=== PATIENT | female | born 1940 | race Caucasian/White ===

== ENCOUNTER 2023-06-10 14:18 | Inpatient (IN) | payer MEDICARE, OTHER, SELFPAY ==
[2023-06-10] VITALS (9 sets, daily range): BP systolic 95–135; BP diastolic 54–102; BMI 37.5; BMI 36.2
--- NOTE | 2023-06-10 11:38 | ED.GENMED ---
History of Present Illness
General
Chief Complaint: Swelling
Time Seen by Provider: 06/10/23 11:08
Travel History
Have you had any contact with someone who has COVID-19?: No
Do you have any symptoms of coronavirus? Fever > 100 degrees, chills, cough, shortness of breath, sore throat, loss of taste or smell, muscle aches, or headache?: No
History of Present Illness
History of Present Illness:
83-year-old female with history of A-fib, CHF, coronary artery disease, hypertension, hyperlipidemia, GERD, aortic stenosis status post TAVR presents to the emergency department for evaluation of fluid retention. Had her Lasix increased to 80 mg
twice daily approximately 1 week ago however continues with lower extremity fluid retention. Saw her sales and training specialist this morning and was referred to the emergency department for admission and IV diuresis. She does report dyspnea on exertion but
denies dyspnea at rest or chest pain. No fevers or chills.
Last echo 10/31 showed EF of 50-55%
Past History
Past History
ED Past Medical History: Arrthythmia, CHF, COPD, GERD, Hypercholesterolemia, Valvular disease and Hypothyroidism
ED Past Surgical History: Cardiac and Orthopedic (Bunionectomy, bilateral knee replacement, right rotator cuff, back surgeries 2012, 2013)
Social History
Tobacco: Former smoker
Alcohol: None
Drug: None
Personal:
Living: alone
Employment: Employed
Family History
Family History: Other (Noncontributory)
Review of Systems
Review of Systems
Allergies reviewed?: Yes
All Other Systems: ROS reviewed and negative except as documented in HPI and ROS
Phy Exam
Physical Exam
Physical Exam:
GEN: Well appearing, NAD, WDWN
Eyes: PERRLA, EOMs intact, no scleral icterus
HENT: NCAT, oral mucosa moist
Lungs: CTAB, no wheezes, rales, rhonchi, normal chest wall excursion
Cardiac: RRR, S3 gallop heard, no obvious murmur radial pulses 2+ bilat
Neuro: AO x 3, no focal deficits to BUE/BLE, normal sensation throughout
MSK: No gross deformity or ecchymosis. 3+ pitting edema bilateral lower extremities noted above the knees
Skin: No rashes, petechiae. Normal color, no pallor or jaundice.
Psych: Calm, cooperative, proper hygiene
Scores
Heart Failure Risk
Heart Failure Risk Score: Not Applicable
Course
Orders/Labs/Results
Orders:
Orders
06/10/23 09:55
Electrocardiogram (*1) Urgent
Reason for Study: Other
Other Reason for Exam: Respiratory Distress
EKG- Treatment ONCE
06/10/23 Lunch
Cholesterol Lowering
06/10/23 11:34
Complete Blood Count/With Diff Urgent
Comprehensive Metabolic Panel Urgent
NT-proBNP Urgent
TSH Reflex To Free T4 Urgent
Comment: ADD
Troponin I Urgent
06/10/23 12:45
Furosemide [Lasix] 100 mg IV NOW STA
Potassium Chloride [KCl] 20 meq PO NOW STA
06/10/23 14:00
Admit/Transfer Patient As Directed
Co-Sign Provider:
Level of Care: Inpatient admission
Assign to:: Telemetry
Physician / Group: FARRAH/HOSPITALIST
Diagnosis: AECHF
Reason for Telemetry: Acute Heart Failure
Date to Stop Telemetry: 06/13/23
Time to Stop Telemetry: 11:00
Reason for Hospitalization: Acute Heart Failure
Expected length of stay greater than two midnights?: Yes
ELOS- Estimated Length of Stay in days: 4
I certify the patient meets the requirements for IP care: Yes
06/10/23 14:01
Code Status As Directed
Resuscitation Status: Full Code
06/10/23 14:05
Echo 2D MMode Color/Doppler Routine
Reason for Study: aechf
Cardiology Consult: Mirna Galindo
06/10/23 16:53
Budesonide [Pulmicort] 0.5 mg INH R BIDPRN PRN
Furosemide [Lasix] 80 mg IV BID AT 0800,1600
Ipratropium/Albuterol Sulfate [Duoneb] 3 ml INH R Q4HPRN PRN
06/10/23 16:53
CARDIOLOGY CONSULT Routine
Consulting Provider: Mirna Galindo
Was physician already notified: Yes
HF DIETARY CONSULT Routine
HF EDUCATOR CONSULT Routine
Comment:
Activity As Directed
Activity Level: Out of Bed-Early Mobility
Intake/ Output As Directed
Frequency: Per unit guidelines
Patient Education As Directed
Type: CHF folder
Comment: give on admission. Document in Interdisciplinary Education record
Sleep Apnea Assessment by RN As Directed
Comment:
Physician Instructions:
Vital Signs As Directed
Frequency: Other
Additional Instructions:: Q12 or per unit guidelines if more frequent.
Weight As Directed
Frequency: Daily
Type of Scale: Standing Scale
Comment: Daily morning weight. If unable to stand, use balanced bed scale.
Weight As Directed
Frequency: Once
Type of Scale: Standing Scale
Comment: Upon Admission. If unable to stand, use balanced bed scale.
Pulse Ox/cont/shift [RESP] Routine
Quantity: 1
Special Instructions: Daily pulse oximetry at rest. If greater than 92% at rest also obtain pulse oximetry
while ambulating as tolerated.
DX Deep Vein Thrombosis Video Routine
06/10/23 18:00
Enoxaparin Sodium [Lovenox] 40 mg SC QPM
06/10/23 20:00
Carbidopa/Levodopa Cr [Sinemet Cr 50/200 (Extended Release)] 1 tablet PO BID
06/10/23 22:00
Atorvastatin [Lipitor] 10 mg PO HS
Montelukast Sodium [Singulair] 10 mg PO HS
06/11/23 06:00
Basic Metabolic Panel IN AM
Magnesium IN AM
06/11/23 07:00
Levothyroxine [Synthroid] 50 mcg PO DAILY@0700
06/11/23 08:00
Aspirin Low Dose EC [Aspir Low (Enteric Coated)] 81 mg PO DAILY
Atenolol [Tenormin] 25 mg PO DAILY
Citalopram [Celexa] 20 mg PO DAILY
Famotidine [Pepcid] 40 mg PO DAILY
Pantoprazole [Protonix] 40 mg PO DAILY
tadalafil 2.5 mg PO DAILY
06/12/23 06:00
Basic Metabolic Panel IN AM
06/13/23 06:00
Basic Metabolic Panel IN AM
06/13/23 11:00
DC Protocol for Telemetry ONCE
Abnormal Lab Results
06/10/23
11:34
RBC 3.85 L 10^6/uL
(4.20-5.40)
Hgb 11.5 L g/dL
(12.0-16.0)
Hct 35.4 L %
(37.0-47.0)
MCHC 32.5 L g/dL
(33.0-37.0)
RDW 14.6 H %
(11.5-14.5)
MPV 10.6 H fL
(7.4-10.4)
Carbon Dioxide 34 H mmol/L
(22-30)
BUN 32 H mg/dl
(7-17)
06/10/23 11:34
06/10/23 11:34
Vital Signs
Initial and Last Documented VS:
Initial Vital Signs
Temp Pulse Resp BP Pulse Ox
97.7 F 70 16 135/67 95
06/10/23 09:51 06/10/23 09:51 06/10/23 09:51 06/10/23 09:51 06/10/23 09:51
Last Documented Vital Signs
Temp Pulse Resp BP Pulse Ox
97.7 F 69 13 95/60 98
06/10/23 09:51 06/10/23 15:30 06/10/23 15:30 06/10/23 15:00 06/10/23 15:30
MDM/Problems Addressed
MDM/Problems Addressed:
Patient is severely volume overloaded and failing high-dose outpatient diuresis. Per cardiology recommendations will admit for IV diuresis. She has no increased respiratory effort and chest x-ray is nonconcerning for acute CHF by my interpretation
Comment
Comment:
EKG independently interpreted by me shows normal sinus rhythm at a rate of 70, first-degree AV block and left bundle branch block noted, significant difficulty with interpretation due to patient motion artifact
*Critical Care Note
Total Time (30-74mins, 75-104mins- exclusive of procedures): Not Applicable
ED Attending Note
-
Portions of this chart may have been created with voice recognition software.� Occasional wrong word or��sound alike� substitutions may have occurred due to the inherent limitations of voice recognition software.
Discharge Plan
Departure
Patient Disposition: Admit
Date of Disposition: 06/10/23
Time of Disposition: 12:46
Presentation/result/management discussed w/ accepting MD/DO: Hospitalist
Discharge Problem:
Fluid retention, Failure of outpatient treatment
Interventions
Interventions:
*Risk Screen - Suicide Last Done: 06/10/23 09:51
*General Assessment Last Done: 06/10/23 09:51
*Neglect/Abuse Screening Last Done: 06/10/23 09:51
*ED COVID-19 Vaccine History Last Done: 06/10/23 11:08
*Nursing Disposition Last Done: 06/10/23 16:43
ED- Cardiac Assessment Last Done: 06/10/23 11:26
ED- Pulmonary Assessment Last Done: 06/10/23 11:26
ED-Skin Assessment Last Done: 06/10/23 11:26
Discharge Date and Time
Discharge Date/Time: 06/10/23 16:43
[2023-06-10 11:53] LABS: % Basophils 0.7 % (0-2); % Eosinophils 3.7 % (0-6); % Immature Granulocytes 0.2 % (0-0.5); % Lymphocytes 22.3 % (20.5-51.1); % Monocytes 8.5 % (1.7-9.3); % Neutrophils 64.6 % (42.2-75.2); Absolute Eosinophils 0.2 10^3/uL (0-0.7); Absolute Lymphocytes 1.3 10^3/uL (1.2-3.4); Absolute Monocytes 0.5 10^3/uL (0.1-0.6); Absolute Neutrophils 3.7 10^3/uL (1.4-6.5); Hematocrit 35.4 % (37.0-47.0); Hemoglobin 11.5 g/dL (12.0-16.0); Mean Corp Hgb Conc. 32.5 g/dL (33.0-37.0); Mean Corpuscular Hgb 29.9 pg (27.0-31.0); Mean Corpuscular Volume 91.9 fL (81.0-99.0); Mean Platelet Volume 10.6 fL (7.4-10.4); Nucleated Red Blood Cells % 0 %; Platelet Count 177 10^3/uL (130-400); Red Blood Cell Count 3.85 10^6/uL (4.20-5.40); Red Cell Dist. Width 14.6 % (11.5-14.5); White Blood Cell Count 5.8 10^3/uL (4.8-10.8)
[2023-06-10 12:04] LABS: ALT (SGPT) < 10 U/L (0-35); AST (SGOT) 35 U/L (14-36); Albumin 3.8 g/dl (3.5-5.0); Alkaline Phosphatase 108 U/L (38-126); Blood Urea Nitrogen 32 mg/dl (7-17); Carbon Dioxide 34 mmol/L (22-30); Chloride 101 mmol/L (98-107); Estimated Creatinine Clearance 52 ml/min; Glucose 85 mg/dl (70-99); Potassium 3.6 mmol/L (3.5-5.1); Sodium 138 mmol/L (135-145); Total Protein 6.7 g/dl (6.3-8.2); eGFR > 60.00
[2023-06-10 12:18] LABS: NT-proBNP 274 pg/ml; Troponin I < 0.012 ng/ml
--- NOTE | 2023-06-10 13:29 | W.PN.CARDCBS ---
Today's Communication / Plan
-
IV diuresis and assess response
Replete K+
Check Echo
Impression / Plan
-
Please refer to office visit from 06/10/2023 for full H & P/consultation
PCP: Chetna [place]
Professor Of Forestry: Dr. Dawn
Impression:
Presents 06/10/2023 with shortness of breath with minimal exertion
Weight gain
Concern for acute on chronic heart failure
Aortic stenosis s/p TAVR 26 mm Bocanegra Ricki 3 ultra valve 04/24/20
LBBB post TAVR
COPD w/ recent admission 04/2023 for exacerbation
HTN
Parkinson's disease
chronic heart failure with preserved EF
H/o Pneumonia 05/2021
Spinal stenosis w/ radiculopathy
Hypothyroidism
Paroxysmal atrial fibrillation
GERD /w hx of erosive Esophagitis
Raynaud's
Pancreatic cyst
ALung nodules
Laminectomy/fusion x2, 1st surgery: L4-5, 2nd surgery: L1-2-3
Spinal Cord stimulator, implanted 2015, & removed 2017�����
R Rotator Cuff repair�����
bilateral Knee Replacements�����
Abdominoplasty & Thigh plasty (1996)
right total shoulder replacement 01/12/22
Echo 06/10/2023: pending
Echocardiogram October 2022: EF 55%, mild to moderate mitral stenosis with mean gradient of 7, mild MR, status post TAVR with mean gradient 9, no AI, pulmonary pressure 53
Cardiac cath 02/2020: LM:OK, LAD:40% mid. LCX: LI> RCA:prox 40%
Plan:
Patient is an 83-year old female with past medical history significant for aortic stenosis status post TAVR, left bundle branch block, COPD, hypertension, chronic heart failure with preserved ejection fraction, Parkinson's disease who presents to
emergency department 06/10/2023 after being seen in the cardiology office with complaints of weight gain, lower extremity edema and shortness of breath. Patient was recently in hospital in April 2023 for COPD exacerbation. She had mild heart
failure and was diuresed with discharge weight of 185 pounds. She was sent to rehab. She was seen in outpatient cardiology office 06/02/2023 with evidence of volume overload with proBNP at that time was 698 and her Lasix was uptitrated. She was
seen again for evaluation today and weight remained elevated above baseline with ongoing symptoms. She was referred to the emergency department for evaluation. proBNP 274. EKG demonstrated sinus rhythm with left bundle branch. Troponin negative.
CXR pending. She was provided 100 mg IV Lasix in ED
-Presents 06/10/2023 with shortness of breath with minimal exertion, bilateral LE edema, weight gain.
Acute on chronic heart failure with preserved ejection fraction
-Patient appears acutely volume overloaded, despite proBNP of 274 (may be low due to obesity) and weight is up 20 lbs higher than d/c weight of 185 lbs 04/26/2023
-Given IV Lasix 100 mg in ED. Monitor and assess; likely will need Lasix IV 80 mg BID
-Monitor renal function and electrolytes, replete K+ 3.6
-HF education
-Check echocardiogram
History of Atrial fibrillation
-remains in sinus rhythm
-Not on OAC due to history of falls and Parkinson disease
-Continue ASA
Hypertension
-Continue Atenolol. T/c switching Norvasc to ARB as CCB may be contributing to edema
Parkinson - continue carbidopa-levodopa
Progress Note - Professor Of Forestry
Subjective
Date of Service: June 10, 2023
Patient seen and examined. Sitting up in bed. Notes BACA and LE edema.
Objective
Labs:
06/10/23 11:34
06/10/23 11:34
Labs
Hgb 11.5 g/dL (12.0-16.0) L 06/10/23 11:34
Hct 35.4 % (37.0-47.0) L 06/10/23 11:34
Plt Count 177 10^3/uL (130-400) 06/10/23 11:34
Sodium 138 mmol/L (135-145) 06/10/23 11:34
Potassium 3.6 mmol/L (3.5-5.1) 06/10/23 11:34
BUN 32 mg/dl (7-17) H 06/10/23 11:34
Creatinine 0.9 mg/dL (0.6-1.0) 06/10/23 11:34
Glucose 85 mg/dl (70-99) 06/10/23 11:34
Troponins
06/10/23
11:34
Troponin I < 0.012
Vital Signs and I&O:
Vital Signs
Temp Pulse Resp BP Pulse Ox
97.7 F 70 16 135/67 95
06/10/23 09:51 06/10/23 09:51 06/10/23 09:51 06/10/23 09:51 06/10/23 09:51
Vital Signs
Temp Pulse Resp BP Pulse Ox
97.7 F 70 16 135/67 95
06/10/23 09:51 06/10/23 09:51 06/10/23 09:51 06/10/23 09:51 06/10/23 09:51
Physical Exam
Physical Exam
GEN: No distress, awake, Ox3
HEENT: supple, anicteric, mmm
LUNGS: Mild crackles at bases otherwise CTA, no wheezes/rales
CV: Reg, S1/S2, 1/6 syst LSB, no murmur
ABD: soft, BS+, NT/ND
EXT: +2 LE edema with mild erythema
NEURO: Gross non-focal
SKIN: warm, dry, pink
[2023-06-10] MEDS: LASIX 100 MG IV (13:38)
[2023-06-10] MEDS: KCL 20 MEQ PO (13:38)
--- NOTE | 2023-06-10 14:05 | HPS.HSE ---
Family Physician
-
Family Physician: Chetna [place]
Chief Complaint
-
Leg swelling
History of Present Illness
83-year-old female with past medical history of congestive heart failure is presenting from cardiology office with lower extremity swelling. Patient stated for the past 1 week she has been having worsening lower extremity edema. States PND.
States of dyspnea on exertion. Denies chest pain. States of decreased urinary output with Lasix at home. Went to see cardiology [facility] and was recommended come to the hospital for intravenous diuretics. Patient states she is compliant with
diuretics at home. States she is compliant with salt restriction and fluid restrictions at home. He has any lightheadedness dizziness neck pain vision problems. States she is hungry and wants to eat.
Medical History
Past Medical History
Past Medical History: Reports Other
Additional Past Medical History:
COPD
HFpEF
hx of s/p TAVR
Paroxysmal afib
Parkinson disease
Hypothyroidism
GERD
Chronic anemia
Hx of urinary retention
Pulmonary nodules
Spinals stenosis
Raynaud's disease
Osteopenia
Anxiety
Morbid obesity
Remote history of infrequent tobacco abuse
Past Surgical History: Reports Other
Additional Past Surgical History:
TAVR
Shoulder surgery by Dr. Jennings
Social History
Tobacco: Former Smoker
Alcohol: None
Drug: None
Family History
Family History: Not pertinent
Allergies / Home Medications
Allergies reflects when Allergies were last updated in [facility].
Home Medications with original date entered in [facility]
Allergy/Medication List:
Allergies
Allergy/AdvReac Type Severity Reaction Status Date / Time
ALIREZA Inhibitors Allergy cough Verified 06/10/23 09:50
nifedipine [From Procardia] Allergy Unknown Verified 06/10/23 09:50
Sulfa (Sulfonamide Allergy CHILDHOOD Verified 06/10/23 09:50
Antibiotics)
sulfisoxazole Allergy CHILDHOOD Verified 06/10/23 09:50
Home Medications
famotidine 40 mg tablet 40 mg PO DAILY stomach acid 09/24/16
levothyroxine 50 mcg tablet 50 mcg PO DAILY@0700 Thyroid 09/24/16
pantoprazole 40 mg tablet,delayed release 40 mg PO DAILY stomach acid 09/24/16
citalopram 20 mg tablet 20 mg PO DAILY depression 02/21/20
atenolol 25 mg tablet 25 mg PO DAILY Blood pressure 06/04/21
atorvastatin 10 mg tablet 10 mg PO HS High cholesterol 06/04/21
amlodipine 2.5 mg tablet (Norvasc) 2.5 mg PO DAILY Blood pressure #1 tab 01/13/22
carbidopa ER 50 mg-levodopa 200 mg tablet,extended release 1 tab PO BID PARKINSON 03/17/23
gabapentin 300 mg capsule 300 mg PO Q8HPRN PRN nerve pain 03/17/23
meloxicam 15 mg tablet 15 mg PO DAILY Pain 03/17/23
montelukast 10 mg tablet 10 mg PO HS ASTHMA 03/17/23
ipratropium 0.5 mg-albuterol 3 mg (2.5 mg base)/3 mL nebulization soln 3 ml inhalation R Q4HPRN PRN sob/wheezing #90 mL 04/26/23
aspirin 81 mg tablet,delayed release 81 mg PO DAILY Blood Clot Prevention/Tx 06/10/23
budesonide 0.5 mg/2 mL suspension for nebulization 0.5 mg inhalation R BIDPRN PRN shortness of breath 06/10/23
furosemide 80 mg tablet 80 mg PO BID@0800,1600 Fluid Retention/Swelling 06/10/23
tadalafil 2.5 mg tablet 2.5 mg PO DAILY pulmonary hypertension 06/10/23
Review of Systems
-
History Source: Patient
A 12 point ROS was completed and negative except as noted: Yes
Physical Exam
Vital Signs
Vital Signs
Temp Pulse Resp BP Pulse Ox
97.7 F 70 16 118/102 95
06/10/23 09:51 06/10/23 13:38 06/10/23 09:51 06/10/23 13:38 06/10/23 09:51
Physical Exam
General: Well Developed, Well Nourished, No Apparent Distress and Morbidly Obese
HEENT: NormoCephalic, Moist mucous membranes and Atraumatic
Respiratory: Decreased Breath Sounds
Cardiac: S1/S2 and Regular Rhythm; No Murmur or Rub
GI: Soft, Non Tender, Non Distended and Normal Bowel Sounds; No Organomegaly
Rectal: Deferred by Provider
Musculoskeletal: No Clubbing, No Cyanosis, Edema, Left Lower Extremity and Edema, Right Lower Extremity
Skin: No Rash
Neuro: Awake and Nonfocal/grossly intact
Psych: Calm
Laboratory Results
-
06/10/23 11:34
06/10/23 11:34
Laboratory Results
Total Bilirubin 1.0 mg/dl (0.2-1.3) 06/10/23 11:34
AST 35 U/L (14-36) 06/10/23 11:34
ALT < 10 U/L (0-35) 06/10/23 11:34
Alkaline Phosphatase 108 U/L (38-126) 06/10/23 11:34
Troponin I < 0.012 ng/ml 06/10/23 11:34
Impression/Plan
-
#Acute on chronic diastolic heart failure exacerbation
Takes 80 mg p.o. twice daily at home
Start patient 80 mg IV twice daily
May Require Zaroxolyn
Update echocardiogram
Follow I's and O's
Daily weights
Monitor creatinine with aggressive diuresis
Check Venous doppler
Stable on room air.
Cardiology consultation
#Pulmonary hypertension
Continue with home regimen tadalfil
#Primary hypertension
Hold Norvasc to allow for high blood pressure for diuresis
Continue atenolol
Hyperlipidemia
Continue statin
CAD
History of aortic stenosis status post TAVR
Continue aspirin, statin
No chest pain
COPD not in acute exacerbation
No wheezing.
Continue with home bronchodilator regimen
Not in acute exacerbation
GERD
Continue Pepcid and PPI
Hypothyroidism
Continue Synthroid
Parkinson disease
Continue home meds
DVT ppx-lovenox
Full code
I spent a total of 78 minutes with the patient or on the floor. More than 50% of this time involved counseling and coordination of care.
[2023-06-10 16:35] LABS: TSH Reflex To Free T4 1.57 uIU/ml (0.47-4.68)
--- NOTE | 2023-06-10 17:08 | PTCARENOTE ---
pt admitted from ED to room 411-01. pt ambulated from stretcher to bed, assist x1. AAOx3. denies pain. 93% on room air. lung sounds diminished in bases. active bowel sounds. voiding clear yellow urine purewick in place. see worklist for full nursing
assessment and interventions. pt updated on plan of care.
[2023-06-10] MEDS: LASIX 80 MG IV (17:22)
[2023-06-10] MEDS: LOVENOX 40 MG SC (17:22)
[2023-06-10] MEDS: SINEMET CR 50/200 (EXTENDED RELEASE) 1 TABLET PO (20:10)
[2023-06-10] MEDS: LIPITOR 10 MG PO (21:44)
[2023-06-10] MEDS: SINGULAIR 10 MG PO (21:44)
[2023-06-11] VITALS (7 sets, daily range): BP systolic 90–143; BP diastolic 51–65; PULSE 66; BMI 36.3
[2023-06-11] MEDS: SYNTHROID 50 MCG PO (05:41)
[2023-06-11] MEDS: PEPCID 40 MG PO (08:13)
[2023-06-11] MEDS: TENORMIN 25 MG PO (08:13)
[2023-06-11] MEDS: LASIX 80 MG IV ×2 (08:13→15:01)
[2023-06-11] MEDS: CELEXA 20 MG PO (08:14)
[2023-06-11] MEDS: ASPIR LOW (ENTERIC COATED) 81 MG PO (08:14)
[2023-06-11] MEDS: PROTONIX 40 MG PO (08:14)
[2023-06-11] MEDS: SINEMET CR 50/200 (EXTENDED RELEASE) 1 TABLET PO ×2 (08:15→19:44)
[2023-06-11 09:22] LABS: Blood Urea Nitrogen 30 mg/dl (7-17); Calcium 8.8 mg/dl (8.4-10.2); Carbon Dioxide 31 mmol/L (22-30); Chloride 102 mmol/L (98-107); Estimated Creatinine Clearance 51 ml/min; Glucose 83 mg/dl (70-99); Magnesium 2.4 mg/dl (1.6-2.3); Potassium 3.6 mmol/L (3.5-5.1); Sodium 139 mmol/L (135-145); eGFR > 60.00
--- NOTE | 2023-06-11 11:20 | W.PN.HOSP.TC ---
Today's Communication/Plan
-
IV lasix
may need zaroxlyn
start kcl
pt/ot
Assessment / Plan
Assessment / Plan
#Acute on chronic diastolic heart failure exacerbation
Takes 80 mg p.o. twice daily at home
Start patient 80 mg IV twice daily
Start standing KCL. K at 3.6.
May Require Zaroxolyn
ECHO left ventricular EF 55 to 60%. Paradoxical septal motion consistent with left bundle branch block. Stage II diastolic dysfunction. Mild to moderate mitral stenosis. PASP of 40�45.
Follow I's and O's
Daily weights
Monitor creatinine with aggressive diuresis
Venous doppler negative
Compression therapy LE
Stable on room air.
Cardiology consultation
#Pulmonary hypertension
Monitor.
#Primary hypertension
Hold Norvasc to allow for high blood pressure for diuresis
Continue atenolol
Hyperlipidemia
Continue statin
CAD
History of aortic stenosis status post TAVR
Continue aspirin, statin
No chest pain
COPD not in acute exacerbation
No wheezing.
Continue with home bronchodilator regimen
Not in acute exacerbation
GERD
Continue Pepcid and PPI
Hypothyroidism
Continue Synthroid
Parkinson disease
Continue home meds
DVT ppx-lovenox
Full code
Anticipated Discharge: > 48 hours
Subjective/Interval History
-
Date of Service: June 11, 2023
states not much improvement in edema
Objective Data
-
Labs:
Laboratory Results
06/11/23
07:24
Sodium 139
Potassium 3.6
Chloride 102
Carbon Dioxide 31 H
BUN 30 H
Creatinine 0.9
Glucose 83
Calcium 8.8
Vital Signs:
Vital Signs
Temp Pulse Resp BP Pulse Ox
97.7 F 73 18 143/65 91
06/11/23 07:58 06/11/23 07:58 06/11/23 07:58 06/11/23 07:58 06/11/23 07:58
I&O
06/10/23 06/11/23 06/12/23
06:59 06:59 06:59
Intake Total 480 / 480
Output Total 600 / 600
Balance 480 / 480 -600 / -600
Physical Exam
-
General: Well Developed and No Apparent Distress
HEENT: Normocephalic, Atraumatic and Moist Mucous Membranes
Respiratory: Clear to Auscultation
Cardiac: Regular Rhythm and S1/S2; Negative Murmur, Rub or Gallop
GI: Soft, Nontender, Nondistended and Normal Bowel Sounds; Negative Organomegaly
Rectal: Deferred by Provider
Musculoskeletal: No Clubbing, No Cyanosis, Edema, Right Lower Extrem and Edema, Left Lower Extrem
Skin: Negative Rash
Neuro: Awake, No Motor Deficits and Nonfocal/Grossly Intact
Psych: Calm
[2023-06-11] MEDS: KCL 20 MEQ PO (15:01)
--- NOTE | 2023-06-11 16:20 | CM ---
computer security manager reviewed patient's chart and met with patient and son and daughter in law at bedside, patient lives alone in a one story home, with 2 steps to enter, patient is independent with adl's and uses a cane or walker with ambulation, patient
also has a shower chair, patient has private healthcare specialist services [facility] from 9am - 12, and patient is current with [facility] visiting nurses. Patient has a prescription plan and uses [facility] pharmacy.
PCP: Chetna [place]
Plan; Home with [facility] Visiting nurses.
Spence[place]a
[phone]
[2023-06-11] MEDS: LOVENOX 40 MG SC (17:01)
--- NOTE | 2023-06-11 17:06 | W.PN.CARDCBS ---
Today's Communication / Plan
-
Diurese
Impression / Plan
-
PCP: Chetna [place]
Angio Technologist: Dr. Dawn
Impression:
Presents 06/10/2023 with shortness of breath with minimal exertion
Weight gain
Concern for acute on chronic heart failure
Aortic stenosis s/p TAVR 26 mm Bocanegra Ricki 3 ultra valve 04/24/20
LBBB post TAVR
COPD w/ recent admission 04/2023 for exacerbation
HTN
Parkinson's disease
chronic heart failure with preserved EF
H/o Pneumonia 05/2021
Spinal stenosis w/ radiculopathy
Hypothyroidism
Paroxysmal atrial fibrillation
GERD /w hx of erosive Esophagitis
Raynaud's
Pancreatic cyst
ALung nodules
Laminectomy/fusion x2, 1st surgery: L4-5, 2nd surgery: L1-2-3
Spinal Cord stimulator, implanted 2015, & removed 2017�����
R Rotator Cuff repair�����
bilateral Knee Replacements�����
Abdominoplasty & Thigh plasty (1996)
right total shoulder replacement 01/12/22
Echo 06/10/2023: pending
Echocardiogram October 2022: EF 55%, mild to moderate mitral stenosis with mean gradient of 7, mild MR, status post TAVR with mean gradient 9, no AI, pulmonary pressure 53
Cardiac cath 02/2020: LM:OK, LAD:40% mid. LCX: LI> RCA:prox 40%
Plan:
-Presents 06/10/2023 with acute on chronic heart failure with preserved ejection fraction
Acute on chronic heart failure with preserved ejection fraction
-Patient appears acutely volume overloaded, despite proBNP of 274 (may be low due to obesity) and weight is up 20 lbs higher than d/c weight of 185 lbs 04/26/2023
-I suspect there is a component of lymphedema
-Continue IV Lasix 80 mg twice daily
-Monitor renal function and electrolytes, replete for K greater than 4, mag greater than 2
-HF education
-2D echocardiogram reviewed with patient and family: Normal LV size and systolic function with a EF estimated 55-60% and stage II diastolic dysfunction. Well-seated TAVR with peak/mean gradients 18/9 mmHg. Dense calcific mitral valve with mild to
moderate mitral stenosis, mean gradient 6 mmHg with mild MR. Pulmonary hypertension with estimated pulmonary artery pressures 40-45 mmHg.
History of Atrial fibrillation
-remains in sinus rhythm
-Not on OAC due to history of falls and Parkinson disease
-Continue ASA
Hypertension
-Continue Atenolol.
-Stop amlodipine
Parkinson - continue carbidopa-levodopa
Progress Note - Angio Technologist
Subjective
Date of Service: June 11, 2023
Seen and examined with family at bedside. Chart/studies reviewed. No new complaints
Objective
Labs:
06/10/23 11:34
06/11/23 07:24
Labs
Hgb 11.5 g/dL (12.0-16.0) L 06/10/23 11:34
Hct 35.4 % (37.0-47.0) L 06/10/23 11:34
Plt Count 177 10^3/uL (130-400) 06/10/23 11:34
Sodium 139 mmol/L (135-145) 06/11/23 07:24
Potassium 3.6 mmol/L (3.5-5.1) 06/11/23 07:24
BUN 30 mg/dl (7-17) H 06/11/23 07:24
Creatinine 0.9 mg/dL (0.6-1.0) 06/11/23 07:24
Glucose 83 mg/dl (70-99) 06/11/23 07:24
Troponins
06/10/23
11:34
Troponin I < 0.012
Vital Signs and I&O:
Vital Signs
Temp Pulse Resp BP Pulse Ox
97.9 F 62 18 120/59 95
06/11/23 15:33 06/11/23 15:33 06/11/23 15:06/11/23 15:33 06/11/23 11:42
Vital Signs
Temp Pulse Resp BP Pulse Ox
97.9 F 62 18 120/59 95
06/11/23 15:33 06/11/23 15:33 06/11/23 15:33 06/11/23 15:33 06/11/23 11:42
Intake & Output
06/09/23 06/10/23 06/11/23 06/12/23
06:59 06:59 06:59 06:59
Intake Total 480 / 480
Output Total 600 / 600
Balance 480 / 480 -600 / -600
Physical Exam
Physical Exam
GEN: No distress, awake, Ox3
HEENT: mmm
LUNGS: Mild crackles at bases otherwise CTA, no wheezes/rales
CV: Reg, S1/S2, 2/6 syst LSB,
ABD: soft, BS+, NT/ND
EXT: +2 LE edema
[2023-06-11] MEDS: LIPITOR 10 MG PO (21:00)
[2023-06-11] MEDS: SINGULAIR 10 MG PO (21:00)
[2023-06-12] VITALS (7 sets, daily range): BP systolic 80–128; BP diastolic 49–69; BMI 36.1
[2023-06-12] MEDS: SYNTHROID 50 MCG PO (05:55)
[2023-06-12] MEDS: PEPCID 40 MG PO (07:57)
[2023-06-12] MEDS: ASPIR LOW (ENTERIC COATED) 81 MG PO (07:57)
[2023-06-12] MEDS: SINEMET CR 50/200 (EXTENDED RELEASE) 1 TABLET PO ×2 (07:57→20:01)
[2023-06-12] MEDS: KCL 20 MEQ PO ×2 (07:57→15:04)
[2023-06-12] MEDS: PROTONIX 40 MG PO (07:57)
[2023-06-12] MEDS: LASIX 80 MG IV ×2 (07:58→15:04)
[2023-06-12] MEDS: CELEXA 20 MG PO (07:58)
[2023-06-12] MEDS: TENORMIN 25 MG PO (07:58)
[2023-06-12 08:27] LABS: Blood Urea Nitrogen 33 mg/dl (7-17); Calcium 9.5 mg/dl (8.4-10.2); Carbon Dioxide 33 mmol/L (22-30); Chloride 99 mmol/L (98-107); Estimated Creatinine Clearance 51 ml/min; Glucose 88 mg/dl (70-99); Magnesium 2.6 mg/dl (1.6-2.3); Potassium 3.7 mmol/L (3.5-5.1); Sodium 139 mmol/L (135-145); eGFR > 60.00
--- NOTE | 2023-06-12 12:08 | W.PN.HOSP.TC ---
Today's Communication/Plan
-
cards recs
oob
compression therapy
trend cr
Assessment / Plan
Assessment / Plan
#Acute on chronic diastolic heart failure exacerbation
Takes 80 mg p.o. twice daily at home
Start patient 80 mg IV twice daily
Start standing KCL. K at 3.7.
May Require Zaroxolyn
ECHO left ventricular EF 55 to 60%. Paradoxical septal motion consistent with left bundle branch block. Stage II diastolic dysfunction. Mild to moderate mitral stenosis. PASP of 40�45.
Follow I's and O's
not much improvement in weight.
Monitor creatinine with aggressive diuresis
Venous doppler negative
Compression therapy LE
Stable on room air.
Cardiology on board.
#Pulmonary hypertension
Monitor.
#Primary hypertension
Hold Norvasc to allow for high blood pressure for diuresis
Continue atenolol
Hyperlipidemia
Continue statin
CAD
History of aortic stenosis status post TAVR
Continue aspirin, statin
No chest pain
COPD not in acute exacerbation
No wheezing.
Continue with home bronchodilator regimen
Not in acute exacerbation
GERD
Continue Pepcid and PPI
Hypothyroidism
Continue Synthroid
Parkinson disease
Continue home meds
DVT ppx-lovenox
Full code
Anticipated Discharge: > 48 hours
Subjective/Interval History
-
Date of Service: June 12, 2023
states of passing increasing amount of urine
Objective Data
-
Labs:
Laboratory Results
06/12/23
06:52
Sodium 139
Potassium 3.7
Chloride 99
Carbon Dioxide 33 H
BUN 33 H
Creatinine 0.9
Glucose 88
Calcium 9.5
Vital Signs:
Vital Signs
Temp Pulse Resp BP Pulse Ox
97.7 F 59 18 109/54 98
06/12/23 11:09 06/12/23 11:09 06/12/23 11:09 06/12/23 11:09 06/12/23 11:09
I&O
06/11/23 06/12/23 06/13/23
06:59 06:59 06:59
Intake Total 480 / 480 840 / 840
Output Total 1100 / 1100
Balance 480 / 480 -260 / -260
Physical Exam
-
General: Well Developed and No Apparent Distress
HEENT: Normocephalic, Atraumatic and Moist Mucous Membranes
Respiratory: Clear to Auscultation
Cardiac: Regular Rhythm and S1/S2; Negative Murmur, Rub or Gallop
GI: Soft, Nontender, Nondistended and Normal Bowel Sounds; Negative Organomegaly
Rectal: Deferred by Provider
Musculoskeletal: No Clubbing, No Cyanosis, Edema, Right Lower Extrem (mild improvement) and Edema, Left Lower Extrem (mild improvement)
Skin: Negative Rash
Neuro: Awake, No Motor Deficits and Nonfocal/Grossly Intact
Psych: Calm
[2023-06-12] MEDS: LOVENOX 40 MG SC (17:28)
--- NOTE | 2023-06-12 18:51 | W.PN.CARDCBS ---
Today's Communication / Plan
-
Continue diuresis
Impression / Plan
-
PCP: Chetna [place]
Fuel Cell Designer: Dr. Dawn
Impression:
Presents 06/10/2023 with shortness of breath with minimal exertion
Weight gain
Concern for acute on chronic heart failure
Aortic stenosis s/p TAVR 26 mm Bocanegra Ricki 3 ultra valve 04/24/20
LBBB post TAVR
COPD w/ recent admission 04/2023 for exacerbation
HTN
Parkinson's disease
chronic heart failure with preserved EF
H/o Pneumonia 05/2021
Spinal stenosis w/ radiculopathy
Hypothyroidism
Paroxysmal atrial fibrillation
GERD /w hx of erosive Esophagitis
Raynaud's
Pancreatic cyst
ALung nodules
Laminectomy/fusion x2, 1st surgery: L4-5, 2nd surgery: L1-2-3
Spinal Cord stimulator, implanted 2015, & removed 2017�����
R Rotator Cuff repair�����
bilateral Knee Replacements�����
Abdominoplasty & Thigh plasty (1996)
right total shoulder replacement 01/12/22
Echo 06/10/2023: pending
Echocardiogram October 2022: EF 55%, mild to moderate mitral stenosis with mean gradient of 7, mild MR, status post TAVR with mean gradient 9, no AI, pulmonary pressure 53
Cardiac cath 02/2020: LM:OK, LAD:40% mid. LCX: LI> RCA:prox 40%
Plan:
-Presents 06/10/2023 with acute on chronic heart failure with preserved ejection fraction
Acute on chronic heart failure with preserved ejection fraction
-Volume overloaded, despite proBNP of 274 (may be low due to obesity) and weight is up 20 lbs higher than d/c weight of 185 lbs 04/26/2023
-I suspect there is a component of lymphedema
-Continue IV Lasix 80 mg twice daily; may require Zaroxolyn pending response today
-Monitor renal function and electrolytes, replete for K greater than 4, mag greater than 2
-HF education
-2D echocardiogram reviewed with patient and family: Normal LV size and systolic function with a EF estimated 55-60% and stage II diastolic dysfunction. Well-seated TAVR with peak/mean gradients 18/9 mmHg. Dense calcific mitral valve with mild to
moderate mitral stenosis, mean gradient 6 mmHg with mild MR. Pulmonary hypertension with estimated pulmonary artery pressures 40-45 mmHg.
History of Atrial fibrillation
-remains in sinus rhythm
-Not on OAC due to history of falls and Parkinson disease
-Continue ASA
Hypertension
-Continue Atenolol.
-Stop amlodipine
Parkinson - continue carbidopa-levodopa
Progress Note - Fuel Cell Designer
Subjective
Date of Service: June 12, 2023
Seen and examined. Offers no new complaints. Family at bedside
Objective
Labs:
06/10/23 11:34
06/12/23 06:52
Labs
Hgb 11.5 g/dL (12.0-16.0) L 06/10/23 11:34
Hct 35.4 % (37.0-47.0) L 06/10/23 11:34
Plt Count 177 10^3/uL (130-400) 06/10/23 11:34
Sodium 139 mmol/L (135-145) 06/12/23 06:52
Potassium 3.7 mmol/L (3.5-5.1) 06/12/23 06:52
BUN 33 mg/dl (7-17) H 06/12/23 06:52
Creatinine 0.9 mg/dL (0.6-1.0) 06/12/23 06:52
Glucose 88 mg/dl (70-99) 06/12/23 06:52
Troponins
06/10/23
11:34
Troponin I < 0.012
Vital Signs and I&O:
Vital Signs
Temp Pulse Resp BP Pulse Ox
98 F 67 16 127/49 98
06/12/23 15:59 06/12/23 15:59 06/12/23 15:59 06/12/23 16:15 06/12/23 15:59
Vital Signs
Temp Pulse Resp BP Pulse Ox
98 F 67 16 127/49 98
06/12/23 15:59 06/12/23 15:59 06/12/23 15:59 06/12/23 16:15 06/12/23 15:59
Intake & Output
06/10/23 06/11/23 06/12/23 06/13/23
06:59 06:59 06:59 06:59
Intake Total 480 / 480 840 / 840 840 / 840
Output Total 1100 / 1100 100 / 100
Balance 480 / 480 -260 / -260 740 / 740
Physical Exam
Physical Exam
GEN: No distress, awake, Ox3
HEENT: mmm
LUNGS: Mild crackles at bases otherwise CTA, no wheezes/rales
CV: Reg, S1/S2, 2/6 syst LSB,
ABD: soft, BS+, NT/ND
EXT: +2 LE edema
[2023-06-12] MEDS: SINGULAIR 10 MG PO (21:24)
[2023-06-12] MEDS: LIPITOR 10 MG PO (21:24)
[2023-06-13] VITALS (7 sets, daily range): BP systolic 93–139; BP diastolic 53–84; BMI 35.9
[2023-06-13] MEDS: SYNTHROID 50 MCG PO (06:14)
[2023-06-13 08:41] LABS: Blood Urea Nitrogen 30 mg/dl (7-17); Calcium 9.3 mg/dl (8.4-10.2); Carbon Dioxide 32 mmol/L (22-30); Chloride 103 mmol/L (98-107); Estimated Creatinine Clearance 51 ml/min; Glucose 89 mg/dl (70-99); Magnesium 2.5 mg/dl (1.6-2.3); Potassium 3.9 mmol/L (3.5-5.1); Sodium 139 mmol/L (135-145); eGFR > 60.00
[2023-06-13] MEDS: ASPIR LOW (ENTERIC COATED) 81 MG PO (09:03)
[2023-06-13] MEDS: PEPCID 40 MG PO (09:03)
[2023-06-13] MEDS: KCL 20 MEQ PO ×2 (09:03→16:11)
[2023-06-13] MEDS: ZAROXOLYN 2.5 MG PO (09:03)
[2023-06-13] MEDS: TENORMIN 25 MG PO (09:04)
--- NOTE | 2023-06-13 09:04 | W.PN.CARDCBS ---
Today's Communication / Plan
-
Switch to oral furosemide 120 mg twice daily
Amlodipine has been stopped
Hopefully for discharge in a.m.
Impression / Plan
-
PCP: Chetna [place]
Power Wood Sawyer: Dr. Dawn
Impression:
Presents 06/10/2023 with shortness of breath with minimal exertion
Weight gain
Concern for acute on chronic heart failure
Aortic stenosis s/p TAVR 26 mm Bocanegra Ricki 3 ultra valve 04/24/20
LBBB post TAVR
COPD w/ recent admission 04/2023 for exacerbation
HTN
Parkinson's disease
chronic heart failure with preserved EF
H/o Pneumonia 05/2021
Spinal stenosis w/ radiculopathy
Hypothyroidism
Paroxysmal atrial fibrillation
GERD /w hx of erosive Esophagitis
Raynaud's
Pancreatic cyst
ALung nodules
Laminectomy/fusion x2, 1st surgery: L4-5, 2nd surgery: L1-2-3
Spinal Cord stimulator, implanted 2015, & removed 2017�����
R Rotator Cuff repair�����
bilateral Knee Replacements�����
Abdominoplasty & Thigh plasty (1996)
right total shoulder replacement 01/12/22
Echo 06/10/2023: pending
Echocardiogram October 2022: EF 55%, mild to moderate mitral stenosis with mean gradient of 7, mild MR, status post TAVR with mean gradient 9, no AI, pulmonary pressure 53
Cardiac cath 02/2020: LM:OK, LAD:40% mid. LCX: LI> RCA:prox 40%
Plan:
Acute on chronic HFpEF -mostly manifested as edema. Overall she seems moderately improved. No dyspnea at present and lungs are relatively clear. JVD is reasonable. She received IV furosemide this morning with p.o. metolazone. Amlodipine was
stopped, which may be contributing to edema. Will plan on switching to oral furosemide 120 mg p.o. twice daily in the a.m. and hopefully discharging. She may benefit from a referral to the lymphedema clinic as an outpatient.
PAF, currently in sinus rhythm -
Hypertension
History of TAVR 2020
Pulmonary hypertension on tadalafil -stable
Parkinson - continue carbidopa-levodopa
Progress Note - Power Wood Sawyer
Subjective
Date of Service: June 13, 2023:
Parkinson's allergies: ALIREZA inhibitors, cough, nifedipine, sulfa
Outpatient medications: Amlodipine 2.5 mg daily, aspirin 81 mg daily, atenolol 25 mg daily, atorvastatin 10 mg daily, budesonide, Sinemet, citalopram 20 mg daily 40 hide 80 mg IV twice daily, Neurontin, DuoNebs, Synthroid, meloxicam, tadalafil,
pantoprazole
Current meds: Aspirin 81 mg a day, atenolol 25 mg a day, atorvastatin 10 mg at bedtime, Sinemet, citalopram 20 mg a day, Pepcid 40 mg a day, levothyroxine 50 mcg daily, Singulair 10 mg daily pantoprazole, subcu Lovenox, furosemide 80 mg IV twice
daily, potassium 20 mill equivalents twice daily
PMH/PSH/FH/SH: Reviewed
ROS negative except as above
BUN and creatinine 30 and 0.9 with potassium 3.9, magnesium 2.5 ECG: Sinus rhythm, first-: Degree AV block, left axis, left bundle
Chest x-ray right reverse total shoulder, cardiomegaly
Objective
Labs:
06/10/23 11:34
06/13/23 07:38
Labs
Hgb 11.5 g/dL (12.0-16.0) L 06/10/23 11:34
Hct 35.4 % (37.0-47.0) L 06/10/23 11:34
Plt Count 177 10^3/uL (130-400) 06/10/23 11:34
Sodium 139 mmol/L (135-145) 06/13/23 07:38
Potassium 3.9 mmol/L (3.5-5.1) 06/13/23 07:38
BUN 30 mg/dl (7-17) H 06/13/23 07:38
Creatinine 0.9 mg/dL (0.6-1.0) 06/13/23 07:38
Glucose 89 mg/dl (70-99) 06/13/23 07:38
Troponins
06/10/23
11:34
Troponin I < 0.012
Vital Signs and I&O:
Vital Signs
Temp Pulse Resp BP Pulse Ox
36.7 C 88 18 139/84 99
06/13/23 07:30 06/13/23 07:30 06/13/23 07:30 06/13/23 07:30 06/13/23 07:30
Vital Signs
Temp Pulse Resp BP Pulse Ox
36.7 C 88 18 139/84 99
06/13/23 07:30 06/13/23 07:30 06/13/23 07:30 06/13/23 07:30 06/13/23 07:30
Intake & Output
06/11/23 06/12/23 06/13/23 06/14/23
07:59 07:59 07:59 07:59
Intake Total 480 / 480 840 / 840 1080 / 1080
Output Total 600 / 600 500 / 500 100 / 100
Balance -120 / -120 340 / 340 980 / 980
Physical Exam
Physical Exam
139/84, pulse 88, afebrile, weight is 89 kg, down 0.5 kg, weight on admission if accurate was 93 kg, intake and output likely inaccurate
No distress, lungs are clear, JVD is reasonable, regular rate and rhythm, 2+ edema,
[2023-06-13] MEDS: CELEXA 20 MG PO (09:09)
[2023-06-13] MEDS: LASIX 80 MG IV ×2 (09:09→16:11)
[2023-06-13] MEDS: SINEMET CR 50/200 (EXTENDED RELEASE) 1 TABLET PO ×2 (09:09→20:53)
[2023-06-13] MEDS: PROTONIX 40 MG PO (09:09)
--- NOTE | 2023-06-13 10:06 | W.PN.HOSP.TC ---
Today's Communication/Plan
-
Continued IV diuresis and monitoring of renal status added Zaroxolyn today
Appreciate cardiology input
Assessment / Plan
Assessment / Plan
#Acute on chronic diastolic heart failure exacerbation
Takes 80 mg p.o. twice daily at home
Start patient 80 mg IV twice daily
Start standing KCL. K at 3.7.
Had Zaroxolyn added today
ECHO left ventricular EF 55 to 60%. Paradoxical septal motion consistent with left bundle branch block. Stage II diastolic dysfunction. Mild to moderate mitral stenosis. PASP of 40�45.
Follow I's and O's
not much improvement in weight.
Monitor creatinine with aggressive diuresis
Venous doppler negative
Compression therapy LE
Stable on room air.
Cardiology on board.
#Pulmonary hypertension
Monitor.
#Primary hypertension
Hold Norvasc to allow for high blood pressure for diuresis
Continue atenolol
Hyperlipidemia
Continue statin
CAD
History of aortic stenosis status post TAVR
Continue aspirin, statin
No chest pain
COPD not in acute exacerbation
No wheezing.
Continue with home bronchodilator regimen
Not in acute exacerbation
GERD
Continue Pepcid and PPI
Hypothyroidism
Continue Synthroid
Parkinson disease
Continue home meds
DVT ppx-lovenox
Full code
Anticipated Discharge: 24 - 48 hours
Subjective/Interval History
-
Date of Service: June 13, 2023
No obvious respiratory distress, 'I still feel full of fluid' my breathing is okay though.
Objective Data
-
Labs:
Laboratory Results
06/13/23
07:38
Sodium 139
Potassium 3.9
Chloride 103
Carbon Dioxide 32 H
BUN 30 H
Creatinine 0.9
Glucose 89
Calcium 9.3
Vital Signs:
Vital Signs
Temp Pulse Resp BP Pulse Ox
98.0 F 88 18 139/84 99
06/13/23 07:30 06/13/23 07:30 06/13/23 07:30 06/13/23 07:30 06/13/23 07:30
I&O
06/12/23 06/13/23 06/14/23
06:59 06:59 06:59
Intake Total 840 / 840 1080 / 1080
Output Total 1100 / 1100 100 / 100
Balance -260 / -260 980 / 980
Review of Systems
-
Unable to obtain full review of systems at this time due to: Dementia
History Source: Patient
Constitutional: Reports Weight Gain (20 pound weight gain recently)
Respiratory: Reports No Symptoms
Physical Exam
-
General: Obese
HEENT: Normocephalic
Respiratory: Clear to Auscultation
Cardiac: Regular Rhythm
Musculoskeletal: Edema, Right Lower Extrem and Edema, Left Lower Extrem
Neuro: Awake and Alert
Psych: Calm and Confused
Data Reviewed
-
Total Time Spent with Patient (in minutes): 56
Labs: Labs Reviewed by me (Creatinine stable at 0.9 BUN 30/weight only down by a pound)
[2023-06-13] MEDS: LOVENOX 40 MG SC (17:37)
[2023-06-13] MEDS: LIPITOR 10 MG PO (20:53)
[2023-06-13] MEDS: SINGULAIR 10 MG PO (20:54)
[2023-06-14 03:15] VITALS: BP 130/48
[2023-06-14] MEDS: SYNTHROID 50 MCG PO (05:47)
[2023-06-14 06:00] VITALS: BMI 34.9
[2023-06-14 07:00] VITALS: BP 94/59
[2023-06-14 07:23] LABS: Blood Urea Nitrogen 35 mg/dl (7-17); Calcium 9.6 mg/dl (8.4-10.2); Carbon Dioxide 35 mmol/L (22-30); Chloride 98 mmol/L (98-107); Estimated Creatinine Clearance 50 ml/min; Glucose 104 mg/dl (70-99); Potassium 3.6 mmol/L (3.5-5.1); Sodium 137 mmol/L (135-145); eGFR > 60.00
[2023-06-14] MEDS: ASPIR LOW (ENTERIC COATED) 81 MG PO (09:24)
[2023-06-14] MEDS: CELEXA 20 MG PO (09:24)
[2023-06-14] MEDS: PROTONIX 40 MG PO (09:24)
[2023-06-14] MEDS: SINEMET CR 50/200 (EXTENDED RELEASE) 1 TABLET PO (09:24)
[2023-06-14] MEDS: PEPCID 40 MG PO (09:25)
[2023-06-14] MEDS: LASIX 120 MG PO (09:26)
[2023-06-14] MEDS: TENORMIN 25 MG PO (09:27)
[2023-06-14] MEDS: KCL 20 MEQ PO (09:27)
[2023-06-14 09:30] VITALS: BP 102/58
[2023-06-14] MEDS: LASIX IV (09:32)
--- NOTE | 2023-06-14 09:48 | W.DS.TRANS ---
DC Summary - Elect Equip Maint Eng
-
Discharge Instructions:
Sleep Apnea Risk High
Discharge Diagnosis/Procedures Acute on chronic chronic heart failure with
preserved ejection fraction
Aortic stenosis status post TAVR
Weight gain with suspected fluid overload with
related shortness of breath on minimal exertion
Pulmonary hypertension
Parkinson's
Instructions: *[facility] Heart Failure Instructions
Stand-Alone Forms:
Changes to Home Medications: Yes
Discharge Medications:
DC Medications w/original date entered in [employer]
famotidine 40 mg tablet 40 mg PO DAILY stomach acid 09/24/16
levothyroxine 50 mcg tablet 50 mcg PO DAILY@0700 Thyroid 09/24/16
pantoprazole 40 mg tablet,delayed release 40 mg PO DAILY stomach acid 09/24/16
citalopram 20 mg tablet 20 mg PO DAILY depression 02/21/20
atenolol 25 mg tablet 25 mg PO DAILY Blood pressure 06/04/21
atorvastatin 10 mg tablet 10 mg PO HS High cholesterol 06/04/21
carbidopa ER 50 mg-levodopa 200 mg tablet,extended release 1 tab PO BID PARKINSON 03/17/23
gabapentin 300 mg capsule 300 mg PO Q8HPRN PRN nerve pain 03/17/23
meloxicam 15 mg tablet 15 mg PO DAILY Pain 03/17/23
montelukast 10 mg tablet 10 mg PO HS ASTHMA 03/17/23
ipratropium 0.5 mg-albuterol 3 mg (2.5 mg base)/3 mL nebulization soln 3 ml inhalation R Q4HPRN PRN sob/wheezing #90 mL 04/26/23
aspirin 81 mg tablet,delayed release 81 mg PO DAILY Blood Clot Prevention/Tx 06/10/23
budesonide 0.5 mg/2 mL suspension for nebulization 0.5 mg inhalation R BIDPRN PRN shortness of breath 06/10/23
tadalafil 2.5 mg tablet 2.5 mg PO DAILY pulmonary hypertension 06/10/23
furosemide 40 mg tablet 120 mg PO BID AT 0800,1600 #60 tabs 06/14/23
potassium chloride 20 mEq tablet,extended release(part/cryst) 20 meq PO 0800,1600 #60 tabs 06/14/23
Home Medication Changes
furosemide 40 mg tablet 120 mg PO BID AT 0800,1600 #60 tabs 06/14/23
potassium chloride 20 mEq tablet,extended release(part/cryst) 20 meq PO 0800,1600 #60 tabs 06/14/23
Pending Results: No
Total time spent discharging patient (in min): 38
--- NOTE | 2023-06-14 10:53 | W.DCSUMMARY ---
Discharge Summary
Discharge Data
Date of Admission: 06/10/23
Date of Discharge: 06/14/23
Total time spent discharging patient (in min): 45
-
Pending Results: Yes
Hospital Course
83-year-old female with past medical history of congestive heart failure is presenting from cardiology office with lower extremity swelling.
� Patient stated for the past 1 week she has been having worsening lower extremity edema.� States PND.� States of dyspnea on exertion.� Denies chest pain.� States of decreased urinary output with Lasix at home.� Went to see cardiology [facility] and was
recommended come to the hospital for intravenous diuretics.� Patient states she is compliant with diuretics at home.� States she is compliant with salt restriction and fluid restrictions at home.� He has any lightheadedness dizziness neck pain
vision problems.� States she is hungry and wants to eat.
She was admitted and placed on IV diuresis with furosemide/2D echocardiogram noted a normal LV size and systolic function with an EF of 55 to 60% stage II diastolic dysfunction. Well-seated TAVR was noted and pulmonary hypertension again noted at
40 to 45 mmHg she remained in sinus rhythm throughout the length of her admission with her history of A-fib she is not a oral anticoagulant candidate due to history of falls and her Parkinson's she was continued on aspirin. With modest response to
IV diuretics is felt at this point the patient is is euvolemic as can be made possible and there is a element of lymphedema that may need follow-up as an outpatient. Cardiology did stop her prior dosing of amlodipine to also help with that lower
extremity edema hopefully and her furosemide was increased from 80 to 120 mg twice a day for home care this was called into her local pharmacy. We have made arrangements for [facility] follow-up. Her discharge weight was 86.6 kg
Discharge Plan
-
Patient Disposition: Home with Home Care
Discharge Diagnosis/Procedures: Acute on chronic chronic heart failure with preserved ejection fraction
Aortic stenosis status post TAVR
Weight gain with suspected fluid overload with related shortness of breath on minimal exertion
Pulmonary hypertension
Parkinson's
Additional Activity: Suggest pursuing evaluation by lymphedema clinic as a lot of fluid retention noted is in the lower extremities
Instructions: *[facility] Heart Failure Instructions
Referrals:
Chetna [place] DO [Family Provider] -
Prescriptions:
New
furosemide 40 mg Tablet
120 mg PO BID AT 0800,1600 Qty: 60 0RF
potassium chloride 20 mEq Tablet,Er Particles/Crystals
20 meq PO 0800,1600 Qty: 60 0RF
Continued
famotidine 40 MG tablet
40 mg PO DAILY
levothyroxine 50 MCG tablet
50 mcg PO DAILY@0700
pantoprazole 40 MG tablet,delayed release (DR/EC)
40 mg PO DAILY
citalopram 20 MG tablet
20 mg PO DAILY
atorvastatin 10 MG tablet
10 mg PO HS
atenolol 25 MG tablet
25 mg PO DAILY
meloxicam 15 mg Tablet
15 mg PO DAILY
carbidopa-levodopa 50-200 mg Tablet Extended Release
1 tab PO BID
gabapentin 300 mg Capsule
300 mg PO Q8HPRN PRN (Reason: nerve pain)
montelukast 10 mg Tablet
10 mg PO HS
ipratropium-albuterol 0.5 mg-3 mg(2.5 mg base)/3 mL Solution For Nebulization
3 ml inhalation R Q4HPRN PRN (Reason: sob/wheezing) Qty: 90 0RF
budesonide 0.5 mg/2 mL suspension for nebulization
0.5 mg inhalation R BIDPRN PRN (Reason: shortness of breath)
tadalafil 2.5 mg tablet
2.5 mg PO DAILY
aspirin 81 mg tablet,delayed release (DR/EC)
81 mg PO DAILY
Discontinued
amlodipine [Norvasc] 2.5 MG tablet
2.5 mg PO DAILY Qty: 1 0RF
furosemide 80 mg Tablet
80 mg PO BID@0800,1600
Discharge Orders:
Discharge Patient (As Directed); Ordered 06/14/23
Ordered By: Clive Marte
--- NOTE | 2023-06-14 12:04 | W.HF.CON ---
Heart Failure
- LV Function
Left ventricular function study result: LV Ejection fraction >40%
Ejection Fraction Percentage: 55-60
- ARNI
Patient already on ARNI: No
Heart Failure ARNI Not Indicated: LV Ejection Fraction >/= 40%
- ACEI/ARB
Patient already on ACEI/ARB: No
Heart Failure ACEI/ARB Not Indicated: LV Ejection Fraction > 40%
- Beta Jacki
Patient already on Evidence Based Beta Jacki: No
Heart Failure Evidence Based Beta Jacki Not Indicated: LV Ejection Fraction > 40%
- Mineralocorticord Receptor Antagonist
Patient already on MRA: No
Heart Failure MRA Not Indicated: LV Ejection Fraction > 40%
- SGLT-2 Inhibitor
Patient already on SGLT-2 Inhibitor: No
Heart Failure SGLT-2 Inhibitor Not Indicated: LV Ejection Fraction >40%
- Afib Anticoagulation
Patient already on Anticoagulation for Afib: No
Heart Failure Afib Anticoagulation Contraindication: History of Falls
- NYHA CHF Classification
NYHA CHF Classification Level: Class III - Symptoms w/ min exertion, interferes w/ nml daily activity
- ACC/AHA Stage
ACC/AHA Stage: Stage C: Symptomatic Heart Failure
== END 2023-06-14 11:32 | disposition home health service (06) | DRG 291 ==
LOC: 4 EAST ACU 14:18
PROVIDERS: Emergency Medicine; ADMITTING PHYSICIAN Hospitalist; ATTENDING PHYSICIAN Internal Medicine; EMERGENCY PHYSICIAN Emergency Medicine; FAMILY PHYSICIAN Family Medicine
DX: I11.0 Hypertensive heart disease with heart failure (principal); I50.33 Acute on chronic diastolic (congestive) heart failure; I48.0 Paroxysmal atrial fibrillation; I27.20 Pulmonary hypertension, unspecified; G20.A1 Parkinson's disease without dyskinesia, without mention of fluctuations; Z79.82 Long term (current) use of aspirin; Z95.2 Presence of prosthetic heart valve
CPT/HCPCS: 71046; 80048; 80053; 83735; 83880; 84443; 84484; 85025; 93005; 93306; 93970; 96374; 97116; 97162; 97166; 97535; 99285

== ENCOUNTER 2023-10-12 09:07 | Inpatient (IN) | payer MEDICARE, OTHER, SELFPAY ==
[2023-10-11 15:26] VITALS: BP 108/62
--- NOTE | 2023-10-11 16:08 | ED.MUSCINJ ---
HPI-Injury
General
Chief Complaint: Fall
Source: patient
Exam Limitations: none
Time Seen by Provider: 10/11/23 16:05
History of Present Illness-Injury
Initial Injury comments:
83-year-old female presents complaining of right elbow pain. She states she slid off the toilet landing on her right elbow. This happened today. She notes increased pain with motion and bruising. She did not hit her head. She denies neck or
back pain. No other complaints
Past History
Past History
ED Past Medical History: Arrthythmia, CHF, COPD, GERD, Hypercholesterolemia, Valvular disease and Hypothyroidism
ED Past Surgical History: Cardiac and Orthopedic (Bunionectomy, bilateral knee replacement, right rotator cuff, back surgeries 2012, 2013)
Social History
Tobacco: Former smoker
Alcohol: None
Drug: None
Personal:
Living: alone
Employment: Employed
Family History
Family History: Other (Noncontributory)
Phy Exam
Physical Exam
Physical Exam:
General: Well-appearing female no acute respiratory distress
HEENT: Normocephalic atraumatic
Musculoskeletal exam: Cervical spine is nontender. Right elbow swollen ecchymotic and tender over the olecranon process. Pronation and supination does not reproduce pain. Flexion and extension does not reproduce pain
Injury Course
Orders/Labs/Results
Orders:
Orders
10/11/23 16:08
CR Elbow - Right Min 3 Views Urgent
Comment:
Reason For Exam: pain, after fall
MDM/Problems Addressed
Differential Diagnosis Includes:
Right elbow pain after fall. Consider contusion versus fracture versus dislocation. X-rays of the right elbow pending
*Critical Care Note
Total Time (30-74mins, 75-104mins- exclusive of procedures): Not Applicable
Update Note
Update Note:
X-rays right elbow demonstrate slightly distracted olecranon process fracture. Discussed these findings with the patient and the family. Patient lives at home independently. She is walker dependent with history of Parkinson's. Unsafe and unfit
for functional life at home by herself. Discussed with orthopedics as well as medicine. Per orthopedics this fracture would be managed conservatively with a splint. Either way with unsafe discharge will recommend she stay in the hospital for case
management and PT evaluation and potential placement into rehab facility
ED Attending Note
-
Portions of this chart may have been created with voice recognition software.� Occasional wrong word or��sound alike� substitutions may have occurred due to the inherent limitations of voice recognition software.
Discharge Plan
Departure
Patient Disposition: Admit
Date of Disposition: 10/11/23
Time of Disposition: 17:21
Admit to: Med/Surg
Presentation/result/management discussed w/ accepting MD/DO: Hospitalist
Discharge Problem:
Closed olecranon fracture
Prescriptions:
No Action
famotidine 40 MG tablet
40 mg PO DAILY
levothyroxine 50 MCG tablet
50 mcg PO DAILY@0700
pantoprazole 40 MG tablet,delayed release (DR/EC)
40 mg PO DAILY
citalopram 20 MG tablet
20 mg PO DAILY
atorvastatin 10 MG tablet
10 mg PO HS
atenolol 25 MG tablet
25 mg PO DAILY
meloxicam 15 mg Tablet
15 mg PO DAILY
carbidopa-levodopa 50-200 mg Tablet Extended Release
1 tab PO BID
gabapentin 300 mg Capsule
300 mg PO Q8HPRN PRN (Reason: nerve pain)
montelukast 10 mg Tablet
10 mg PO HS
ipratropium-albuterol 0.5 mg-3 mg(2.5 mg base)/3 mL Solution For Nebulization
3 ml inhalation R Q4HPRN PRN (Reason: sob/wheezing) Qty: 90 0RF
budesonide 0.5 mg/2 mL suspension for nebulization
0.5 mg inhalation R BIDPRN PRN (Reason: shortness of breath)
tadalafil 2.5 mg tablet
2.5 mg PO DAILY
aspirin 81 mg tablet,delayed release (DR/EC)
81 mg PO DAILY
furosemide 40 mg Tablet
120 mg PO BID AT 0800,1600 Qty: 60 0RF
potassium chloride 20 mEq Tablet,Er Particles/Crystals
20 meq PO 0800,1600 Qty: 60 0RF
Referrals:
Chetna Colorado DO [Family Provider] -
Interventions
Interventions:
*Risk Screen - Suicide Last Done: 10/11/23 15:22
*General Assessment Last Done: 10/11/23 15:22
*Neglect/Abuse Screening Last Done: 10/11/23 15:22
ED-Musculoskeletal Assessment Last Done: 10/11/23 16:27
ED- Neurological Assessment Last Done: 10/11/23 16:27
ED-Skin Assessment Last Done: 10/11/23 16:28
Discharge Date and Time
Print Language: MACEDONIAN
--- NOTE | 2023-10-11 17:42 | HPS.HSE ---
Family Physician
-
Family Physician: Chetna Colorado
Chief Complaint
-
fall
History of Present Illness
83-year-old female past medical history of coronary artery disease, aortic stenosis status post TAVR, diastolic heart failure, COPD, pulmonary hypertension, essential hypertension, hyperlipidemia, GERD, hypothyroidism, Parkinson disease,
anxiety/depression presenting for a fall while sitting on the toilet and hurting her right elbow. No dizziness or passing out or chest pain or shortness of breath. She has been feeling more weak recently due to worsening Parkinson's.
No smoking or alcohol use.
Medical History
Past Medical History
Past Medical History: Reports Other (coronary artery disease, aortic stenosis status post TAVR, diastolic heart failure, COPD, pulmonary hypertension, essential hypertension, hyperlipidemia, GERD, hypothyroidism, Parkinson disease,
anxiety/depression)
Past Surgical History: Reports Other (Cardiac and Orthopedic (Bunionectomy, bilateral knee replacement, right rotator cuff, back surgeries 2013, 2013))
Social History
Tobacco: Non-smoker
Alcohol: None
Drug: None
Family History
Family History: Not pertinent
Allergies / Home Medications
Allergies reflects when Allergies were last updated in [facility].
Home Medications with original date entered in [facility]
Allergy/Medication List:
Allergies
Allergy/AdvReac Type Severity Reaction Status Date / Time
ALIREZA Inhibitors Allergy cough Verified 06/10/23 09:50
nifedipine [From Procardia] Allergy Unknown Verified 06/10/23 09:50
Sulfa (Sulfonamide Allergy CHILDHOOD Verified 06/10/23 09:50
Antibiotics)
sulfisoxazole Allergy CHILDHOOD Verified 06/10/23 09:50
Home Medications
famotidine 40 mg tablet 40 mg PO BID stomach acid 09/24/16
levothyroxine 50 mcg tablet 50 mcg PO DAILY Thyroid 09/24/16
pantoprazole 40 mg tablet,delayed release 40 mg PO DAILY stomach acid 09/24/16
citalopram 20 mg tablet 20 mg PO DAILY depression 02/21/20
atenolol 25 mg tablet 25 mg PO DAILY Blood pressure 06/04/21
atorvastatin 10 mg tablet 10 mg PO HS High cholesterol 06/04/21
carbidopa ER 50 mg-levodopa 200 mg tablet,extended release 1 tab PO BID PARKINSON 03/17/23
gabapentin 300 mg capsule 300 mg PO Q8H 03/17/23
meloxicam 15 mg tablet 15 mg PO DAILY Pain 03/17/23
montelukast 10 mg tablet 10 mg PO HS ASTHMA 03/17/23
aspirin 81 mg tablet,delayed release 81 mg PO DAILY Blood Clot Prevention/Tx 06/10/23
amlodipine 2.5 mg tablet 2.5 mg PO DAILY 10/11/23
furosemide 40 mg tablet 160 mg PO BID 10/11/23
potassium chloride 20 mEq tablet,extended release(part/cryst) 20 meq PO BID 10/11/23
sildenafil (pulm.hypertension) 20 mg tablet 20 mg PO TID 10/11/23
Review of Systems
-
History Source: Patient
A 12 point ROS was completed and negative except as noted: Yes
Constitutional: Reports No Symptoms
EENT: Reports No Symptoms
Respiratory: Reports No Symptoms
Cardiac: Reports No Symptoms
Abdomen/GI: Reports No Symptoms
: Reports No Symptoms
Musculoskeletal: Reports No Symptoms
Skin: Reports No Symptoms
Neurological: Reports No Symptoms
Endocrine: Reports No Symptoms
Hematologic/Lymphatic: Reports No Symptoms
Psych: Reports No Symptoms
Physical Exam
Vital Signs
Vital Signs
Temp Pulse Resp BP Pulse Ox
97.9 F 77 13 108/62 94
10/11/23 15:26 10/11/23 15:26 10/11/23 15:26 10/11/23 15:26 10/11/23 15:26
Physical Exam
General: Well Developed, Well Nourished and No Apparent Distress
HEENT: NormoCephalic, Moist mucous membranes and Atraumatic
Respiratory: Clear
Cardiac: S1/S2 and Regular Rhythm; No Murmur or Rub
GI: Soft, Non Tender, Non Distended and Normal Bowel Sounds; No Organomegaly
Rectal: Deferred by Provider
Musculoskeletal: No Clubbing, No Cyanosis and No Edema
Skin: No Rash
Neuro: Nonfocal/grossly intact
Data Reviewed
-
Lab Data: Labs Reviewed by me
Old Records: Reviewed
Impression/Plan
-
IMPRESSION:
PLAN:
# Right elbow olecranon fracture
-Orthopedics recommends nonoperative management with sling in 75 to 90 degrees flexion
-Tylenol, meloxicam for pain
-PT/OT
-Case management cannot place to rehab today
Coronary artery disease
-Continue aspirin
Aortic stenosis status post TAVR
Chronic HFpEF
-Continue Lasix
Pulmonary hypertension
-Continue tadalafil
Essential hypertension
-Continue amlodipine, atenolol
Hyperlipidemia
-Continue statin
COPD
-Continue inhalers
-Continue montelukast
GERD
-Continue famotidine, Protonix
Hypothyroidism
Parkinson's disease
-Continue carbidopa-levodopa
-continue gabapentin
Anxiety/depression
-Continue citalopram
Chronic anemia
-Hemoglobin stable
Hypothyroidism
-Continue levothyroxine
DNR/DNI
DVT prophylaxis�SCDs
Regular diet
--- NOTE | 2023-10-11 18:08 | W.PN.UPDATE ---
Update Note
Progress Note Update
Patient is a pleasant 83 yo female who lives alone with family in the area. She slipped off of the commode early today landing on her elbow. Radiographs reveal a minimally displaced olecranon fracture. She has a history of right TSA but her
family notes that she does not move her right shoulder since surgery. She also has a history of Parkinson's disease and uses a walker at home. PE: Answers questions appropriatley. NVI distally. In well padded long arm splint placed by ER staff.
Xrays reveal minimally displaced olecranon fracture. Impression: Fracture as noted above. Recommend: I have discussed treatment options with the patient and her family. Would recommend nonoperative treatment in a splint for 3 weeks and then
repeat xrays with the possibility of ordering a brace to limit motion at that time. Discussed risks in this population with hardware failure. Studies report good results with nonop care in patients with displaced fractures over the age of 70.
Will allow her to WB through her forearm. PT to evaluate for ambulation safety. May require placement. Follow up in the office in 3 weeks. Full Consult dictated.
[2023-10-11 20:04] VITALS: BP 107/62; BMI 34.6
[2023-10-11] MEDS: KCL 20 MEQ PO (21:19)
[2023-10-11] MEDS: SINGULAIR 10 MG PO (21:19)
[2023-10-11] MEDS: LIPITOR 10 MG PO (21:19)
[2023-10-11] MEDS: PEPCID 40 MG PO (21:19)
[2023-10-11] MEDS: NEURONTIN 300 MG PO (21:19)
[2023-10-11] MEDS: SINEMET CR 50/200 (EXTENDED RELEASE) 1 TABLET PO (21:19)
[2023-10-11] MEDS: REVATIO 20 MG PO (21:19)
[2023-10-11 21:47] VITALS: BMI 34.6
[2023-10-11] MEDS: TYLENOL 650 MG PO (21:59)
[2023-10-11] MEDS: LASIX PO (22:12)
--- NOTE | 2023-10-11 22:44 | TRANSFER ---
Pt arrived from ED at 1930 via WC transport, was able to stand and get into bed. RUE in splint from above fingers to just above elbow. + right radial pulse. pt c/o 2/10 pain to RUE, right hand +CM, decreased sensation per pt. VSS. Assessment as
documented. Call martinez within reach, bed in lowest position.
[2023-10-12] VITALS: BP 92/48
[2023-10-12] MEDS: SYNTHROID 50 MCG PO (05:28)
[2023-10-12] MEDS: NEURONTIN 300 MG PO ×3 (05:28→22:08)
[2023-10-12 05:31] LABS: % Basophils 0.6 % (0-2); % Eosinophils 1.5 % (0-6); % Immature Granulocytes 0.3 % (0-0.5); % Monocytes 11.7 % (1.7-9.3); % Neutrophils 69.9 % (42.2-75.2); Absolute Eosinophils 0.1 10^3/uL (0-0.7); Absolute Lymphocytes 1.1 10^3/uL (1.2-3.4); Absolute Monocytes 0.8 10^3/uL (0.1-0.6); Hematocrit 28.7 % (37.0-47.0); Hemoglobin 9.6 g/dL (12.0-16.0); Mean Corp Hgb Conc. 33.4 g/dL (33.0-37.0); Mean Corpuscular Volume 89.7 fL (81.0-99.0); Mean Platelet Volume 10.6 fL (7.4-10.4); Nucleated Red Blood Cells % 0 %; Platelet Count 126 10^3/uL (130-400); Red Cell Dist. Width 14.6 % (11.5-14.5); White Blood Cell Count 7.1 10^3/uL (4.8-10.8)
[2023-10-12 05:42] VITALS: BMI 34.5
[2023-10-12 05:54] LABS: ALT (SGPT) < 10 U/L (0-35); AST (SGOT) 31 U/L (14-36); Albumin 3.3 g/dl (3.5-5.0); Alkaline Phosphatase 83 U/L (38-126); Blood Urea Nitrogen 41 mg/dl (7-17); Calcium 9.5 mg/dl (8.4-10.2); Carbon Dioxide 29 mmol/L (22-30); Chloride 104 mmol/L (98-107); Estimated Creatinine Clearance 41 ml/min; Glucose 93 mg/dl (70-99); Potassium 3.6 mmol/L (3.5-5.1); Sodium 140 mmol/L (135-145); Total Protein 5.7 g/dl (6.3-8.2); eGFR 50.48
[2023-10-12 06:00] VITALS: BMI 34.5
--- NOTE | 2023-10-12 06:29 | PTCARENOTE ---
Pt was able to ambulate short distances to bedside commode and standing scale without c/o pain. assessment ongoing.
[2023-10-12 07:45] VITALS: BP 137/60
--- NOTE | 2023-10-12 08:39 | W.PN.HOSP.TC ---
Today's Communication/Plan
-
splint - nonoperative management with sling in 75 to 90 degrees flexion
DC pending - cm aware
Assessment / Plan
Assessment / Plan
Physical Exam
General: Well Developed, Well Nourished and No Apparent Distress
HEENT: NormoCephalic, Moist mucous membranes and Atraumatic
Respiratory: Clear
Cardiac: S1/S2 and Regular Rhythm; No Murmur or Rub
GI: Soft, Non Tender, Non Distended and Normal Bowel Sounds; No Organomegaly
Rectal: Deferred by Provider
Musculoskeletal: No Clubbing, No Cyanosis and No Edema
Skin: No Rash
Neuro: Nonfocal/grossly intact
PLAN:
# Right elbow olecranon fracture
-Orthopedics recommends nonoperative management with sling in 75 to 90 degrees flexion
-Tylenol, meloxicam for pain
-PT/OT
-Case management for placement
Coronary artery disease
-Continue aspirin
Aortic stenosis status post TAVR
Chronic HFpEF
-Continue Lasix
Pulmonary hypertension
-Continue tadalafil
Essential hypertension
-Continue amlodipine, atenolol
Hyperlipidemia
-Continue statin
COPD
-Continue inhalers
-Continue montelukast
GERD
-Continue famotidine, Protonix
Hypothyroidism
Parkinson's disease
-Continue carbidopa-levodopa
-continue gabapentin
Anxiety/depression
-Continue citalopram
Chronic anemia
-Hemoglobin stable
Hypothyroidism
-Continue levothyroxine
DNR/DNI
DVT prophylaxis�HSQ
Regular diet
DC ready, CM aware
Anticipated Discharge: Today
Subjective/Interval History
-
Date of Service: October 12, 2023
no acute events
Objective Data
-
Labs:
Laboratory Results
10/12/23
05:05
WBC 7.1
Hgb 9.6 L
Hct 28.7 L
Plt Count 126 L
Sodium 140
Potassium 3.6
Chloride 104
Carbon Dioxide 29
BUN 41 H
Creatinine 1.1 H
Glucose 93
Calcium 9.5
Total Bilirubin 1.0
AST 31
ALT < 10
Alkaline Phosphatase 83
Vital Signs:
Vital Signs
Temp Pulse Resp BP Pulse Ox
97.6 F 67 17 137/60 94
10/12/23 07:45 10/12/23 07:45 10/12/23 07:45 10/12/23 07:45 10/12/23 07:45
I&O
10/11/23 10/12/23 10/13/23
06:59 06:59 06:59
Intake Total 240 / 240
Balance 240 / 240
Review of Systems
-
History Source: Patient
All other systems: Not reviewed unless documented
Data Reviewed
-
Total Time Spent with Patient (in minutes): 56
Diagnostic Radiology: Image personally visualized and interpreted and Report Reviewed by me
Labs: Labs Reviewed by me
[2023-10-12] MEDS: MOBIC 15 MG PO (08:45)
[2023-10-12] MEDS: PEPCID 40 MG PO ×2 (08:45→20:09)
[2023-10-12] MEDS: PROTONIX 40 MG PO (08:45)
[2023-10-12] MEDS: NORVASC 2.5 MG PO (08:45)
[2023-10-12] MEDS: REVATIO 20 MG PO ×3 (08:45→22:08)
[2023-10-12] MEDS: ASPIR LOW (ENTERIC COATED) 81 MG PO (08:45)
[2023-10-12] MEDS: TENORMIN 25 MG PO (08:45)
[2023-10-12] MEDS: SINEMET CR 50/200 (EXTENDED RELEASE) 1 TABLET PO ×2 (08:45→20:09)
[2023-10-12] MEDS: CELEXA 20 MG PO (08:46)
[2023-10-12] MEDS: KCL 20 MEQ PO ×2 (08:46→20:10)
[2023-10-12] MEDS: LASIX 160 MG PO ×2 (08:46→14:43)
--- NOTE | 2023-10-12 10:52 | CM ---
Reviewed the chart notes and spoke with the patient at the bedside. The patient resides alone in a one story home with two steps to enter. The patient has caregivers 4 days a week from 9am-12pm through [employer]. The patient has a
rolling walker, cane, and shower rails. The patient had had [facility] in the past and been to [facility] an [facility]. Patient agreeable to referrals being sent to both once PT/OT evaluation is complete. CM continues to be available to patient/family and
is monitoring medical plan for needs at discharge.
Plan: Discharge to SNF/rehab once bed found and medically stable. No precert required.
[2023-10-12 11:08] VITALS: BP 101/50; PULSE 69; O2SAT 93
[2023-10-12 11:11] VITALS: BP 101/50; PULSE 69; O2SAT 93
[2023-10-12 15:30] VITALS: BP 139/74
[2023-10-12] MEDS: HEPARIN 5000 UNITS SC ×2 (16:57→23:21)
[2023-10-12] MEDS: SINGULAIR 10 MG PO (22:08)
[2023-10-12] MEDS: LIPITOR 10 MG PO (22:08)
[2023-10-12 23:13] VITALS: BP 120/52
[2023-10-13] MEDS: SYNTHROID 50 MCG PO (05:33)
[2023-10-13] MEDS: NEURONTIN 300 MG PO ×3 (05:33→22:15)
[2023-10-13 06:00] VITALS: BMI 34.3
[2023-10-13 07:11] VITALS: BP 137/62
--- NOTE | 2023-10-13 08:42 | W.PN.HOSP.TC ---
Today's Communication/Plan
-
splint - nonoperative management with sling in 75 to 90 degrees flexion
DC pending - cm aware
Assessment / Plan
Assessment / Plan
Physical Exam
General: Well Developed, Well Nourished and No Apparent Distress
HEENT: NormoCephalic, Moist mucous membranes and Atraumatic
Respiratory: Clear
Cardiac: S1/S2 and Regular Rhythm; No Murmur or Rub
GI: Soft, Non Tender, Non Distended and Normal Bowel Sounds; No Organomegaly
Rectal: Deferred by Provider
Musculoskeletal: No Clubbing, No Cyanosis and No Edema
Skin: No Rash
Neuro: Nonfocal/grossly intact
PLAN:
# Right elbow olecranon fracture
-Orthopedics recommends nonoperative management with sling in 75 to 90 degrees flexion
-keep her in a splint for approximately three weeks. She may be weightbearing as tolerated through her forearm.
-She may have a sling on if beneficial.
-She will follow up in the Ortho office in 3 weeks for repeat radiographs.
-May obtain a hinged elbow brace at that time if things are healing well.
-Tylenol, meloxicam for pain
-PT/OT
-Case management for placement
Coronary artery disease
-Continue aspirin
Aortic stenosis status post TAVR
Chronic HFpEF
-Continue Lasix
Pulmonary hypertension
-Continue tadalafil
Essential hypertension
-Continue amlodipine, atenolol
Hyperlipidemia
-Continue statin
COPD
-Continue inhalers
-Continue montelukast
GERD
-Continue famotidine, Protonix
Hypothyroidism
Parkinson's disease
-Continue carbidopa-levodopa
-continue gabapentin
Anxiety/depression
-Continue citalopram
Chronic anemia
-Hemoglobin stable
Hypothyroidism
-Continue levothyroxine
DNR/DNI
DVT prophylaxis�HSQ
Regular diet
DC ready, CM aware
Anticipated Discharge: > 48 hours
Subjective/Interval History
-
Date of Service: October 13, 2023
No acute events overnight
Objective Data
-
Vital Signs:
Vital Signs
Temp Pulse Resp BP Pulse Ox
98.1 F 66 16 137/62 94
10/13/23 07:11 10/13/23 07:11 10/13/23 07:11 10/13/23 07:11 10/13/23 07:11
I&O
10/12/23 10/13/23 10/14/23
06:59 06:59 06:59
Intake Total 240 / 240 480 / 480
Balance 240 / 240 480 / 480
Review of Systems
-
History Source: Patient
All other systems: Not reviewed unless documented
Data Reviewed
-
Total Time Spent with Patient (in minutes): 56
Diagnostic Radiology: Image personally visualized and interpreted and Report Reviewed by me
Labs: Labs Reviewed by me
[2023-10-13] MEDS: HEPARIN 5000 UNITS SC ×3 (10:01→23:14)
[2023-10-13] MEDS: TENORMIN 25 MG PO (10:02)
[2023-10-13] MEDS: NORVASC 2.5 MG PO (10:03)
[2023-10-13] MEDS: LASIX 160 MG PO ×2 (10:03→15:19)
[2023-10-13] MEDS: KCL 20 MEQ PO ×2 (10:03→20:20)
[2023-10-13] MEDS: ASPIR LOW (ENTERIC COATED) 81 MG PO (10:04)
[2023-10-13] MEDS: PEPCID 40 MG PO (10:04)
[2023-10-13] MEDS: PROTONIX 40 MG PO (10:04)
[2023-10-13] MEDS: CELEXA 20 MG PO (10:05)
[2023-10-13] MEDS: REVATIO 20 MG PO ×3 (10:05→22:15)
[2023-10-13] MEDS: SINEMET CR 50/200 (EXTENDED RELEASE) 1 TABLET PO ×2 (10:05→20:20)
[2023-10-13] MEDS: MOBIC 15 MG PO (10:06)
[2023-10-13 11:10] VITALS: BP 102/49; PULSE 61
[2023-10-13 15:37] VITALS: BP 129/65
[2023-10-13] MEDS: SINGULAIR 10 MG PO (22:15)
[2023-10-13] MEDS: LIPITOR 10 MG PO (22:15)
[2023-10-13 23:07] VITALS: BP 106/50
[2023-10-14 03:20] VITALS: BMI 35.2
[2023-10-14] MEDS: NEURONTIN 300 MG PO ×3 (05:12→21:12)
[2023-10-14] MEDS: SYNTHROID 50 MCG PO (05:37)
--- NOTE | 2023-10-14 07:40 | W.PN.HOSP.TC ---
Addendum entered and electronically signed by Luigi Bauman MD 10/14/23 15:26:
Multifactorial due to low level fall and age- related osteoporosis
Original Note:
Today's Communication/Plan
-
splint - nonoperative management with sling in 75 to 90 degrees flexion
DC pending - cm aware
Assessment / Plan
Assessment / Plan
Physical Exam
General: Well Developed, Well Nourished and No Apparent Distress
HEENT: NormoCephalic, Moist mucous membranes and Atraumatic
Respiratory: Clear
Cardiac: S1/S2 and Regular Rhythm; No Murmur or Rub
GI: Soft, Non Tender, Non Distended and Normal Bowel Sounds; No Organomegaly
Rectal: Deferred by Provider
Musculoskeletal: No Clubbing, No Cyanosis and No Edema
Skin: No Rash
Neuro: Nonfocal/grossly intact
PLAN:
# Right elbow olecranon fracture
-Orthopedics recommends nonoperative management with sling in 75 to 90 degrees flexion
-keep her in a splint for approximately three weeks. She may be weightbearing as tolerated through her forearm.
-She may have a sling on if beneficial.
-She will follow up in the Ortho office in 3 weeks for repeat radiographs.
-May obtain a hinged elbow brace at that time if things are healing well.
-Tylenol, meloxicam for pain
-PT/OT
-Case management for placement
Coronary artery disease
-Continue aspirin
Aortic stenosis status post TAVR
Chronic HFpEF
-Continue Lasix
Pulmonary hypertension
-Continue tadalafil
Essential hypertension
-Continue amlodipine, atenolol
Hyperlipidemia
-Continue statin
COPD
-Continue inhalers
-Continue montelukast
GERD
-Continue famotidine, Protonix
Hypothyroidism
Parkinson's disease
-Continue carbidopa-levodopa
-continue gabapentin
Anxiety/depression
-Continue citalopram
Chronic anemia
-Hemoglobin stable
Hypothyroidism
-Continue levothyroxine
DNR/DNI
DVT prophylaxis�HSQ
Regular diet
DC ready, CM aware
Anticipated Discharge: Within 24 hours
Subjective/Interval History
-
Date of Service: October 14, 2023
no acute events
Objective Data
-
Vital Signs:
Vital Signs
Temp Pulse Resp BP Pulse Ox
98.1 F 69 12 106/50 94
10/13/23 23:07 10/13/23 23:07 10/13/23 23:07 10/13/23 23:07 10/13/23 23:07
I&O
10/13/23 10/14/23 10/15/23
06:59 06:59 06:59
Intake Total 480 / 480 2119
Balance 480 / 480 2119
Review of Systems
-
History Source: Patient
All other systems: Not reviewed unless documented
Physical Exam
-
General: Obese
HEENT: Normocephalic
Respiratory: Clear to Auscultation
Cardiac: Regular Rhythm
Musculoskeletal: Edema, Right Lower Extrem and Edema, Left Lower Extrem
Neuro: Awake and Alert
Psych: Calm and Confused
Data Reviewed
-
Total Time Spent with Patient (in minutes): 56
Diagnostic Radiology: Image personally visualized and interpreted and Report Reviewed by me
Labs: Labs Reviewed by me
[2023-10-14 07:43] VITALS: BP 120/66
[2023-10-14] MEDS: ASPIR LOW (ENTERIC COATED) 81 MG PO (08:01)
[2023-10-14] MEDS: PROTONIX 40 MG PO (08:01)
[2023-10-14] MEDS: TENORMIN 25 MG PO (08:01)
[2023-10-14] MEDS: KCL 20 MEQ PO (08:01)
[2023-10-14] MEDS: SINEMET CR 50/200 (EXTENDED RELEASE) 1 TABLET PO ×2 (08:01→21:13)
[2023-10-14] MEDS: NORVASC 2.5 MG PO (08:01)
[2023-10-14] MEDS: MOBIC 15 MG PO (08:01)
[2023-10-14] MEDS: CELEXA 20 MG PO (08:01)
[2023-10-14] MEDS: LASIX 160 MG PO ×2 (08:01→14:08)
[2023-10-14] MEDS: REVATIO 20 MG PO ×3 (08:01→21:17)
[2023-10-14] MEDS: HEPARIN 5000 UNITS SC ×2 (08:02→16:05)
--- NOTE | 2023-10-14 13:09 | PN.CDI ---
CDI
- -
CDI:
Physician Documentation Request
Admit Date: 10/12/23 09:07
Dear Doctor Mitul,
Patient admitted with right elbow olecranon fracture.
ED note, 'She states she slid off the toilet landing on her right elbow.'
11/12/2008, 'Bone Density Scan, 'IMPRESSION: Osteopenia in the femoral neck. There has been an increase in bone mineral density in the lumbar spine and a decrease in bone mineral density in the proximal femur since the prior exam.'
Please provide in your note the etiology/ etiologies of documented right elbow olecranon fracture:
Multifactorial due to low level fall and age- related osteoporosis
Low level fall only
Other
Use of terms such as suspected, likely, concern for, or probable (associated with a specific diagnosis that is being evaluated, monitored, or treated as if it exists) are acceptable and can be coded in the inpatient setting, when documented at the
time of discharge.
Thank you,
Vanda ALFORD,RN,CCDS
CDI Specialist
Available via [employer] text
Please use your independent medical judgment in providing your response.
--- NOTE | 2023-10-14 14:27 | CM ---
Addendum entered by Mattie Marx 10/14/23 17:20:
Patient accepting of transfer to [facility] tomorrow will need ambulance transfer. medical necessity forms on chart
Original Note:
Patient seen at bedside. Patient first choice is [facility], however per Martha in admissions no available beds until next week. CM spoke with Angela at [facility] and they are willing to accept patient tomorrow. Please call report to [phone]/fax
[phone]. CM spoke with patient son and they agreed to patient going to [facility] tomorrow. Patient son email is [email or web address] and CM will email IMM to him to review. Due to patient dementia patient will need ambulance transportation.
Plan; SNF
[2023-10-14 14:50] VITALS: BP 106/57; PULSE 63
[2023-10-14 15:30] VITALS: BP 132/72
[2023-10-14] MEDS: PEPCID 20 MG PO (21:12)
[2023-10-14] MEDS: LIPITOR 10 MG PO (21:12)
[2023-10-14] MEDS: KCL PO (21:17)
[2023-10-14] MEDS: SINGULAIR 10 MG PO (21:17)
[2023-10-14 23:17] VITALS: BP 105/53
[2023-10-15] MEDS: HEPARIN 5000 UNITS SC ×2 (00:27→09:44)
[2023-10-15] MEDS: SYNTHROID 50 MCG PO (06:22)
[2023-10-15] MEDS: NEURONTIN 300 MG PO ×2 (06:22→13:26)
[2023-10-15 07:35] VITALS: BP 107/61
[2023-10-15 08:31] LABS: Hematocrit 33.8 % (37.0-47.0); Hemoglobin 11.1 g/dL (12.0-16.0); Mean Corp Hgb Conc. 32.8 g/dL (33.0-37.0); Mean Corpuscular Hgb 30.4 pg (27.0-31.0); Mean Corpuscular Volume 92.6 fL (81.0-99.0); Mean Platelet Volume 11.4 fL (7.4-10.4); Platelet Count 163 10^3/uL (130-400); Red Blood Cell Count 3.65 10^6/uL (4.20-5.40); Red Cell Dist. Width 14.7 % (11.5-14.5); White Blood Cell Count 5.4 10^3/uL (4.8-10.8)
[2023-10-15 08:54] LABS: Blood Urea Nitrogen 43 mg/dl (7-17); Calcium 9.5 mg/dl (8.4-10.2); Carbon Dioxide 31 mmol/L (22-30); Chloride 104 mmol/L (98-107); Estimated Creatinine Clearance 41 ml/min; Glucose 91 mg/dl (70-99); Potassium 4.1 mmol/L (3.5-5.1); Sodium 141 mmol/L (135-145); eGFR 50.48
[2023-10-15] MEDS: ASPIR LOW (ENTERIC COATED) 81 MG PO (09:27)
[2023-10-15] MEDS: PROTONIX 40 MG PO (09:28)
[2023-10-15] MEDS: KCL 20 MEQ PO (09:28)
[2023-10-15] MEDS: CELEXA 20 MG PO (09:28)
[2023-10-15] MEDS: SINEMET CR 50/200 (EXTENDED RELEASE) 1 TABLET PO (09:28)
[2023-10-15] MEDS: REVATIO 20 MG PO (09:35)
[2023-10-15] MEDS: MOBIC 15 MG PO (09:35)
[2023-10-15] MEDS: LASIX 160 MG PO ×2 (09:41→13:30)
[2023-10-15] MEDS: TENORMIN 25 MG PO (09:42)
[2023-10-15] MEDS: NORVASC 2.5 MG PO (09:42)
--- NOTE | 2023-10-15 11:23 | W.PN.HOSP.TC ---
Addendum entered and electronically signed by Luigi Bauman MD 10/16/23 15:17:
[id number]
Original Note:
Today's Communication/Plan
-
sling
ortho f/u in weeks
f/u pcp in 1 week
Assessment / Plan
Assessment / Plan
Physical Exam
General: Well Developed, Well Nourished and No Apparent Distress
HEENT: NormoCephalic, Moist mucous membranes and Atraumatic
Respiratory: Clear
Cardiac: S1/S2 and Regular Rhythm; No Murmur or Rub
GI: Soft, Non Tender, Non Distended and Normal Bowel Sounds; No Organomegaly
Rectal: Deferred by Provider
Musculoskeletal: No Clubbing, No Cyanosis and No Edema
Skin: No Rash
Neuro: Nonfocal/grossly intact
PLAN:
# Right elbow olecranon fracture
-Orthopedics recommends nonoperative management with sling in 75 to 90 degrees flexion
-keep her in a splint for approximately three weeks. She may be weightbearing as tolerated through her forearm.
-She may have a sling on if beneficial.
-She will follow up in the Ortho office in 3 weeks for repeat radiographs.
-May obtain a hinged elbow brace at that time if things are healing well.
-Tylenol, meloxicam for pain
-PT/OT
-Case management for placement
Coronary artery disease
-Continue aspirin
Aortic stenosis status post TAVR
Chronic HFpEF
-Continue Lasix
Pulmonary hypertension
-Continue tadalafil
Essential hypertension
-Continue amlodipine, atenolol
Hyperlipidemia
-Continue statin
COPD
-Continue inhalers
-Continue montelukast
GERD
-Continue famotidine, Protonix
Hypothyroidism
Parkinson's disease
-Continue carbidopa-levodopa
-continue gabapentin
Anxiety/depression
-Continue citalopram
Chronic anemia
-Hemoglobin stable
Hypothyroidism
-Continue levothyroxine
DNR/DNI
DVT prophylaxis�HSQ
Regular diet
More than 30 minutes spent in discharge including
Final examination of the patient
Summarizing hospital stay
Instructions for continuing care to all relevant caregivers
Preparation of discharge records, prescriptions, and referral forms
Total time spent (35 in minutes):
Anticipated Discharge: Today
Subjective/Interval History
-
Date of Service: October 15, 2023
no acute events
Objective Data
-
Labs:
Laboratory Results
10/15/23
07:29
WBC 5.4
Hgb 11.1 L
Hct 33.8 L
Plt Count 163 D
Sodium 141
Potassium 4.1
Chloride 104
Carbon Dioxide 31 H
BUN 43 H
Creatinine 1.1 H
Glucose 91
Calcium 9.5
Vital Signs:
Vital Signs
Temp Pulse Resp BP Pulse Ox
97.5 F 68 18 107/61 96
10/15/23 07:35 10/15/23 09:42 10/15/23 07:35 10/15/23 09:42 10/15/23 07:35
I&O
10/14/23 10/15/23 10/16/23
06:59 06:59 06:59
Intake Total 2119 780 / 780
Balance 2119 780 / 780
Review of Systems
-
History Source: Patient
All other systems: Not reviewed unless documented
Data Reviewed
-
Total Time Spent with Patient (in minutes): 56
Diagnostic Radiology: Image personally visualized and interpreted and Report Reviewed by me
Labs: Labs Reviewed by me
--- NOTE | 2023-10-15 11:24 | W.DS.TRANS ---
DC Summary - It Senior Analyst
-
Discharge Instructions:
Sleep Apnea Risk Intermediate
Discharge Diagnosis/Procedures # Right elbow olecranon fracture
Diet Low Cholesterol,Low Fiber,Restrict fluids to 48
oz
Instructions:
Stand-Alone Forms:
Changes to Home Medications: Yes
Discharge Medications:
DC Medications w/original date entered in [employer]
levothyroxine 50 mcg tablet 50 mcg PO DAILY Thyroid 09/24/16
pantoprazole 40 mg tablet,delayed release 40 mg PO DAILY Gastrointestinal Issue 09/24/16
citalopram 20 mg tablet 20 mg PO DAILY depression 02/21/20
atenolol 25 mg tablet 25 mg PO DAILY Blood pressure 06/04/21
atorvastatin 10 mg tablet 10 mg PO HS High cholesterol 06/04/21
carbidopa ER 50 mg-levodopa 200 mg tablet,extended release 1 tab PO BID PARKINSON 03/17/23
gabapentin 300 mg capsule 300 mg PO Q8H pain 03/17/23
meloxicam 15 mg tablet 15 mg PO DAILY Pain 03/17/23
montelukast 10 mg tablet 10 mg PO HS asthma 03/17/23
aspirin 81 mg tablet,delayed release 81 mg PO DAILY Blood Clot Prevention/Tx 06/10/23
amlodipine 2.5 mg tablet 2.5 mg PO DAILY Blood Pressure 10/11/23
furosemide 40 mg tablet 160 mg PO BID Fluid Retention/Swelling 10/11/23
potassium chloride 20 mEq tablet,extended release(part/cryst) 20 meq PO BID Electrolyte Repletion 10/11/23
sildenafil (pulm.hypertension) 20 mg tablet 20 mg PO TID pulmonary hypertension 10/11/23
famotidine 20 mg tablet 20 mg PO DAILY@1999 #0 tabs 10/15/23
Home Medication Changes
famotidine 20 mg tablet 20 mg PO DAILY@1999 #0 tabs 10/15/23
Pending Results: No
[2023-10-15 13:37] VITALS: BP 115/60
--- NOTE | 2023-10-15 15:13 | CM ---
Patient has been medically cleared for discharge to [facility] [place] [facility]. Ambulance transport was at 3:00PM.
== END 2023-10-15 16:58 | DRG 543 ==
LOC: 2 SOUTH 09:07
PROVIDERS: ADMITTING PHYSICIAN Hospitalist; ATTENDING PHYSICIAN Internal Medicine; CONSULT PHYSICIAN Orthopaedic Surgery; EMERGENCY PHYSICIAN Emergency Medicine; FAMILY PHYSICIAN Family Medicine
DX: M80.031A Age-related osteoporosis with current pathological fracture, right forearm, initial encounter for fracture (principal); I50.32 Chronic diastolic (congestive) heart failure; K21.9 Gastro-esophageal reflux disease without esophagitis; E78.00 Pure hypercholesterolemia, unspecified; E03.9 Hypothyroidism, unspecified; J44.9 Chronic obstructive pulmonary disease, unspecified; I35.0 Nonrheumatic aortic (valve) stenosis; I25.10 Atherosclerotic heart disease of native coronary artery without angina pectoris; I11.0 Hypertensive heart disease with heart failure; I27.20 Pulmonary hypertension, unspecified; E78.5 Hyperlipidemia, unspecified; F41.9 Anxiety disorder, unspecified; F32.A Depression, unspecified; G20.A1 Parkinson's disease without dyskinesia, without mention of fluctuations; W18.11XA Fall from or off toilet without subsequent striking against object, initial encounter; Y93.89 Activity, other specified; Y92.002 Bathroom of unspecified non-institutional (private) residence as the place of occurrence of the external cause; Z60.2 Problems related to living alone; Z66 Do not resuscitate; D64.9 Anemia, unspecified; Z96.611 Presence of right artificial shoulder joint; Z96.653 Presence of artificial knee joint, bilateral; Z87.891 Personal history of nicotine dependence; Z79.890 Hormone replacement therapy; Z95.2 Presence of prosthetic heart valve; Z88.2 Allergy status to sulfonamides; Z88.8 Allergy status to other drugs, medicaments and biological substances
CPT/HCPCS: 73080; 80048; 80053; 85025; 85027; 97116; 97163; 97166; 97535; 99285

== ENCOUNTER → 2023-11-02 13:47 | Outpatient (REF) | payer OTHER, MEDICARE, SELFPAY ==
[2023-11-02 15:44] LABS: % Basophils 1.2 % (0-2); % Eosinophils 6.3 % (0-6); % Immature Granulocytes 1.2 % (0-0.5); % Lymphocytes 28.3 % (20.5-51.1); % Monocytes 12.6 % (1.7-9.3); % Neutrophils 50.4 % (42.2-75.2); Absolute Basophils 0.1 10^3/uL (0-0.2); Absolute Eosinophils 0.3 10^3/uL (0-0.7); Absolute Immature Granulocytes 0.1 10^3/uL (0-0.05); Absolute Lymphocytes 1.2 10^3/uL (1.2-3.4); Absolute Monocytes 0.5 10^3/uL (0.1-0.6); Absolute Neutrophils 2.1 10^3/uL (1.4-6.5); Hematocrit 28.9 % (37.0-47.0); Hemoglobin 9.6 g/dL (12.0-16.0); Mean Corp Hgb Conc. 33.2 g/dL (33.0-37.0); Mean Corpuscular Hgb 32.4 pg (27.0-31.0); Mean Corpuscular Volume 97.6 fL (81.0-99.0); Mean Platelet Volume 12.6 fL (7.4-10.4); Nucleated Red Blood Cells % 0 %; Platelet Count 132 10^3/uL (130-400); Red Blood Cell Count 2.96 10^6/uL (4.20-5.40); Red Cell Dist. Width 15.2 % (11.5-14.5); White Blood Cell Count 4.1 10^3/uL (4.8-10.8)
[2023-11-02 16:18] LABS: Blood Urea Nitrogen 43 mg/dl (7-17); Carbon Dioxide 31 mmol/L (22-30); Chloride 105 mmol/L (98-107); Glucose 86 mg/dl (70-99); Potassium 4.6 mmol/L (3.5-5.1); Sodium 139 mmol/L (135-145); eGFR 41.31
== END ==
LOC: OLABP 13:47
PROVIDERS: ATTENDING PHYSICIAN Family Medicine
DX: J44.9 Chronic obstructive pulmonary disease, unspecified (principal); I48.0 Paroxysmal atrial fibrillation; I25.10 Atherosclerotic heart disease of native coronary artery without angina pectoris; I35.0 Nonrheumatic aortic (valve) stenosis; I50.32 Chronic diastolic (congestive) heart failure; I27.20 Pulmonary hypertension, unspecified; G20.A1 Parkinson's disease without dyskinesia, without mention of fluctuations
CPT/HCPCS: 36415; 80048; 85025

== ENCOUNTER 2024-07-13 05:55 | Observation (INO) | payer MEDICARE, OTHER, SELFPAY ==
[2024-07-13] VITALS (42 sets, daily range): BP systolic 64–139; BP diastolic 24–76; PULSE 69–72; BMI 37.1; BMI 34.1
[2024-07-13] MEDS: NSS 500 IV ×3 (01:48→02:48)
--- NOTE | 2024-07-13 02:02 | ED.GENMED ---
History of Present Illness
General
Chief Complaint: Chest Pain
Source: patient
Exam Limitations: clinical condition
Time Seen by Provider: 07/13/24 01:55
Nursing documentation reviewed up to this point in time: agreed with
History of Present Illness
History of Present Illness:
Pleasantly demented 84-year-old female presents to the emergency department with chest pain. She lives in a [place] and older community. She got up to go to the bathroom and had racing heart and chest pain. She pushed her medic assist button. Patient
does follow with Dr. Dawn. At time of my exam patient was in atrial fibrillation with rapid ventricular response with a rate in the 140s. Her blood pressure was 76/52 upon arrival and decreased as time went on. I got verbal permission to
emergently cardiovert her. We gave her propofol and synchronized cardioverted at 200 J. We only had to do the procedure 1 time. After the first cardioversion, she returned to sinus rhythm. Blood pressure began to rise. Son arrived in the middle
of the procedure and got to witness the end part of the procedure.
Vital signs are stable. Patient not hypoxic
Nursing note reviewed. I agree with nursing documentation up to this point in time.
Home Meds and allergies reviewed.
NUMBER AND COMPLEXITY OF PROBLEMS ADDRESSED AT THE ENCOUNTER
� Chronic conditions affecting care: Dementia, paroxysmal atrial fibrillation not on anticoagulation, Parkinson's, atrial fibs, CHF, CAD, heart dysrhythmias, left bundle branch block, valve disorder, aortic stenosis,
hypertension, hyperlipidemia
� Acute Exacerbation and/or Progression of Chronic Illness: Atrial fibrillation
� Differential Diagnosis includes: A-fib with RVR, ACS
AMOUNT AND/OR COMPLEXITY OF DATA TO BE REVIEWED AND ANALYZED
I performed an independent evaluation of the following and my interpretation is:
EKG: See below
Pulse Ox: Not Hypoxic
[employer] Manager: Sinus Rhythm
CT:
X-rays:
Ultrasound:
Laboratory Studies:
Other:
Review of other/old records:
Clinical information was obtained by an independent historian:
Prescriptions/Medications Considered but not given:
Further testing considered but not performed:
RISK OF COMPLICATIONS AND/OR MORBIDITY OR MORTALITY OF PATIENT MANAGEMENT
Social determinants of health affecting care: Good Social Support
Discussion with other providers:
Escalation of care including admission/observation vs risk of discharge considered: After being observed in the emergency department, patient is
CRITICAL CARE NOTE:
Total Time (exclusive of procedures):
Update:
Past History
Past History
ED Past Medical History: Arrthythmia, CHF, COPD, GERD, Hypercholesterolemia, Valvular disease and Hypothyroidism
ED Past Surgical History: Cardiac and Orthopedic (Bunionectomy, bilateral knee replacement, right rotator cuff, back surgeries 2012, 2013)
Social History
Tobacco: Former smoker
Alcohol: None
Drug: None
Personal:
Living: alone
Employment: Employed
Family History
Family History: Other (Noncontributory)
Phy Exam
General Physical Exam
General Presentation: well appearing and moderate distress
General age: appears stated age
General Skin: warm
General Habitus: elderly and frail
General Mental: alert, confused and usual mental status
General Hydration: appears well hydrated
ENT Exam
ENT Exam: EOMI, normocephalic and swallowing well
Eye Exam
Eye Exam: PERRL, cornea clear and conjunctiva normal
Cardiovascular Exam
Cardiovascular Exam: irregularly irregular and tachycardia
Pulmonary Exam
Pulmonary Exam: lungs clear and no respiratory distress
Gastrointestinal Exam
Gastrointestinal Exam: normal bowel sounds, non tender, soft, no organomegaly, no pulsatile mass and non distended
Neurological Exam
Neurological Exam: speech normal and confused
Musculoskeletal Exam
Musculoskeletal Exam: full ROM and no edema
Skin Exam
Skin Exam: normal color, warm/dry, no rash and no petechia
Psychiatric Exam
Psychiatric Exam: normal mood/affect
Scores
Heart Score for Chest Pain Patients
STEMI patient?: Not applicable
Course
Orders/Labs/Results
Orders:
Orders
07/13/24 01:41
Electrocardiogram (*1) Urgent
Reason for Study: Chest Pain
Cardiac Monitoring- Treatment ONCE
EKG- Treatment ONCE
IV Insert/Care/Rem.- Treatment PRN
07/13/24 01:47
0.9% Sodium Chloride 500 ml [Nss] 500 ml IV BOLUS
07/13/24 01:51
Complete Blood Count/With Diff Urgent
Comprehensive Metabolic Panel Urgent
NT-proBNP Urgent
Prothrombin Time Urgent
Troponin I Urgent
07/13/24 02:01
Propofol [Diprivan] 20 ml .ROUTE .STK-MED
07/13/24 02:22
EKG [Electrocardiogram (*1)] Urgent
Reason for Study: Chest Pain
EKG- Treatment ONCE
07/13/24 02:36
0.9% Sodium Chloride 500 ml [Nss] 500 ml IV BOLUS
07/13/24 02:48
0.9% Sodium Chloride 500 ml [Nss] 500 ml IV BOLUS
Abnormal Lab Results
07/13/24
01:51
RBC 3.17 L 10^6/uL
(4.20-5.40)
Hgb 9.8 L g/dL
(12.0-16.0)
Hct 30.1 L %
(37.0-47.0)
MCHC 32.6 L g/dL
(33.0-37.0)
MPV 10.6 H fL
(7.4-10.4)
Monocytes % 11.0 H %
(1.7-9.3)
PT 15.2 H Sec
(11.4-14.6)
BUN 37 H mg/dl
(7-17)
Creatinine 1.1 H mg/dL
(0.6-1.0)
Glucose 108 H mg/dl
(70-99)
Total Protein 6.0 L g/dl
(6.3-8.2)
07/13/24 01:51
07/13/24 01:51
Vital Signs
Initial and Last Documented VS:
Initial Vital Signs
Temp Pulse Resp BP Pulse Ox
97.8 F 133 23 76/52 93
07/13/24 01:37 07/13/24 01:37 07/13/24 01:37 07/13/24 01:37 07/13/24 01:37
Last Documented Vital Signs
Temp Pulse Resp BP Pulse Ox
98.5 F 74 13 96/51 93
07/13/24 02:55 07/13/24 03:45 07/13/24 03:45 07/13/24 03:30 07/13/24 03:45
Procedures
Cardioversion
Indication:: Afib
Performed by:: Myself
Synchronized?: Yes
Energy Used: 200 joules
Number of attempts: 1
Successful?: Yes
ASA Risk Score: Class III
Any reaction or bad outcome to prior sedation/anesthesia?: No history of a reaction
Sedation level to be attained: moderate
Chart and allergies reviewed: Yes
Patient reassessed prior to sedation: Yes
Time out completed at (validating right patient & procedure): 02:00
History of difficult intubation: No
Airway free of obstruction: Yes
Patient has a gag reflex: Yes
Patient is able to open mouth: Yes
Patient has no dentures: Yes
Patient has no loose teeth: Yes
Medication administered by Provider during Moderate Sedation: IV Propofol (mg)
Total dose administered: 50
Time drug administered: 02:09
Start Time: 02:00
Stop Time: 02:25
*EKG
Interpreted by ED Provider?: Yes
Interpretation: abnormal
Comparison EKG: changes noted
Heart Rate: 128
Rate: tachycardiac
Rhythm: a-fib
[place]: left axis deviation
QRS Pattern: left bundle branch block
Ischemia: no ischemia
*[employer] Manager Interpretation
Rate: tachycardiac
Heart Rate: 142
Rhythm: a-fib
*Critical Care Note
Total Time (30-74mins, 75-104mins- exclusive of procedures): 34
comment:
Critical care statement: A total of 34 minutes of critical care time was provided for this patient. This time is separate from time utilized to perform the aforementioned documented procedures. Aggregate critical care time includes only time
during which I was engaged in work directly related to the patient's care, as described above, whether at the bedside or elsewhere in the Emergency Department.
Update Note
Update Note:
Consent for procedural sedation and synchronized cardioversion on the chart signed by son with patient's permission
Patient is feeling weak. She lives alone. Her blood pressure is responding slowly. At this point I am concerned for her being discharged home in her current condition. She does have a history of congestive heart failure. We did give her a liter
of fluids. We will continue to observe her in the hospital. Son is in agreement. Patient to be admitted to the hospitalist service.
ED Attending Note
-
Portions of this chart may have been created with voice recognition software.� Occasional wrong word or��sound alike� substitutions may have occurred due to the inherent limitations of voice recognition software.
Discharge Plan
Departure
Patient Disposition: Admit
Date of Disposition: 07/13/24
Time of Disposition: 03:38
Presentation/result/management discussed w/ accepting MD/DO: Hospitalist
Condition: Good
Discharge Problem:
Atrial fibrillation with RVR, Hypotension
Prescriptions:
No Action
levothyroxine 50 MCG tablet
50 mcg PO DAILY
pantoprazole 40 MG tablet,delayed release (DR/EC)
40 mg PO DAILY
citalopram 20 MG tablet
20 mg PO DAILY
atorvastatin 10 MG tablet
10 mg PO HS
atenolol 25 MG tablet
25 mg PO DAILY
meloxicam 15 mg Tablet
15 mg PO DAILY
carbidopa-levodopa 50-200 mg Tablet Extended Release
1 tab PO BID
gabapentin 300 mg Capsule
300 mg PO Q8H
montelukast 10 mg Tablet
10 mg PO HS
aspirin 81 mg tablet,delayed release (DR/EC)
81 mg PO DAILY
sildenafil (pulm.hypertension) 20 mg tablet
20 mg PO BID
furosemide 40 mg tablet
160 mg PO BID
potassium chloride 20 mEq tablet,ER particles/crystals
20 meq PO BID
famotidine 20 mg Tablet
20 mg PO DAILY@1999 Qty: 0 0RF
tramadol
PRN PRN (Reason: pain)
Referrals:
Chetna Colorado DO [Family Provider] -
Interventions
Interventions:
*Risk Screen - Suicide Last Done: 07/13/24 01:37
*General Assessment Last Done: 07/13/24 01:37
*Neglect/Abuse Screening Last Done: 07/13/24 01:37
*ED COVID-19 Vaccine History Last Done: 07/13/24 01:37
ED- Cardiac Assessment Last Done: 07/13/24 01:55
Discharge Date and Time
Print Language: ARGENTINE
[2024-07-13 02:08] LABS: % Basophils 0.5 % (0-2); % Eosinophils 3.3 % (0-6); % Immature Granulocytes 0.2 % (0-0.5); % Lymphocytes 23.8 % (20.5-51.1); % Neutrophils 61.2 % (42.2-75.2); Absolute Eosinophils 0.2 10^3/uL (0-0.7); Absolute Lymphocytes 1.4 10^3/uL (1.2-3.4); Absolute Monocytes 0.6 10^3/uL (0.1-0.6); Absolute Neutrophils 3.6 10^3/uL (1.4-6.5); Hematocrit 30.1 % (37.0-47.0); Hemoglobin 9.8 g/dL (12.0-16.0); Mean Corp Hgb Conc. 32.6 g/dL (33.0-37.0); Mean Corpuscular Hgb 30.9 pg (27.0-31.0); Mean Platelet Volume 10.6 fL (7.4-10.4); Nucleated Red Blood Cells % 0 %; Platelet Count 148 10^3/uL (130-400); Red Blood Cell Count 3.17 10^6/uL (4.20-5.40); Red Cell Dist. Width 13.2 % (11.5-14.5); White Blood Cell Count 5.8 10^3/uL (4.8-10.8)
[2024-07-13 02:14] LABS: INR 1.15; PT 15.2 Sec (11.4-14.6)
[2024-07-13 02:23] LABS: ALT (SGPT) < 10 U/L (0-35); AST (SGOT) 21 U/L (14-36); Albumin 3.6 g/dl (3.5-5.0); Alkaline Phosphatase 114 U/L (38-126); Blood Urea Nitrogen 37 mg/dl (7-17); Calcium 9.2 mg/dl (8.4-10.2); Carbon Dioxide 25 mmol/L (22-30); Chloride 107 mmol/L (98-107); Estimated Creatinine Clearance 40 ml/min; Glucose 108 mg/dl (70-99); Potassium 3.7 mmol/L (3.5-5.1); Sodium 142 mmol/L (135-145); Total Bilirubin 0.8 mg/dl (0.2-1.3); eGFR 50.17
[2024-07-13 02:41] LABS: NT-proBNP 986 pg/ml; Troponin I 0.034 ng/ml
--- NOTE | 2024-07-13 05:29 | HPS.HSE ---
Family Physician
-
Family Physician: Chetna Colorado
Chief Complaint
-
Chest Pain
History of Present Illness
Patient is an 84y F with PMH significant for Parkinson's disease, A-Fib and s/p TAVR who presents to ED complaining of left-sided chest pain this evening. Patient states that she woke to use the bathroom in the middle of the night. She noted
chest discomfort while walking back from the bathroom. Patient denies any associated SOB, diaphoresis, N/V, etc. She denies any prior h/o similar symptoms. She had no palpitations, lightheadedness, etc.
Patient presented to the ED for evaluation and was noted to be in A-Fib with rapid ventricular rates and persistent hypotension (SBP in the 60s). Patient underwent emergent cardioversion in the ED with return to NSR and resolution of chest
discomfort.
Following DCCV, patient remained hypotensive for some time.
At the time of my examination, patient states that she is feeling well. No chest pain, palpitations, dizziness, etc.
Medical History
Past Medical History
Past Medical History: Reports Other
Additional Past Medical History:
Parkinson's Disease
Paroxysmal A-Fib
Aortic Stenosis
CHFpEF
Hypertension
Spinal Stenosis
Hypothyroidism
GERD
Anxiety / Depression
Past Surgical History: Reports Other
Additional Past Surgical History:
TAVR
Lumbar Laminectomy / Fusion (x 2)
Right Rotator Cuff Repair
Right TSA
Bilateral TKA
Left Bunionectomy
Cataracts
Social History
Tobacco: Former Smoker
Alcohol: None
Drug: None
Family History
Family History: Not pertinent
Allergies / Home Medications
Allergies reflects when Allergies were last updated in [employer].
Home Medications with original date entered in [employer]
Allergy/Medication List:
Allergies
Allergy/AdvReac Type Severity Reaction Status Date / Time
ALIREZA Inhibitors Allergy cough Verified 07/13/24 01:36
nifedipine [From Procardia] Allergy Unknown Verified 07/13/24 01:36
Sulfa (Sulfonamide Allergy CHILDHOOD Verified 07/13/24 01:36
Antibiotics)
sulfisoxazole Allergy CHILDHOOD Verified 07/13/24 01:36
Home Medications
levothyroxine 50 mcg tablet 50 mcg PO DAILY Thyroid 09/24/16
pantoprazole 40 mg tablet,delayed release 40 mg PO DAILY Gastrointestinal Issue 09/24/16
citalopram 20 mg tablet 20 mg PO DAILY depression 02/21/20
atenolol 25 mg tablet 25 mg PO DAILY Blood pressure 06/04/21
atorvastatin 10 mg tablet 10 mg PO HS High cholesterol 06/04/21
carbidopa ER 50 mg-levodopa 200 mg tablet,extended release 1 tab PO BID PARKINSON 03/17/23
gabapentin 300 mg capsule 300 mg PO Q8H pain 03/17/23
meloxicam 15 mg tablet 15 mg PO DAILY Pain 03/17/23
montelukast 10 mg tablet 10 mg PO HS asthma 03/17/23
aspirin 81 mg tablet,delayed release 81 mg PO DAILY Blood Clot Prevention/Tx 06/10/23
furosemide 40 mg tablet 160 mg PO BID Fluid Retention/Swelling 10/11/23
potassium chloride 20 mEq tablet,extended release(part/cryst) 20 meq PO BID Electrolyte Repletion 10/11/23
sildenafil (pulm.hypertension) 20 mg tablet 20 mg PO BID pulmonary hypertension 10/11/23
famotidine 20 mg tablet 20 mg PO DAILY@1999 #0 tabs 10/15/23
tramadol PRN PRN pain 07/13/24
Review of Systems
-
History Source: Patient and Family
A 12 point ROS was completed and negative except as noted: Yes
Constitutional: Reports Fatigue; Denies Fever or Chills
Respiratory: Denies Cough or Trouble Breathing
Cardiac: Reports Chest Pain; Denies Palpitations or Syncope
Abdomen/GI: Denies Abdominal Pain, Nausea, Vomiting or Diarrhea
: Denies Dysuria or Frequency
Musculoskeletal: Denies Joint Pain or Edema
Neurological: Denies Dizzy or Headache
Psych: Denies Depression or Anxiety
Physical Exam
Vital Signs
Vital Signs
Temp Pulse Resp BP Pulse Ox
98.5 F 74 16 93/44 95
07/13/24 02:55 07/13/24 05:00 07/13/24 05:00 07/13/24 05:00 07/13/24 05:00
Physical Exam
General: Other (84y F in no acute distress. Flat affect / masked facies.)
HEENT: Moist mucous membranes and PERRLA
Respiratory: Clear; No Wheezes, Rales or Rhonchi
Cardiac: S1/S2 and Regular Rhythm; No Murmur
GI: Soft, Non Tender, Non Distended and Normal Bowel Sounds
Musculoskeletal: No Clubbing, No Cyanosis and Other (1+ edema b/l LEs.)
Neuro: Awake, Alert and Oriented
Laboratory Results
-
07/13/24 01:51
07/13/24 01:51
Laboratory Results
PT 15.2 Sec (11.4-14.6) H 07/13/24 01:51
INR 1.15 07/13/24 01:51
Total Bilirubin 0.8 mg/dl (0.2-1.3) 07/13/24 01:51
AST 21 U/L (14-36) 07/13/24 01:51
ALT < 10 U/L (0-35) 07/13/24 01:51
Alkaline Phosphatase 114 U/L (38-126) 07/13/24 01:51
Troponin I 0.034 ng/ml 07/13/24 01:51
Impression/Plan
-
A/P: Patient is an 84y F with PMH significant for Parkinson's disease, A-Fib and s/p TAVR who presents to ED complaining of chest pain.
Paroxysmal Atrial Fibrillation with Rapid Ventricular Response
Hypotension secondary to the above
- Observe overnight for further evaluation / monitoring.
- Patient required urgent cardioversion in the ED and remains somewhat hypotensive post-procedure.
- Follow for continued improvement / stability.
- Note that patient is not maintained on OAC secondary to Parkinsonism / falls / etc.
- Continue atenolol, ASA, etc.
- Hold sildenafil acutely.
- Cardiology evaluation.
Chronic HFpEF
- Stable. Some edema on exam but hypotensive at present.
- Hold AM dose of Lasix and resume in afternoon if BP stable.
- Follow I/Os, daily weights, etc.
Benign Hypertension
- Currently low BP as noted above.
- Only BP med is atenolol which will be continued for A-Fib / rate with holding parameters.
Parkinson's Disease
- Stable. Continue usual dose of Sinemet without changes.
Hypothyroidism
- Stable. Continue T4 supplementation.
DVT Prophylaxis: SCDs
Code Status: DNR
[2024-07-13] MEDS: NEURONTIN 300 MG PO (08:54)
[2024-07-13] MEDS: SYNTHROID 50 MCG PO (08:54)
[2024-07-13] MEDS: CELEXA 20 MG PO (08:55)
[2024-07-13] MEDS: ASPIR LOW (ENTERIC COATED) 81 MG PO (08:55)
[2024-07-13] MEDS: PROTONIX 40 MG PO (08:55)
[2024-07-13] MEDS: MOBIC 15 MG PO (08:55)
[2024-07-13] MEDS: SINEMET CR 50/200 (EXTENDED RELEASE) 1 TABLET PO ×2 (08:55→22:58)
[2024-07-13 08:56] LABS: TSH Reflex To Free T4 3.63 uIU/ml (0.47-4.68)
[2024-07-13] MEDS: KCL 20 MEQ PO ×2 (09:26→22:58)
--- NOTE | 2024-07-13 09:38 | PTCARENOTE ---
Assumed care at 0700. VSS. Aox3. AM labs drawn. Dr. Jane and [facility] TRAN aware of positive troponin. AM meds given, with the exception of Atenolol, which was not loaded in pyxis, pharmacy aware. Transport volunteer took patient to room 410-1 w/
all belongings.
--- NOTE | 2024-07-13 10:13 | CON.CAR ---
Addendum entered and electronically signed by Mk Jane MD 07/13/24 11:25:
I saw and examined the patient.
The BUSINESS SUPPORT LIAISON or PA's note was reviewed and I agree with the note.
Comment: General: Well developed, well nourished in NAD.
Neck: Supple, no JVD, HJR, carotids +2 B/L, no bruits bilaterally.
Heart: Non displaced PMI, RRR, no murmurs, No S3, S4, no rubs.
Lungs: Scattered rhonchi
Abdomen: Normal bowel sounds, soft, non-tender, non-distended.
Extremities: No clubbing, cyanosis or edema bilaterally.
Neuro: Grossly nonfocal, awake, alert and oriented x3.
Farheen has a history of atrial fibrillation not chronically anticoagulated due to Parkinson's disease and falls, chronic diastolic CHF, pulmonary hypertension on the video, severe aortic stenosis status post TAVR, left bundle branch block, CKD 3,
hypertension, Parkinson's, hypothyroidism, GERD, obesity. Degenerative dose in hospital with palpitations and heart racing. She is found to be in rapid A-fib with chest pain. She was hypotensive not responding to IV fluid and was urgently
cardioverted to sinus rhythm. She denies any chest pain short breath or palpitations. Of note troponin went to 3.9 and cardiology has been consulted
Will further track troponins. Will check echocardiogram. Troponin elevation may be due to cardioversion. Will anticoagulate if she is not a fullness for at least 1 month status post cardioversion. Stop aspirin. Hopefully stable for discharge on
4/5 AM
Original Note:
Consultation
Consultation Request
Date/Time Consultation Performed: 07/13/24
Requesting Provider: Dr. Archibald
Performing Provider: Morena Weller PA-C for Dr. Jane
Reason for Consultation: afib, hypotension, elevated troponin
Medical History
-
Chief Complaint: heart racing
History of Present Illness:
Patient is an 84-year-old female with past medical history of severe status post TAVR, chronic left bundle branch block, hypertension, hyperlipidemia, CKD stage III, chronic diastolic congestive heart failure, paroxysmal atrial fibrillation not
chronically anticoagulated due to history of falls and Parkinson's disease who presented to [facility] due to heart racing. She states she awoke around 2 AM and was walking into the bathroom and noticed her heart pounding. In the setting
of this she also felt chest pressure. She hit her life alert button and was brought to the emergency room. On arrival she was noted to be in atrial fibrillation with rapid ventricular response. She was also noted to be hypotensive not responding
to IV fluid and was urgently cardioverted successfully in the emergency room. She remains in sinus rhythm at this time. She is states she is presently without any complaints including chest pressure. Troponin up to 3.9. Last cath was 02/2020 in
setting of TAVR work up with nonobstructive CAD. Cardiology consulted for evaluation.
PMH:
Paroxysmal atrial fibrillation
Not chronically anticoagulated due to Parkinson's disease and falls
Chronic diastolic congestive heart failure
Pulm HTN, on revatio
Severe status post TAVR 2020
Chronic left bundle branch block
CKD stage III
Hypertension
Hyperlipidemia
Parkinson's disease
Hypothyroidism
GERD
Obesity
Past Medical History
Past Medical History: Other (in HPI)
Social History
Tobacco: Former Smoker
Alcohol: None
Personal:
Employment: Retired
Family History
Family History: Hypertension
Allergies / Home Medications
Allergy/AdvReac Type Severity Reaction Status Date / Time
ALIREZA Inhibitors Allergy cough Verified 07/13/24 01:36
nifedipine [From Procardia] Allergy Unknown Verified 07/13/24 01:36
Sulfa (Sulfonamide Allergy CHILDHOOD Verified 07/13/24 01:36
Antibiotics)
sulfisoxazole Allergy CHILDHOOD Verified 07/13/24 01:36
�Medication �Instructions �Recorded �Confirmed �Type
levothyroxine 50 mcg tablet 50 mcg PO DAILY Thyroid 09/24/16 07/13/24 History
pantoprazole 40 mg tablet,delayed 40 mg PO DAILY Gastrointestinal 09/24/16 07/13/24 History
release Issue
citalopram 20 mg tablet 20 mg PO DAILY depression 02/21/20 07/13/24 History
atenolol 25 mg tablet 25 mg PO DAILY Blood pressure 06/04/21 07/13/24 History
atorvastatin 10 mg tablet 10 mg PO HS High cholesterol 06/04/21 07/13/24 History
carbidopa ER 50 mg-levodopa 200 mg 1 tab PO BID PARKINSON 03/17/23 07/13/24 History
tablet,extended release
gabapentin 300 mg capsule 300 mg PO Q8H pain 03/17/23 07/13/24 History
meloxicam 15 mg tablet 15 mg PO DAILY Pain 03/17/23 07/13/24 History
montelukast 10 mg tablet 10 mg PO HS asthma 03/17/23 07/13/24 History
aspirin 81 mg tablet,delayed 81 mg PO DAILY Blood Clot 06/10/23 07/13/24 History
release Prevention/Tx
furosemide 40 mg tablet 160 mg PO BID Fluid 10/11/23 07/13/24 History
Retention/Swelling
potassium chloride 20 mEq 20 meq PO BID Electrolyte Repletion 10/11/23 07/13/24 History
tablet,extended release(part/cryst)
sildenafil (pulm.hypertension) 20 20 mg PO BID pulmonary hypertension 10/11/23 07/13/24 History
mg tablet
famotidine 20 mg tablet 20 mg PO DAILY@1999 #0 tabs 10/15/23 07/13/24 Rx
tramadol PRN PRN pain 07/13/24 History
Review of Systems
-
History Source: Patient
All other systems: Negative unless noted
Physical Exam
Vital Signs
Temp Pulse Resp BP Pulse Ox
98.2 F 83 18 111/50 96
07/13/24 10:12 07/13/24 10:12 07/13/24 10:12 07/13/24 10:12 07/13/24 10:12
Lab Results
07/13/24 01:51
07/13/24 01:51
Troponin I 3.920 ng/ml H* D 07/13/24 08:00
Tek-M-Moijepcdmiw Pept 986 pg/ml 07/13/24 01:51
Physical Exam
General: No Apparent Distress and Comfortable
HEENT: Normocephalic and Moist Mucous Membranes
Respiratory: Clear and Non Labored Respirations
Cardiac: S1/S2 and Regular Rhythm
GI: Soft, Non Tender, Non Distended and Normal Bowel Sounds
Musculoskeletal: No Clubbing, No Cyanosis and Edema (Trace of B/L LE)
Skin: Warm and Dry
Neuro: AO x 3
Impression / Plan
-
Primary General Machine Operator: Dr. Dawn
Assessment:
Presentation with heart pounding, CP
Atrial fibrillation with RVR, unstable s/p successful CV in ER 07/13/24
Hypotension, resolved with christianity of SR
Elevated troponin, suspected nonischemic myocardial injury in setting of above
Paroxysmal atrial fibrillation
Not chronically anticoagulated due to Parkinson's disease and falls
Chronic diastolic congestive heart failure
Pulm HTN, on revatio
Severe status post TAVR 2020
nonobstructive CAD by cath 02/2020
Chronic left bundle branch block
CKD stage III
Hypertension
Hyperlipidemia
Parkinson's disease
Hypothyroidism
GERD
Obesity
DNR code status
ECHO 06/10/23: TDS, EF 55 to 60%, abnormal septal motion consistent with a bundle branch block, mild concentric LVH, stage II diastolic dysfunction, dense posterior MAC, mild to moderate MS with mean gradient 6 mmHg, mild MR, well-seated #26 TAVR
valve with peak/mean gradients 18/9 mmHg, mild TR, PAP 40 to 45 mmHg
Plan:
- Patient presented with heart pounding and chest discomfort and was found to be in atrial fibrillation with RVR, felt to be unstable due to persistent hypotension and underwent urgent cardioversion in ER 07/13/2024
- Hypotension has now resolved
- Maintaining sinus rhythm
- On atenolol as outpatient. Will need to consider antiarrhythmic drug therapy to help maintain sinus rhythm
- She historically has not been on anticoagulation due to history of Parkinson's disease and history of falls. Discussed with patient and given cardioversion this admission will trial on IV heparin overnight and if tolerates will transition to
Eliquis. Case management to assess cost. [id number] score of 5�6 for age, female, CHF, hypertension, vascular disease.
- Check echo, last from 06/2023 with results as above
- Troponin elevated post cardioversion. No present chest pain. Trend trop to peak. Last ischemic evaluation was catheterization 02/2020 in the setting of TAVR workup. Would consider ischemic eval as outpatient if remains chest pain-free.
- stop OP aspirin as starting anticoagulation
- Continue outpatient Lipitor
- Check TSH
- She is eager for discharge in a.m.
- Discussed with hospitalist. Discussed with ER nursing
Data Reviewed
-
EKG: Report Reviewed by me
Medical Tests (Nuc Med, Echo etc): Report Reviewed by me
Labs: Labs Reviewed by me
Old Records: Reviewed
[2024-07-13] MEDS: HEPARIN 25000 UNITS/250 ML IV (11:04)
[2024-07-13] MEDS: TENORMIN 25 MG PO (11:17)
[2024-07-13] MEDS: DESENEX/MITRAZOL/ZEASORB 1 APPLIC TOPICAL (11:36)
--- NOTE | 2024-07-13 11:43 | W.PN.HOSP.TC ---
Today's Communication/Plan
-
Possible discharge tomorrow
Assessment / Plan
Assessment / Plan
Impression:
Patient is an 84y F with PMH significant for Parkinson's disease, A-Fib and s/p TAVR who presents to ED complaining of chest pain, found to have A-fib with RVR, status post cardioversion.
Will observe overnight and possible discharge tomorrow.
Echo pending.
Assessment/plan:
Paroxysmal Atrial Fibrillation with Rapid Ventricular Response
Status post cardioversion in the ER
Currently sinus rhythm
Seen by cardiology.
Echo pending.
Started on heparin drip and possible Eliquis tomorrow.
Possible discharge tomorrow
Chronic diastolic CHF
Patient denies chest pain
Echo on June 2023 showed:
Normal left ventricular size and systolic function. No regional wall motion
abnormalities are seen. LV ejection fraction is 55-60% by visual assessment.
Repeat echo pending.
Continue home Lasix.
I's and O's/daily weight
Slightly elevated troponin.
Type II [place], demand ischemia.
possible secondary to cardioversion
Cardiology consulted.
Echo pending
History of hypertension
Continue home meds, atenolol
Parkinson's Disease
- Stable. Continue usual dose of Sinemet without changes.
Hypothyroidism
- Stable. Continue T4 supplementation.
CODE STATUS: DNR
DVT prophylaxis: Heparin gtt
Diet: Regular diet
Total time spent on today's encounter was 55 minutes which included time spent in counseling the patient/family regarding diagnosis and treatment plan as listed above, goals of care, and symptom management. Case was discussed with nursing staff,
specialists, and care coordinators/case management. All labs and imaging personally reviewed by me. Remainder the time spent in detailed review of previous records, lab data, imaging, and other medical provider documentation.
Anticipated Discharge: Within 24 hours
Subjective/Interval History
-
Date of Service: July 13, 2024
Patient seen and examined at bedside, patient currently in sinus rhythm, status post cardioversion they are denies any chest pain or shortness of breath, no abdominal pain, no nausea, no vomiting, no diarrhea or constipation.
Objective Data
-
Labs:
Laboratory Results
07/13/24 07/13/24 07/13/24
01:51 10:25 17:00
WBC 5.8
Hgb 9.8 L
Hct 30.1 L
Plt Count 148
PT 15.2 H
INR 1.15
APTT 34.0 Pending
Sodium 142
Potassium 3.7
Chloride 107
Carbon Dioxide 25
BUN 37 H
Creatinine 1.1 H
Glucose 108 H
Calcium 9.2
Total Bilirubin 0.8
AST 21
ALT < 10
Alkaline Phosphatase 114
Vital Signs:
Vital Signs
Temp Pulse Resp BP Pulse Ox
98.2 F 83 18 111/50 95
07/13/24 10:25 07/13/24 11:17 07/13/24 10:25 07/13/24 11:17 07/13/24 10:45
Physical Exam
-
General: Well Developed, Well Nourished, No Apparent Distress and Comfortable
HEENT: Normocephalic, Atraumatic, Moist Mucous Membranes, No Ptosis, PERRLA and Nose Appears Normal
Respiratory: Clear to Auscultation and Non Labored Respirations
Cardiac: Regular Rhythm and S1/S2
Breast: Deferred by me
GI: Soft, Nontender, Nondistended and Normal Bowel Sounds
Genito-urinary: No Costovertebral Tender
Musculoskeletal: No Clubbing, No Cyanosis and No Edema
Skin: Warm
Neuro: Awake, Alert, Oriented, AO x 3 and No Motor Deficits
Psych: Calm
Data Reviewed
-
Diagnostic Radiology: Image personally visualized and interpreted and Report Reviewed by me
CT Scan: Image personally visualized and interpreted and Report Reviewed by me
Ultrasound: Image personally visualized and interpreted and Report Reviewed by me
MRI: Image personally visualized and interpreted and Report Reviewed by me
Medical Tests (Nuc Med, Echo etc): Image personally visualized and interpreted and Report Reviewed by me
Labs: Labs Reviewed by me
Old Records: Reviewed
--- NOTE | 2024-07-13 14:35 | CM ---
Addendum entered by Mattie Marx 07/13/24 15:27:
Patient seen at bedside. Patient stated that she lives alone with aides from [facility]12 daily. Patient stated that she does not need [facility] at this time and does not feel she needs any other supports. CM reviewed OBS/TEJADA form and
patient stated she could not sign it or read it without her glasses. CM agreed to call patient son to update. Patient confirmed again that she wants to go home tomorrow as she has a very important libertarian on Tuesday. Patient confirmed that PCP is "Tam"Mirosl[facility] and [facility] [place]. CM called to her daughter in law, Shima and reviewed above information. Family felt that cost would be sustainable if medication needed. Patient family will bring glasses and patient to sign form with family supports.
Daughter in law was open to VN if needed. CM will continue to follow for discharge planning needs.
PLan; home with [facility] if needed vs home with no needs. Watch for medication needs and provide coupon if needed.
Original Note:
Attempted to see patient 2x in ED and on floor. Patient admitted as OBS/Tejada. CM left form on bedside table. Patient PCP is Dr. [place] per medical chart review and patient uses the [facility] [place] per chart review. Patient has been at [facility] and [facility]
Home as well as [facility] and [facility] in the past. CM will attempt to assess patient in person when she returns to the room later today. Per nursing patient plan is to return home tomorrow so she can go to the 'libertarian'. CM called to [facility] regarding physician request for cost of Eliquis 5 mg BID. Per [facility] insurance, Eliquis would be 283.77 for 30 days. patient has not met deductible at this time but medication is level III and patient would be responsible for 25% of cost of
medication. Xarelto is also level III and warfarin would be 2.62$ as it is level I. CM will continue to follow for discharge planning needs.
Plan; home with VN vs home with no needs. watch for medication needs/coupon if available
--- NOTE | 2024-07-13 14:42 | CARDSERVDEF ---
Echocardiogram with Definity completed after protocol screening completed. Allergies verified.
Patent IV site: _Left arm accessory cephalic 20 G PC_(in patient)___
IV site flushed with 0.9% NaCl pre and post administration.
Diluted bolus method utilized to enhance visualization of ventricular enciso.
Total volume given: 2.5____ mL
Patient tolerated all procedures well without complications.
--- NOTE | 2024-07-13 15:01 | PTCARENOTE ---
pt from ED this morning. denied any pain or discomfort. pt room air. vss. oriented to the room. call martinez within the reach.
[2024-07-13] MEDS: LASIX 160 MG PO (16:21)
[2024-07-13] MEDS: NEURONTIN PO (16:29)
[2024-07-13] MEDS: COUMADIN 10 MG PO (18:06)
[2024-07-13] MEDS: LIPITOR 10 MG PO (22:58)
[2024-07-13] MEDS: SINGULAIR 10 MG PO (22:58)
[2024-07-14] MEDS: NEURONTIN PO (00:36)
[2024-07-14 03:15] VITALS: BP 128/63
[2024-07-14 04:15] VITALS: BP 128/63
[2024-07-14] MEDS: SYNTHROID 50 MCG PO (05:26)
[2024-07-14 06:00] VITALS: BMI 33.6
[2024-07-14 07:30] VITALS: BP 166/86
[2024-07-14 07:54] LABS: PT 15.5 Sec (11.4-14.6)
[2024-07-14 07:56] LABS: APTT 74.5 Sec (23.4-35.0)
[2024-07-14 08:01] LABS: Hematocrit 30.5 % (37.0-47.0); Hemoglobin 9.9 g/dL (12.0-16.0); Mean Corp Hgb Conc. 32.5 g/dL (33.0-37.0); Mean Corpuscular Hgb 31.2 pg (27.0-31.0); Mean Corpuscular Volume 96.2 fL (81.0-99.0); Mean Platelet Volume 11.1 fL (7.4-10.4); Platelet Count 165 10^3/uL (130-400); Red Blood Cell Count 3.17 10^6/uL (4.20-5.40); Red Cell Dist. Width 13.2 % (11.5-14.5); White Blood Cell Count 6.8 10^3/uL (4.8-10.8)
[2024-07-14 08:07] LABS: Blood Urea Nitrogen 28 mg/dl (7-17); Calcium 9.2 mg/dl (8.4-10.2); Carbon Dioxide 31 mmol/L (22-30); Chloride 105 mmol/L (98-107); Estimated Creatinine Clearance 47 ml/min; Glucose 98 mg/dl (70-99); Magnesium 2.5 mg/dl (1.6-2.3); Potassium 4.2 mmol/L (3.5-5.1); Sodium 144 mmol/L (135-145); eGFR 56.25
[2024-07-14] MEDS: TENORMIN 25 MG PO (08:58)
[2024-07-14] MEDS: DESENEX/MITRAZOL/ZEASORB 1 APPLIC TOPICAL (08:58)
[2024-07-14] MEDS: PROTONIX 40 MG PO (08:58)
[2024-07-14] MEDS: KCL 20 MEQ PO (08:58)
[2024-07-14] MEDS: NEURONTIN 300 MG PO (08:58)
[2024-07-14] MEDS: SINEMET CR 50/200 (EXTENDED RELEASE) 1 TABLET PO (08:59)
[2024-07-14] MEDS: HEPARIN 25000 UNITS/250 ML IV (08:59)
[2024-07-14] MEDS: LASIX 160 MG PO (08:59)
[2024-07-14] MEDS: CELEXA 20 MG PO (08:59)
--- NOTE | 2024-07-14 10:34 | W.PN.HOSP.TC ---
Today's Communication/Plan
-
Discharge home today.
Assessment / Plan
Assessment / Plan
Impression:
Patient is an 84y F with PMH significant for Parkinson's disease, A-Fib and s/p TAVR who presents to ED complaining of chest pain, found to have A-fib with RVR, status post cardioversion.
Will observe overnight and possible discharge tomorrow.
Echo shows:
Normal left ventricular size and function. Normal regional wall motion.
Moderate concentric left ventricular hypertrophy. LV ejection fraction is 60-
65% by George's method of discs.
Thickened mitral valve leaflets. Dense posterior mitral annular calcification.
Mild to moderate mitral stenosis. Peak/mean gradients across the mitral valve
are 18/7 mmHg. Moderate to severe mitral regurgitation.
Indexed LA volume is mildly abnormal (35-41 mL/m2).
#26 Bocanegra Ricki TAVR peak/mean gradients across the aortic valve are 17/9
mmHg. Trace aortic regurgitation is seen.
Tricuspid valve opens normally. Moderate tricuspid regurgitation. Estimated
pulmonary artery pressure of 68 mmHg. Assuming a right atrial pressure of 20
mmHg.
Since echo June 2023, MR may have worsened from mild to moderate-severe. PA
systolic pressures increased from 40-45 mmHg to 68 mmHg
Okay to discharged as per cardiology on oral Eliquis for 1 month.
Assessment/plan:
Paroxysmal Atrial Fibrillation with Rapid Ventricular Response
Status post cardioversion in the ER
Currently sinus rhythm
Seen by cardiology.
Echo EF 60 to 65%
Started on heparin drip and possible Eliquis tomorrow.
Possible discharge tomorrow
4/5
Discharge home on oral Eliquis for 1 month
Chronic diastolic CHF
Patient denies chest pain
Echo on June 2023 showed:
Normal left ventricular size and systolic function. No regional wall motion
abnormalities are seen. LV ejection fraction is 55-60% by visual assessment.
Repeat echo shows stable EF
Continue home Lasix.
I's and O's/daily weight
Slightly elevated troponin.
Type II [place], demand ischemia.
possible secondary to cardioversion
Cardiology consulted.
Echo shows no sign of hypokinesia
History of hypertension
Continue home meds, atenolol
Parkinson's Disease
- Stable. Continue usual dose of Sinemet without changes.
Hypothyroidism
- Stable. Continue T4 supplementation.
CODE STATUS: DNR
DVT prophylaxis: Heparin gtt
Diet: Regular diet
Total time spent on today's encounter was 55 minutes which included time spent in counseling the patient/family regarding diagnosis and treatment plan as listed above, goals of care, and symptom management. Case was discussed with nursing staff,
specialists, and care coordinators/case management. All labs and imaging personally reviewed by me. Remainder the time spent in detailed review of previous records, lab data, imaging, and other medical provider documentation.
Anticipated Discharge: Today
Subjective/Interval History
-
Date of Service: July 14, 2024
Patient seen and examined at bedside, denies any chest pain or shortness of breath, no abdominal pain, no nausea, no vomiting, no diarrhea or constipation.
Objective Data
-
Labs:
Laboratory Results
07/14/24 07/14/24
00:13 06:42
WBC 6.8
Hgb 9.9 L
Hct 30.5 L
Plt Count 165
PT 15.5 H
INR 1.20
APTT 91.0 H 74.5 H
Sodium 144
Potassium 4.2
Chloride 105
Carbon Dioxide 31 H
BUN 28 H
Creatinine 1.0
Glucose 98
Calcium 9.2
Vital Signs:
Vital Signs
Temp Pulse Resp BP Pulse Ox
97.3 F 74 18 166/86 94
07/14/24 07:30 07/14/24 08:59 07/14/24 07:30 07/14/24 08:59 07/14/24 08:53
Physical Exam
-
General: Well Developed, Well Nourished, No Apparent Distress and Comfortable
HEENT: Normocephalic, Atraumatic, Moist Mucous Membranes, No Ptosis, PERRLA and Nose Appears Normal
Respiratory: Clear to Auscultation and Non Labored Respirations
Cardiac: Regular Rhythm and S1/S2
Breast: Deferred by me
GI: Soft, Nontender, Nondistended and Normal Bowel Sounds
Genito-urinary: No Costovertebral Tender
Musculoskeletal: No Clubbing, No Cyanosis and No Edema
Skin: Warm
Neuro: Awake, Alert, Oriented, AO x 3 and No Motor Deficits
Psych: Calm
Data Reviewed
-
Diagnostic Radiology: Image personally visualized and interpreted and Report Reviewed by me
CT Scan: Image personally visualized and interpreted and Report Reviewed by me
Ultrasound: Image personally visualized and interpreted and Report Reviewed by me
MRI: Image personally visualized and interpreted and Report Reviewed by me
Medical Tests (Nuc Med, Echo etc): Image personally visualized and interpreted and Report Reviewed by me
Labs: Labs Reviewed by me
Old Records: Reviewed
--- NOTE | 2024-07-14 10:42 | W.DCSUMMARY ---
Discharge Summary
Discharge Data
Date of Admission: 07/13/24
Date of Discharge: 07/14/24
-
Pending Results: No
Hospital Course
Impression:
Patient is an 84y F with PMH significant for Parkinson's disease, A-Fib and s/p TAVR who presents to ED complaining of chest pain, found to have A-fib with RVR, status post cardioversion.
Will observe overnight and possible discharge tomorrow.
Echo shows:
Normal left ventricular size and function. Normal regional wall motion.
Moderate concentric left ventricular hypertrophy. LV ejection fraction is 60-
65% by George's method of discs.
Thickened mitral valve leaflets. Dense posterior mitral annular calcification.
Mild to moderate mitral stenosis. Peak/mean gradients across the mitral valve
are 18/7 mmHg. Moderate to severe mitral regurgitation.
Indexed LA volume is mildly abnormal (35-41 mL/m2).
#26 Bocanegra Ricki TAVR peak/mean gradients across the aortic valve are 17/9
mmHg. Trace aortic regurgitation is seen.
Tricuspid valve opens normally. Moderate tricuspid regurgitation. Estimated
pulmonary artery pressure of 68 mmHg. Assuming a right atrial pressure of 20
mmHg.
Since echo June 2023, MR may have worsened from mild to moderate-severe. PA
systolic pressures increased from 40-45 mmHg to 68 mmHg
Okay to discharged as per cardiology on oral Eliquis for 1 month.
Assessment/plan:
Paroxysmal Atrial Fibrillation with Rapid Ventricular Response
Status post cardioversion in the ER
Currently sinus rhythm
Seen by cardiology.
Echo EF 60 to 65%
Started on heparin drip and possible Eliquis tomorrow.
Possible discharge tomorrow
4/5
Discharge home on oral Eliquis for 1 month
Chronic diastolic CHF
Patient denies chest pain
Echo on June 2023 showed:
Normal left ventricular size and systolic function. No regional wall motion
abnormalities are seen. LV ejection fraction is 55-60% by visual assessment.
Repeat echo shows stable EF
Continue home Lasix.
I's and O's/daily weight
Slightly elevated troponin.
Type II RI, demand ischemia.
possible secondary to cardioversion
Cardiology consulted.
Echo shows no sign of hypokinesia
History of hypertension
Continue home meds, atenolol
Parkinson's Disease
- Stable. Continue usual dose of Sinemet without changes.
Hypothyroidism
- Stable. Continue T4 supplementation.
CODE STATUS: DNR
DVT prophylaxis: Heparin gtt
Diet: Regular diet
Total time spent on today's encounter was 40 minutes which included time spent in counseling the patient/family regarding diagnosis and treatment plan as listed above, goals of care, and symptom management. Case was discussed with nursing staff,
specialists, and care coordinators/case management. All labs and imaging personally reviewed by me. Remainder the time spent in detailed review of previous records, lab data, imaging, and other medical provider documentation.
Anticipated Discharge: Today
Discharge Plan
-
Patient Disposition: Home (Routine Discharge)
Discharge Diagnosis/Procedures: Atrial fibrillation with RVR
Condition: Good
Diet: 2 Gram Sodium
Activity: As tolerated
Specialty Instructions: Weigh Daily- Call MD for wt gain/loss 3 lbs overnight/5 lbs in 1 week
Referrals:
Dale Dawn MD [Active] -
Chetna Colorado DO [Family Provider] -
Germania Coley PA-C [Specified Professional Personl] - 07/26/24 1:20 pm (You have a cardiology follow up appointment at the [place] office with Dr. Dawn's physician investment sales assistant, Germania. Please call with questions. )
Additional Discharge Medication Instructions: Started on Eliquis 5 mg twice daily for 1 month
Prescriptions:
New
Eliquis 5 mg Tablet
5 mg PO BID 30 Days Qty: 60 0RF
Continued
levothyroxine 50 MCG tablet
50 mcg PO DAILY
pantoprazole 40 MG tablet,delayed release (DR/EC)
40 mg PO DAILY
citalopram 20 MG tablet
20 mg PO DAILY
atorvastatin 10 MG tablet
10 mg PO HS
atenolol 25 MG tablet
25 mg PO DAILY
carbidopa-levodopa 50-200 mg Tablet Extended Release
1 tab PO BID
gabapentin 300 mg Capsule
300 mg PO Q8H
montelukast 10 mg Tablet
10 mg PO HS
sildenafil (pulm.hypertension) 20 mg tablet
20 mg PO BID
furosemide 40 mg tablet
160 mg PO BID
potassium chloride 20 mEq tablet,ER particles/crystals
20 meq PO BID
famotidine 20 mg Tablet
20 mg PO DAILY@1999 Qty: 0 0RF
tramadol 50 mg Tablet
50 mg PO BID PRN (Reason: pain)
Rx Instructions:
Last filled 12/16/23 #60 x30 day supply
Held
meloxicam 15 mg Tablet
15 mg PO DAILY
Hold Instructions: Hold while on Eliquis
aspirin 81 mg tablet,delayed release (DR/EC)
81 mg PO DAILY
Hold Instructions: Hold while taking Eliquis then resume after 1 month
Discharge Orders:
Discharge Patient (As Directed); Ordered 07/14/24
Ordered By: Ian Archibald
Discharge Date and Time
Print Language: DANISH
[2024-07-14 10:50] VITALS: BMI 33.6
--- NOTE | 2024-07-14 11:16 | W.PN.CARDCBS ---
Addendum entered and electronically signed by Mk Jane MD 07/14/24 11:37:
I saw and examined the patient.
The JET MECHANIC or PA's note was reviewed and I agree with the note.
Comment: General: Well developed, well nourished in NAD.
Neck: Supple, no JVD, HJR, carotids +2 B/L, no bruits bilaterally.
Heart: Non displaced PMI, RRR, no murmurs, No S3, S4, no rubs.
Lungs: Scattered rhonchi
Extremities: No clubbing, cyanosis or edema bilaterally.
Neuro: Grossly nonfocal, awake, alert and oriented x3.
She remains in sinus rhythm. Echocardiogram okay. Stable cardiology follow-up. Plan was to give anticoagulation for at least 1 month status post cardioversion. She was felt not to be candidate for anticoagulation in the past due to falls and
Parkinsons. Eliquis is expensive but she could afford 1 month and declines Coumadin. Stop aspirin while on Eliquis. Discussed with primary service. Follow-up h been arranged.
Original Note:
Today's Communication / Plan
-
Start Eliquis 5 mg twice a day, 30-day free co-pay card provided to patient
Stop aspirin while on Eliquis
Continue atenolol
Outpatient cardiology follow-up has been arranged
Stable for discharge
Impression / Plan
-
Primary Binder Coverstitch: Dr. aDwn
Assessment:
Presentation with heart pounding, CP
Atrial fibrillation with RVR, unstable s/p successful CV in ER 07/13/24
Hypotension, resolved with holiness of SR
Elevated troponin, suspected nonischemic myocardial injury in setting of above
Paroxysmal atrial fibrillation
Not chronically anticoagulated due to Parkinson's disease and falls
Chronic diastolic congestive heart failure
Pulm HTN, on revatio
Severe status post TAVR 2020
nonobstructive CAD by cath 02/2020
Chronic left bundle branch block
CKD stage III
Hypertension
Hyperlipidemia
Parkinson's disease
Hypothyroidism
GERD
Obesity
DNR code status
ECHO 06/10/23: TDS, EF 55 to 60%, abnormal septal motion consistent with a bundle branch block, mild concentric LVH, stage II diastolic dysfunction, dense posterior MAC, mild to moderate MS with mean gradient 6 mmHg, mild MR, well-seated #26 TAVR
valve with peak/mean gradients 18/9 mmHg, mild TR, PAP 40 to 45 mmHg
Echo 07/13/2024: EF 60 to 65% with moderate concentric LVH. Mild to moderate MS with peak/mean gradient 18/7 mmHg with moderate to severe TR. #26 [place] AMINA TAVR well-seated with peak/mean gradient 17/9 mmHg and no paravalvular leak. Moderate
TR with PAP 68 mmHg.
Plan:
- Patient presented with heart pounding and chest discomfort and was found to be in atrial fibrillation with RVR, felt to be unstable due to persistent hypotension and underwent urgent cardioversion in ER 07/13/2024
- Hypotension resolved with holiness of sinus rhythm.
- Maintaining sinus rhythm continue outpatient dosing of atenolol
-Will need to consider antiarrhythmic drug therapy to help maintain sinus rhythm. Could also consider outpatient ablation if she has recurrence
- She historically has not been on anticoagulation due to history of Parkinson's disease and history of falls. Discussed with patient and given cardioversion this admission she will require at least 4 weeks of anticoagulation. Patient agreeable to
start Eliquis 5 mg twice a day. Patient was provided co-pay card for free 30 days
-[id number] score of 5�6 for age, female, CHF, hypertension, vascular disease.
-Echo from 07/13/2024 shows preserved ejection fraction with mild to moderate mitral stenosis and moderate to severe MR. TAVR gradients stable without paravalvular leak. Also found to have pulmonary hypertension with PAP 68 mmHg. Will need to
continue to monitor
- Troponin elevated post cardioversion. No present chest pain. Peaked at 5.29. Last ischemic evaluation was catheterization 02/2020 in the setting of TAVR workup. Would consider ischemic eval as outpatient if remains chest pain-free.
- stop OP aspirin as starting anticoagulation
- Continue outpatient Lipitor
- TSH 3.63
- She is eager for discharge. Outpatient cardiology follow-up has been arranged
Progress Note - Binder Coverstitch
Subjective
Date of Service: July 14, 2024
Patient seen and examined. Patient eager to go home. Feeling well.
Objective
Labs:
07/14/24 06:42
07/14/24 06:42
Labs
Hgb 9.9 g/dL (12.0-16.0) L 07/14/24 06:42
Hct 30.5 % (37.0-47.0) L 07/14/24 06:42
Plt Count 165 10^3/uL (130-400) 07/14/24 06:42
PT 15.5 Sec (11.4-14.6) H 07/14/24 06:42
INR 1.20 07/14/24 06:42
APTT 74.5 Sec (23.4-35.0) H 07/14/24 06:42
Sodium 144 mmol/L (135-145) 07/14/24 06:42
Potassium 4.2 mmol/L (3.5-5.1) 07/14/24 06:42
BUN 28 mg/dl (7-17) H 07/14/24 06:42
Creatinine 1.0 mg/dL (0.6-1.0) 07/14/24 06:42
Glucose 98 mg/dl (70-99) 07/14/24 06:42
Troponins
07/13/24 07/13/24 07/13/24
01:51 08:00 16:13
Troponin I 0.034 3.920 H* D 5.290 H*
07/14/24
00:13
Troponin I 3.300 H* D
Vital Signs and I&O:
Vital Signs
Temp Pulse Resp BP Pulse Ox
97.3 F 74 18 166/86 94
07/14/24 07:30 07/14/24 08:59 07/14/24 07:30 07/14/24 08:59 07/14/24 08:53
Vital Signs
Temp Pulse Resp BP Pulse Ox
97.3 F 74 18 166/86 94
07/14/24 07:30 07/14/24 08:59 07/14/24 07:30 07/14/24 08:59 07/14/24 08:53
Physical Exam
Physical Exam
GEN: No distress, awake, Ox3, lying in bed comfortably
HEENT: supple, anicteric, mmm
LUNGS: CTA, no wheezes/rales
CV: Reg, S1/S2, 2/6 syst LSB murmur radiating to apex
ABD: soft, BS+, NT/ND
EXT: No edema, clubbing or cyanosis
NEURO: Gross non-focal
SKIN: No rash, warm, dry, pink
[2024-07-14 11:30] VITALS: BP 149/86
[2024-07-14] MEDS: ELIQUIS 5 MG PO (11:42)
--- NOTE | 2024-07-14 12:10 | CM ---
Spoke with attending who stated that patient is medically stable for discharge. Attending inquired about the 30 day free card from [facility] [employer]. Brought one to patient and provided directions on how to use it. Patient expressed understanding. She stated
that her son and daughter in law will be coming to bring her home. She expressed no further needs.
No IMM as patient still OBS.
Plan: Case management will continue to follow and assist with discharge planning. Home.
== END 2024-07-14 13:44 | disposition home or self-care (01) ==
LOC: 4 EAST ACU 05:55
PROVIDERS: Internal Medicine Cardiovascular Disease; Physician Assistant; ADMITTING PHYSICIAN Hospitalist; ATTENDING PHYSICIAN General Practice; EMERGENCY PHYSICIAN Student in an Organized Health Care Education/Training Program; FAMILY PHYSICIAN Family Medicine; OTHER PHYSICIAN Internal Medicine Cardiovascular Disease
DX: I48.0 Paroxysmal atrial fibrillation (principal); R07.9 Chest pain, unspecified; R00.0 Tachycardia, unspecified; G20.A1 Parkinson's disease without dyskinesia, without mention of fluctuations; F02.83 Dementia in other diseases classified elsewhere, unspecified severity, with mood disturbance; I50.32 Chronic diastolic (congestive) heart failure; I13.0 Hypertensive heart and chronic kidney disease with heart failure and stage 1 through stage 4 chronic kidney disease, or unspecified chronic kidney disease; N18.30 Chronic kidney disease, stage 3 unspecified; F32.A Depression, unspecified; I21.A1 Myocardial infarction type 2; I95.9 Hypotension, unspecified; I25.10 Atherosclerotic heart disease of native coronary artery without angina pectoris; I44.7 Left bundle-branch block, unspecified; E78.00 Pure hypercholesterolemia, unspecified; J44.9 Chronic obstructive pulmonary disease, unspecified; E03.9 Hypothyroidism, unspecified; K21.9 Gastro-esophageal reflux disease without esophagitis; I27.20 Pulmonary hypertension, unspecified; I08.3 Combined rheumatic disorders of mitral, aortic and tricuspid valves; E66.9 Obesity, unspecified; Z87.891 Personal history of nicotine dependence; Z96.653 Presence of artificial knee joint, bilateral; Z60.2 Problems related to living alone; Z79.82 Long term (current) use of aspirin; Z79.890 Hormone replacement therapy; Z79.1 Long term (current) use of non-steroidal anti-inflammatories (NSAID); Z98.1 Arthrodesis status; Z88.2 Allergy status to sulfonamides; Z88.8 Allergy status to other drugs, medicaments and biological substances; Z79.899 Other long term (current) drug therapy; Z66 Do not resuscitate; Z95.2 Presence of prosthetic heart valve; Z68.33 Body mass index [BMI] 33.0-33.9, adult; Z82.49 Family history of ischemic heart disease and other diseases of the circulatory system
CPT/HCPCS: 80048; 80053; 83735; 83880; 84443; 84484; 85025; 85027; 85610; 85730; 92960; 93005; 93306; 96360; 96361; 99152; 99291; G0378; Q9957

== ENCOUNTER 2024-09-19 22:59 | Emergency (ER) | payer MEDICARE, OTHER, SELFPAY ==
[2024-09-19 23:02] VITALS: BP 90/71
[2024-09-19 23:04] VITALS: BP 90/71
[2024-09-19 23:08] VITALS: BMI 37.1
[2024-09-19 23:19] LABS: % Basophils 0.8 % (0-2); % Eosinophils 2.9 % (0-6); % Immature Granulocytes 0.2 % (0-0.5); % Lymphocytes 21.7 % (20.5-51.1); % Monocytes 11.1 % (1.7-9.3); % Neutrophils 63.3 % (42.2-75.2); Absolute Basophils 0.1 10^3/uL (0-0.2); Absolute Eosinophils 0.2 10^3/uL (0-0.7); Absolute Lymphocytes 1.4 10^3/uL (1.2-3.4); Absolute Monocytes 0.7 10^3/uL (0.1-0.6); Absolute Neutrophils 4.2 10^3/uL (1.4-6.5); Hematocrit 30.7 % (37.0-47.0); Hemoglobin 10.2 g/dL (12.0-16.0); Mean Corp Hgb Conc. 33.2 g/dL (33.0-37.0); Mean Corpuscular Hgb 30.3 pg (27.0-31.0); Mean Corpuscular Volume 91.1 fL (81.0-99.0); Mean Platelet Volume 10.6 fL (7.4-10.4); Nucleated Red Blood Cells % 0 %; Platelet Count 160 10^3/uL (130-400); Red Blood Cell Count 3.37 10^6/uL (4.20-5.40); Red Cell Dist. Width 13.8 % (11.5-14.5); White Blood Cell Count 6.6 10^3/uL (4.8-10.8)
[2024-09-19 23:34] VITALS: BP 72/54
[2024-09-19 23:42] LABS: ALT (SGPT) < 10 U/L (0-35); AST (SGOT) 19 U/L (14-36); Albumin 3.6 g/dl (3.5-5.0); Alkaline Phosphatase 170 U/L (38-126); Blood Urea Nitrogen 32 mg/dl (7-17); Calcium 8.9 mg/dl (8.4-10.2); Carbon Dioxide 28 mmol/L (22-30); Chloride 107 mmol/L (98-107); Estimated Creatinine Clearance 40 ml/min; Glucose 112 mg/dl (70-99); Potassium 3.7 mmol/L (3.5-5.1); Sodium 143 mmol/L (135-145); Total Bilirubin 0.5 mg/dl (0.2-1.3); Total Protein 6.3 g/dl (6.3-8.2); eGFR 50.17
[2024-09-19 23:53] VITALS: BP 140/110
--- NOTE | 2024-09-19 23:57 | ED.GENMED ---
History of Present Illness
General
Chief Complaint: Chest Pain
Time Seen by Provider: 09/19/24 23:46
History of Present Illness
History of Present Illness:
REVIEW OF OLD RECORDS
The patient was admitted with A-fib with RVR. After she was cardioverted in July, she was kept for observation. She was felt not to be a long-term anticoagulation candidate due to falls with Parkinson's. She was emergently cardioverted through
the ER July 13, 2024
Note:
CHIEF COMPLAINT(S)
Chest pain and lightheadedness
HISTORY OF PRESENT ILLNESS
The patient is an 84-year-old female presenting with chest pain that began around 9 to 10 PM while lying in bed watching television. The pain is described as a sensation of the heart racing. The patient has a history of atrial fibrillation, for
which she was treated two months ago, and is currently on the blood thinner Eliquis. She has been experiencing episodes of skipped doses of her medication.
Upon examination, the patient was found to be in atrial fibrillation with a rapid ventricular response and irregular heart rhythm. The monitor indicates a left bundle branch block. The patient also has a history of electrical cardioversion for
atrial fibrillation performed in the emergency department two months prior, after which she was discharged following overnight observation.
The patients blood pressure is notably low, with readings as low as the 70s systolic. She reports suboptimal fluid and dietary intake over the past few days. The patient denies having known coronary artery disease or past myocardial infarction.
SOCIAL DETERMINANTS AFFECTING HEALTH
The patient admits to falling asleep frequently, leading to missed doses of her medication, which could potentially exacerbate her current condition.
MEDICATIONS
The patient is currently taking Eliquis but reports forgetting doses.
REVIEW OF SYSTEMS
- Cardiovascular: Chest pain described as heart racing, history of atrial fibrillation.
- Gastrointestinal: Suboptimal diet and fluid intake over the past few days.
- Neurological: Lightheadedness.
PHYSICAL EXAM
- General: Well appearing in no distress
- HEENT: Slightly dry oral mucosa
- Cardiovascular: No murmurs, tachycardic heart rate, irregular rhythm, No chest wall tenderness
- Pulmonary: No respiratory distress, breath sounds are slightly coarse
- Abdomen: Soft with no peritoneal signs, no tenderness
- Neurologic: Slightly weak strength equally in all extremities, no coordination deficits
- Psychiatric: Appropriate mental status, normal insight and judgement
- Extremities: Nontender, no edema, moves all extremities equally
- Skin: No rash, no lesions
RADIOLOGY
Chest x-ray shows no acute abnormality
PROBLEM LIST
Acute:
- Chest pain
- Atrial fibrillation with rapid ventricular response
- Hypotension
PLAN
- Administer medications to slow the heart rate (diltiazem considered).
- Consider fluid administration to address low blood pressure.
- Consult with cardiology (notably Dr. Galvan) regarding the management of atrial fibrillation and missed doses of medication.
- Avoid electrical cardioversion due to the risk of stroke from potential clotting as a result of missed Eliquis doses.
DIFFERENTIAL DIAGNOSIS
The Differential Diagnosis includes, in no particular order and is not limited to:
1. Atrial fibrillation with rapid ventricular response
2. Myocardial ischemia
3. Hypotension
4. Dehydration causing electrolyte imbalance
5. Heart failure exacerbation
6. Non-cardiac chest pain
7. Medication noncompliance effects
8. Anemia
9. Pulmonary embolism
10. Thyroid dysfunction
CARE-UPDATE
09/20/24 - 00:56
Patients heart rhythm has converted to a normal sinus rhythm without additional discomfort, and the rhythm appears regular. Initial plan to continue medication at the hospital may be revised to discharge, pending an EKG confirmation. The patient
expresses a preference to go home, aligning with the current stability of their condition. Further assessment with an EKG is underway to ensure readiness for discharge.
SUMMARY
Found to be in rapid AFib rates in 130s, known LBBB. Missed multiple doses of Eliquis past few weeks; did not cardiovert. Initially considered emergent cardioversion due to low BP, but family states BP is 'always low' and w/o intervention, BP up
to 140 systolic from 90. Placed on diltiazem now converted on diltiazem. Trop 0.015. In July, trop 5.29 after electrical cardioversion in ED. 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
She has no further symptoms and wants to go home. Repeat EKG now sinus. Notified Dr. Sinha of patient's presentation.
Past History
Past History
ED Past Medical History: Arrthythmia, CHF, COPD, GERD, Hypercholesterolemia, Valvular disease and Hypothyroidism
ED Past Surgical History: Cardiac and Orthopedic (Bunionectomy, bilateral knee replacement, right rotator cuff, back surgeries 2012, 2013)
Social History
Tobacco: Former smoker
Alcohol: None
Drug: None
Personal:
Living: alone
Employment: Employed
Family History
Family History: Other (Noncontributory)
Phy Exam
Physical Exam
Physical Exam:
See HPI
Scores
Heart Score for Chest Pain Patients
STEMI patient?: Not applicable
Course
Orders/Labs/Results
Orders:
Orders
09/19/24 23:04
Electrocardiogram (*1) Urgent
Reason for Study: Chest Pain
Cardiac Monitoring- Treatment ONCE
EKG- Treatment ONCE
IV Insert/Care/Rem.- Treatment PRN
Chest [CR Chest - 2 Views ] Urgent
Comment:
Reason For Exam: pain
O2 Therapy [RESP] Urgent
Titrate/Wean O2 to maintain O2 sat greater than (%): 90
Special Instructions: Maintain sats >/=90%
Pulse Ox/spot Check [RESP] Urgent
Quantity: 1
Special Instructions: ON ROOM AIR
09/19/24 23:09
Complete Blood Count/With Diff Urgent
Comprehensive Metabolic Panel Urgent
NT-proBNP Urgent
Comment: ADD ON
Troponin I Urgent
09/19/24 23:11
Add On- LAB Urgent
Tests Added?: bnp
09/19/24 23:45
Diltiazem 125 mg/125 ml Nss [Cardizem] 125 mg in 125 ml IV PER PROTOCOL
Initial dose in mg/hr, then titrate:: 5
Titrate to keep:: Heart rate 80-100 bpm
Titrate by mg/hr:: 5 mg/hr
Frequency of titrations (minutes):: 15
Maximum dose in mg/hr:: 15
09/19/24 23:56
0.9% Sodium Chloride 500 ml [Nss] 500 ml IV BOLUS
Diltiazem HCl [Cardizem] 5 mg IV NOW STA
09/20/24 00:56
Electrocardiogram (*1) Urgent
Reason for Study: Chest Pain
EKG- Treatment ONCE
Abnormal Lab Results
09/19/24
23:09
RBC 3.37 L 10^6/uL
(4.20-5.40)
Hgb 10.2 L g/dL
(12.0-16.0)
Hct 30.7 L %
(37.0-47.0)
MPV 10.6 H fL
(7.4-10.4)
Absolute Monos (auto) 0.7 H 10^3/uL
(0.1-0.6)
Monocytes % 11.1 H %
(1.7-9.3)
BUN 32 H mg/dl
(7-17)
Creatinine 1.1 H mg/dL
(0.6-1.0)
Glucose 112 H mg/dl
(70-99)
Alkaline Phosphatase 170 H U/L
(38-126)
09/19/24 23:09
09/19/24 23:09
Vital Signs
Initial and Last Documented VS:
Initial Vital Signs
Temp Pulse Resp BP Pulse Ox
36.5 C 120 15 90/71 94
09/19/24 23:02 09/19/24 23:02 09/19/24 23:02 09/19/24 23:02 09/19/24 23:02
Last Documented Vital Signs
Temp Pulse Resp BP Pulse Ox
36.5 C 81 12 89/45 96
09/19/24 23:02 09/20/24 01:02 09/20/24 01:02 09/20/24 01:02 09/20/24 01:02
*Rubber Vulcanizing Machine Operator Interpretation
Rate: other (The patient initially was in rapid A-fib rhythm and then after Cardizem, she converted to a sinus rhythm with rates in the 80s)
Interpretation: abnormal
Rhythm: sinus and a-fib
*Critical Care Note
Total Time (30-74mins, 75-104mins- exclusive of procedures): Not Applicable
ED Attending Note
-
Portions of this chart may have been created with voice recognition software.� Occasional wrong word or��sound alike� substitutions may have occurred due to the inherent limitations of voice recognition software.
Discharge Plan
Departure
Patient Disposition: Home (Routine Discharge)
Date of Disposition: 09/20/24
Time of Disposition: 01:20
Patient with high blood pressure during this ER visit?: Yes
Discharge Problem:
Atrial fibrillation with RVR
Instructions: Atrial fibrillation
Prescriptions:
No Action
levothyroxine 50 MCG tablet
50 mcg PO DAILY
pantoprazole 40 MG tablet,delayed release (DR/EC)
40 mg PO DAILY
citalopram 20 MG tablet
20 mg PO DAILY
atorvastatin 10 MG tablet
10 mg PO HS
atenolol 25 MG tablet
25 mg PO DAILY
meloxicam 15 mg Tablet
15 mg PO DAILY
carbidopa-levodopa 50-200 mg Tablet Extended Release
1 tab PO BID
gabapentin 300 mg Capsule
300 mg PO Q8H
montelukast 10 mg Tablet
10 mg PO HS
aspirin 81 mg tablet,delayed release (DR/EC)
81 mg PO DAILY
sildenafil (pulm.hypertension) 20 mg tablet
20 mg PO BID
furosemide 40 mg tablet
160 mg PO BID
potassium chloride 20 mEq tablet,ER particles/crystals
20 meq PO BID
famotidine 20 mg Tablet
20 mg PO DAILY@1999 Qty: 0 0RF
tramadol 50 mg Tablet
50 mg PO BID PRN (Reason: pain)
Rx Instructions:
Last filled 12/16/23 #60 x30 day supply
Eliquis 5 mg Tablet
5 mg PO BID 30 Days Qty: 60 0RF
Referrals:
Chetna Colorado DO [Family Provider, Family Practice]
Activity Restrictions/Additional Instructions:
When he first came into the emergency department, your heart rate was very fast and you were in rapid atrial fibrillation. We gave you IV Cardizem and you successfully converted back to a normal kind of rhythm. Continue your medication. Return
here if worse or other concerns. Follow-up with Dr. Dawn.
Interventions
Interventions:
*Risk Screen - Suicide Last Done: 09/19/24 23:06
*General Assessment Last Done: 09/19/24 23:06
*Neglect/Abuse Screening Last Done: 09/19/24 23:06
*ED- Fall Risk Assessment Last Done: 09/19/24 23:06
*ED COVID-19 Vaccine History Last Done: 09/19/24 23:06
ED- Cardiac Assessment Last Done: 09/19/24 23:34
Discharge Date and Time
Print Language: [id number]
[2024-09-20] LABS: NT-proBNP 602 pg/ml; Troponin I 0.015 ng/ml
[2024-09-20] MEDS: NSS 500 IV (00:10)
[2024-09-20 00:11] VITALS: BP 147/104
[2024-09-20] MEDS: CARDIZEM 5 MG IV (00:11)
[2024-09-20] MEDS: CARDIZEM 125 IV (00:13)
[2024-09-20 00:33] VITALS: BP 92/58
[2024-09-20 01:02] VITALS: BP 89/45
[2024-09-20 01:30] VITALS: BP 108/54
== END 2024-09-20 01:51 | disposition home or self-care (01) ==
LOC: EMR 22:59
PROVIDERS: Emergency Medicine; EMERGENCY PHYSICIAN Emergency Medicine; FAMILY PHYSICIAN Family Medicine
DX: I48.91 Unspecified atrial fibrillation (principal); I44.7 Left bundle-branch block, unspecified; E03.9 Hypothyroidism, unspecified; E78.00 Pure hypercholesterolemia, unspecified; G20.A1 Parkinson's disease without dyskinesia, without mention of fluctuations; I50.9 Heart failure, unspecified; J44.9 Chronic obstructive pulmonary disease, unspecified; Z79.01 Long term (current) use of anticoagulants; Z87.891 Personal history of nicotine dependence; Z95.2 Presence of prosthetic heart valve
CPT/HCPCS: 99285; 96374; 96361; 71046; 80053; 83880; 84484; 85025; 93005

== ENCOUNTER 2024-09-25 19:53 | Emergency (ER) | payer MEDICARE, OTHER, SELFPAY ==
[2024-09-25 19:55] VITALS: BP 109/64
--- NOTE | 2024-09-25 20:01 | ED.GENMED ---
History of Present Illness
General
Chief Complaint: Fall
Source: patient, records and ambulance crew
Exam Limitations: none
Time Seen by Provider: 09/25/24 20:00
Nursing documentation reviewed up to this point in time: agreed with
History of Present Illness
History of Present Illness:
84-year-old female with a past medical history as noted significant for Parkinson's, atrial fibrillation on Eliquis who presents to the emergency room from home via EMS for evaluation after a fall. Patient reports a fall at around 4:30 PM today�she
fell from standing while in the kitchen cooking her dinner. She says that she lost her balance that she ambulates with a walker and so she was using it but still lost her balance and fell backwards. She does not believe she hit her head and says
that she did not lose consciousness. Unfortunately she was not strong enough to get up on her own and was on the ground for a little over 2 hours until discovered by her son. EMS was called to bring her to the hospital. She complains mainly of
pain in her left arm. She denies any other injuries or complaints. Denies headache, neck pain, back pain, pain in her chest/ribs, abdominal pain, pain in the legs. She denies nausea or vomiting. She is on Eliquis as above.
Past History
Past History
ED Past Medical History: Arrthythmia, CHF, COPD, GERD, Hypercholesterolemia, Valvular disease and Hypothyroidism
ED Past Surgical History: Cardiac and Orthopedic (Bunionectomy, bilateral knee replacement, right rotator cuff, back surgeries 2012, 2013)
Social History
Tobacco: Former smoker
Alcohol: None
Drug: None
Personal:
Living: alone
Employment: Employed
Family History
Family History: Other (Noncontributory)
Review of Systems
Review of Systems
All Other Systems: ROS reviewed and negative except as documented in HPI and ROS
Respiratory: Denies trouble breathing
Cardiac: Denies chest pain
ABD/GI: Denies abdominal pain, nausea or vomiting
: Denies flank pain
Musculoskeletal: Reports other (Left arm pain); Denies neck pain or back pain
Neurological: Denies dizzy or headache
Phy Exam
Physical Exam
Physical Exam:
General: Awake, alert, oriented x3; no acute distress
Head: Normocephalic, atraumatic
Eyes: Conjunctiva normal, EOMI, pupils equal round reactive to light bilaterally
Throat: Airway intact, handling secretions
Neck: Trachea midline, no cervical spine tenderness, good range of motion without pain
Back: No signs of trauma to the back or flank and no tenderness of the thoracic or lumbar spine
Lungs: Clear to auscultation bilaterally, no wheezing, rales, rhonchi
Heart: Regular rate and rhythm, no murmurs, gallops, or rubs; no chest wall tenderness
Abd: Soft, non distended, nontender
Neuro: No gross deficit
Skin: no lacerations or abrasions noted
Extremities: Patient is some mild tenderness of the distal humerus but no significant bruising or swelling in the left upper arm, no tenderness in the left shoulder or elbow and allows for passive range of motion of these joints without significant
pain�only mild pain in the distal humerus on abduction of the shoulder; she has no tenderness of the forearm or wrists, no pain on range of motion of the wrist or hand including supination/pronation; her right upper extremity and both lower
extremities are atraumatic and she moves them comfortably without pain; she has good pulses in all extremities
Scores
Heart Failure Risk
Heart Failure Risk Score: Not Applicable
Heart Score for Chest Pain Patients
STEMI patient?: Not applicable
Withdrawal Assessment of Alcohol
Withdrawal Assessment Completed?: Not applicable
Course
Orders/Labs/Results
Orders:
Orders
09/25/24 20:00
CT Head W/o Iv Contrast Urgent
Comment:
Reason For Exam: fall on AC
CR Humerus - Left Min 2 Views* Urgent
Comment:
Reason For Exam: left arm pain s/p fall
09/25/24 20:01
CT Cervical Spine W/o Iv Contr Urgent
Comment:
Reason For Exam: fall on AC
09/25/24 20:44
CPK [Creatine Phosphokinase] Urgent
Complete Blood Count/With Diff Urgent
Comprehensive Metabolic Panel Urgent
Abnormal Lab Results
09/25/24
20:44
WBC 12.4 H 10^3/uL
(4.8-10.8)
RBC 3.92 L 10^6/uL
(4.20-5.40)
Hgb 11.8 L g/dL
(12.0-16.0)
Hct 35.9 L %
(37.0-47.0)
MCHC 32.9 L g/dL
(33.0-37.0)
Absolute Neuts (auto) 10.4 H 10^3/uL
(1.4-6.5)
Absolute Lymphs (auto) 1.0 L 10^3/uL
(1.2-3.4)
Absolute Monos (auto) 1.0 H 10^3/uL
(0.1-0.6)
Neutrophils % 83.7 H %
(42.2-75.2)
Lymphocytes % 7.7 L %
(20.5-51.1)
Potassium 3.1 L mmol/L
(3.5-5.1)
Chloride 94 L mmol/L
(98-107)
Carbon Dioxide 38 H mmol/L
(22-30)
BUN 51 H mg/dl
(7-17)
Creatinine 1.2 H mg/dL
(0.6-1.0)
Glucose 133 H mg/dl
(70-99)
Alkaline Phosphatase 133 H U/L
(38-126)
Creatine Kinase 204 H U/L
(30-135)
09/25/24 20:44
09/25/24 20:44
Vital Signs
Initial and Last Documented VS:
Initial Vital Signs
Temp Pulse Resp BP Pulse Ox
36.7 C 88 14 109/64 95
09/25/24 19:55 09/25/24 19:55 09/25/24 19:55 09/25/24 19:55 09/25/24 19:55
Last Documented Vital Signs
Temp Pulse Resp BP Pulse Ox
36.7 C 81 16 109/64 92
09/25/24 19:55 09/25/24 20:45 09/25/24 20:45 09/25/24 20:04 09/25/24 20:45
MDM/Problems Addressed
Differential Diagnosis Includes:
Arm pain: Fracture, contusion, dislocation
MDM/Problems Addressed:
84-year-old female who is on blinkbox presents after a ground-level fall. She was on the ground for about 2 hours prior to being discovered. She injured her left arm but denies any other injuries. She does not believe she hit her head and says she
did not lose consciousness. Vitals and exam as above. Will plan to check CT head and cervical spine given age and anticoagulant on board. Will check x-ray of the left humerus. Will check basic labs and CPK. Will reassess after the above.
Labs reviewed: CBC shows stable anemia, marginal leukocytosis of unclear acute clinical significance. She has no signs or symptoms of infection. Her CMP shows stable CKD with a creatinine of 1.2. BUN is elevated�patient admits to poor hydration
chronically. Her potassium is low at 3.1�will replete p.o. Encouraged increased fluid intake and increase dietary potassium. Her CPK is not significantly elevated. CT head and cervical spine negative for any acute posttraumatic injury. X-ray of
the humerus reviewed by me shows no acute fracture. Spoke to the patient and son who is now at bedside. Patient says she feels well wants to go home. I think this is a reasonable plan. I did advise patient and son to discuss risk versus benefit
of anticoagulation with her cryptologist given her history of Parkinson's which will make her more prone to falls. Indicated understanding. All questions answered. I did provide a copy of imaging and labs for patient to follow-up with her primary
doctor.
Chronic conditions affecting care:
A-fib on Eliquis complicates fall; Parkinson's likely contributed to fall
*Pulse Oximetry
Patient hypoxic: no (95%)
*Critical Care Note
Total Time (30-74mins, 75-104mins- exclusive of procedures): Not Applicable
Data Reviewed
Source: patient and ambulance crew
ED Attending Note
-
Portions of this chart may have been created with voice recognition software.� Occasional wrong word or��sound alike� substitutions may have occurred due to the inherent limitations of voice recognition software.
Discharge Plan
Departure
Patient Disposition: Home (Routine Discharge)
Date of Disposition: 09/25/24
Time of Disposition: 21:41
Patient with high blood pressure during this ER visit?: No
Discharge Problem:
Fall, Injury of left upper arm, CKD (chronic kidney disease), Hypokalemia
Instructions: Preventing falls in adults, RICE Therapy
Prescriptions:
No Action
levothyroxine 50 MCG tablet
50 mcg PO DAILY
pantoprazole 40 MG tablet,delayed release (DR/EC)
40 mg PO DAILY
citalopram 20 MG tablet
20 mg PO DAILY
atorvastatin 10 MG tablet
10 mg PO HS
atenolol 25 MG tablet
25 mg PO DAILY
meloxicam 15 mg Tablet
15 mg PO DAILY
carbidopa-levodopa 50-200 mg Tablet Extended Release
1 tab PO BID
gabapentin 300 mg Capsule
300 mg PO Q8H
montelukast 10 mg Tablet
10 mg PO HS
aspirin 81 mg tablet,delayed release (DR/EC)
81 mg PO DAILY
sildenafil (pulm.hypertension) 20 mg tablet
20 mg PO BID
furosemide 40 mg tablet
160 mg PO BID
potassium chloride 20 mEq tablet,ER particles/crystals
20 meq PO BID
famotidine 20 mg Tablet
20 mg PO DAILY@1999 Qty: 0 0RF
tramadol 50 mg Tablet
50 mg PO BID PRN (Reason: pain)
Rx Instructions:
Last filled 12/16/23 #60 x30 day supply
Eliquis 5 mg Tablet
5 mg PO BID 30 Days Qty: 60 0RF
Referrals:
Dale Dawn MD [Active, Cardiology] - Call in 1-3 days for appt
Referral Note: You should discuss with your cardiology regarding duration of anticoagulation given your propensity for falls.
NONE,* [Active, Internal Medicine]
Activity Restrictions/Additional Instructions:
You should drink more fluids and increase your potassium intake�you can take a multivitamin or add a daily banana to your diet. You should make an appoint with your primary doctor as well as your cryptologist after your ER visit as we discussed.
Thank you for visiting the Emergency Department at [facility].
1. Please schedule a follow up appointment as directed. Call first thing tomorrow morning to make an appointment.
2. If indicated, please take your medications as instructed and indicated on discharge paperwork.
3. If any of your symptoms do not improve, or persist, or become more severe within 6-12 hours, please return to the emergency department for further care.
4. Please return to the emergency department if you develop a headache, neck pain/stiffness, fever greater than 100.4F, chest pain, shortness of breath, persistent nausea, vomiting, slurred speech, difficulty walking, numbness/tingling, weakness,
signs of infection or any other symptoms that are worrisome to you.
Please call [phone] if you have any questions.
Interventions
Interventions:
*Risk Screen - Suicide Last Done: 09/25/24 19:55
*General Assessment Last Done: 09/25/24 19:55
*Neglect/Abuse Screening Last Done: 09/25/24 19:55
*ED- Fall Risk Assessment Last Done: 09/25/24 20:49
*ED COVID-19 Vaccine History Last Done: 09/25/24 20:49
ED-Musculoskeletal Assessment Last Done: 09/25/24 20:32
ED- Neurological Assessment Last Done: 09/25/24 20:32
ED-Skin Assessment Last Done: 09/25/24 20:32
Discharge Date and Time
Print Language: CROATIAN
[2024-09-25 20:04] VITALS: BP 109/64
[2024-09-25 20:32] VITALS: BMI 36.6
[2024-09-25 20:55] LABS: % Basophils 0.4 % (0-2); % Eosinophils 0.3 % (0-6); % Immature Granulocytes 0.2 % (0-0.5); % Lymphocytes 7.7 % (20.5-51.1); % Monocytes 7.7 % (1.7-9.3); % Neutrophils 83.7 % (42.2-75.2); Absolute Basophils 0.1 10^3/uL (0-0.2); Absolute Neutrophils 10.4 10^3/uL (1.4-6.5); Hematocrit 35.9 % (37.0-47.0); Hemoglobin 11.8 g/dL (12.0-16.0); Mean Corp Hgb Conc. 32.9 g/dL (33.0-37.0); Mean Corpuscular Hgb 30.1 pg (27.0-31.0); Mean Corpuscular Volume 91.6 fL (81.0-99.0); Mean Platelet Volume 10.3 fL (7.4-10.4); Nucleated Red Blood Cells % 0 %; Platelet Count 186 10^3/uL (130-400); Red Blood Cell Count 3.92 10^6/uL (4.20-5.40); Red Cell Dist. Width 13.6 % (11.5-14.5); White Blood Cell Count 12.4 10^3/uL (4.8-10.8)
[2024-09-25 21:08] VITALS: BP 159/78
[2024-09-25 21:11] LABS: ALT (SGPT) 12 U/L (0-35); AST (SGOT) 25 U/L (14-36); Alkaline Phosphatase 133 U/L (38-126); Blood Urea Nitrogen 51 mg/dl (7-17); Calcium 9.4 mg/dl (8.4-10.2); Carbon Dioxide 38 mmol/L (22-30); Chloride 94 mmol/L (98-107); Creatine Phosphokinase 204 U/L (30-135); Estimated Creatinine Clearance 36 ml/min; Glucose 133 mg/dl (70-99); Potassium 3.1 mmol/L (3.5-5.1); Sodium 139 mmol/L (135-145); Total Bilirubin 0.6 mg/dl (0.2-1.3); Total Protein 7.1 g/dl (6.3-8.2); eGFR 45.19
[2024-09-25] MEDS: KLOR-CON 20 MEQ PO (21:45)
== END 2024-09-25 22:16 | disposition home or self-care (01) ==
LOC: EMR 19:53
PROVIDERS: EMERGENCY PHYSICIAN Emergency Medicine; FAMILY PHYSICIAN Family Medicine
DX: S49.92XA Unspecified injury of left shoulder and upper arm, initial encounter (principal); W18.39XA Other fall on same level, initial encounter; E87.6 Hypokalemia; Z87.891 Personal history of nicotine dependence; Z79.01 Long term (current) use of anticoagulants; G20.A1 Parkinson's disease without dyskinesia, without mention of fluctuations
CPT/HCPCS: 99285; 70450; 72125; 73060; 80053; 82550; 85025

== ENCOUNTER 2024-11-12 18:32 | Inpatient (IN) | payer MEDICARE, OTHER, SELFPAY ==
[2024-11-12] VITALS (35 sets, daily range): BP systolic 63–159; BP diastolic 30–141; BMI 34.9; BMI 36.3
--- NOTE | 2024-11-12 14:30 | ED.GENMED ---
History of Present Illness
General
Chief Complaint: Change in Mental Status
Source: patient
Exam Limitations: none
Time Seen by Provider: 11/12/24 14:17
History of Present Illness
History of Present Illness:
84-year-old female presents from home where she lives with 24-hour caretakers. Air Analysis Technician states she has been himself for the past 2 to 3 days. She has been generally weak. She has been hallucinating seeing people in the room that have not been
there. There was no complaints of pain at the chest headache or abdominal pain. There has not been any vomiting. She notes a good appetite. No other complaints at this
Past History
Past History
ED Past Medical History: Arrthythmia, CHF, COPD, GERD, Hypercholesterolemia, Valvular disease and Hypothyroidism
ED Past Surgical History: Cardiac and Orthopedic (Bunionectomy, bilateral knee replacement, right rotator cuff, back surgeries 2012, 2013)
Social History
Tobacco: Former smoker
Alcohol: None
Drug: None
Personal:
Living: alone
Employment: Employed
Family History
Family History: Other (Noncontributory)
Phy Exam
Physical Exam
Physical Exam:
General: Well-appearing female no acute respiratory distress
HEENT: Normocephalic atraumatic
Heart: Regular rate and rhythm lungs: Clear no wheeze
Abdomen is soft nontender nondistended
Extremities: No cyanosis or edema
Neurologic exam: Alert and oriented x 3. Good strength to the upper and lower extremities
Course
Orders/Labs/Results
Orders:
Orders
11/12/24 14:12
Electrocardiogram (*1) Stat
Comment: ALREADY DONE IN ED
11/12/24 14:24
CT Head W/o Iv Contrast Urgent
Comment:
Reason For Exam: weakness
Complete Blood Count/With Diff Urgent
CR Chest - 2 Views Urgent
Comment:
Reason For Exam: weakness
11/12/24 14:27
Acetaminophen [Tylenol] 650 mg PO NOW STA
11/12/24 14:40
Urinalysis Reflex To Culture Urgent
Date Specimen was Collected: 11/12/24
Time Specimen was Collected: 14:20
Urine Microscopic Reflex Cult Urgent
Urine Culture Urgent
BAS[place] Source: U
Specimen Description:
Date Specimen was Collected: 11/12/24
Time Specimen was Collected: 14:20
11/12/24 14:42
COVID-19 Antigen Urgent
Source: Nasal Swab
11/12/24 14:52
Lactic Acid Q4H
Comment: CANCEL 2nd LACTIC ACID IF 1st LACTIC ACID IS LESS THAN 2
Blood Culture Q30M
BAS[place] Source: Blood/Venous
Specimen Description:
11/12/24 15:03
Comprehensive Metabolic Panel Urgent
Blood Culture Q30M
BASIA Source: Blood/Venous
Specimen Description:
11/12/24 16:09
0.9% Sodium Chloride 1000 ml [Nss] 1,000 ml IV BOLUS
CefTRIAXone [Rocephin] 1,000 mg IV NOW STA
11/12/24 18:30
Lactic Acid Q4H
Comment: CANCEL 2nd LACTIC ACID IF 1st LACTIC ACID IS LESS THAN 2
Abnormal Lab Results
11/12/24 11/12/24 11/12/24
14:24 14:40 14:52
RBC 3.06 L 10^6/uL
(4.20-5.40)
Hgb 9.2 L g/dL
(12.0-16.0)
Hct 27.5 L %
(37.0-47.0)
RDW 14.7 H %
(11.5-14.5)
MPV 10.9 H fL
(7.4-10.4)
Absolute Neuts (auto) 8.7 H 10^3/uL
(1.4-6.5)
Absolute Lymphs (auto) 0.5 L 10^3/uL
(1.2-3.4)
Absolute Monos (auto) 1.1 H 10^3/uL
(0.1-0.6)
Neutrophils % 83.8 H %
(42.2-75.2)
Lymphocytes % 5.0 L %
(20.5-51.1)
Monocytes % 10.6 H %
(1.7-9.3)
BUN
Creatinine
Glucose
Lactic Acid 2.1 H mmol/L
(0.7-2.0)
AST
Ur Occult Blood Reflex 3+ A
(Negative)
Leukocyte Esterase Rfl 3+ A
(Negative)
Urine WBC (Reflex) 60-70 A /HPF
(0-5)
Urine Bacteria (Reflex) Moderate A
(Negative)
Urine Albumin (Reflex) 2+ A
(Neg - Trace)
11/12/24
15:03
RBC
Hgb
Hct
RDW
MPV
Absolute Neuts (auto)
Absolute Lymphs (auto)
Absolute Monos (auto)
Neutrophils %
Lymphocytes %
Monocytes %
BUN 32 H mg/dl
(7-17)
Creatinine 1.3 H mg/dL
(0.6-1.0)
Glucose 151 H mg/dl
(70-99)
Lactic Acid
AST 50 H U/L
(14-36)
Ur Occult Blood Reflex
Leukocyte Esterase Rfl
Urine WBC (Reflex)
Urine Bacteria (Reflex)
Urine Albumin (Reflex)
11/12/24 14:24
11/12/24 15:03
Vital Signs
Initial and Last Documented VS:
Initial Vital Signs
Temp Pulse Resp Pulse Ox
99 F 90 16 94
11/12/24 14:03 11/12/24 14:03 11/12/24 14:03 11/12/24 14:03
Last Documented Vital Signs
Temp Pulse Resp BP Pulse Ox
99 F 86 22 110/88 97
11/12/24 14:03 11/12/24 15:15 11/12/24 15:15 11/12/24 14:08 11/12/24 15:15
MDM/Problems Addressed
Differential Diagnosis Includes:
Generalized weakness. Patient has a fever here on triage rectal temp is over 101. Consider infectious source such as COVID, UTI, pneumonia or other viral illness
Septic workup initiated with basic blood work cultures lactic acid chest x-ray urinalysis COVID testing
Tylenol ordered for fever
*Pulse Oximetry
SaO2: 94
Oxygen Mode of Delivery: Room air
Patient hypoxic: no
*Critical Care Note
Total Time (30-74mins, 75-104mins- exclusive of procedures): Not Applicable
Update Note
Update Note:
Workup consistent with UTI. CT head negative. Given change in mental status, fever and generalized weakness will keep in hospital. Rocephin ordered.
ED Attending Note
-
Portions of this chart may have been created with voice recognition software.� Occasional wrong word or��sound alike� substitutions may have occurred due to the inherent limitations of voice recognition software.
Discharge Plan
Departure
Patient Disposition: Admit
Date of Disposition: 11/12/24
Time of Disposition: 16:25
Presentation/result/management discussed w/ accepting MD/DO: Hospitalist
Discharge Problem:
Encephalopathy acute, Acute UTI
Prescriptions:
No Action
levothyroxine 50 MCG tablet
50 mcg PO DAILY
pantoprazole 40 MG tablet,delayed release (DR/EC)
40 mg PO DAILY
citalopram 20 MG tablet
20 mg PO DAILY
atorvastatin 10 MG tablet
10 mg PO HS
atenolol 25 MG tablet
25 mg PO DAILY
meloxicam 15 mg Tablet
15 mg PO DAILY
carbidopa-levodopa 50-200 mg Tablet Extended Release
1 tab PO BID
gabapentin 300 mg Capsule
300 mg PO Q8H
montelukast 10 mg Tablet
10 mg PO HS
aspirin 81 mg tablet,delayed release (DR/EC)
81 mg PO DAILY
sildenafil (pulm.hypertension) 20 mg tablet
20 mg PO BID
furosemide 40 mg tablet
160 mg PO BID
potassium chloride 20 mEq tablet,ER particles/crystals
20 meq PO BID
famotidine 20 mg Tablet
20 mg PO DAILY@1999 Qty: 0 0RF
tramadol 50 mg Tablet
50 mg PO BID PRN (Reason: pain)
Rx Instructions:
Last filled 12/16/23 #60 x30 day supply
Eliquis 5 mg Tablet
5 mg PO BID 30 Days Qty: 60 0RF
Referrals:
Chetna Colorado DO [Family Provider, Family Practice]
Interventions
Interventions:
*Risk Screen - Suicide Last Done: 11/12/24 14:03
*General Assessment Last Done: 11/12/24 14:03
*Neglect/Abuse Screening Last Done: 11/12/24 14:03
*ED- Fall Risk Assessment Last Done: 11/12/24 15:09
*ED COVID-19 Vaccine History Last Done: 11/12/24 15:09
ED- Neurological Assessment Last Done: 11/12/24 15:50
ED Swallowing Screen Last Done: 11/12/24 15:50
Discharge Date and Time
Print Language: LATVIAN
[2024-11-12 14:35] LABS: Hematocrit 27.5 % (37.0-47.0); Hemoglobin 9.2 g/dL (12.0-16.0); Mean Corp Hgb Conc. 33.5 g/dL (33.0-37.0); Mean Corpuscular Volume 89.9 fL (81.0-99.0); Nucleated Red Blood Cells % 0 %; Platelet Count 157 10^3/uL (130-400); Red Cell Dist. Width 14.7 % (11.5-14.5)
[2024-11-12] MEDS: TYLENOL 650 MG PO (15:05)
[2024-11-12 15:31] LABS: Urine Character Clear (Clear)
[2024-11-12 15:47] LABS: Urine Red Blood Cell 0-2 /HPF (0-2); Urine Squamous Cell 0-2 /LPF (Few); Urine White Cell 60-70 /HPF (0-5)
[2024-11-12 15:53] LABS: COVID-19 Antigen Negative (Negative)
[2024-11-12 16:05] LABS: ALT (SGPT) < 10 U/L (0-35); AST (SGOT) 50 U/L (14-36); Albumin 3.5 g/dl (3.5-5.0); Alkaline Phosphatase 84 U/L (38-126); Blood Urea Nitrogen 32 mg/dl (7-17); Calcium 8.9 mg/dl (8.4-10.2); Carbon Dioxide 26 mmol/L (22-30); Chloride 101 mmol/L (98-107); Estimated Creatinine Clearance 34 ml/min; Glucose 151 mg/dl (70-99); Potassium 4.0 mmol/L (3.5-5.1); Sodium 136 mmol/L (135-145); Total Protein 6.3 g/dl (6.3-8.2); eGFR 41.06
[2024-11-12] MEDS: NSS 1000 IV (16:53)
[2024-11-12] MEDS: ROCEPHIN 1000 MG IV (16:53)
--- NOTE | 2024-11-12 17:15 | PHANOTE ---
med rec note- called family on file for medication list but no answer. computer aided drafter in room but does not handle patient medication. patient stated family comes over and dispense her medication in a weekly medical planner
--- NOTE | 2024-11-12 17:37 | HPS.HSE ---
Family Physician
-
Family Physician: Chetna Colorado
Chief Complaint
-
mental status change
History of Present Illness
84 y/o F, hx of CHF, Arrhythmia, COPD, GERD, HLD, Hypothyroidism presents to ER with confusion and hallucinations. She has 24 hour caregivers. Caregivers reports patients baseline is alert and oriented without confusion. Over past few days has been
confused along with seeing people in her room. She has been weak. No other complaints.
Medical History
Past Medical History
Past Medical History: Reports Other (hx of CHF, Arrhythmia, COPD, GERD, HLD, Hypothyroidism)
Past Surgical History: Reports Other (Cardiac and Orthopedic (Bunionectomy, bilateral knee replacement, right rotator cuff, back surgeries 2013, 2013))
Social History
Tobacco: Former Smoker
Alcohol: None
Personal:
Living: Alone
Family History
Family History: Not pertinent
Allergies / Home Medications
Allergies reflects when Allergies were last updated in navabi.
Home Medications with original date entered in navabi
Allergy/Medication List:
Allergies
Allergy/AdvReac Type Severity Reaction Status Date / Time
ALIREZA Inhibitors Allergy cough Verified 11/12/24 14:09
nifedipine (From Procardia) Allergy Unknown Verified 11/12/24 14:09
Sulfa (Sulfonamide Allergy CHILDHOOD Verified 11/12/24 14:09
Antibiotics)
sulfisoxazole Allergy CHILDHOOD Verified 11/12/24 14:09
Home Medications
levothyroxine 50 mcg tablet 50 mcg PO DAILY Thyroid 09/24/16
pantoprazole 40 mg tablet,delayed release 40 mg PO DAILY Gastrointestinal Issue 09/24/16
citalopram 20 mg tablet 20 mg PO DAILY depression 02/21/20
atenolol 25 mg tablet 25 mg PO DAILY Blood pressure 06/04/21
atorvastatin 10 mg tablet 10 mg PO HS High cholesterol 06/04/21
carbidopa ER 50 mg-levodopa 200 mg tablet,extended release 1 tab PO BID PARKINSON 03/17/23
montelukast 10 mg tablet 10 mg PO HS asthma 03/17/23
furosemide 40 mg tablet 160 mg PO BID Fluid Retention/Swelling 10/11/23
potassium chloride 20 mEq tablet,extended release(part/cryst) 20 meq PO BID Electrolyte Repletion 10/11/23
sildenafil (pulm.hypertension) 20 mg tablet 20 mg PO TID pulmonary hypertension 10/11/23
apixaban 5 mg tablet (Eliquis) 5 mg PO BID 30 days #60 tabs 07/14/24
famotidine 20 mg tablet 20 mg PO HS 11/12/24
gabapentin 400 mg tablet 400 mg PO HS 11/12/24
Review of Systems
-
History Source: Patient
A 12 point ROS was completed and negative except as noted: Yes
Physical Exam
Vital Signs
Vital Signs
Temp Pulse Resp BP Pulse Ox
100.4 F H 81 22 89/58 96
11/12/24 17:15 11/12/24 16:45 11/12/24 16:45 11/12/24 15:49 11/12/24 16:45
Physical Exam
General: No Apparent Distress
HEENT: NormoCephalic and Anicteric
Respiratory: Crackles (faint)
Cardiac: S1/S2 and Regular Rhythm
Neuro: AO x 3
Psych: Calm
Laboratory Results
-
11/12/24 14:24
11/12/24 15:03
Laboratory Results
Lactic Acid 2.1 mmol/L (0.7-2.0) H 11/12/24 14:52
Total Bilirubin 0.8 mg/dl (0.2-1.3) 11/12/24 15:03
AST 50 U/L (14-36) H 11/12/24 15:03
ALT < 10 U/L (0-35) 11/12/24 15:03
Alkaline Phosphatase 84 U/L (38-126) 11/12/24 15:03
Data Reviewed
-
Diagnostic Radiology: Report Reviewed by me
Impression/Plan
-
Assessment:
Generalized weakness
UTI
TME in setting UTI - confusion/hallucinations
- PT/OT
- Start Rocephin, day 1 - pending cultures
Acute hypoxic respiratory insufficiency on 2L NC
Hx of mild acute on chronic HFpEF
History of pulmonary hypertension on Sildenafil
- CXR: Mild cardiomegaly with mild diffuse interstitial opacification favored to represent mild interstitial edema.
- on 2L NC
- received 1 L bolus for UTI
- resume oral Lasix in AM; watch for IV needs
Hx of A. Fib
Hx of CAD
- Atenolol/Eliquis
Hx of COPD
- prn nebs
GERD - PPI
Hypothyroidism - on replacement
Hx of Parkinsons on Sinemet
DVT ppx: Eliquis
Code: Full
--- NOTE | 2024-11-12 18:15 | CM ---
CM reviewed chart and met with pt bedside in ED. Pt lives in 1 story home, [address]. Has caregiver Loli who lives with her.
Needs assistance with ADLs and personal care. Ambulates with RW.
Son and his lives close by and also provides support.
Currently receiving HH Pt/OT, Loli believes it's [facility].
PCP: Chetna Colorado
Pharmacy: [facility]
Anticipate dc home with HH pending ongoing medical evaluation
[2024-11-12] MEDS: NSS 250 IV (18:29)
--- NOTE | 2024-11-12 19:10 | EDRN ---
250mL IVF completed during change of shift report. Dr Lombardo made aware of BPs hypotension - 84/63. Received electronic order from Dr Lombardo for 5mg midodrine, refer to MAR for administration. BP 75/52. Pt remains AAOx3, caregiver at bedside. Pt
remains tele admit. equipment services associate made aware.
--- NOTE | 2024-11-12 19:30 | EDRN ---
ROGER Ann made aware of pt's hypotension 63/50. PRODUCTION CLOTH CUTTER at bedside to assess pt.
--- NOTE | 2024-11-12 19:35 | W.PN.UPDATE ---
Update Note
Progress Note Update
Patient is hypotensive, with sbp in 80s after receiving IVF and midodrine 5mg. Patient is asymptomatic.
Will upgrade to IMU level for Levophed administration if needed for SBP <90
[2024-11-12] MEDS: LEVOPHED 250 IV (19:58)
--- NOTE | 2024-11-12 19:59 | W.PN.UPDATE ---
Update Note
Progress Note Update
upgraded to IMU status and started on low dose pressors for ongoing hypotension
[2024-11-12] MEDS: SINEMET CR 50/200 (EXTENDED RELEASE) 1 TABLET PO (22:43)
[2024-11-12] MEDS: PEPCID 20 MG PO (22:43)
[2024-11-12] MEDS: ELIQUIS 5 MG PO (22:43)
[2024-11-12] MEDS: KCL 20 MEQ PO (22:43)
[2024-11-12] MEDS: SINGULAIR 10 MG PO (22:43)
[2024-11-12] MEDS: LIPITOR 10 MG PO (22:43)
[2024-11-12] MEDS: NEURONTIN 400 MG PO (22:43)
[2024-11-12] MEDS: LASIX 160 MG PO (22:43)
[2024-11-13] VITALS (41 sets, daily range): BP systolic 83–127; BP diastolic 60–97; PULSE 76–106; O2SAT 95–99; BMI 36.3
--- NOTE | 2024-11-13 04:51 | PTCARENOTE ---
received pt from ED at 20:52. pt aaox3, able to make needs known, caregiver at bedside. admission questions completed, see worklist for assessment. VSS. Call martinez and belongings within reach, care ongoing.
[2024-11-13] MEDS: ROCEPHIN 2000 MG IV (05:26)
[2024-11-13] MEDS: STERILE WATER FOR INJECTION 20 ML IV (05:26)
[2024-11-13] MEDS: SYNTHROID 50 MCG PO (05:26)
[2024-11-13 06:07] LABS: Hematocrit 30.3 % (37.0-47.0); Hemoglobin 9.7 g/dL (12.0-16.0); Mean Corp Hgb Conc. 32.0 g/dL (33.0-37.0); Mean Corpuscular Volume 92.1 fL (81.0-99.0); Platelet Count 175 10^3/uL (130-400); Red Cell Dist. Width 14.8 % (11.5-14.5)
[2024-11-13 06:30] LABS: Blood Urea Nitrogen 30 mg/dl (7-17); Calcium 9.2 mg/dl (8.4-10.2); Carbon Dioxide 30 mmol/L (22-30); Chloride 104 mmol/L (98-107); Estimated Creatinine Clearance 43 ml/min; Glucose 116 mg/dl (70-99); Magnesium 2.4 mg/dl (1.6-2.3); Potassium 4.0 mmol/L (3.5-5.1); Sodium 142 mmol/L (135-145); eGFR 56.25
[2024-11-13] MEDS: SINEMET CR 50/200 (EXTENDED RELEASE) 1 TABLET PO ×2 (09:47→19:48)
[2024-11-13] MEDS: PROTONIX 40 MG PO (09:47)
[2024-11-13] MEDS: CELEXA 20 MG PO (09:47)
[2024-11-13] MEDS: LASIX 160 MG PO (09:47)
[2024-11-13] MEDS: KCL 20 MEQ PO (09:47)
[2024-11-13] MEDS: ELIQUIS 5 MG PO ×2 (09:48→19:48)
[2024-11-13] MEDS: TENORMIN PO (10:36)
--- NOTE | 2024-11-13 11:16 | W.PN.UPDATE ---
Update Note
Progress Note Update
I saw and evaluated the patient. I reviewed the resident�s note and agree with findings and plan as documented in the resident�s note.
Denies CP/SOB. Asking to go home.
Gen: NAD, Awake and alert
Eyes: EOMI, PERRLA, no scleral icterus.
Neck: supple.
CV: RRR, +S1/S2, no m/r/g.
Resp: CTAB, no rales, wheezes, or rhonchi.
Abd: +BS, soft, NT, ND
Skin: No rashes.
Neuro: CN 2-12 intact, non-focal.
Psych: Normal mood and affect.
CXR: Mild cardiomegaly with mild diffuse interstitial opacification favored to represent mild interstitial edema.
CT head: No acute intracranial abnormality. No interval change.
Septic shock due to acute UTI:
-with acute metabolic encephalopathy
-lactic acidosis has resolved s/p IVFs
-cont Rocephin, follow BCxs/UCx
-cont Levophed, wean as tolerated. 250cc NS bolus now in an attempt to wean off levophed (in the setting of severe MR)
-c/s ID
Chronic HFpEF:
-with severe MR
-stop Lasix with septic shock requiring vasopressors
-cont BB with holding parameters
Other problems:
Paroxysmal Afib: cont Atenolol (with holding parameters)/Eliquis
CAD: Cont BB/statin
COPD: not in acute exac, duonebs PRN
GERD: cont PPI
Hypothyroidism: cont Levoxyl, check TSH/fT4
Parkinson's: cont Sinemet
FULL/Eliquis
Total critical care time spent = 31 min
[2024-11-13] MEDS: NSS 250 IV (12:35)
--- NOTE | 2024-11-13 13:58 | W.PN.HOSP.TC ---
Today's Communication/Plan
-
Continue IV antibiotics
Follow-up urine cultures and echo
Continue to wean off Levophed as tolerated
Assessment / Plan
Assessment / Plan
Ms. Cohen is an 84-year-old female with a history of CHF, A-fib and s/p TAVR on Eliquis, Parkinson's, COPD, GERD, HLD, and hypothyroidism who presented to the ED with fever, altered mental status, and hallucinations. She was admitted on
11/12/2024 for septic shock secondary to UTI with acute metabolic encephalopathy and is currently being managed with IV Rocephin 2000 mg daily. Her admission has been complicated by fluid resistant hypotension, for which she has needed IV Levophed,
and new oxygen need of 2 L nasal cannula (no oxygen needed at home).
#Septic shock 2/2 acute UTI with acute metabolic encephalopathy
#Acute hypotension 2/2 septic shock
-Follow-up ID consult
-Follow-up blood cultures from 11/12/2024; prelim urine cultures from 11/12/2024 grew E. coli and lactobacillus species
-Continue on IV Rocephin 2000 mg daily
-Wean IV Levophed as tolerated. Reassess after 250 cc NS bolus.
-Midodrine 5 mg p.o. every 4 hours as needed
#Chronic HFpEF with severe MR
#Aortic stenosis s/p TAVR
-Follow-up echo
-Hold Lasix ISO septic shock requiring vasopressors
-Continue atenolol 25 mg p.o. with holding parameters
-Continue apixaban 5 mg p.o. twice daily
#CAD
-Continue atenolol 25 mg p.o. daily
-Continue atorvastatin 10 mg p.o. at bedtime
#GERD
-Continue famotidine 20 mg p.o. at bedtime
-Protonix 40 mg p.o. daily
#Hypothyroidism
-Continue levothyroxine 50 mg p.o. daily
-Follow-up TSH
#Parkinson's
-Continue carbidopa-levodopa 1 tab p.o. twice daily
#Neuropathy
-Continue gabapentin 400 mg p.o. at bedtime
#Depression
-Continue citalopram 20 mg p.o. daily
#Constipation
-Continue bowel regimen with senna, MiraLAX, Dulcolax
DVT prophylaxis: Eliquis
CODE STATUS: Full
Anticipated Discharge: 24 - 48 hours (Pending urine cultures and clinical improvement)
Subjective/Interval History
-
Date of Service: November 13, 2024
- This morning, she is alert and oriented x 4. She does not remember having hallucinations or being confused.
- She denies urinary frequency, dysuria, nausea, vomiting, or any pain. Overall, she has no complaints. She request that we call her son Dilan with an update.
Objective Data
-
Labs:
Laboratory Results
11/13/24
05:46
WBC 11.8 H
Hgb 9.7 L
Hct 30.3 L
Plt Count 175
Sodium 142
Potassium 4.0
Chloride 104
Carbon Dioxide 30
BUN 30 H
Creatinine 1.0
Glucose 116 H
Calcium 9.2
Vital Signs:
Vital Signs
Temp Pulse Resp BP Pulse Ox
98.0 F 87 19 104/76 96
11/13/24 11:51 11/13/24 13:30 11/13/24 13:30 11/13/24 13:30 11/13/24 13:45
I&O
11/12/24 11/13/24 11/14/24
06:59 06:59 06:59
Intake Total 250 / 250
Output Total 650 / 650
Balance -650 / -650 250 / 250
Review of Systems
-
History Source: Patient
All other systems: Reviewed and negative
Respiratory: Reports Cough (States that it is chronic)
Genitourinary: Reports Difficulty Voiding (Uses Purewick catheter regularly)
Physical Exam
-
General: No Apparent Distress, Comfortable, Conversant, Appears Chronically Ill and Other (Laying flat in bed, awake and talking)
HEENT: Normocephalic, Atraumatic and Moist Mucous Membranes
Respiratory: Clear to Auscultation and Non Labored Respirations
Cardiac: S1/S2 and Irregular Rhythm (History of A-fib)
GI: Soft, Nontender and Nondistended
Genito-urinary: No Costovertebral Tender
Skin: Warm and Dry
Neuro: AO x 3
Psych: Calm and Intact Judgement/Insight
--- NOTE | 2024-11-13 16:38 | CON.ID ---
Consultation
-
Date/Time Consultation Requested: 11/13/24
Date/Time Consultation Performed: 11/13/24
Requesting Provider: Dr Irene
Performing Provider: Dr Reid
Reason for Consultation: Sepsis likely due to UTI on pressor support with hypotension, severe MR
Chief Complaint / Past History
Chief Complaint
Brought to hospital with altered mental status and confusion with weakness
History of Present Illness
The patient was in her usual state of health with 24 hour caregiver when it was noticed that she was not behaving in her usual manner with confusion, hallucinations and weakness. As aresult the patient was brought to the ED for evaluation and
subsequent trnsfer to ICU care in setting of pressor requirement in the setting of hypotension.
Past History
Past Medical History: Arrhythmias, CAD, CHF, COPD, GERD, Hypercholesterolemia, Hypothyroidism and Valvular Disease
Past Surgical History: Orthopedic (bilateral knee replacements, back surgery, rotator cuff surgery )
Allergy History:
ALIREZA Inhibitors Allergy (Verified 11/12/24 14:09)
cough
nifedipine (From Procardia) Allergy (Verified 11/12/24 14:09)
Unknown
Sulfa (Sulfonamide Antibiotics) Allergy (Verified 11/12/24 14:09)
CHILDHOOD
sulfisoxazole Allergy (Verified 11/12/24 14:09)
CHILDHOOD
Medications Reviewed: Yes
Social History
Tobacco: Former Smoker
Alcohol: None
Drug: None
Personal:
Living: Alone
Employment: Not Employed
Family History
Family History: Not Pertinent
Review of Systems
Review of Systems
General: Other (malaise)
Endocrine: Weakness and Fatigue
Neurological: Other (confusion/hallucinations)
All systems: All other systems were reviewed and were negative
Vital Signs
Temp Pulse Resp BP Pulse Ox
98.7 F 87 19 104/76 96
11/13/24 15:40 11/13/24 13:30 11/13/24 13:30 11/13/24 13:30 11/13/24 13:45
Physical Exam
Physical Exam
Constitutional: No Acute Distress, Well Developed, Comfortable, Acutely Ill, Non-toxic and Obese
Head: Normocephalic
Eyes: Pupils Equal, Pupils Round, No Conjunctival Hemorrhage and Sclera Anicteric
Pharynx: Benign
Oral: No Thrush and No Ulcers
Cardiovascular: Regular Rate
Pulmonary: Symmetric and Non Labored
Gastrointestinal: Soft, Non Tender, Non Distended and Decreased Bowel Sounds
Extremities: Pulses
Skin: Warm and Dry
Wound: None
Neurological: Awake and Alert (patient in bed gait not evaluated)
Psychological: Calm (was able to answer questions ,good eye contact, appropriate , a bit anxious)
Lab / Diagnostic Study Results
11/13/24 05:46
11/13/24 05:46
Abs Immat Gran (auto) 0.0 10^3/uL (0-0.05) 11/12/24 14:24
Absolute Neuts (auto) 8.7 10^3/uL (1.4-6.5) H 11/12/24 14:24
Absolute Lymphs (auto) 0.5 10^3/uL (1.2-3.4) L 11/12/24 14:24
Absolute Monos (auto) 1.1 10^3/uL (0.1-0.6) H 11/12/24 14:24
Absolute Basos (auto) 0.0 10^3/uL (0-0.2) 11/12/24 14:24
Immature Gran % 0.4 % (0-0.5) 11/12/24 14:24
Neutrophils % 83.8 % (42.2-75.2) H 11/12/24 14:24
Lymphocytes % 5.0 % (20.5-51.1) L 11/12/24 14:24
Monocytes % 10.6 % (1.7-9.3) H 11/12/24 14:24
Eosinophils % 0.0 % (0-6) 11/12/24 14:24
Basophils % 0.2 % (0-2) 11/12/24 14:24
Lactic Acid 1.3 mmol/L (0.7-2.0) 11/12/24 18:19
Ur Squamous Epith Cells 0-2 /LPF (Few) 11/12/24 14:40
Microbiology Results
Micro:
11/12/24 14:52 Blood Culture - Preliminary
Blood/Venous No Growth in 24 hours- Final report to follow
11/12/24 15:03 Blood Culture - Preliminary
Blood/Venous No Growth in 24 hours- Final report to follow
11/12/24 14:40 Urine Culture - Preliminary
Urine Escherichia coli
Lactobacillus species
Assessment / Plan
1. Admitted with confusion , hallucinations, weakness with hypotension requiring pressor support in setting of severe MR
2. Leukocytosis 12.4 with left shift 83.8% temperature of 101.2 on admission
3. Urine with E,coli with > 100k cfu blood cultures are drawn and results pending
4. Parient placed on Ceftriaxone which will be continued for now
5. CXR with findings of mild cardiomegaly with mild diffuse interstitial infiltrates suggestive of edema
6..Patient continues in ICU care in setting of hypotension and Levophed requirement
Thank you for calling ID consultation
Care Review
Total Time Spent with Patient (in minutes): 55 min
--- NOTE | 2024-11-13 17:25 | PTCARENOTE ---
Pt's assessment as documented. NSR with 1st degree heart block, BBC and prolonged QT on tele monitor. Sating mid 90's on 2L NC. OOB to chair with PT. Ringing appropriately, call martinez within reach.
--- NOTE | 2024-11-13 17:33 | PTCARENOTE ---
Levo placed on hold; see intervention.
[2024-11-13] MEDS: SINGULAIR 10 MG PO (19:48)
[2024-11-13] MEDS: LIPITOR 10 MG PO (19:48)
[2024-11-13] MEDS: PEPCID 20 MG PO (19:48)
[2024-11-13] MEDS: NEURONTIN 400 MG PO (19:48)
--- NOTE | 2024-11-13 21:10 | PTCARENOTE ---
pt remains on 2LNC. Wears no oxygen at baseline. attempted to wean pt off O2, pt SaO2 dropped to 89% on RA. Set up incentive spirometer and instructed patient on how to use it and educated her on the purpose and importance of using it.
[2024-11-14] VITALS (46 sets, daily range): BP systolic 77–127; BP diastolic 54–104; BMI 35.8
[2024-11-14] MEDS: STERILE WATER FOR INJECTION 20 ML IV (05:05)
[2024-11-14] MEDS: ROCEPHIN 2000 MG IV (05:05)
[2024-11-14] MEDS: SYNTHROID 50 MCG PO (05:05)
[2024-11-14 06:34] LABS: Hematocrit 28.9 % (37.0-47.0); Hemoglobin 9.5 g/dL (12.0-16.0); Mean Corp Hgb Conc. 32.9 g/dL (33.0-37.0); Mean Corpuscular Volume 92.3 fL (81.0-99.0); Platelet Count 165 10^3/uL (130-400); Red Cell Dist. Width 14.8 % (11.5-14.5)
[2024-11-14 06:53] LABS: Blood Urea Nitrogen 27 mg/dl (7-17); Calcium 8.8 mg/dl (8.4-10.2); Carbon Dioxide 27 mmol/L (22-30); Chloride 102 mmol/L (98-107); Estimated Creatinine Clearance 48 ml/min; Glucose 128 mg/dl (70-99); Potassium 3.8 mmol/L (3.5-5.1); Sodium 139 mmol/L (135-145); eGFR > 60.00
[2024-11-14] MEDS: TENORMIN 25 MG PO (08:48)
[2024-11-14] MEDS: PROTONIX 40 MG PO (08:48)
[2024-11-14] MEDS: ELIQUIS 5 MG PO ×2 (08:48→19:59)
[2024-11-14] MEDS: SINEMET CR 50/200 (EXTENDED RELEASE) 1 TABLET PO ×2 (08:48→20:00)
[2024-11-14] MEDS: CELEXA 20 MG PO (08:48)
--- NOTE | 2024-11-14 08:49 | WOUNDNOTE ---
[facility] RN note: Patient admitted with CHF, UTI, weakness. Patient has 24hr caregivers at home.
See H&P for complete history.
PMH: CHF, arrhythmia, COPD, bunionectomy, bilateral knee replacement, R rotator cuff repair, back surgery, former smoker, Parkinson's, obesity.
Wound Location and type/assessment: Patient admitted with: discolored blanchable purple sacral/buttocks/posterior upper thigh skin. Groin/kacie MASD.
Appetite: fair.
Pressure redistribution devices in place: Centrella Max air bed. Patient cannot turn self in bed.
Plan: Protective sacral shaped silicone border foam applied to sacrum. Protective foam applied to heels. Patient turned to L semi side lying position with help from [facility] RN product safety technical assistant Jessica. Heels off bed with air chair cushion. Updated RN Earlene
who was in to see patient.
Care plan to be updated, will sign off. Call if needed.
Note to case management of equipment requested for discharge: consider hospital bed with air overlay if not already in place.
--- NOTE | 2024-11-14 08:50 | WOUNDNOTE ---
SACRUM/BILATERAL BUTTOCKS
--- NOTE | 2024-11-14 08:55 | WOUNDNOTE ---
[facility] RN note: Patient admitted with CHF, UTI, weakness. Patient has 24hr caregivers at home. Patient sleeps in a recliner chair at home.
See H&P for complete history.
PMH: CHF, arrhythmia, COPD, bunionectomy, bilateral knee replacement, R rotator cuff repair, back surgery, former smoker, Parkinson's, obesity.
Wound Location and type/assessment: Patient admitted with: discolored blanchable purple sacral/buttocks/posterior upper thigh skin. Groin/kacie MASD.
Appetite: fair.
Pressure redistribution devices in place: Centrella Max air bed. Patient cannot turn self in bed.
Plan: Protective sacral shaped silicone border foam applied to sacrum. Protective foam applied to heels. Patient turned to L semi side lying position with help from [facility] RN child development assistant Jessica. Heels off bed with air chair cushion. Updated RN Earlene
who was in to see patient.
Care plan to be updated, will sign off. Call if needed.
Note to case management of equipment requested for discharge: consider hospital bed with air overlay if patient accepts.
--- NOTE | 2024-11-14 09:05 | W.PN.UPDATE ---
Update Note
Progress Note Update
I saw and evaluated the patient. I reviewed the resident�s note and agree with findings and plan as documented in the resident�s note.
Denies CP/SOB. Asking to go home.
Gen: NAD, Awake and alert
Eyes: EOMI, PERRLA, no scleral icterus.
Neck: supple.
CV: tachy, irreg/irreg, +S1/S2, no m/r/g.
Resp: CTAB, no rales, wheezes, or rhonchi.
Abd: +BS, soft, NT, ND
Skin: No rashes.
Neuro: CN 2-12 intact, non-focal.
Psych: Normal mood and affect.
11/12/24 14:40 Urine Urine Culture - Final
Escherichia coli
Lactobacillus species
11/12/24 14:52 Blood/Venous Blood Culture - Preliminary
No Growth in 24 hours- Final report to follow
11/12/24 15:03 Blood/Venous Blood Culture - Preliminary
No Growth in 24 hours- Final report to follow
CXR: Mild cardiomegaly with mild diffuse interstitial opacification favored to represent mild interstitial edema.
CT head: No acute intracranial abnormality. No interval change.
Septic shock due to acute UTI:
-with acute metabolic encephalopathy
-lactic acidosis resolved s/p IVFs
-cont Rocephin as per ID
-follow BCxs/UCx (see above)
-restart Levophed with hypotension
Paroxysmal Afib with RVR:
-RVR to 160s this AM with SBP 90s
-resume Levophed gtt with hypotension (in addition to septic shock I suspect a component of cardiogenic shock due to severe MR and afib with RVR)
-start Amio gtt, no bolus
-c/s cardiology
-check echo
Chronic HFpEF:
-with severe MR
-Lasix stopped 11/13/24AM with septic shock requiring vasopressors
-cont BB with holding parameters
Other problems:
CAD: Cont BB/statin
COPD: not in acute exac, duonebs PRN
GERD: cont PPI
Hypothyroidism: cont Levoxyl
Parkinson's: cont Sinemet
Obesity due to excess calories
FULL/Eliquis
Total critical care time spent = 35 min
--- NOTE | 2024-11-14 09:06 | PTCARENOTE ---
Pt flipped into afib with RVR. EKG obtained. Pt asymptomatic. Dr. Macdonald and Dr. Irene at bedside. Pt hypotensive; levo resumed at 2mcg. Awaiting verification of med orders by pharmacy.
[2024-11-14] MEDS: CORDARONE 518 MG IV (10:35)
--- NOTE | 2024-11-14 10:41 | CON.CAR ---
Addendum entered and electronically signed by Luis Rodriguez DO 11/14/24 13:34:
I saw and examined the patient.
The Inspector Poising's note was reviewed and I agree with the note.
Comment:
Plan:
HPI: Patient presented with weakness and confusion with evidence of septic shock felt to be secondary to UTI. She was hypotensive, and presently continues to require levo at 2. This morning was noted to go into A-fib with RVR resulting in
cardiology consultation. Patient relatively asymptomatic, although does complain of some mild shortness of breath
Consulted for aFib with RVR.
LBBB is chronic
Cont IV Amiodarone, pt converted to sinus
Transition to PO Amiodarone next 24 hrs.
Eventual transition to Lopressor and stop Atenolol.
Wean IV Levophed as bp is improved
Cont Eliquis. If pt has recurrent falls may need to reconsider anticoagulation.
Recent echo reviewed.
Check pBNP
Cont UTI/sepsis per primary service
Discussed with nursing
Gurpreet Perea was updated via telephone
Original Note:
Consultation
Consultation Request
Date/Time Consultation Performed: 11/14/24
Requesting Provider: Dr. Irene
Performing Provider: Morena Weller PA-C for Dr. Rodriguez
Reason for Consultation: atrial fibrillation with RVR
Medical History
-
Chief Complaint: confusion
History of Present Illness:
Patient is an 84-year-old female with past medical history of severe status post TAVR, pulm HTN on revatio, chronic left bundle branch block, hypertension, hyperlipidemia, CKD stage III, chronic diastolic congestive heart failure, paroxysmal
atrial fibrillation, who presented to [facility] with weakness and confusion noted by her 24-hour caregivers. Patient has been to the ER several times in the last several months�was in the ER on 09/19 for A-fib which spontaneously converted to sinus
rhythm, and was then in the ER again on 09/25 due to a fall. On arrival 11/12, was noted to have abnormal UA consistent with UTI, on antibiotics per primary service. She was hypotensive and initiated on Levophed. This AM was noted to go into afib
with RVR. She is asymptomatic aside from mild shortness of breath. Cardiology consulted for evaluation. She is on eliquis, however historically has not been ideal candidate due to history of Parkinson's disease and history of falls.
PMH:
Paroxysmal atrial fibrillation
Anticoagulation with eliquis
Chronic diastolic congestive heart failure
Pulm HTN, on revatio
Severe status post TAVR 2020
Chronic left bundle branch block
CKD stage III
Hypertension
Hyperlipidemia
Parkinson's disease
Hypothyroidism
GERD
Obesity
Past Medical History
Past Medical History: Other (in HPI)
Social History
Tobacco: Former Smoker
Alcohol: None
Personal:
Living: Other (has 24 hour caregivers)
Employment: Retired
Family History
Family History: Hypertension
Allergies / Home Medications
Allergy/AdvReac Type Severity Reaction Status Date / Time
ALIREZA Inhibitors Allergy cough Verified 11/12/24 14:09
nifedipine (From Procardia) Allergy Unknown Verified 11/12/24 14:09
Sulfa (Sulfonamide Allergy CHILDHOOD Verified 11/12/24 14:09
Antibiotics)
sulfisoxazole Allergy CHILDHOOD Verified 11/12/24 14:09
�Medication �Instructions �Recorded �Confirmed �Type
levothyroxine 50 mcg tablet 50 mcg PO DAILY Thyroid 09/24/16 11/12/24 History
pantoprazole 40 mg tablet,delayed 40 mg PO DAILY Gastrointestinal 09/24/16 11/12/24 History
release Issue
citalopram 20 mg tablet 20 mg PO DAILY depression 02/21/20 11/12/24 History
atenolol 25 mg tablet 25 mg PO DAILY Blood pressure 06/04/21 11/12/24 History
atorvastatin 10 mg tablet 10 mg PO HS High cholesterol 06/04/21 11/12/24 History
carbidopa ER 50 mg-levodopa 200 mg 1 tab PO BID PARKINSON 03/17/23 11/12/24 History
tablet,extended release
montelukast 10 mg tablet 10 mg PO HS asthma 03/17/23 11/12/24 History
furosemide 40 mg tablet 160 mg PO BID Fluid 10/11/23 11/12/24 History
Retention/Swelling
potassium chloride 20 mEq 20 meq PO BID Electrolyte Repletion 10/11/23 11/12/24 History
tablet,extended release(part/cryst)
sildenafil (pulm.hypertension) 20 20 mg PO TID pulmonary hypertension 10/11/23 11/12/24 History
mg tablet
apixaban 5 mg tablet (Eliquis) 5 mg PO BID 30 days #60 tabs 07/14/24 11/12/24 Rx
famotidine 20 mg tablet 20 mg PO HS Gastrointestinal Issue 11/12/24 11/12/24 History
gabapentin 400 mg tablet 400 mg PO HS Neurological Condition 11/12/24 11/12/24 History
Review of Systems
-
History Source: Patient
All other systems: Negative unless noted
Physical Exam
Vital Signs
Temp Pulse Resp BP Pulse Ox
98.5 F 158 26 79/62 95
11/14/24 08:00 11/14/24 09:03 11/14/24 09:03 11/14/24 09:22 11/14/24 08:50
Lab Results
11/14/24 05:30
11/14/24 05:30
Physical Exam
General: No Apparent Distress, Comfortable and Other (chronically ill appearing)
HEENT: Normocephalic, Anicteric and Moist Mucous Membranes
Respiratory: Clear and Non Labored Respirations
Cardiac: S1/S2, Irregular Rhythm and Murmur
GI: Soft, Non Tender, Non Distended and Normal Bowel Sounds
Musculoskeletal: No Clubbing, No Cyanosis and Edema (trace of B/L LE)
Skin: Warm and Dry
Neuro: Awake, Alert and Oriented (to self, place)
Impression / Plan
-
Primary Flavoring Oil Filterer: Dr. Dawn
Assessment:
Presentation with weakness, confusion
TME
Septic shock
UTI
Hypotension requiring pressors
Afib with RVR
Paroxysmal atrial fibrillation
Anticoagulation with eliquis
Chronic diastolic congestive heart failure
Pulm HTN, on revatio
Severe status post TAVR 2020
Chronic left bundle branch block
CKD stage III
Hypertension
Hyperlipidemia
Parkinson's disease
Hypothyroidism
GERD
Obesity
History of falls
ECHO 07/13/24: EF 60 to 65%, moderate concentric LVH, dense posterior MAC, mild to moderate MS, moderate to severe MR with peak/mean gradients 18/7 mmHg, #26 [place] AMINA TAVR with peak/mean gradient 17/9 mmHg
Plan:
- Patient presented with weakness and confusion with evidence of septic shock felt to be secondary to UTI. She was hypotensive, and presently continues to require levo at 2. This morning was noted to go into A-fib with RVR resulting in cardiology
consultation. Patient relatively asymptomatic, although does complain of some mild shortness of breath
- EKGs reviewed, afib with RVR and LBBB, chronic
- Heart rates presently elevated. Given hypotension, rate control options limited at this time. She was given her morning atenolol 25 mg daily without improvement. Nursing was hanging IV amiodarone drip at time of my interview/examination.
Follow QTc
- Continue Eliquis 5 mg twice daily
- Recent echo from 07/2024 as above, will hold off on repeating at this time. Will need serial echoes as outpatient to follow mitral valve disease
- Given her shortness of breath and chest x-ray with evidence of possible mild pulmonary edema, check proBN, ordered by me. Diuresis presently limited by hypotension, however will need to follow volume status and likely eventually diurese patient
prior to discharge
- Continue treatment of UTI/sepsis per primary service
- Discussed with nursing
- Discussed with patient's son Eliazar via telephone
Data Reviewed
-
EKG: Tracing Personally Visualized and interpreted
Radiology: Report Reviewed by me
Medical Tests (Nuc Med, Echo etc): Report Reviewed by me
Labs: Labs Reviewed by me
Old Records: Reviewed
--- NOTE | 2024-11-14 10:52 | PTCARENOTE ---
Pt briefly in NSR, then back to Afib with rates in the 150-160s. Amio initiated, see MAR and worklist intervention.
--- NOTE | 2024-11-14 12:01 | W.PN.HOSP.TC ---
Today's Communication/Plan
-
Consulted cards, appreciate recs
Continue on Levophed and amiodarone drip
Follow-up echo
Continue antibiotics
Pending cardiology and echo, goals of care discussion with family may be warranted
Assessment / Plan
Assessment / Plan
Ms. Cohen is an 84-year-old female with a history of CHF, A-fib and s/p TAVR on Eliquis, Parkinson's, COPD, GERD, HLD, and hypothyroidism who presented to the ED with fever, altered mental status, and hallucinations. She was admitted on
11/12/2024 for septic shock secondary to UTI with acute metabolic encephalopathy and is currently being managed with IV Rocephin 2000 mg daily. Her admission has been complicated by fluid resistant hypotension, for which she has needed IV Levophed,
and new oxygen need of 2 L nasal cannula (no oxygen needed at home). On 11/14/2024, she was taken off of the Levophed at around 5 AM, however, she had an episode of A-fib with RVR to the 160s and hypotension SBP 70s-90s. She was given home atenolol,
restarted on Levophed, and started on amiodarone without bolus with reversion back to sinus rhythm within a couple hours. Cardiology was consulted. We are waiting most recent echo results and pending what cardiology says, a goals of care
discussion may be warranted.
#Septic shock 2/2 acute UTI with acute metabolic encephalopathy
#Acute hypotension 2/2 septic shock
-Follow-up ID consult
-Follow-up blood cultures from 11/12/2024; prelim urine cultures from 11/12/2024 grew E. coli and lactobacillus species
-Continue on IV Rocephin 2000 mg daily
-Initial plan was to wean IV Levophed as tolerated. However, given her A-fib with RVR, we will continue her on Levophed for now and start amiodarone drip.
-Midodrine 5 mg p.o. every 4 hours as needed
#Chronic HFpEF with severe MR
#Aortic stenosis s/p TAVR
#Paroxysmal A-fib with RVR, new episode
On 11/14/2024, she was taken off of the Levophed at around 5 AM, however, she had an episode of A-fib with RVR to the 160s and hypotension SBP 70s-90s. She was given home atenolol, restarted on Levophed, and started on amiodarone without bolus with
reversion back to sinus rhythm within a couple hours. Cardiology was consulted.
-Consulted cardiology, appreciate recs
-Follow-up echo
-Hold Lasix (since 11/13/2024) ISO septic shock requiring vasopressors
-Started amiodarone drip without bolus on 11/14/2024
-Continue atenolol 25 mg p.o. with holding parameters
-Continue apixaban 5 mg p.o. twice daily
#CAD
-Continue atenolol 25 mg p.o. daily
-Continue atorvastatin 10 mg p.o. at bedtime
#GERD
-Continue famotidine 20 mg p.o. at bedtime
-Protonix 40 mg p.o. daily
#Hypothyroidism
-Continue levothyroxine 50 mg p.o. daily
-Follow-up TSH
#Parkinson's
-Continue carbidopa-levodopa 1 tab p.o. twice daily
#Neuropathy
-Continue gabapentin 400 mg p.o. at bedtime
#Depression
-Continue citalopram 20 mg p.o. daily
#Constipation
-Continue bowel regimen with senna, MiraLAX, Dulcolax
DVT prophylaxis: Eliquis
CODE STATUS: Full
Anticipated Discharge: > 48 hours (Given clinical improvement)
Subjective/Interval History
-
Date of Service: November 14, 2024
-She had been off of Levophed since 5 AM this morning, however around 9 AM, had an episode of A-fib with RVR to 160 and became hypotensive with SBP 70-90s, although clinically stable without shortness of breath, syncope, pain, or any other symptoms.
She was given her home atenolol, restarted on Levophed (currently on 2 mics of Levophed), started on amiodarone drip without bolus, and cards was consulted. She reverted to sinus rhythm within a couple of hours.
-Otherwise, she does not have any new clinical symptoms today. She reports feeling scared after the A-fib with RVR episode.
Objective Data
-
Labs:
Laboratory Results
11/14/24
05:30
WBC 7.9
Hgb 9.5 L
Hct 28.9 L
Plt Count 165
Sodium 139
Potassium 3.8
Chloride 102
Carbon Dioxide 27
BUN 27 H
Creatinine 0.9
Glucose 128 H
Calcium 8.8
Vital Signs:
Vital Signs
Temp Pulse Resp BP Pulse Ox
97.6 F 158 26 79/62 95
11/14/24 11:15 11/14/24 09:03 11/14/24 09:03 11/14/24 09:22 11/14/24 08:50
I&O
11/13/24 11/14/24 11/15/24
06:59 06:59 06:59
Intake Total 250 / 250
Output Total 650 / 650 750 / 750
Balance -650 / -650 -500 / -500
Review of Systems
-
All other systems: Reviewed and negative
Constitutional: Reports Chills and Weakness
Physical Exam
-
General: Well Developed, No Apparent Distress and Other (Upon entering the room while she is in A-fib with RVR, she is sat up in bed and conversant. She is mostly nervous about the number of people in the room, but denies shortness of breath,
syncope or dizziness, or chest pain.)
HEENT: Normocephalic, Atraumatic and Moist Mucous Membranes
Respiratory: Clear to Auscultation and Non Labored Respirations
Cardiac: S1/S2, Irregular Rhythm (In A-fib with RVR) and Tachycardic (To the 160s)
GI: Soft, Nontender, Nondistended and Normal Bowel Sounds
Musculoskeletal: No Clubbing, No Cyanosis and No Edema
Skin: Warm and Dry
Neuro: AO x 3
Psych: Intact Judgement/Insight and Anxious
--- NOTE | 2024-11-14 13:53 | PTCARENOTE ---
Pt in NSR in the 90's at this time. D/w cardiology, amio gtt to continue at this time.
[2024-11-14] MEDS: LIPITOR 10 MG PO (19:59)
[2024-11-14] MEDS: SINGULAIR 10 MG PO (19:59)
[2024-11-14] MEDS: PEPCID 20 MG PO (19:59)
[2024-11-14] MEDS: NEURONTIN 400 MG PO (19:59)
[2024-11-14] MEDS: LEVOPHED 250 IV (20:00)
--- NOTE | 2024-11-14 20:45 | W.PN.ID1 ---
Date of Service
Date of Service: November 14, 2024
Today's Communication
multiple allergies complicate treatment choices
Assessment / Plan
1. Admitted with confusion , hallucinations, weakness with hypotension requiring pressor support in setting of severe MR// now improved
2. Leukocytosis 12.4 with left shift 83.8% temperature of 101.2 on admission// now afebrile without leukocytosis
3. Urine with E,coli with > 100k cfu blood cultures are 48 hours with NGTD
4. Patient placed on Ceftriaxone which to complete 5 days treatment/ last dose 11/17/24 unfortunately oral options not ideal for this patient
5. CXR with findings of mild cardiomegaly with mild diffuse interstitial infiltrates suggestive of edema
6..Patient continues in ICU care for careful monitoring
Thank you for calling ID consultation
Chief Complaint
-: UTI (culture positive E.coli)
Subjective / Review of Systems
Review of Systems: No Fever, No Chills, No Headache, No Pharyngitis, No Stiff Neck, No Swollen Lymph Nodes, No Cough, No Sputum Production, No Chest Pain, No Palpitations, No Abdominal Pain, No Nausea, No Vomiting, No Diarrhea, No Dysuria, No Joint
Pain and No Skin Rash
Vital Signs / Physical Exam
Vital Signs
Vital Signs
Temp Pulse Resp BP Pulse Ox
97.4 F 80 23 78/68 94
11/14/24 19:00 11/14/24 16:04 11/14/24 16:04 11/14/24 16:04 11/14/24 20:31
Physical Exam
Constitutional: No Acute Distress, Well Developed, Comfortable, Chronically Ill, Non-toxic and Obese
Head: Normocephalic
Eyes: Pupils Equal, Pupils Round, No Conjunctival Hemorrhage and Sclera Anicteric
Oropharyngeal: Benign
Cardiovascular: Regular Rate
Pulmonary: Clear and Non Labored
Gastrointestinal: Soft, Non Tender, Non Distended and Decreased Bowel Sounds (central adiposity)
Extremities: Edema
Skin: Warm and Dry
Wound: None
Neurological: Awake, Alert and Oriented (gait not evaluated)
Psychological: Calm (conversant, cooperative, pleasant )
Objective Data
Lab Data
Lab Results
11/14/24 05:30
11/14/24 05:30
Estimated Creat Clear 48 ml/min 11/14/24 05:30
Lactic Acid 1.3 mmol/L (0.7-2.0) 11/12/24 18:19
Total Bilirubin 0.8 mg/dl (0.2-1.3) 11/12/24 15:03
AST 50 U/L (14-36) H 11/12/24 15:03
ALT < 10 U/L (0-35) 11/12/24 15:03
Alkaline Phosphatase 84 U/L (38-126) 11/12/24 15:03
Most recent labs reviewed.
Microbiology: Report Reviewed (lactobacillus likely contaminant)
Micro Results:
11/12/24 14:52 Blood Culture - Preliminary
Blood/Venous No Growth in 48 hours- Final report to follow
11/12/24 15:03 Blood Culture - Preliminary
Blood/Venous No Growth in 48 hours- Final report to follow
11/12/24 14:40 Urine Culture - Final
Urine Escherichia coli
Lactobacillus species
Chest X-Ray: Report Reviewed
Care Review
Plan reviewed with: Nurse (asked about status and improved)
Total Time Spent with Patient (in minutes): 35
--- NOTE | 2024-11-14 21:21 | PTCARENOTE ---
Patient aaox 3 at start of shift, [place] b/[facility]. Able to make needs known and using call martinez appropriately. Received patient on Levo 2mcg/min, and Amio 0.5mg/min through left midline. Current SBP 125, Levo decreased to 1mcg/min. Patient remains in afib
however rate controlled, current hr 76. Purewick remains in place, draining yellow/doris urine. Patient repositioned for comfort and pressure relief. Call martinez within reach, will continue to monitor patient closely.
[2024-11-15] VITALS (50 sets, daily range): BP systolic 89–121; BP diastolic 55–79; PULSE 63–70; O2SAT 99–100; BMI 36.3
[2024-11-15 04:20] LABS: Hematocrit 26.9 % (37.0-47.0); Hemoglobin 8.8 g/dL (12.0-16.0); Mean Corp Hgb Conc. 32.7 g/dL (33.0-37.0); Mean Corpuscular Volume 90.6 fL (81.0-99.0); Platelet Count 184 10^3/uL (130-400); Red Cell Dist. Width 14.7 % (11.5-14.5)
[2024-11-15 04:42] LABS: Blood Urea Nitrogen 42 mg/dl (7-17); Calcium 8.6 mg/dl (8.4-10.2); Carbon Dioxide 29 mmol/L (22-30); Chloride 100 mmol/L (98-107); Estimated Creatinine Clearance 31 ml/min; Glucose 107 mg/dl (70-99); Potassium 4.4 mmol/L (3.5-5.1); Sodium 134 mmol/L (135-145); eGFR 37.56
[2024-11-15] MEDS: SYNTHROID 50 MCG PO (05:29)
[2024-11-15] MEDS: STERILE WATER FOR INJECTION 20 ML IV (05:29)
[2024-11-15] MEDS: ROCEPHIN 2000 MG IV (05:30)
[2024-11-15] MEDS: TYLENOL 650 MG PO (05:46)
--- NOTE | 2024-11-15 08:24 | W.PN.UPDATE ---
Update Note
Progress Note Update
I saw and evaluated the patient. I reviewed the resident�s note and agree with findings and plan as documented in the resident�s note.
Denies CP/SOB. Asking to go home.
Gen: NAD, Awake and alert
Eyes: EOMI, PERRLA, no scleral icterus.
Neck: supple.
CV: RRR, +S1/S2, no m/r/g.
Resp: CTAB anteriorly, no rales, wheezes, or rhonchi.
Abd: remains +BS, soft, NT, ND
Skin: No rashes.
Neuro: CN 2-12 intact, non-focal.
Psych: Normal mood and affect.
11/12/24 14:52 Blood/Venous Blood Culture - Preliminary
No Growth in 48 hours- Final report to follow
11/12/24 15:03 Blood/Venous Blood Culture - Preliminary
No Growth in 48 hours- Final report to follow
11/12/24 14:40 Urine Urine Culture - Final
Escherichia coli
Lactobacillus species
CXR: Mild cardiomegaly with mild diffuse interstitial opacification favored to represent mild interstitial edema.
CT head: No acute intracranial abnormality. No interval change.
Echo:
1. Moderately decreased left ventricular function.
2. Definity echocontrast was used for better endocardial definition. Left ventricular ejection fraction is moderately reduced with an ejection fraction of 35-40% by visual assessement.
3. Moderate to severe mitral regurgitation.
4. Moderate tricuspid regurgitation with moderate pulmonary hypertension, PASP 58mmHg.
5. Status post transcatheter aortic valve replacement. Bocanegra Ricki aortic valve prosthesis is noted. Aortic prosthesis is stable and well seated.
6. Compared to previous echo from July 2024, ejection fraction was 60-65%, there was mild to moderate mitral stenosis at that time.
Septic shock due to acute UTI:
-with acute metabolic encephalopathy
-lactic acidosis resolved s/p IVFs
-cont Rocephin as per ID
-follow BCxs/UCx (see above)
-Levophed restarted with hypotension 11/14/24, currently at 1mcg/min
Paroxysmal Afib with RVR:
-RVR to 160s 11/14/24AM with SBP 90s
-Levophed gtt was resumed with hypotension (in addition to septic shock I suspect a component of cardiogenic shock due to severe MR and afib with RVR)
-Amio gtt started 11/14/24, stopped just now, 11/15/24, starting PO Amio
-cards following
-echo above, notable for drop in EF to 35-40%, mod-sev MR, mod TR, mod pulm HTN
Chronic HFrEF:
-echo above, notable for drop in EF to 35-40%, mod-sev MR, mod TR, mod pulm HTN
-Lasix stopped 11/13/24 with septic shock requiring vasopressors
-cont BB with holding parameters
Other problems:
CAD: Cont BB/statin
COPD: not in acute exac, duonebs PRN
GERD: cont PPI
Hypothyroidism: cont Levoxyl
Parkinson's: cont Sinemet
Obesity due to excess calories
FULL/Eliquis
Considering the patient's worsening heart function as evidenced by her echocardiogram, continued vasopressor requirement, and bacteremia in the setting of multiple comorbidities and advanced age, palliative care consultation is warranted.
Total critical care time spent = 32 min
[2024-11-15] MEDS: ELIQUIS 5 MG PO ×2 (08:47→20:10)
[2024-11-15] MEDS: PROTONIX 40 MG PO (08:48)
[2024-11-15] MEDS: TENORMIN PO (08:48)
[2024-11-15] MEDS: SINEMET CR 50/200 (EXTENDED RELEASE) 1 TABLET PO ×2 (08:48→20:11)
[2024-11-15] MEDS: CELEXA 20 MG PO (08:48)
--- NOTE | 2024-11-15 09:03 | W.PN.CARDCBS ---
Addendum entered and electronically signed by Sue Denny MD 11/15/24 12:07:
I saw and examined the patient.
The Digital Marketing Project Manager's note was reviewed and I agree with the note.
Comment:
General: Frail elderly woman in chair
Neck: Difficult to assess
Heart: Distant heart sounds
Lungs: Decreased at the bases with crackles
Extremities: No clubbing, cyanosis and trace to +1 edema bilaterally.
Presentation with weakness and confusion along with change in mental status primarily related to septic shock from UTI for which she continues to undergo treatment. She also had presented with atrial fibrillation with rapid ventricular response.
Echocardiogram with decline in left ventricular ejection fraction, stable TAVR and continued known moderate to severe mitral regurgitation. Of note she chronically has low blood pressure at least documented for over 1 year. She is now off of
Levophed. Agree.
I suspect decline in left ventricular ejection fraction is secondary to septic shock and rapid atrial fibrillation. Otherwise cardiac findings have been chronic.
Plan at this time:
IV amiodarone has been switched to oral amiodarone and she is maintaining sinus rhythm. Continue. EKG stable.
-Check EKG in AM.
-Follow telemetry
Pulmonary hypertension is followed as an outpatient and we will resume her Revatio
Continue treatment of septic shock per primary service
Guideline directed medical therapy as tolerates for heart failure with newly reduced ejection fraction in the setting of septic shock and rapid A-fib now sinus rhythm
-If tolerates tomorrow switch atenolol to Toprol-XL low-dose. Eventually add medications as tolerates
-Reassess left ventricular ejection fraction at the 3-month wilian or sooner if new symptoms develop
-Likely will eventually benefit from gentle diuresis
-Left bundle branch block noted
Renal insufficiency
-Follow renal function
I have spoken through secure texting to primary service regarding patient's cardiac related issues. Acute on chronic decompensation in the setting of right mid atrial fibrillation and sepsis discussed.
Original Note:
Today's Communication / Plan
-
wean levo
in SR
transition IV amio to po
follow QTc
continue eliquis
GDMT for CM as able as BP improves
eventual diuresis
resume OP revatio
Impression / Plan
-
Primary Meter Setter: Dr. Dawn
Assessment:
Presentation with weakness, confusion
TME
Septic shock
UTI
Hypotension requiring pressors
Afib with RVR
Paroxysmal atrial fibrillation
Anticoagulation with eliquis
Cardiomyopathy, suspected tachy induced
Chronic diastolic congestive heart failure
Pulm HTN, on revatio
Severe status post TAVR 2020
Chronic left bundle branch block
Mod to severe MR
CKD stage III
Hypertension
Hyperlipidemia
Parkinson's disease
Hypothyroidism
GERD
Obesity
History of falls
ECHO 07/13/24: EF 60 to 65%, moderate concentric LVH, dense posterior MAC, mild to moderate MS, moderate to severe MR with peak/mean gradients 18/7 mmHg, #26 Bocanegra AMINA TAVR with peak/mean gradient 17/9 mmHg
ECHO 11/14/24: Definity used, EF 35 to 40%, global hypokinesis, moderate to severe MR, moderate TR with moderate pulmonary hypertension, PASP 58 mmHg, status post TAVR Bocanegra valve, stable and well-seated
Plan:
- Patient presented with weakness and confusion with evidence of septic shock felt to be secondary to UTI.
- she remains on levo @1, wean as able
- she went into afib with RVR yesterday. she was started on IV amiodarone and she converted to SR. she remains in SR at this time. we will transition IV amio to po amiodarone 400mg TID. follow QTc by EKG.
- she also has known chronic LBBB
- Continue Eliquis 5 mg twice daily. hgb 8.8
- she was on atenolol prior to admission. given ECHO this admission with EF 35-40% which is new and may be related to rapid afib, will transition to coreg vs toprol when BP able to tolerate. consider addition of mirna/arb/arni/aldactone as able.
- given UTI, will avoid SGLT2 inhibitor
- echo also showed mod to severe MR, will need to follow serially as OP
- proBNP >20033, will need diuresis as BP allows. was on po lasix 160mg BID prior to admission. Cr up to 1.4 today
- on revatio for pulm HTN, presently on hold, will resume
- Continue treatment of UTI/sepsis per primary service
- Discussed with nursing
Progress Note - Meter Setter
Subjective
Date of Service: November 15, 2024
confused this AM. no CP, palpitations.
Objective
Labs:
11/15/24 03:58
11/15/24 03:57
Labs
Hgb 8.8 g/dL (12.0-16.0) L 11/15/24 03:58
Hct 26.9 % (37.0-47.0) L 11/15/24 03:58
Plt Count 184 10^3/uL (130-400) 11/15/24 03:58
Sodium 134 mmol/L (135-145) L 11/15/24 03:57
Potassium 4.4 mmol/L (3.5-5.1) 11/15/24 03:57
BUN 42 mg/dl (7-17) H 11/15/24 03:57
Creatinine 1.4 mg/dL (0.6-1.0) H 11/15/24 03:57
Glucose 107 mg/dl (70-99) H 11/15/24 03:57
Vital Signs and I&O:
Vital Signs
Temp Pulse Resp BP Pulse Ox
97.9 F 63 17 96/67 98
11/15/24 02:40 11/15/24 08:48 11/15/24 06:37 11/15/24 08:48 11/15/24 00:27
Vital Signs
Temp Pulse Resp BP Pulse Ox
97.9 F 63 17 96/67 98
11/15/24 02:40 11/15/24 08:48 11/15/24 06:37 11/15/24 08:48 11/15/24 00:27
Intake & Output
11/13/24 11/14/24 11/15/24 11/16/24
07:59 07:59 07:59 07:59
Intake Total 250 / 250 493.4 / 493.4
Output Total 650 / 650 750 / 750 700 / 700
Balance -650 / -650 -500 / -500 -206.6 / -206.6
Physical Exam
Physical Exam
GEN: No distress, awake, confused. on supp O2
HEENT: supple, anicteric, mmm, eomi
LUNGS: CTA B/L anterolaterally, no wheezes
CV: Reg, S1/S2, 2/6 murmur
ABD: soft, BS+, NT/ND
EXT: No cyanosis, clubbing. Trace edema of B/L LE
NEURO: Gross non-focal
SKIN: Warm, pink, dry. No rash
[2024-11-15] MEDS: PACERONE 400 MG PO ×3 (09:35→20:11)
--- NOTE | 2024-11-15 11:28 | W.PN.HOSP.TC ---
Today's Communication/Plan
-
P.o. amiodarone started: IV Levophed and IV amiodarone DC'd by cardiology
Continue IV antibiotics per ID
Palliative care consult in place
Assessment / Plan
Assessment / Plan
Ms. Cohen is an 84-year-old female with a history of CHF, A-fib and s/p TAVR on Eliquis, Parkinson's, COPD, GERD, HLD, and hypothyroidism who presented to the ED with fever, altered mental status, and hallucinations. She was admitted on
11/12/2024 for septic shock secondary to UTI with acute metabolic encephalopathy and is currently being managed with IV Rocephin 2000 mg daily. Her admission has been complicated by fluid resistant hypotension, for which she has needed IV Levophed,
and new oxygen need of 2 L nasal cannula (no oxygen needed at home). On 11/14/2024, she was taken off of the Levophed at around 5 AM, however, she had an episode of A-fib with RVR to the 160s and hypotension SBP 70s-90s. She was given home atenolol,
restarted on Levophed, and started on amiodarone without bolus with reversion back to sinus rhythm within a couple hours. Cardiology was consulted. Most recent echo as below:
#Septic shock 2/2 acute UTI with acute metabolic encephalopathy
#Acute hypotension 2/2 septic shock
-Follow-up ID consult
-Follow-up blood cultures from 11/12/2024; urine cultures from 11/12/2024 grew E. coli and lactobacillus species
-Continue on IV Rocephin 2000 mg daily
-IV Levophed weaned 11/15/2024. Amiodarone drip 11/14/2024-11/15/2024, transition to p.o. amiodarone per cardiology today.
-Midodrine 5 mg p.o. every 4 hours as needed
#Chronic HFpEF with severe MR
#Aortic stenosis s/p TAVR
#Paroxysmal A-fib with RVR, new episode
On 11/14/2024, she was taken off of the Levophed at around 5 AM, however, she had an episode of A-fib with RVR to the 160s and hypotension SBP 70s-90s. She was given home atenolol, restarted on Levophed, and started on amiodarone without bolus with
reversion back to sinus rhythm within a couple hours. Cardiology was consulted. On 11/15/2024, palliative care was consulted given worsening findings on echo, bacteremia, and possible need to go back on IV pressors again. Per cardiology, prognosis
is dependent on patient's clinical status and follow-up echo after clearing bacteremia.
-Palliative care consulted
-Consulted cardiology, appreciate recs
--Transition IV amiodarone to p.o. amiodarone, follow QTc, GDMT as blood pressures improve with plan for eventual diuresis
--Repeat echo as above
-Hold Lasix (since 11/13/2024) ISO septic shock requiring vasopressors
-Started amiodarone drip without bolus on 11/14/2024
-Continue atenolol 25 mg p.o. with holding parameters
-Continue apixaban 5 mg p.o. twice daily
#CAD
-Continue atenolol 25 mg p.o. daily
-Continue atorvastatin 10 mg p.o. at bedtime
#GERD
-Continue famotidine 20 mg p.o. at bedtime
-Protonix 40 mg p.o. daily
#Hypothyroidism
-Continue levothyroxine 50 mg p.o. daily
-Follow-up TSH
#Parkinson's
-Continue carbidopa-levodopa 1 tab p.o. twice daily
#Neuropathy
-Continue gabapentin 400 mg p.o. at bedtime
#Depression
-Continue citalopram 20 mg p.o. daily
#Constipation
-Continue bowel regimen with senna, MiraLAX, Dulcolax
DVT prophylaxis: Eliquis
CODE STATUS: Full
Anticipated Discharge: > 48 hours (Pending clinical improvement, cardiology recs, palliative care recs)
Subjective/Interval History
-
Date of Service: November 15, 2024
-She was weaned off the Levophed this morning, her amiodarone drip was switched to p.o. amiodarone per cardiology, and with PT was able to get out of bed into the chair.
-This morning she reports feeling really fatigued, as well as nervous. She denies chest pain, sweats, chills, fevers, and any pain. She asked that her son Eliazar be updated.
Objective Data
-
Labs:
Laboratory Results
11/15/24 11/15/24
03:57 03:58
WBC 9.7
Hgb 8.8 L
Hct 26.9 L
Plt Count 184
Sodium 134 L
Potassium 4.4
Chloride 100
Carbon Dioxide 29
BUN 42 H
Creatinine 1.4 H
Glucose 107 H
Calcium 8.6
Vital Signs:
Vital Signs
Temp Pulse Resp BP Pulse Ox
97 F 72 20 103/76 98
11/15/24 07:40 11/15/24 09:35 11/15/24 09:30 11/15/24 09:35 11/15/24 00:27
I&O
11/14/24 11/15/24 11/16/24
06:59 06:59 06:59
Intake Total 250 / 250 493.4 / 493.4
Output Total 750 / 750 700 / 700
Balance -500 / -500 -206.6 / -206.6
Review of Systems
-
History Source: Patient
All other systems: Reviewed and negative
Constitutional: Reports No Appetite, Fatigue and Weakness
Respiratory: Reports Trouble Breathing (Compared to baseline, she is on NC)
Abdomen/GI: Reports Nausea
Psych: Reports Sad and Anxious
Physical Exam
-
General: No Apparent Distress, Appears Chronically Ill and Other (Laying up in bed, appears very tired, with NC in place. She is responding appropriately to questions, however seems worried.)
HEENT: Normocephalic, Atraumatic and Moist Mucous Membranes
Respiratory: Clear to Auscultation and Non Labored Respirations
Cardiac: S1/S2 and Irregular Rhythm (Known A-fib)
GI: Soft, Nontender and Nondistended
Musculoskeletal: No Clubbing
Skin: Warm and Dry
Neuro: AO x 3 and No Motor Deficits
Psych: Calm and Intact Judgement/Insight
--- NOTE | 2024-11-15 16:23 | CM ---
IV/Rocephin. Discharge POC: Therapy recommending [facility] [place] with patient whose preference is [facility]. Referral will be forwarded. Message left for son and D-I-L.
[2024-11-15] MEDS: REVATIO 20 MG PO ×2 (16:36→20:10)
--- NOTE | 2024-11-15 17:19 | PTCARENOTE ---
Rec'd pt this AM. weaned off levo and amio d.c. now on PO Amio. NSR with stable BP throughout the day. min assist OOB to chair. Pt can be forgetful at times, often demanding. Vital signs stable.
[2024-11-15] MEDS: NEURONTIN 400 MG PO (20:10)
[2024-11-15] MEDS: SINGULAIR 10 MG PO (20:10)
[2024-11-15] MEDS: LIPITOR 10 MG PO (20:10)
[2024-11-15] MEDS: PEPCID 10 MG PO (20:10)
--- NOTE | 2024-11-15 21:09 | W.PN.ID1 ---
Date of Service
Date of Service: November 15, 2024
Today's Communication
with critical care nurse
Assessment / Plan
1. Admitted with confusion , hallucinations, weakness with hypotension requiring pressor support in setting of severe MR// now improved
2. Leukocytosis 12.4 with left shift 83.8% temperature of 101.2 on admission// now afebrile without leukocytosis
3. Urine with E,coli with > 100k cfu blood cultures are 48 hours with NGTD
4. Patient placed on Ceftriaxone which to complete 5 days treatment/ last dose 11/17/24 unfortunately oral options not ideal for this patient
5. CXR with findings of mild cardiomegaly with mild diffuse interstitial infiltrates suggestive of edema
6..Patient continues in ICU care for careful monitoring
Thank you for calling ID consultation
Chief Complaint
-: UTI (culture positive E.coli)
Subjective / Review of Systems
Review of Systems: No Fever, No Chills, No Headache, No Pharyngitis, No Stiff Neck, No Swollen Lymph Nodes, No Cough, No Sputum Production, No Chest Pain, No Abdominal Pain, Nausea, No Vomiting, No Diarrhea, No Dysuria, No Joint Pain and No Skin
Rash (feeling a bit better)
Vital Signs / Physical Exam
Vital Signs
Vital Signs
Temp Pulse Resp BP Pulse Ox
97.9 F 65 20 97/55 98
11/15/24 19:25 11/15/24 20:11 11/15/24 16:30 11/15/24 20:11 11/15/24 00:27
Physical Exam
Constitutional: No Acute Distress, Well Developed, Comfortable, Acutely Ill, Non-toxic and Obese
Head: Normocephalic
Eyes: Pupils Equal, Pupils Round, No Conjunctival Hemorrhage and Sclera Anicteric
Oropharyngeal: Benign
Cardiovascular: Regular Rate
Pulmonary: Clear and Non Labored
Gastrointestinal: Soft, Non Tender, Non Distended and Decreased Bowel Sounds
Extremities: Pulses (normal and present)
Skin: Warm and Dry
Wound: None
Neurological: Awake, Alert, Oriented and AO x 3 (gait not observed)
Psychological: Calm (conversant, more interactive today)
Objective Data
Lab Data
Lab Results
11/15/24 03:58
11/15/24 03:57
Estimated Creat Clear 31 ml/min 11/15/24 03:57
Lactic Acid 1.3 mmol/L (0.7-2.0) 11/12/24 18:19
Total Bilirubin 0.8 mg/dl (0.2-1.3) 11/12/24 15:03
AST 50 U/L (14-36) H 11/12/24 15:03
ALT < 10 U/L (0-35) 11/12/24 15:03
Alkaline Phosphatase 84 U/L (38-126) 11/12/24 15:03
Most recent labs reviewed.
Microbiology: Report Reviewed
Micro Results:
11/12/24 15:03 Blood Culture - Preliminary
Blood/Venous No Growth in 72 hours- Final report to follow
11/12/24 14:52 Blood Culture - Preliminary
Blood/Venous No Growth in 72 hours- Final report to follow
11/12/24 14:40 Urine Culture - Final
Urine Escherichia coli
Lactobacillus species
Care Review
Plan reviewed with: Nurse
Total Time Spent with Patient (in minutes): 35
[2024-11-16] VITALS (38 sets, daily range): BP systolic 83–116; BP diastolic 48–83; PULSE 57; O2SAT 96; BMI 36.4
[2024-11-16] MEDS: ROCEPHIN 2000 MG IV (04:09)
[2024-11-16] MEDS: SYNTHROID 50 MCG PO (04:09)
[2024-11-16] MEDS: STERILE WATER FOR INJECTION 20 ML IV (04:10)
[2024-11-16 04:40] LABS: Hematocrit 25.9 % (37.0-47.0); Hemoglobin 8.6 g/dL (12.0-16.0); Mean Corp Hgb Conc. 33.2 g/dL (33.0-37.0); Mean Corpuscular Volume 87.2 fL (81.0-99.0); Platelet Count 176 10^3/uL (130-400); Red Cell Dist. Width 14.7 % (11.5-14.5)
--- NOTE | 2024-11-16 05:11 | PTCARENOTE ---
Patient with approx 200ml tea colored urine to purewick. Bladder scanned this am for 260ml. Sacral dressing changed due to soilage overnight, sacrum, buttocks, perineum remains dark purple, blanches. Barrier ointment applied to purple areas. Patient
repositioned throughout shift for pressure relief. PRN midodrine administered overnight for SBP in the 80's. BPs remain soft, however have been 90's-100's since med administration. Call martinez within reach, will continue to monitor patient closely.
[2024-11-16 05:25] LABS: Blood Urea Nitrogen 56 mg/dl (7-17); Calcium 8.0 mg/dl (8.4-10.2); Carbon Dioxide 27 mmol/L (22-30); Chloride 102 mmol/L (98-107); Estimated Creatinine Clearance 27 ml/min; Glucose 101 mg/dl (70-99); Potassium 4.0 mmol/L (3.5-5.1); Sodium 135 mmol/L (135-145); eGFR 32.00
--- NOTE | 2024-11-16 07:49 | W.PN.CARDCBS ---
Addendum entered and electronically signed by Sue Denny MD 11/16/24 11:51:
I saw and examined the patient.
The Credit Verifier's note was reviewed and I agree with the note.
Comment: Exam is difficult. Mild lower extremity edema. Regular rate and rhythm.
She is now in sinus rhythm converted from paroxysmal atrial fibrillation (oral anticoagulation). EKG reviewed from 11/15/2024 after conversion to sinus rhythm with left bundle branch block noted. QT interval stable.
She remains on Revatio for pulmonary hypertension. She has severe aortic valve stenosis status post TAVR 2020. Chronic left bundle branch block. Multiple comorbidities. Newly decreased left ventricular ejection fraction in the setting of rapid
atrial fibrillation and septic shock.
-Guideline directed medical therapy for heart failure with reduced ejection fraction (new in the setting of septic shock and rapid A-fib) is limited because of low blood pressure. Continue Toprol-XL which was switched from atenolol. Continue to
maintain sinus rhythm. Continue to reassess for addition of medication. She is not an SGLT2 candidate given recent sepsis/UTI. She has chronically low blood pressure.
- Reassess echocardiogram at the 3-month wilian. Aortic valve status stable.
- Reassess mitral regurgitation as outpatient.
- Continue to work on conditioning if able.
- Continue treatment of septic shock/UTI
-Renal insufficiency noted with waxing and waning creatinines may be in part related to increased volume. 1 dose of IV diuretic given today. Await next creatinine.
Given comorbidities palliative care consults is indicated if agreeable.
Original Note:
Today's Communication / Plan
-
in SR. continue po amiodarone
continue eliquis
atenolol transitioned to toprol, continue as BP allows
IV lasix x1. follow Cr
Impression / Plan
-
Primary Manager Group: Dr. Dawn
Assessment:
Presentation with weakness, confusion
TME
Septic shock
UTI
Hypotension requiring pressors
Afib with RVR
Paroxysmal atrial fibrillation
Anticoagulation with eliquis
Cardiomyopathy, suspected tachy induced
Chronic diastolic congestive heart failure
Pulm HTN, on revatio
Severe status post TAVR 2020
Chronic left bundle branch block
Mod to severe MR
CKD stage III
Hypertension
Hyperlipidemia
Parkinson's disease
Hypothyroidism
GERD
Obesity
History of falls
ECHO 07/13/24: EF 60 to 65%, moderate concentric LVH, dense posterior MAC, mild to moderate MS, moderate to severe MR with peak/mean gradients 18/7 mmHg, #26 Bocanegra AMINA TAVR with peak/mean gradient 17/9 mmHg
ECHO 11/14/24: Definity used, EF 35 to 40%, global hypokinesis, moderate to severe MR, moderate TR with moderate pulmonary hypertension, PASP 58 mmHg, status post TAVR Bocanegra valve, stable and well-seated
Plan:
- Patient presented with weakness and confusion with evidence of septic shock felt to be secondary to UTI.
- BPs remain low but stable, off levo since 11/15. she does have known chronic hypotension
- she converted to SR 11/15. remains in SR overnight. continue po amiodarone. follow QTc by EKG, stable by 11/15, repeat in AM ordered
- she also has known chronic LBBB
- Continue Eliquis 5 mg twice daily. hgb 8.6
- she was on atenolol prior to admission. given ECHO this admission with EF 35-40% which is new and may be related to rapid afib, transitioned to toprol 25mg daily. consider addition of mirna/arb/arni/aldactone as able.
- given UTI, will avoid SGLT2 inhibitor
- echo also showed mod to severe MR, will need to follow serially as OP
- proBNP >34986, will need diuresis as BP allows. was on po lasix 160mg BID prior to admission. Cr up to 1.6 today. will give 40mg IV lasix and follow Cr.
- on revatio for pulm HTN, continue
- Continue treatment of UTI/sepsis per primary service
- ongoing conversations with primary service regarding palliative care
- planned for downgrade to tele
- Discussed with nursing
Progress Note - Manager Group
Subjective
Date of Service: November 16, 2024
denies CP, SOB, palpitations
Objective
Labs:
11/16/24 04:24
11/16/24 04:24
Labs
Hgb 8.6 g/dL (12.0-16.0) L 11/16/24 04:24
Hct 25.9 % (37.0-47.0) L 11/16/24 04:24
Plt Count 176 10^3/uL (130-400) 11/16/24 04:24
Sodium 135 mmol/L (135-145) 11/16/24 04:24
Potassium 4.0 mmol/L (3.5-5.1) 11/16/24 04:24
BUN 56 mg/dl (7-17) H 11/16/24 04:24
Creatinine 1.6 mg/dL (0.6-1.0) H 11/16/24 04:24
Glucose 101 mg/dl (70-99) H 11/16/24 04:24
Vital Signs and I&O:
Vital Signs
Temp Pulse Resp BP Pulse Ox
98.0 F 54 18 98/62 95
11/16/24 03:14 11/16/24 06:00 11/16/24 06:00 11/16/24 06:00 11/16/24 00:22
Vital Signs
Temp Pulse Resp BP Pulse Ox
98.0 F 54 18 98/62 95
11/16/24 03:14 11/16/24 06:00 11/16/24 06:00 11/16/24 06:00 11/16/24 00:22
Intake & Output
11/13/24 11/14/24 11/15/24 11/16/24
07:59 07:59 07:59 07:59
Intake Total 250 / 250 493.4 / 493.4 120 / 120
Output Total 650 / 650 750 / 750 700 / 700
Balance -650 / -650 -500 / -500 -206.6 / -206.6 120 / 120
Physical Exam
Physical Exam
GEN: No distress, awake, alert.
HEENT: supple, anicteric, mmm, eomi
LUNGS: CTA B/L anterolaterally, no wheezes
CV: Reg, S1/S2, 2/6 murmur
ABD: soft, BS+, NT/ND
EXT: No cyanosis, clubbing. Trace edema of B/L LE
NEURO: Gross non-focal
SKIN: Warm, pink, dry. No rash
--- NOTE | 2024-11-16 08:01 | W.PN.UPDATE ---
Update Note
Progress Note Update
I saw and evaluated the patient. I reviewed the resident�s note and agree with findings and plan as documented in the resident�s note.
No new complaints.
Gen: NAD, Awake and alert
Eyes: EOMI, PERRLA, no scleral icterus.
Neck: supple.
CV: luz, reg rhythm, +S1/S2, no m/r/g.
Resp: remains CTAB anteriorly, no rales, wheezes, or rhonchi.
Abd: continues to remain +BS, soft, NT, ND
Skin: No rashes.
Neuro: CN 2-12 intact, non-focal.
Psych: Normal mood and affect.
11/12/24 15:03 Blood/Venous Blood Culture - Preliminary
No Growth in 72 hours- Final report to follow
11/12/24 14:52 Blood/Venous Blood Culture - Preliminary
No Growth in 72 hours- Final report to follow
11/12/24 14:40 Urine Urine Culture - Final
Escherichia coli
Lactobacillus species
CXR: Mild cardiomegaly with mild diffuse interstitial opacification favored to represent mild interstitial edema.
CT head: No acute intracranial abnormality. No interval change.
Echo:
1. Moderately decreased left ventricular function.
2. Definity echocontrast was used for better endocardial definition. Left ventricular ejection fraction is moderately reduced with an ejection fraction of 35-40% by visual assessement.
3. Moderate to severe mitral regurgitation.
4. Moderate tricuspid regurgitation with moderate pulmonary hypertension, PASP 58mmHg.
5. Status post transcatheter aortic valve replacement. Bocanegra Ricki aortic valve prosthesis is noted. Aortic prosthesis is stable and well seated.
6. Compared to previous echo from July 2024, ejection fraction was 60-65%, there was mild to moderate mitral stenosis at that time.
Septic shock due to acute UTI:
-with acute metabolic encephalopathy
-lactic acidosis resolved s/p IVFs
-cont Rocephin through 11/17/24 as per ID
-cont to follow BCxs/UCx (see above)
-Levophed restarted with hypotension 11/14/24, currently at 1mcg/min
Paroxysmal Afib with RVR:
-RVR to 160s 11/14/24AM with SBP 90s
-was on Levophed gtt (in addition to septic shock I suspect a component of cardiogenic shock due to severe MR and afib with RVR), now off
-Amio gtt started 11/14/24, stopped 11/15/24, transitioned PO Amio
-cont Eliquis/BB
-cards following
-echo above, notable for drop in EF to 35-40%, mod-sev MR, mod TR, mod pulm HTN
-rates now in high 50s
Chronic HFrEF:
-echo above, notable for drop in EF to 35-40%, mod-sev MR, mod TR, mod pulm HTN
-Lasix stopped 11/13/24 with septic shock requiring vasopressors
-cont BB with holding parameters
Other problems:
CAD: Cont BB/statin
COPD: not in acute exac, duonebs PRN
GERD: cont PPI
Hypothyroidism: cont Levoxyl
Parkinson's: cont Sinemet
Obesity due to excess calories
FULL/Eliquis
Considering the patient's worsening heart function as evidenced by her echocardiogram, continued vasopressor requirement, and bacteremia in the setting of multiple comorbidities and advanced age, palliative care consultation is warranted.
Transfer to [facility], anticipate d/c 24-72 hours.
[2024-11-16] MEDS: TOPROL XL PO (09:35)
[2024-11-16] MEDS: CELEXA 20 MG PO (09:35)
[2024-11-16] MEDS: ELIQUIS 5 MG PO ×2 (09:36→20:13)
[2024-11-16] MEDS: PROTONIX 40 MG PO (09:36)
[2024-11-16] MEDS: SINEMET CR 50/200 (EXTENDED RELEASE) 1 TABLET PO ×2 (09:37→20:13)
[2024-11-16] MEDS: PACERONE 400 MG PO ×2 (09:37→17:09)
[2024-11-16] MEDS: LASIX 40 MG IV (09:37)
[2024-11-16] MEDS: REVATIO 20 MG PO ×2 (09:38→17:10)
--- NOTE | 2024-11-16 11:21 | CM ---
Addendum entered by Mattie Marx 11/16/24 14:15:
Transfer forms for ambulance placed on chart. Patient accepted for transfer to [facility] please call report to [phone]/fax [phone]. Patient will need COVID testing in the 24 hours prior to discharge, physician aware. IMM needed. pending
discharge Tuesday or Tuesday per physician assessment.
Addendum entered by Mattie Marx 11/16/24 11:28:
updated referral sent to [facility]. CM will continue to follow for discharge planning needs.
Original Note:
CM called to [facility] and left VM asking about bed availability for the weekend as per physician possible for discharge over the weekend. Pending response. CM will send updated clinicals via all scripts. CM will continue to follow for
discharge planning needs.
Plan; SNF
--- NOTE | 2024-11-16 13:55 | W.PN.HOSP.TC ---
Today's Communication/Plan
-
Start Toprol-XL, stop atenolol per cardiology
S/p IV diuresis per cardiology
Continue to monitor creatinine ISO renal insufficiency likely due to increased volume
Continue IV antibiotics with last dose tomorrow 11/17/2024
Assessment / Plan
Assessment / Plan
Ms. Cohen is an 84-year-old female with a history of CHF, A-fib and s/p TAVR on Eliquis, Parkinson's, COPD, GERD, HLD, and hypothyroidism who presented to the ED with fever, altered mental status, and hallucinations. She was admitted on
11/12/2024 for septic shock secondary to UTI with acute metabolic encephalopathy and is currently being managed with IV Rocephin 2000 mg daily. Her admission has been complicated by fluid resistant hypotension, for which she has needed IV Levophed,
and new oxygen need of 2 L nasal cannula (no oxygen needed at home). On 11/14/2024, she was taken off of the Levophed at around 5 AM, however, she had an episode of A-fib with RVR to the 160s and hypotension SBP 70s-90s. She was given home atenolol,
restarted on Levophed, and started on amiodarone without bolus with reversion back to sinus rhythm within a couple hours. Cardiology was consulted. Most recent echo as below:
#Septic shock 2/2 acute UTI with acute metabolic encephalopathy
#Acute hypotension 2/2 septic shock
- ID consult:
--Continue IV Rocephin 2000 mg daily. Last dose 11/17/2024.
-Blood cultures no growth to date 11/12/2024; urine cultures from 11/12/2024 grew E. coli and lactobacillus species
#Chronic HFpEF with severe MR
#Aortic stenosis s/p TAVR
#Paroxysmal A-fib with RVR, new episode
On 11/14/2024, she was taken off of the Levophed at around 5 AM, however, she had an episode of A-fib with RVR to the 160s and hypotension SBP 70s-90s. She was given home atenolol, restarted on Levophed, and started on amiodarone without bolus with
reversion back to sinus rhythm within a couple hours. Cardiology was consulted. On 11/15/2024, palliative care was consulted given worsening findings on echo, bacteremia, and possible need to go back on IV pressors again. Per cardiology, prognosis
is dependent on patient's clinical status and follow-up echo after clearing bacteremia.
-Palliative care consulted
-Consulted cardiology, appreciate recs
-IV Levophed weaned 11/15/2024. Amiodarone drip 11/14/2024-11/15/2024, started amiodarone HCl 400 mg p.o. 3 times daily on 11/16/2024.
-Start Toprol-XL 25 mg p.o. daily
-Midodrine 5 mg p.o. every 4 hours as needed
-Hold Lasix (since 11/13/2024) ISO septic shock requiring vasopressors
-S/p amiodarone drip without bolus on 11/14/2024
-Stop atenolol 25 mg p.o. with holding parameters
-Continue apixaban 5 mg p.o. twice daily
#Renal insufficiency
Notable waxing and waning creatinines, thought to be prior related to increased volume. Cardiology diuresing.
-Continue to monitor creatinine, Cr 1.6, baseline 0.9.
#CAD
-Continue atenolol 25 mg p.o. daily
-Continue atorvastatin 10 mg p.o. at bedtime
#GERD
-Continue famotidine 20 mg p.o. at bedtime
-Protonix 40 mg p.o. daily
#Hypothyroidism
-Continue levothyroxine 50 mg p.o. daily
-Follow-up TSH
#Parkinson's
-Continue carbidopa-levodopa 1 tab p.o. twice daily
#Neuropathy
-Continue gabapentin 400 mg p.o. at bedtime
#Depression
-Continue citalopram 20 mg p.o. daily
#Constipation
-Continue bowel regimen with senna, MiraLAX, Dulcolax
DVT prophylaxis: Eliquis
CODE STATUS: Full
Anticipated Discharge: 24 - 48 hours (Pending palliative care consult and cardiology plan)
Subjective/Interval History
-
Date of Service: November 16, 2024
- This morning, she is sitting up in her bed, watching TV. She has no symptomatic complaints, and states that she is well rested.
- Has been off of the IV pressors and stable. Her care was de-escalated to telemetry.
- Transition from IV amiodarone to p.o. amiodarone and atenolol switched to Toprol-XL per cardiology. They are continuing diuresis.
Objective Data
-
Labs:
Laboratory Results
11/16/24
04:24
WBC 7.2
Hgb 8.6 L
Hct 25.9 L
Plt Count 176
Sodium 135
Potassium 4.0
Chloride 102
Carbon Dioxide 27
BUN 56 H
Creatinine 1.6 H
Glucose 101 H
Calcium 8.0 L
Vital Signs:
Vital Signs
Temp Pulse Resp BP Pulse Ox
97.3 F 56 18 102/73 95
11/16/24 11:00 11/16/24 09:37 11/16/24 06:00 11/16/24 09:37 11/16/24 00:22
I&O
11/15/24 11/16/24 11/17/24
06:59 06:59 06:59
Intake Total 493.4 / 493.4 120 / 120
Output Total 700 / 700 500 / 500
Balance -206.6 / -206.6 120 / 120 -500 / -500
Review of Systems
-
All other systems: Reviewed and negative
Constitutional: Reports Weakness
Physical Exam
-
General: Well Nourished, No Apparent Distress, Comfortable and Conversant
HEENT: Normocephalic, Atraumatic and Moist Mucous Membranes
Respiratory: Clear to Auscultation and Non Labored Respirations
Cardiac: Regular Rhythm, S1/S2 and Irregular Rhythm (Known A-fib)
GI: Soft, Nontender and Nondistended
Musculoskeletal: No Clubbing and No Cyanosis
Skin: Warm and Dry
Neuro: AO x 3
Psych: Calm and Intact Judgement/Insight
--- NOTE | 2024-11-16 14:43 | W.CON.PAL ---
Consultation
-
Date/Time Consultation Requested: 11/16/24
Date/Time Consultation Performed: 11/16/24
Performing Provider: Haven Bishop
Reason for Consult: Goals of Care Discussion
Reason for Admission
Illness Course/HPI
84 year old F with PMH of CHF, A-fib and s/p TAVR on Eliquis, Parkinson's, COPD, GERD, HLD, and hypothyroidism who presented to the ED with fever, altered mental status. Admitted for septic shock secondary to UTI with s/p ABX. Required pressors
for short time, now weaned off. Echo with mod/severe mitral regurg, moderation pHTN and EF 35% (last echo 65%).
Seen at bedside with no family. States she feels crappy and wants to get out of the hospital. Was able to tell me why she is here. States she was doing fine, taking care of herself at home prior to hospitalization and is surprised at how quickly she
got sick. Her goal is to get to [facility] for rehab and then get back home. Mentioned she had an aide for a bit at home but she 'left because she was bored.' Let her know I would try to reach out to her son Eliazar who is her POA.
Objective Data
-
Objective Data:
Vital Signs
Temp Pulse Resp BP Pulse Ox
97.3 F 56 18 102/73 95
11/16/24 11:00 11/16/24 09:37 11/16/24 06:00 11/16/24 09:37 11/16/24 00:22
Laboratory Results
11/16/24 04:24
11/16/24 04:24
Total Protein 6.3 g/dl (6.3-8.2) 11/12/24 15:03
Albumin 3.5 g/dl (3.5-5.0) 11/12/24 15:03
Urine Color Yellow 11/12/24 14:40
Urine Clarity Clear (Clear) 11/12/24 14:40
Urine pH 5.0 (5.0-9.0) 11/12/24 14:40
Ur Specific [place] 1.015 (<1.030) 11/12/24 14:40
Urine Ketones Negative (Negative) 11/12/24 14:40
Urine Bilirubin Negative (Negative) 11/12/24 14:40
Palliative Performance Scale
Palliative Performance Scale:
PPS Level Ambulation Activity & Evidence of Disease Self Care Intake Conscious Level
100% Full Normal Activity & Work; Full Intake Full
No Evidence of Disease
90% Full Normal Activity & Work; Full Normal Full
Some Evidence of Disease
80% Full Normal Activity with Effort Full Normal or Full
Some Evidence of Disease Reduced
70% Reduced Unable Normal Job/Work Full Normal or Full
Significant Disease Reduced
60% Reduced Unable Hobby/Housework Occasional Normal or Full or Confusion
Significant Disease Assistance Reduced
50% Mainly Sit/Lie Unable to do Any Work Considerable Normal or Full or Confusion
Extensive Disease Assistance Req'd Reduced
40% Mainly in Bed Unable to do Most Activity Mainly Assistance Normal or Full or Drowsy;
Extensive Disease Reduced +/- Confusion
30% Totally Bed Unable to do Any Activity Total Care Normal or Full or Drowsy;
Bound Extensive Disease Reduced +/- Confusion
20% Totally Bed Bound Unable to do Any Activity Total Care Minimal to Full or Drowsy;
Extensive Disease Sips +/- Confusion
10% Totally Bed Bound Unable to do Any Activity Total Care Mouth Care Drowsy or Coma;
Extensive Disease Only +/- Confusion
0%
PPS Score Level:
Physical Exam
-
General: No Apparent Distress and Appears Chronically Ill
Respiratory: Clear to Auscultation
Cardiac: Regular Rhythm
GI: Soft
Skin: Warm
Neuro: Awake and Alert
Assessment / Plan
-
Assessment/Plan:
84 year old F with sepsis 2/2 UTI, worsening EF 35%.
- goal for rehab
- attempted to call son to discuss - no answer. will follow up as needed
Care Reviewed
Data Reviewed
Echocardiogram: Report Reviewed
Radiology procedure: Report Reviewed
Medical Tests: I reviewed
Reviewed with: Patient, Family and Physician
--- NOTE | 2024-11-16 16:44 | CM ---
Attempted to meet with patient to obtain information for assessment, however RN was in with her. Will attempt again.
--- NOTE | 2024-11-16 18:09 | TRANSFER ---
Arrived to unit and pulled to bed. Patient AAOx3. Purewick removed. Placed on tele, NSR. Call martinez within reach. Oriented to room.
--- NOTE | 2024-11-16 18:48 | W.PN.ID1 ---
Date of Service
Date of Service: November 16, 2024
Today's Communication
communicated with ICU nurse about patient's progress today
Assessment / Plan
1. Admitted with confusion , hallucinations, weakness with hypotension requiring pressor support in setting of severe MR// now improved
2. Leukocytosis 12.4 with left shift 83.8% temperature of 101.2 on admission// now afebrile without leukocytosis
3. Urine with E,coli with > 100k cfu blood cultures are 48 hours with NGTD
4. Patient placed on Ceftriaxone which to complete 5 days treatment/ last dose 11/17/24 unfortunately oral options not ideal for this patient
5. CXR with findings of mild cardiomegaly with mild diffuse interstitial infiltrates suggestive of edema
6..Patient continues in ICU care for careful monitoring
ID will sign off at this time..
Thank you for calling ID consultation
Chief Complaint
-: UTI (culture positive E.coli)
Subjective / Review of Systems
Review of Systems: No Fever, No Chills, No Headache, No Pharyngitis, No Stiff Neck, No Swollen Lymph Nodes, No Cough, No Sputum Production, No Chest Pain, No Abdominal Pain, No Nausea, No Vomiting, No Diarrhea, No Dysuria, No Joint Pain and No Skin
Rash
Vital Signs / Physical Exam
Vital Signs
Vital Signs
Temp Pulse Resp BP Pulse Ox
97.3 F 61 16 108/57 93
11/16/24 16:24 11/16/24 17:09 11/16/24 16:24 11/16/24 16:24 11/16/24 16:24
Physical Exam
Constitutional: No Acute Distress, Well Developed, Comfortable, Chronically Ill, Non-toxic and Obese
Head: Normocephalic
Eyes: Pupils Equal, Pupils Round, No Conjunctival Hemorrhage and Sclera Anicteric
Oropharyngeal: Benign
Cardiovascular: Regular Rate
Pulmonary: Clear and Non Labored
Gastrointestinal: Soft, Non Tender and Decreased Bowel Sounds (central adiposity)
Genito-Urinary: Clear Urine
Extremities: Edema (limited ROM)
Skin: Warm and Dry
Wound: None
Neurological: Awake and Alert (gait not observed)
Psychological: Calm (cooperative,interactive)
Objective Data
Lab Data
Lab Results
11/16/24 04:24
11/16/24 04:24
Estimated Creat Clear 27 ml/min 11/16/24 04:24
Lactic Acid 1.3 mmol/L (0.7-2.0) 11/12/24 18:19
Total Bilirubin 0.8 mg/dl (0.2-1.3) 11/12/24 15:03
AST 50 U/L (14-36) H 11/12/24 15:03
ALT < 10 U/L (0-35) 11/12/24 15:03
Alkaline Phosphatase 84 U/L (38-126) 11/12/24 15:03
Most recent labs reviewed.
Microbiology: Report Reviewed
Micro Results:
11/12/24 14:52 Blood Culture - Preliminary
Blood/Venous No Growth in 4 days- Final report to follow
11/12/24 15:03 Blood Culture - Preliminary
Blood/Venous No Growth in 4 days- Final report to follow
11/12/24 14:40 Urine Culture - Final
Urine Escherichia coli
Lactobacillus species
Chest X-Ray: Report Reviewed
Care Review
Plan reviewed with: Nurse (spoke with critical care nurse about patient's status and progress)
Total Time Spent with Patient (in minutes): 35
[2024-11-16] MEDS: PEPCID 10 MG PO (20:11)
[2024-11-16] MEDS: NEURONTIN 400 MG PO (20:12)
[2024-11-16] MEDS: SINGULAIR 10 MG PO (20:13)
[2024-11-16] MEDS: LIPITOR 10 MG PO (20:13)
[2024-11-16] MEDS: PACERONE PO (23:27)
[2024-11-16] MEDS: REVATIO PO (23:28)
[2024-11-17 03:00] VITALS: BP 110/57
[2024-11-17 05:14] VITALS: BMI 35.6
[2024-11-17] MEDS: STERILE WATER FOR INJECTION 20 ML IV (05:24)
[2024-11-17] MEDS: SYNTHROID 50 MCG PO (05:24)
[2024-11-17] MEDS: ROCEPHIN 2000 MG IV (05:24)
[2024-11-17 07:01] LABS: Hematocrit 25.7 % (37.0-47.0); Hemoglobin 8.3 g/dL (12.0-16.0); Mean Corp Hgb Conc. 32.3 g/dL (33.0-37.0); Mean Corpuscular Volume 90.5 fL (81.0-99.0); Platelet Count 179 10^3/uL (130-400); Red Cell Dist. Width 14.7 % (11.5-14.5)
--- NOTE | 2024-11-17 07:31 | W.PN.HOSP.TC ---
Today's Communication/Plan
-
See A/P
Assessment / Plan
Assessment / Plan
Assessment/plan
#Septic shock secondary to UTI
#Toxic metabolic encephalopathy
-Urinalysis positive on presentation, urine cultures with E. coli, blood cultures negative to date
-Off pressor support 11/15, continue midodrine
-ID input appreciated
-On IV ceftriaxone to complete today 11/17/2024, oral options not ideal for patient
#Paroxysmal A-fib with RVR
-S/p Amio gtt., transition to p.o. amnio
-Continued rate control control with Toprol, switched from atenolol
-Anticoagulation with Eliquis
-Cardiology input appreciate
#Chronic HFrEF
-Echocardiogram 11/14/2024 LVEF 35-40%.
-proBNP > 58830
-Diuresis as BP allows, received 40 mg IV Lasix yesterday
-Consider GDMT as able, although limited given soft BPs. Continue Toprol-XL 25 mg
-Avoid SGLT2 given UTI
-Cardiology following
#RAÚL on CKD 3
-Concern for cardiorenal syndrome, Lasix 40 mg IV given yesterday
-Consult nephrology
-Monitor BMP
Severe s/p TAVR 2020
Chronic LBBB
Hyperlipidemia
Continue statin
GERD
Continue famotidine, Protonix
Hypothyroidism
Continue levothyroxine
Parkinson's disease
Continue home carbidopa levodopa
DVT prophylaxis: Eliquis
CODE STATUS: Full
Appropriate to consult palliative care at this time
Anticipated Discharge: > 48 hours
Subjective/Interval History
-
Date of Service: November 17, 2024
Objective Data
-
Labs:
Laboratory Results
11/17/24
04:53
WBC 7.4
Hgb 8.3 L
Hct 25.7 L
Plt Count 179
Vital Signs:
Vital Signs
Temp Pulse Resp BP Pulse Ox
97.5 F 54 18 110/57 95
11/17/24 03:00 11/17/24 03:00 11/17/24 03:00 11/17/24 03:00 11/17/24 03:00
I&O
11/16/24 11/17/24 11/18/24
06:59 06:59 06:59
Intake Total 120 / 120 570 / 570
Output Total 500 / 500
Balance 120 / 120 70 / 70
Review of Systems
-
All other systems: Reviewed and negative (Except as documented)
Physical Exam
-
General: Well Nourished, No Apparent Distress, Comfortable and Conversant
HEENT: Normocephalic
Respiratory: Clear to Auscultation
Cardiac: Regular Rhythm, S1/S2 and Bradycardic
GI: Soft, Nontender and Nondistended
Musculoskeletal: No Edema
Skin: Warm
Neuro: AO x 3
Psych: Calm
[2024-11-17 07:48] VITALS: BP 110/66
--- NOTE | 2024-11-17 08:11 | W.PN.UPDATE ---
Update Note
Progress Note Update
I saw and evaluated the patient. I reviewed the resident�s note and agree with findings and plan as documented in the resident�s note.
No new complaints.
Gen: NAD, Awake and alert
Eyes: EOMI, PERRLA, no scleral icterus.
Neck: supple.
CV: remains luz, reg rhythm, +S1/S2, no m/r/g.
Resp: continues to remain CTAB anteriorly, no rales, wheezes, or rhonchi.
Abd: +BS, soft, NT, ND
Skin: No rashes.
Neuro: remains CN 2-12 intact, non-focal.
Psych: Normal mood and affect.
11/12/24 14:52 Blood/Venous Blood Culture - Preliminary
No Growth in 4 days- Final report to follow
11/12/24 15:03 Blood/Venous Blood Culture - Preliminary
No Growth in 4 days- Final report to follow
11/12/24 14:40 Urine Urine Culture - Final
Escherichia coli
Lactobacillus species
CXR: Mild cardiomegaly with mild diffuse interstitial opacification favored to represent mild interstitial edema.
CT head: No acute intracranial abnormality. No interval change.
Echo:
1. Moderately decreased left ventricular function.
2. Definity echocontrast was used for better endocardial definition. Left ventricular ejection fraction is moderately reduced with an ejection fraction of 35-40% by visual assessement.
3. Moderate to severe mitral regurgitation.
4. Moderate tricuspid regurgitation with moderate pulmonary hypertension, PASP 58mmHg.
5. Status post transcatheter aortic valve replacement. Bocanegra Ricki aortic valve prosthesis is noted. Aortic prosthesis is stable and well seated.
6. Compared to previous echo from July 2024, ejection fraction was 60-65%, there was mild to moderate mitral stenosis at that time.
Septic shock due to acute UTI:
-with acute metabolic encephalopathy
-lactic acidosis resolved s/p IVFs
-cont Rocephin through 11/17/24 as per ID
-cont to follow BCxs/UCx (see above)
-required Levophed, now off
Paroxysmal Afib with RVR:
-RVR to 160s 11/14/24 with SBP 90s
-was on Levophed gtt (in addition to septic shock I suspect a component of cardiogenic shock due to severe MR and afib with RVR), now off
-Amio gtt started 11/14/24, stopped 11/15/24, transitioned PO Amio
-cont Eliquis/BB
-cards following
-echo above, notable for drop in EF to 35-40%, mod-sev MR, mod TR, mod pulm HTN
-rates now 50-60s
Chronic HFrEF:
-echo above, notable for drop in EF to 35-40%, mod-sev MR, mod TR, mod pulm HTN
-Lasix stopped 11/13/24 with septic shock requiring vasopressors. Note Lasix 40mg IV given 11/16/24.
-cont BB with holding parameters
RAÚL:
-concern for CRS, Lasix 40mg IV given 11/16/24
-check AM Cr
-c/s renal
Other problems:
Pulm HTN: cont sildenafil
CAD: Cont BB/statin
COPD: not in acute exac, duonebs PRN
GERD: cont PPI
Hypothyroidism: cont Levoxyl
Parkinson's: cont Sinemet
Obesity due to excess calories
FULL/Eliquis
Considering the patient's worsening heart function as evidenced by her echocardiogram and vasopressor requirements this hospitalization for septic and cardiogenic shock in the setting of multiple comorbidities and advanced age, palliative care was
consulted on 11/15/24.
[2024-11-17] MEDS: TOPROL XL PO (08:47)
[2024-11-17] MEDS: PROTONIX 40 MG PO (08:48)
[2024-11-17] MEDS: CELEXA 20 MG PO (08:49)
[2024-11-17] MEDS: SINEMET CR 50/200 (EXTENDED RELEASE) 1 TABLET PO ×2 (08:49→19:55)
[2024-11-17] MEDS: ELIQUIS 5 MG PO ×2 (08:52→19:55)
[2024-11-17 10:22] LABS: Blood Urea Nitrogen 50 mg/dl (7-17); Calcium 8.4 mg/dl (8.4-10.2); Carbon Dioxide 28 mmol/L (22-30); Chloride 103 mmol/L (98-107); Estimated Creatinine Clearance 29 ml/min; Glucose 102 mg/dl (70-99); Potassium 3.5 mmol/L (3.5-5.1); Sodium 138 mmol/L (135-145); eGFR 34.58
[2024-11-17] MEDS: REVATIO 20 MG PO ×3 (10:25→19:55)
--- NOTE | 2024-11-17 10:29 | W.PN.CARDCBS ---
Addendum entered and electronically signed by Sue Denny MD 11/17/24 15:06:
I saw and examined the patient.
The Rod Cup Filler's note was reviewed and I agree with the note.
Comment:
Family is at the bedside. Exam with regular rate and rhythm, distant heart sounds. Trivial edema. Coarse anterior breath sounds.
She continues with sinus rhythm/sinus bradycardia previously converted from paroxysmal atrial fibrillation (oral anticoagulation). EKG reviewed from 11/15/2024 after conversion to sinus rhythm with left bundle branch block noted. QT interval stable.
Reassess EKG in the morning.
She remains on Revatio for pulmonary hypertension. She has severe aortic valve stenosis status post TAVR 2020. Chronic left bundle branch block. Multiple comorbidities. Newly decreased left ventricular ejection fraction in the setting of rapid
atrial fibrillation and septic shock.
- GDMT for heart failure with reduced ejection fraction (new in the setting of septic shock and rapid A-fib) is limited because of low blood pressure.
-Continue Toprol-XL which was switched from atenolol. Continue to maintain sinus rhythm. Continue to ability to add medication.
-She is not an SGLT2 candidate given recent sepsis/UTI.
-She has chronically low blood pressure in the setting of known Parkinson's disease and recent sepsis (as needed midodrine had been ordered we will try to avoid if possible with history of pulmonary hypertension).
- Reassess echocardiogram at the 3-month wilian. Aortic valve status stable.
- Reassess mitral regurgitation as outpatient.
- Continue to work on conditioning as able. They tell me plan is for long term facility/rehab.
- Continue treatment of septic shock/UTI
-Renal insufficiency noted with waxing and waning creatinines may be in part related to increased volume. 1 dose of IV diuretic given 11/16 and 11/17 with brisk response. Creatinine is improving. As an outpatient she is on 160 mg of Lasix twice daily
which is needed to maintain volume status according to family. Appreciate nephrology input in addition.
I have ordered 60 mg of IV Lasix for tomorrow. proBNP has been consistently greater than 27,000 this admission.
Original Note:
Today's Communication / Plan
-
Will give another dose of IV lasix
Continue amiodoarone at lower dose due to bradycardia
Continue Toprol
Impression / Plan
-
Primary Auto Brake Technician: Dr. Dawn
Assessment:
Presentation with weakness, confusion
TME
Septic shock
UTI
Hypotension requiring pressors
Afib with RVR
Paroxysmal atrial fibrillation
Anticoagulation with eliquis
Cardiomyopathy, suspected tachy induced
Chronic diastolic congestive heart failure
Pulm HTN, on revatio
Severe status post TAVR 2020
Chronic left bundle branch block
Mod to severe MR
CKD stage III
Hypertension
Hyperlipidemia
Parkinson's disease
Hypothyroidism
GERD
Obesity
History of falls
ECHO 07/13/24: EF 60 to 65%, moderate concentric LVH, dense posterior MAC, mild to moderate MS, moderate to severe MR with peak/mean gradients 18/7 mmHg, #26 Bocanegra AMINA TAVR with peak/mean gradient 17/9 mmHg
ECHO 11/14/24: Definity used, EF 35 to 40%, global hypokinesis, moderate to severe MR, moderate TR with moderate pulmonary hypertension, PASP 58 mmHg, status post TAVR Bocanegra valve, stable and well-seated
Plan:
-Patient presented with weakness and confusion with evidence of septic shock felt to be secondary to UTI.
-BPs remain low but stable, off levo since 11/15. she does have known chronic hypotension
-In AF w/ RVR on arrival, converted to SR 11/15 and remains in SR on review of telemetry. Now on PO amiodarone, somewhat bradycardic this AM. dose reduced to 200mg BID.
-Recheck QTc in AM on EKG.
-Continue Eliquis 5 mg twice daily. hgb 8.3
-Echo 11/14 noted EF down to 35-40%. Atenolol switched to Toprol 25mg daily. Would consider addition of ALIREZA/ARB/ARNI/Aldactone as BP allows.
-Given UTI, avoiding SGLT2 inhibitor.
-Diuresing as able with IV lasix. Creat improved slightly to 1.5 following dose of IV lasix on 11/16. Will give another dose today.
-Weight down 4lbs to 188 lbs on 11/17. Continue to follow.
-On revatio for pulm HTN, continue
-Continue treatment of UTI/sepsis per primary service
Progress Note - Auto Brake Technician
Subjective
Date of Service: November 17, 2024
Improving.
Objective
Labs:
11/17/24 04:53
11/17/24 09:28
Labs
Hgb 8.3 g/dL (12.0-16.0) L 11/17/24 04:53
Hct 25.7 % (37.0-47.0) L 11/17/24 04:53
Plt Count 179 10^3/uL (130-400) 11/17/24 04:53
Sodium 138 mmol/L (135-145) 11/17/24 09:28
Potassium 3.5 mmol/L (3.5-5.1) 11/17/24 09:28
BUN 50 mg/dl (7-17) H 11/17/24 09:28
Creatinine 1.5 mg/dL (0.6-1.0) H 11/17/24 09:28
Glucose 102 mg/dl (70-99) H 11/17/24 09:28
Vital Signs and I&O:
Vital Signs
Temp Pulse Resp BP Pulse Ox
97.9 F 59 20 110/66 95
11/17/24 07:48 11/17/24 07:48 11/17/24 07:48 11/17/24 07:48 11/17/24 07:48
Vital Signs
Temp Pulse Resp BP Pulse Ox
97.9 F 59 20 110/66 95
11/17/24 07:48 11/17/24 07:48 11/17/24 07:48 11/17/24 07:48 11/17/24 07:48
Intake & Output
11/15/24 11/16/24 11/17/24 11/18/24
06:59 06:59 06:59 06:59
Intake Total 493.4 / 493.4 120 / 120 570 / 570
Output Total 700 / 700 500 / 500
Balance -206.6 / -206.6 120 / 120 70 / 70
Physical Exam
Physical Exam
GEN: No distress, awake, alert.
HEENT: supple, anicteric, mmm, eomi
LUNGS: CTA B/L anterolaterally, no wheezes
CV: Reg, S1/S2, 2/6 murmur
EXT: No cyanosis, clubbing. Trace edema of B/L LE
NEURO: Gross non-focal
SKIN: Warm, pink, dry. No rash
--- NOTE | 2024-11-17 10:46 | W.CON.NEPH ---
Consultation
-
Date/Time Consultation Requested: 11/17/2024 7 AM
Date/Time Consultation Performed: 11/17/2024 10 AM
Requesting Provider: Dr. Macdonald
Performing Provider: Dr. Rubalcava
Reason for Consultation: RAÚL
Medical History
-
Chief Complaint: RAÚL
History of Present Illness:
This is an 84-year-old female who has severe aortic stenosis status post TAVR, pulmonary hypertension, severe MR, moderate TR, heart failure preserved ejection fraction on high-dose diuretic therapy. She has atrial fibrillation on Eliquis and
beta-andrew therapy for rate control. She was admitted several days ago with weakness and confusion. She was found to have a urinary tract infection but was also significantly hypotensive. She required Levophed initially. This was able to be
weaned which she still had episodes of hypotension. On admission her creatinine was normal but has now risen up to 1.5 in the last 3 days. We are asked to assist with management of the acute kidney injury.
Past Medical History
Paroxysmal atrial fibrillation
Anticoagulation with eliquis
Chronic diastolic congestive heart failure
Pulm HTN, on revatio
Severe status post TAVR 2020
Chronic left bundle branch block
CKD stage III
Hypertension
Hyperlipidemia
Parkinson's disease
Hypothyroidism
GERD
Obesity
Social History
Tobacco: Former Smoker
Alcohol: None
Family History
Family History: Not Pertinent
Allergies / Home Medications
Allergy/AdvReac Type Severity Reaction Status Date / Time
ALIREZA Inhibitors Allergy cough Verified 11/12/24 14:09
nifedipine (From Procardia) Allergy Unknown Verified 11/12/24 14:09
Sulfa (Sulfonamide Allergy CHILDHOOD Verified 11/12/24 14:09
Antibiotics)
sulfisoxazole Allergy CHILDHOOD Verified 11/12/24 14:09
�Medication �Instructions �Recorded �Confirmed �Type
levothyroxine 50 mcg tablet 50 mcg PO DAILY Thyroid 09/24/16 11/12/24 History
pantoprazole 40 mg tablet,delayed 40 mg PO DAILY Gastrointestinal 09/24/16 11/12/24 History
release Issue
citalopram 20 mg tablet 20 mg PO DAILY depression 02/21/20 11/12/24 History
atenolol 25 mg tablet 25 mg PO DAILY Blood pressure 06/04/21 11/12/24 History
atorvastatin 10 mg tablet 10 mg PO HS High cholesterol 06/04/21 11/12/24 History
carbidopa ER 50 mg-levodopa 200 mg 1 tab PO BID PARKINSON 03/17/23 11/12/24 History
tablet,extended release
montelukast 10 mg tablet 10 mg PO HS asthma 03/17/23 11/12/24 History
furosemide 40 mg tablet 160 mg PO BID Fluid 10/11/23 11/12/24 History
Retention/Swelling
potassium chloride 20 mEq 20 meq PO BID Electrolyte Repletion 10/11/23 11/12/24 History
tablet,extended release(part/cryst)
sildenafil (pulm.hypertension) 20 20 mg PO TID pulmonary hypertension 10/11/23 11/12/24 History
mg tablet
apixaban 5 mg tablet (Eliquis) 5 mg PO BID 30 days #60 tabs 07/14/24 11/12/24 Rx
famotidine 20 mg tablet 20 mg PO HS Gastrointestinal Issue 11/12/24 11/12/24 History
gabapentin 400 mg tablet 400 mg PO HS Neurological Condition 11/12/24 11/12/24 History
Review of Systems
-
No chest pain or shortness of breath
All other systems: Negative unless noted
Physical Exam
Vital Signs
Vital Signs
Temp Pulse Resp BP Pulse Ox
97.9 F 59 20 110/66 95
11/17/24 07:48 11/17/24 07:48 11/17/24 07:48 11/17/24 07:48 11/17/24 07:48
Lab Results
WBC 7.4 10^3/uL (4.8-10.8) 11/17/24 04:53
RBC 2.84 10^6/uL (4.20-5.40) L 11/17/24 04:53
Hgb 8.3 g/dL (12.0-16.0) L 11/17/24 04:53
Hct 25.7 % (37.0-47.0) L 11/17/24 04:53
Plt Count 179 10^3/uL (130-400) 11/17/24 04:53
Sodium 138 mmol/L (135-145) 11/17/24 09:28
Potassium 3.5 mmol/L (3.5-5.1) 11/17/24 09:28
Chloride 103 mmol/L (98-107) 11/17/24 09:28
Carbon Dioxide 28 mmol/L (22-30) 11/17/24 09:28
BUN 50 mg/dl (7-17) H 11/17/24 09:28
Creatinine 1.5 mg/dL (0.6-1.0) H 11/17/24 09:28
eGFR 34.58 11/17/24 09:28
Glucose 102 mg/dl (70-99) H 11/17/24 09:28
Calcium 8.4 mg/dl (8.4-10.2) 11/17/24 09:28
Tvd-X-Rovfiwiecmv Pept > 03215 pg/ml 11/15/24 08:54
Albumin 3.5 g/dl (3.5-5.0) 11/12/24 15:03
Laboratory Tests
11/14/24 11/15/24
05:30 08:54
Creatinine 0.9
Rec-D-Gopllmbytlw Pept > 68068
Physical Exam
Patient is awake alert oriented and in no distress. Mood and affect were pleasant, insight and judgment were good. Pupils are equal round and reactive to light, extraocular movements are intact, sclera were anicteric. Hearing was normal, ears and
nose are intact. Oropharynx was clear. Neck was supple with trachea midline and no thyromegaly. Heart was regular rate and rhythm without rubs. Lower extremities without edema. Lungs were coarse to auscultation bilaterally and with normal
excursion. Abdomen was soft, nontender, with normal active bowel sounds, and no hepatosplenomegaly. Skin was without rash and with normal turgor.
Data Reviewed
-
Radiology: Image Personally Visualized and interpreted (Chest x-ray 11/12/2024 by my reading mild pulmonary edema cardiomegaly)
Medical Tests (Nuc Med, Echo etc): Image Personally Visualized and interpreted (EKG 11/15/2024 by my reading normal sinus rhythm Flako AV block left axis deviation left bundle branch block)
Labs: Labs Reviewed by me
Old Records: Reviewed
Assessment/Plan
-
Assessment
Heart failure preserved ejection fraction
Pulmonary hypertension, severe MR, moderate TR
RAÚL
Paroxysmal atrial fibrillation
UTI
Hypotension
Parkinson's
Plan
Lasix as needed daily dosing
Follow BMP
RAÚL likely related to cardiorenal syndrome with persistent hypotension
Will add low-dose midodrine twice daily
Check urine studies
I discussed with the patient palliative care. She says that she is not afraid of dying. She is trying to get into [facility]
[2024-11-17] MEDS: PACERONE PO ×2 (10:58→22:35)
[2024-11-17 11:19] VITALS: BP 105/75
[2024-11-17] MEDS: LASIX 40 MG IV (13:16)
--- NOTE | 2024-11-17 14:26 | CM ---
Patient not for discharge today per physician. CM will follow for possible discharge to [facility] tomorrow pending physician assessment. CM will conitnue to follow for discharge planning needs.
Plan; [facility] pending physician assessment
[2024-11-17 15:35] VITALS: BP 132/64
[2024-11-17 19:36] VITALS: BP 106/57
[2024-11-17] MEDS: NEURONTIN 400 MG PO (19:55)
[2024-11-17] MEDS: SINGULAIR 10 MG PO (19:55)
[2024-11-17] MEDS: PEPCID 10 MG PO (19:55)
[2024-11-17] MEDS: LIPITOR 10 MG PO (19:55)
[2024-11-17] MEDS: TYLENOL 650 MG PO (20:13)
[2024-11-17 23:04] VITALS: BP 85/50
[2024-11-18] MEDS: SYNTHROID 50 MCG PO (03:21)
[2024-11-18 03:33] VITALS: BP 101/58
[2024-11-18 04:14] LABS: Hematocrit 27.7 % (37.0-47.0); Hemoglobin 9.1 g/dL (12.0-16.0); Mean Corp Hgb Conc. 32.9 g/dL (33.0-37.0); Mean Corpuscular Volume 88.5 fL (81.0-99.0); Platelet Count 186 10^3/uL (130-400); Red Cell Dist. Width 15.0 % (11.5-14.5)
[2024-11-18 04:38] LABS: Blood Urea Nitrogen 45 mg/dl (7-17); Calcium 8.3 mg/dl (8.4-10.2); Carbon Dioxide 31 mmol/L (22-30); Chloride 102 mmol/L (98-107); Estimated Creatinine Clearance 33 ml/min; Glucose 103 mg/dl (70-99); Potassium 3.4 mmol/L (3.5-5.1); Sodium 136 mmol/L (135-145); eGFR 41.06
[2024-11-18 05:37] VITALS: BMI 35.6
[2024-11-18 07:00] VITALS: BP 108/61
--- NOTE | 2024-11-18 08:04 | W.PN.HOSP.TC ---
Today's Communication/Plan
-
See A/P
Assessment / Plan
Assessment / Plan
Assessment/plan
#Septic shock secondary to UTI
#Toxic metabolic encephalopathy
-Urinalysis positive on presentation, urine cultures with E. coli, blood cultures negative to date
-Off pressor support 11/15, continue midodrine
-ID input appreciated
-S/p IV ceftriaxone completed 11/17/2024, oral options not ideal for patient.
#Paroxysmal A-fib with RVR
-S/p Amio gtt., transition to p.o. amnio
-Continued rate control control with Toprol, switched from atenolol
-Anticoagulation with Eliquis
-Cardiology input appreciate
#Chronic HFrEF
-Echocardiogram 11/14/2024 LVEF 35-40%.
-proBNP > 84175
-Diuresis as BP allows, patient was on 160 mg of Lasix twice daily in the outpatient
-Diuresis initially held in the setting of septic shock
-Cardiology input appreciated, 60 mg IV Lasix daily.
-Consider GDMT as able, although limited given soft BPs. Continue Toprol-XL 25 mg
-Avoid SGLT2 given UTI
-Cardiology following
#RAÚL on CKD 3
-Likely secondary to cardiorenal syndrome
-Nephrology input appreciated
-Creatinine trending down to baseline
-Monitor BMP
Severe s/p TAVR 2020
Chronic LBBB
Hyperlipidemia
Continue statin
GERD
Continue famotidine, Protonix
Hypothyroidism
Continue levothyroxine
Parkinson's disease
Continue home carbidopa levodopa
Pulmonary hypertension
Continue sildenafil citrate
DVT prophylaxis: Eliquis
CODE STATUS: Full
Appropriate to consult palliative care at this time
Anticipated Discharge: > 48 hours
Subjective/Interval History
-
Date of Service: November 18, 2024
Objective Data
-
Labs:
Laboratory Results
11/18/24
04:04
WBC 8.4
Hgb 9.1 L
Hct 27.7 L
Plt Count 186
Sodium 136
Potassium 3.4 L
Chloride 102
Carbon Dioxide 31 H
BUN 45 H
Creatinine 1.3 H
Glucose 103 H
Calcium 8.3 L
Vital Signs:
Vital Signs
Temp Pulse Resp BP Pulse Ox
97.7 F 63 18 101/58 94
11/18/24 03:33 11/18/24 03:33 11/18/24 03:33 11/18/24 03:33 11/18/24 03:33
I&O
11/17/24 11/18/24 11/19/24
06:59 06:59 06:59
Intake Total 570 / 570 720 / 720
Output Total 500 / 500 400 / 400
Balance 70 / 70 320 / 320
Review of Systems
-
All other systems: Reviewed and negative (Except as documented)
Physical Exam
-
General: Well Nourished, No Apparent Distress, Comfortable and Conversant
HEENT: Normocephalic
Respiratory: Clear to Auscultation
Cardiac: Regular Rhythm, S1/S2 and Bradycardic
GI: Soft, Nontender and Nondistended
Musculoskeletal: No Edema
Skin: Warm
Neuro: AO x 3
Psych: Calm
[2024-11-18] MEDS: SINEMET CR 50/200 (EXTENDED RELEASE) 1 TABLET PO ×2 (08:16→20:29)
[2024-11-18] MEDS: ELIQUIS 5 MG PO ×2 (08:16→20:29)
[2024-11-18] MEDS: PROTONIX 40 MG PO (08:16)
[2024-11-18] MEDS: CELEXA 20 MG PO (08:16)
[2024-11-18] MEDS: REVATIO 20 MG PO ×3 (08:16→20:29)
[2024-11-18] MEDS: TOPROL XL 25 MG PO (08:17)
[2024-11-18] MEDS: PACERONE 200 MG PO ×2 (08:17→20:28)
[2024-11-18] MEDS: LASIX 60 MG IV (08:17)
[2024-11-18 11:30] VITALS: BP 119/59
--- NOTE | 2024-11-18 12:07 | W.PN.NEPH.PH ---
Today's Communication / Plan
-
K
Assessment/Plan
-
Assessment
Heart failure preserved ejection fraction
Pulmonary hypertension, severe MR, moderate TR
RAÚL
Paroxysmal atrial fibrillation
UTI
Hypotension
Parkinson's
Plan
Lasix as needed daily dosing
Follow BMP
RAÚL likely related to cardiorenal syndrome with persistent hypotension
Will add low-dose midodrine as needed
replete K
-
-
Date of Service: November 18, 2024
CC / HPI / ROS
-
Chief Complaint:
hypokalemia
History of Present Illness:
K 3.4
RAÚL/Cr down to 1.3
Na normal
BP stable
Review of Systems:
no CP/SOB
eating
Labs
-
Labs:
WBC 8.4 10^3/uL (4.8-10.8) 11/18/24 04:04
RBC 3.13 10^6/uL (4.20-5.40) L 11/18/24 04:04
Hgb 9.1 g/dL (12.0-16.0) L 11/18/24 04:04
Hct 27.7 % (37.0-47.0) L 11/18/24 04:04
Plt Count 186 10^3/uL (130-400) 11/18/24 04:04
Sodium 136 mmol/L (135-145) 11/18/24 04:04
Potassium 3.4 mmol/L (3.5-5.1) L 11/18/24 04:04
Chloride 102 mmol/L (98-107) 11/18/24 04:04
Carbon Dioxide 31 mmol/L (22-30) H 11/18/24 04:04
BUN 45 mg/dl (7-17) H 11/18/24 04:04
Creatinine 1.3 mg/dL (0.6-1.0) H 11/18/24 04:04
eGFR 41.06 11/18/24 04:04
Glucose 103 mg/dl (70-99) H 11/18/24 04:04
Calcium 8.3 mg/dl (8.4-10.2) L 11/18/24 04:04
Nth-M-Nverbzkrgwx Pept > 01038 pg/ml 11/15/24 08:54
Albumin 3.5 g/dl (3.5-5.0) 11/12/24 15:03
Physical Exam
-
Vital Signs:
Vital Signs
Temp Pulse Resp BP Pulse Ox
97.7 F 63 16 108/61 94
11/18/24 07:00 11/18/24 08:17 11/18/24 07:00 11/18/24 08:17 11/18/24 08:15
Cardiovascular:: Regular rate and rhythm
Respiratory:: Bilateral: Coarse
Lung Excursion:: Normal
Abdomen:: Nontender and Soft
Bowel Sounds:: Normal
Extremity Edema:: None: Bilateral:
[2024-11-18] MEDS: KCL 40 MEQ PO (12:28)
--- NOTE | 2024-11-18 12:39 | W.PN.CARDCBS ---
Today's Communication / Plan
-
Continue IV diuretic with Lasix. Refer to note regarding discharge instructions regarding diuretic
Continue amiodarone 200 mg twice daily on discharge decreased to 200 mg daily.
Potassium being repleted by nephrology.
Will need repeat echo as an outpatient given recent decline in ejection fraction
Impression / Plan
-
Primary Skidway Worker: Dr. Dawn
Assessment:
Presentation with weakness, confusion
TME
Septic shock
UTI
Hypotension requiring pressors
Afib with RVR
Paroxysmal atrial fibrillation
Anticoagulation with eliquis
Cardiomyopathy, suspected tachy induced
Chronic diastolic congestive heart failure
Pulm HTN, on revatio
Severe status post TAVR 2020
Chronic left bundle branch block
Mod to severe MR
CKD stage III
Hypertension
Hyperlipidemia
Parkinson's disease
Hypothyroidism
GERD
Obesity
History of falls
ECHO 07/13/24: EF 60 to 65%, moderate concentric LVH, dense posterior MAC, mild to moderate MS, moderate to severe MR with peak/mean gradients 18/7 mmHg, #26 Bocanegra AMINA TAVR with peak/mean gradient 17/9 mmHg
ECHO 11/14/24: Definity used, EF 35 to 40%, global hypokinesis, moderate to severe MR, moderate TR with moderate pulmonary hypertension, PASP 58 mmHg, status post TAVR Bocanegra valve, stable and well-seated
Plan:
-Patient presented with weakness and confusion with evidence of septic shock felt to be secondary to UTI. She remained stable. She has chronic low blood pressure. She initially required Levophed. Doing well. Nephrology has ordered as needed
midodrine
-In AF w/ RVR on arrival, converted to SR 11/15 and remains in SR on review of telemetry. Continues on PO amiodarone. Previously given bradycardia amiodarone dose reduced to 200mg BID. To my review not including intravenous she has received about
5000 mg of amiodarone. Would continue amiodarone 200 mg twice daily until discharged and then decrease to 200 mg daily.
- QT interval acceptable on EKG which I reviewed independently today. Telemetry stable which I reviewed heart rate stable.
-Continue Eliquis 5 mg twice daily. hgb 8.3
- She has heart failure with newly reduced ejection fraction (proBNP greater than 27,000) in the setting of rapid A-fib and sepsis. She also has moderate to severe mitral regurgitation. Diuresing well with improved creatinine. Elevated creatinine
initially related to hypotension, critical illness and now probably volume overload.
Of note as outpatient she was on Lasix 160 mg twice daily could consider outpatient torsemide instead (perhaps a lower dose given she will be at a facility of 20 mg twice daily torsemide with follow-up)
Here she has been taking 40 to 60 mg IV Lasix with good success.
Echo 11/14 noted EF down to 35-40%. This admission atenolol switched to Toprol 25mg daily. Would consider addition of ALIREZA/ARB/ARNI/Aldactone as BP allows. Reassess as outpatient.
Given UTI, avoiding SGLT2 inhibitor.
-Moderate to severe mitral regurgitation
Reassess as outpatient at the 3-month wilian
-On revatio for pulm HTN, continue
-Continue treatment of UTI/sepsis per primary service
She will need close office follow up. Hopefully will be ready for discharge next week
Progress Note - Skidway Worker
Subjective
Date of Service: November 18, 2024
She is feeling good overall denies chest pain palpitations.
Objective
Labs:
11/18/24 04:04
11/18/24 04:04
Labs
Hgb 9.1 g/dL (12.0-16.0) L 11/18/24 04:04
Hct 27.7 % (37.0-47.0) L 11/18/24 04:04
Plt Count 186 10^3/uL (130-400) 11/18/24 04:04
Sodium 136 mmol/L (135-145) 11/18/24 04:04
Potassium 3.4 mmol/L (3.5-5.1) L 11/18/24 04:04
BUN 45 mg/dl (7-17) H 11/18/24 04:04
Creatinine 1.3 mg/dL (0.6-1.0) H 11/18/24 04:04
Glucose 103 mg/dl (70-99) H 11/18/24 04:04
Vital Signs and I&O:
Vital Signs
Temp Pulse Resp BP Pulse Ox
98.4 F 67 16 119/59 93
11/18/24 11:30 11/18/24 11:30 11/18/24 11:30 11/18/24 11:30 11/18/24 11:30
Vital Signs
Temp Pulse Resp BP Pulse Ox
98.4 F 67 16 119/59 93
11/18/24 11:30 11/18/24 11:30 11/18/24 11:30 11/18/24 11:30 11/18/24 11:30
Intake & Output
11/16/24 11/17/24 11/18/24 11/19/24
06:59 06:59 06:59 06:59
Intake Total 120 / 120 570 / 570 720 / 720
Output Total 500 / 500 400 / 400
Balance 120 / 120 70 / 70 320 / 320
Physical Exam
Physical Exam
General: Frail elderly woman
Neck: Supple, JVD with positive HJR
Heart: Regular rate and rhythm, distant heart sounds, 2/6 murmur left sternal border
Lungs: Coarse breath sounds anteriorly
Abdomen: Normal bowel sounds, soft, non-tender, non-distended.
Extremities: No clubbing, cyanosis or edema bilaterally.
Neuro: Awake with features of Parkinson's
--- NOTE | 2024-11-18 14:31 | CM ---
Patient not for discharge today, patient seen on . CM will reach out to liaison at [facility] to determine if bed available tomorrow. CM will continue to follow for discharge planning needs.
Plan; [facility] pending bed availability when medically appropriate.
[2024-11-18 15:15] VITALS: BP 117/56
[2024-11-18 19:03] VITALS: BP 105/50
[2024-11-18] MEDS: LIPITOR 10 MG PO (20:28)
[2024-11-18] MEDS: PEPCID 10 MG PO (20:28)
[2024-11-18] MEDS: TYLENOL 650 MG PO (20:29)
[2024-11-18] MEDS: NEURONTIN 400 MG PO (20:29)
[2024-11-18] MEDS: SINGULAIR 10 MG PO (20:29)
[2024-11-18] MEDS: KCL 20 MEQ PO (20:30)
[2024-11-18 23:05] VITALS: BP 92/45
[2024-11-19 03:35] VITALS: BP 95/57
[2024-11-19 05:16] VITALS: BMI 35.4
[2024-11-19] MEDS: SYNTHROID 50 MCG PO (05:17)
[2024-11-19 06:21] LABS: Hematocrit 28.8 % (37.0-47.0); Hemoglobin 9.2 g/dL (12.0-16.0); Mean Corp Hgb Conc. 31.9 g/dL (33.0-37.0); Mean Corpuscular Volume 89.4 fL (81.0-99.0); Platelet Count 190 10^3/uL (130-400); Red Cell Dist. Width 15.2 % (11.5-14.5)
[2024-11-19 06:37] LABS: Blood Urea Nitrogen 32 mg/dl (7-17); Calcium 8.6 mg/dl (8.4-10.2); Carbon Dioxide 30 mmol/L (22-30); Chloride 103 mmol/L (98-107); Estimated Creatinine Clearance 43 ml/min; Glucose 102 mg/dl (70-99); Potassium 4.0 mmol/L (3.5-5.1); Sodium 138 mmol/L (135-145); eGFR 56.25
[2024-11-19] MEDS: PROTONIX 40 MG PO (08:02)
[2024-11-19] MEDS: CELEXA 20 MG PO (08:03)
[2024-11-19] MEDS: PACERONE 200 MG PO (08:03)
[2024-11-19] MEDS: TOPROL XL 25 MG PO (08:03)
[2024-11-19] MEDS: ELIQUIS 5 MG PO (08:03)
[2024-11-19] MEDS: SINEMET CR 50/200 (EXTENDED RELEASE) 1 TABLET PO (08:03)
[2024-11-19] MEDS: LASIX 60 MG IV (08:04)
[2024-11-19] MEDS: REVATIO 20 MG PO ×2 (08:04→15:35)
[2024-11-19 08:06] VITALS: BP 116/58
--- NOTE | 2024-11-19 09:59 | W.PN.CARDCBS ---
Addendum entered and electronically signed by Luis Rodriguez DO 11/19/24 14:45:
Please recall if needed
Addendum entered and electronically signed by Luis Rodriguez, 11/19/24 14:44:
I saw and examined the patient.
The Boiler Tube Reamer's note was reviewed and I agree with the note.
Comment:
Plan:
She appears euvolemic, transition to torsemide 20 mg twice a day. Monitor creatinine as outpatient
Continue amiodarone 200 mg twice a day while admitted and reduced to 200 mg daily at the time of discharge
Continue Eliquis for prophylaxis and Toprol for rate control
Outpatient follow-up to be arranged
Compensated cardiovascular status.
Original Note:
Today's Communication / Plan
-
Consider transition to PO torsemide 20 mg twice daily
Continue amiodarone 200 mg twice daily while admitted, decreased to 200 mg daily at time of discharge
Continue Toprol and Eliquis
OP follow-up to be arranged
Impression / Plan
-
Primary Hog Grader: Dr. Dawn
Assessment:
Presentation with weakness, confusion
TME
Septic shock
UTI
Hypotension requiring pressors
Afib with RVR
Paroxysmal atrial fibrillation
Anticoagulation with eliquis
Cardiomyopathy, suspected tachy induced
Chronic diastolic congestive heart failure
Pulm HTN, on revatio
Severe status post TAVR 2020
Chronic left bundle branch block
Mod to severe MR
CKD stage III
Hypertension
Hyperlipidemia
Parkinson's disease
Hypothyroidism
GERD
Obesity
History of falls
Echo 07/13/24: EF 60 to 65%, moderate concentric LVH, dense posterior MAC, mild to moderate MS, moderate to severe MR with peak/mean gradients 18/7 mmHg, #26 Bocanegra AMINA TAVR with peak/mean gradient 17/9 mmHg
Echo 11/14/24: Definity used, EF 35 to 40%, global hypokinesis, moderate to severe MR, moderate TR with moderate pulmonary hypertension, PASP 58 mmHg, status post TAVR Bocanegra valve, stable and well-seated
Plan:
-Patient presented with weakness and confusion with evidence of septic shock felt to be secondary to UTI.
-In AF w/ RVR on arrival, converted to SR 11/15 and remains in SR on review of telemetry.
-Continue amiodarone 200 mg twice daily until discharge and then will transition to 200mg daily.
-Continue Eliquis 5 mg twice daily. Hgb 9.2
-Echo 11/14 noted EF down to 35-40%. Atenolol switched to Toprol 25mg daily.
-Hypotension has limited further uptitration of medical therapy. Now on prn midodrine. Would consider addition of ALIREZA/ARB/ARNI/Aldactone as OP if BP allows.
-Given UTI, avoiding SGLT2 inhibitor.
-She has improved with diuresis. Weight down to 187 pounds, creatinine normalized, now at 1.0.
-Likely can transition to oral diuretic. Would consider discharging on torsemide 20 mg twice daily.
-On revatio for pulm HTN, continue
-Continue treatment of UTI/sepsis per primary service
-Will arrange outpatient follow-up.
Progress Note - Hog Grader
Subjective
Date of Service: November 19, 2024
No chest pain or shortness of breath
Objective
Labs:
11/19/24 06:07
11/19/24 06:07
Labs
Hgb 9.2 g/dL (12.0-16.0) L 11/19/24 06:07
Hct 28.8 % (37.0-47.0) L 11/19/24 06:07
Plt Count 190 10^3/uL (130-400) 11/19/24 06:07
Sodium 138 mmol/L (135-145) 11/19/24 06:07
Potassium 4.0 mmol/L (3.5-5.1) 11/19/24 06:07
BUN 32 mg/dl (7-17) H 11/19/24 06:07
Creatinine 1.0 mg/dL (0.6-1.0) 11/19/24 06:07
Glucose 102 mg/dl (70-99) H 11/19/24 06:07
Vital Signs and I&O:
Vital Signs
Temp Pulse Resp BP Pulse Ox
98.5 F 74 20 116/58 95
11/19/24 08:06 11/19/24 08:06 11/19/24 08:06 11/19/24 08:06 11/19/24 08:06
Vital Signs
Temp Pulse Resp BP Pulse Ox
98.5 F 74 20 116/58 95
11/19/24 08:06 11/19/24 08:06 11/19/24 08:06 11/19/24 08:06 11/19/24 08:06
Intake & Output
11/17/24 11/18/24 11/19/24 11/20/24
06:59 06:59 06:59 06:59
Intake Total 570 / 570 720 / 720 1200 / 1200 240 / 240
Output Total 500 / 500 400 / 400
Balance 70 / 70 320 / 320 1200 / 1200 240 / 240
Physical Exam
Physical Exam
GEN: No distress, awake, alert.
HEENT: supple, anicteric, mmm
LUNGS: CTA B/L anterolaterally, no wheezes
CV: Reg, S1/S2, 2/6 murmur
EXT: No cyanosis, clubbing, or edema of B/L LE
NEURO: Gross non-focal
SKIN: Warm, pink, dry. No rash
[2024-11-19 11:25] VITALS: BP 118/60
--- NOTE | 2024-11-19 12:14 | CM ---
Spoke with attending who stated that patient is medically stable to transfer over to [facility] today. Spoke with Martha who confirmed bed hold. # For report [phone] and fax [phone]. Medical necessity and transfer sheet completed by GLEN
previously on case. Spoke with patient's daughter in law, Winsome, who is agreeable to the discharge. Reviewed IMM, it was signed and placed in chart.
Martha requested that transport be set up after 4:30 today.
Plan: Case management will continue to follow and assist with discharge planning. [facility].
--- NOTE | 2024-11-19 14:11 | W.PN.NEPH.PH ---
Today's Communication / Plan
-
maintain lasix
follow bmp
Assessment/Plan
-
Assessment
Heart failure preserved ejection fraction
Pulmonary hypertension, severe MR, moderate TR
RAÚL
Paroxysmal atrial fibrillation
UTI
Hypotension
Parkinson's
Plan
creatinine improved to 1
hemodynamically more stable
Lasix as needed daily dosing 60mg IV daily
Follow BMP
RAÚL likely related to cardiorenal syndrome with persistent hypotension
maintain low-dose midodrine as needed
-
-
Date of Service: November 19, 2024
CC / HPI / ROS
-
Chief Complaint:
hypokalemia
History of Present Illness:
RAÚL/Cr down to 1
Na normal
BP stable
Review of Systems:
no CP/SOB
uop not recorded
Labs
-
Labs:
WBC 9.7 10^3/uL (4.8-10.8) 11/19/24 06:07
RBC 3.22 10^6/uL (4.20-5.40) L 11/19/24 06:07
Hgb 9.2 g/dL (12.0-16.0) L 11/19/24 06:07
Hct 28.8 % (37.0-47.0) L 11/19/24 06:07
Plt Count 190 10^3/uL (130-400) 11/19/24 06:07
Sodium 138 mmol/L (135-145) 11/19/24 06:07
Potassium 4.0 mmol/L (3.5-5.1) 11/19/24 06:07
Chloride 103 mmol/L (98-107) 11/19/24 06:07
Carbon Dioxide 30 mmol/L (22-30) 11/19/24 06:07
BUN 32 mg/dl (7-17) H 11/19/24 06:07
Creatinine 1.0 mg/dL (0.6-1.0) 11/19/24 06:07
eGFR 56.25 11/19/24 06:07
Glucose 102 mg/dl (70-99) H 11/19/24 06:07
Calcium 8.6 mg/dl (8.4-10.2) 11/19/24 06:07
Fnl-J-Yfiupyqxerh Pept > 44580 pg/ml 11/15/24 08:54
Albumin 3.5 g/dl (3.5-5.0) 11/12/24 15:03
Physical Exam
-
Vital Signs:
Vital Signs
Temp Pulse Resp BP Pulse Ox
98.2 F 61 18 118/60 98
11/19/24 11:25 11/19/24 11:25 11/19/24 11:25 11/19/24 11:25 11/19/24 11:25
Cardiovascular:: Regular rate and rhythm
Respiratory:: Bilateral: Coarse
Lung Excursion:: Normal
Abdomen:: Nontender and Soft
Bowel Sounds:: Normal
Extremity Edema:: None: Bilateral:
[2024-11-19 16:15] VITALS: BP 120/56
--- NOTE | 2024-11-19 17:19 | W.PN.HOSP.TC ---
Addendum entered and electronically signed by Tessa Bergeron MD 11/19/24 17:42:
I saw and evaluated the patient independently. I reviewed the resident�s note and agree with findings and plan as documented by Dr. Matamoros.
GENERAL: elderly, chronically ill female in no apparent distress
HEENT: NC/AT--no O2 requirements
HEART: regular rate and rhythm, +S1, +S2
LUNGS : clear to auscultation bilaterally
ABDOM: soft, nontender, nondistended, + bowel sounds
EXT: no cyanosis, clubbing, or edema
NEUROLOGIC: grossly intact
Septic shock secondary to E. coli and Lactobacillus UTI--blood cultures negative--IV rocephin completed in house on 11/17/24--off pressor support and on midodrine
Paroxysmal A-fib with RVR-- apprec cards-- amiodarone 200 mg once daily, metoprolol 25 mg daily, and repeat echo on outpatient --her echo here showed an ejection fraction of 35 to 40%-Anticoagulation with Eliquis 5 mg p.o. twice daily
Chronic HFrEF--Echocardiogram 11/14/2024-- LVEF 35-40%--proBNP > 48001--bjvbu transitioned to oral torsemide at d/c (initially held due to septic shock and pressors)-- Continue Toprol-XL 25 mg--Avoid SGLT2 given UTI
RAÚL on CKD 3--Likely secondary to cardiorenal syndrome-Nephrology input appreciated-Creatinine trending down to baseline- Maintain low-dose midodrine as needed
Severe s/p TAVR 2020--Chronic LBBB
Hyperlipidemia--Continue statin
GERD--Continue famotidine, Protonix
Hypothyroidism--Continue levothyroxine
Parkinson's disease--Continue home carbidopa levodopa
Pulmonary hypertension--Continue sildenafil citrate
DVT proph-- Eliquis
CODE STATUS-- Full
OK for D/C to SNF
Original Note:
Today's Communication/Plan
-
Patient discharged to [facility] today
Assessment / Plan
Assessment / Plan
Septic shock secondary to UTI:
-Patient is hemodynamically stable and afebrile.
-Urinalysis positive on presentation, urine cultures with E. coli, blood cultures negative to date
-Off pressor support 11/15, continue midodrine 5 mg p.o. every 4 hours as needed to maintain adequate blood pressure on discharge
- IV ceftriaxone completed 11/17/2024, oral options not ideal for patient.
Paroxysmal A-fib with RVR:
-Today heart rate is 71 and well-controlled. No headaches, palpitations, dizziness, syncope, chest pain, shortness of breath.
- Per cardiology recommendations for discharge we are putting her on amiodarone 200 mg once daily, metoprolol 25 mg daily, and repeat echo on outpatient her echo here showed an ejection fraction of 35 to 40%
-Anticoagulation with Eliquis 5 mg p.o. twice daily
Chronic HFrEF
-Echocardiogram 11/14/2024 LVEF 35-40%.
-proBNP > 05613
-Diuresis initially held in the setting of septic shock
-Consider GDMT as able, although limited given soft BPs. Continue Toprol-XL 25 mg
-Avoid SGLT2 given UTI
- As per cardiology patient was on 160 mg of Lasix twice daily at home, then transition to 60 mg IV daily in the hospital, discharge with 20 mg of torsemide twice daily with follow-up.
- Weight is down 187 pounds and creatinine is 1.0.
RAÚL on CKD 3
-Likely secondary to cardiorenal syndrome
-Nephrology input appreciated
-Creatinine trending down to baseline
-Monitor BMP
- Maintain low-dose midodrine as needed
Severe s/p TAVR 2020
Chronic LBBB
Hyperlipidemia
Continue statin
GERD
Continue famotidine, Protonix
Hypothyroidism
Continue levothyroxine
Parkinson's disease
Continue home carbidopa levodopa
Pulmonary hypertension
Continue sildenafil citrate
DVT prophylaxis: Eliquis
CODE STATUS: Full
Anticipated Discharge: Today
Subjective/Interval History
-
Date of Service: November 19, 2024
84-year-old female with a history of CHF, A-fib, aortic stenosis status post TAVR on Eliquis, Parkinson's, COPD, GERD, HLD, hypothyroidism admitted for septic shock secondary to UTI with acute metabolic encephalopathy requiring IV Levophed which she
was weaned off on but then placed back on after she had an episode of A-fib with RVR and systolic blood pressure was in the 70s. In addition to Levophed amiodarone was also added and she converted to sinus rhythm within a few hours. Downgraded
telemetry on 11/16/2024.
Patient's last dose of ceftriaxone is 11/17/24
No acute overnight events
No acute medical complaints
Objective Data
-
Labs:
Laboratory Results
11/19/24
06:07
WBC 9.7
Hgb 9.2 L
Hct 28.8 L
Plt Count 190
Sodium 138
Potassium 4.0
Chloride 103
Carbon Dioxide 30
BUN 32 H
Creatinine 1.0
Glucose 102 H
Calcium 8.6
Vital Signs:
Vital Signs
Temp Pulse Resp BP Pulse Ox
98 F 71 18 120/56 98
11/19/24 16:15 11/19/24 16:15 11/19/24 16:15 11/19/24 16:15 11/19/24 16:15
I&O
11/18/24 11/19/24 11/20/24
06:59 06:59 06:59
Intake Total 720 / 720 1200 / 1200 240 / 240
Output Total 400 / 400
Balance 320 / 320 1200 / 1200 240 / 240
Review of Systems
-
All other systems: Reviewed and negative (Except as documented)
Physical Exam
-
General: Well Nourished, No Apparent Distress, Comfortable and Conversant
HEENT: Normocephalic
Respiratory: Clear to Auscultation
Cardiac: Regular Rhythm and S1/S2
GI: Soft, Nontender and Nondistended
Musculoskeletal: No Edema
Skin: Warm
Neuro: AO x 3
Psych: Calm
Data Reviewed
-
Labs: Labs Reviewed by me and Discussed with Physician
--- NOTE | 2024-11-19 18:44 | W.DCSUMMARY ---
Addendum entered and electronically signed by Tessa Bergeron MD 11/20/24 08:32:
Read, reviewed, and agree. See same day progress note for additional details. Time spent coordinating care, DC planning, review of DC plan of care with resident, transition of care, review of records in EMR, med rec, consults, notes, d/w
consultants, nursing, family, and CM = 33 minutes
Original Note:
Discharge Summary
Discharge Data
Date of Admission: 11/12/24
Date of Discharge: 11/19/24
-
Pending Results: No
Hospital Course
Discharging Physician : Dr. Tessa Bergeron and Dr.Jitesh Matamoros
Disposition : SNF
Primary care physician : Dr. Chetna Colorado
Principal Discharge diagnosis : Septic shock secondary to E. coli and lactobacillus UTI, paroxysmal A-fib with RVR
Chronic Discharge diagnosis : chronic HFrEF, RAÚL on CKD 3, severe status post TAVR, hyperlipidemia, GERD, hypothyroidism, Parkinson's disease, pulmonary hypertension
Hospital Course : 84 year old F with PMH of CHF, A-fib and s/p TAVR on Eliquis, Parkinson's, COPD, GERD, HLD, and hypothyroidism who presented to the ED with fever, altered mental status. Admitted for septic shock secondary to UTI with s/p ABX.
Required pressors for short time, now weaned off. Echo with mod/severe mitral regurg, moderation pHTN and EF 35% (last echo 65%).
Problem #1 ---> septic shock secondary to E. coli and lactobacillus UTI:
- On admission had confusion, hallucinations, weakness with hypotension requiring pressor support and labs showed leukocytosis 12.4 with a temperature of 101.2. Patient was initially admitted to the ICU and then downgraded to telemetry on 11/16/2024.
Urinalysis positive for UTI on presentation, with urine cultures positive for E. coli, and negative blood cultures. Infectious disease was consulted. Patient was started on IV ceftriaxone through 11/17/2024. Patient is hemodynamically stable and
afebrile on discharge.
Problem #2---> paroxysmal atrial fibrillation with RVR:
-Patient presented on admission with atrial fibrillation on arrival with a ventricular rate of 156 on 11/12/2024. Cardiology was consulted. Converted to sinus rhythm on 11/15/2024. Placed on telemetry. Initially started on IV amiodarone and then
switched to oral 200 Mg twice daily amiodarone and then on discharge a dose of 200 mg daily. QT interval is acceptable on EKG according to cardiology on discharge. continued on Eliquis 5 Mg twice daily, same dose to be continued on discharge.
Initially was on atenolol but then switched to Toprol-XL low-dose on discharge.
Problem #3---> chronic HFrEF with left bundle branch block noted EKG:
- Her proBNP on admission was more than 27,000 with chest x-ray showing mild cardiomegaly with mild diffuse interstitial opacification. Echocardiogram on 11/14/2024 showed a left ventricular ejection fraction of 35 to 40%. She was on 160 mg twice
daily Lasix at home. This was then changed to 60 Mg IV Lasix in the hospital and on discharge cardiology put her on torsemide 20 mg twice a day. Given her history of UTI induced sepsis we are avoiding an SGLT2 inhibitor. Continue on Toprol 25 mg
daily. Consider ALIREZA/ARB/beta-andrew and discussed with PCP outpatient as part of GDMT therapy as able. Reassess on repeat echo with cardiology outpatient. On discharge patient medically stable and has no dyspnea, shortness of breath, chest pain,
edema. On discharge her creatinine is 1.0 with normal sodium and potassium levels. Repeat CBC and CMP with PCP in 1 week.
Problem #4---> RAÚL on CKD 3:
-Creatinine on discharge was 1.0 and stable compared to admission where it was 1.3. Baseline is around 0.9-1.1. Nephrology was consulted and monitored the BMP until it reached baseline. Low-dose midodrine as needed on discharge for hypotension.
CMP in 1 week with PCP.
Problem #5---> hyperlipidemia:
- Continue statin
Problem #6---> GERD:
- Continue pantoprazole 40 Mg
Problem #7---> hypothyroidism:
- Continue levothyroxine home dosage
Problem #8---> Parkinson's disease:
- Continue home carbidopa levodopa
Problem #9---> pulmonary hypertension:
- Continue sildenafil citrate
Important imaging findings :
Chest x-ray 11/12/24:
IMPRESSION:
Mild cardiomegaly with mild diffuse interstitial opacification favored to represent mild interstitial edema.
Head CT on 11/12/24:
IMPRESSION:
No acute intracranial abnormality.
Procedure findings :
Discharge Plan
-
Patient Disposition: Jail/SNF
Discharge Diagnosis/Procedures: Septic shock secondary to E. coli and Lactobacillus UTI, Paroxysmal A-fib with RVR, chronic HFrEF, RAÚL on CKD 3, severe aortic stenosis status post TAVR 2020, hyperlipidemia, GERD, hypothyroidism, Parkinson's
disease, pulmonary hypertension
Condition: Fair
Diet: Low Cholesterol and 2 Gram Sodium
Activity: As tolerated
Driving Restrictions: Not until seen by your Dr
Bathing Restrictions: None
Blood Work: CBC in 1 week with PCP
CMP in 1 week with PCP
Others Tests: Follow up Echo to be scheduled with cardiology
Activity Restrictions/Additional Instructions:
Barrier ointment to sacral, buttocks, groin/kacie skin twice a day.
Evaluate for hospital bed with air mattress overlay or gel overlay.
Elevate heels off bed with pillows.
Pressure redistributing chair cushion (i.e. Air chair cushion, Roho).
Referrals:
Chetna Colorado DO [Family Provider, Family Practice] - in less than 1 week
Germania Coley PA-C [Specified Professional Personl, Cardiology] - in one to two weeks
Additional Discharge Medication Instructions: Amiodarone is to be taken 200 mg ONCE daily
Continue Toprol 25 mg and Eliquis 5 mg twice a day
Torsemide 20 mg twice a day in place of lasix.
Prescriptions:
New
midodrine 5 mg Tablet
5 mg PO Q4HPRN PRN (Reason: SBP<100) Qty: 30 0RF
metoprolol succinate 25 mg Tablet Extended Release 24 Hr
25 mg PO DAILY Qty: 30 0RF
amiodarone 200 mg tablet
200 mg PO DAILY Qty: 30 0RF
torsemide 20 mg tablet
20 mg PO BID Qty: 30 0RF
Continued
levothyroxine 50 MCG tablet
50 mcg PO DAILY
pantoprazole 40 MG tablet,delayed release (DR/EC)
40 mg PO DAILY
citalopram 20 MG tablet
20 mg PO DAILY
atorvastatin 10 MG tablet
10 mg PO HS
carbidopa-levodopa 50-200 mg Tablet Extended Release
1 tab PO BID
montelukast 10 mg Tablet
10 mg PO HS
sildenafil (pulm.hypertension) 20 mg tablet
20 mg PO TID
potassium chloride 20 mEq tablet,ER particles/crystals
20 meq PO BID
Eliquis 5 mg Tablet
5 mg PO BID 30 Days Qty: 60 0RF
gabapentin 400 mg Tablet
400 mg PO HS
Discontinued
atenolol 25 MG tablet
25 mg PO DAILY
furosemide 40 mg tablet
160 mg PO BID
famotidine 20 mg tablet
20 mg PO HS
Discharge Orders:
Discharge Patient (As Directed); Ordered 11/19/24
Ordered By: Jacoby Matamoros
Discharge Date and Time
Discharge Date/Time: 11/19/24 18:10
Print Language: TELUGU
== END 2024-11-19 18:10 | DRG 871 ==
LOC: 4 EAST ACU 18:32
PROVIDERS: Internal Medicine; Physician Assistant; ADMITTING PHYSICIAN Internal Medicine; ATTENDING PHYSICIAN Internal Medicine; CONSULT PHYSICIAN Nuclear Medicine Nuclear Cardiology; CONSULT PHYSICIAN Nurse Practitioner Gerontology; CONSULT PHYSICIAN Specialist; EMERGENCY PHYSICIAN Emergency Medicine; FAMILY PHYSICIAN Family Medicine; OTHER PHYSICIAN Hospitalist
DX: A41.51 Sepsis due to Escherichia coli [E. coli] (principal); G93.41 Metabolic encephalopathy; R65.21 Severe sepsis with septic shock; N39.0 Urinary tract infection, site not specified; E87.20 Acidosis, unspecified; I50.32 Chronic diastolic (congestive) heart failure; I42.9 Cardiomyopathy, unspecified; I13.0 Hypertensive heart and chronic kidney disease with heart failure and stage 1 through stage 4 chronic kidney disease, or unspecified chronic kidney disease; N17.9 Acute kidney failure, unspecified; R44.1 Visual hallucinations; E03.9 Hypothyroidism, unspecified; E78.00 Pure hypercholesterolemia, unspecified; K21.9 Gastro-esophageal reflux disease without esophagitis; J44.9 Chronic obstructive pulmonary disease, unspecified; I48.0 Paroxysmal atrial fibrillation; R09.02 Hypoxemia; R06.89 Other abnormalities of breathing; I27.20 Pulmonary hypertension, unspecified; F32.A Depression, unspecified; K59.00 Constipation, unspecified; G62.9 Polyneuropathy, unspecified; I44.7 Left bundle-branch block, unspecified; N18.30 Chronic kidney disease, stage 3 unspecified; E66.9 Obesity, unspecified; I34.0 Nonrheumatic mitral (valve) insufficiency; I25.10 Atherosclerotic heart disease of native coronary artery without angina pectoris; G20.A1 Parkinson's disease without dyskinesia, without mention of fluctuations; Z96.653 Presence of artificial knee joint, bilateral; Z79.890 Hormone replacement therapy; Z79.01 Long term (current) use of anticoagulants; Z88.8 Allergy status to other drugs, medicaments and biological substances; Z88.2 Allergy status to sulfonamides; Z87.891 Personal history of nicotine dependence; Z11.52 Encounter for screening for COVID-19; Z95.2 Presence of prosthetic heart valve; Z68.35 Body mass index [BMI] 35.0-35.9, adult; Z91.81 History of falling; Z87.440 Personal history of urinary (tract) infections
CPT/HCPCS: 70450; 71046; 80048; 80053; 81003; 81015; 82570; 83605; 83735; 83880; 84300; 84443; 85025; 85027; 87040; 87086; 87088; 87186; 87811; 93005; 93306; 96374; 97110; 97163; 97167; 97530; 97535; 99285

== ENCOUNTER 2024-11-28 23:51 | Inpatient (IN) | payer MEDICARE, OTHER, SELFPAY ==
[2024-11-28] VITALS (7 sets, daily range): BP systolic 96–113; BP diastolic 66–74; BMI 38.1
[2024-11-28 20:28] LABS: Hematocrit 30.2 % (37.0-47.0); Hemoglobin 9.4 g/dL (12.0-16.0); Mean Corp Hgb Conc. 31.1 g/dL (33.0-37.0); Mean Corpuscular Volume 90.1 fL (81.0-99.0); Nucleated Red Blood Cells % 0 %; Platelet Count 333 10^3/uL (130-400); Red Cell Dist. Width 15.9 % (11.5-14.5)
[2024-11-28 20:51] LABS: ALT (SGPT) 42 U/L (0-35); AST (SGOT) 21 U/L (14-36); Albumin 3.5 g/dl (3.5-5.0); Alkaline Phosphatase 136 U/L (38-126); Blood Urea Nitrogen 28 mg/dl (7-17); Calcium 9.0 mg/dl (8.4-10.2); Carbon Dioxide 30 mmol/L (22-30); Chloride 105 mmol/L (98-107); Estimated Creatinine Clearance 37 ml/min; Glucose 105 mg/dl (70-99); Potassium 4.0 mmol/L (3.5-5.1); Sodium 141 mmol/L (135-145); Total Protein 6.5 g/dl (6.3-8.2); eGFR 45.19
[2024-11-28 21:07] LABS: Troponin I 0.392 ng/ml
--- NOTE | 2024-11-28 21:34 | ED.GENMED ---
History of Present Illness
General
Chief Complaint: Chest Pain
Source: patient and family
Exam Limitations: none
Nursing documentation reviewed up to this point in time: agreed with
History of Present Illness
History of Present Illness:
Note:
CHIEF COMPLAINT(S)
Ear pain and nausea.
HISTORY OF PRESENT ILLNESS
The patient is an 84-year-old female with a recent history of sepsis secondary to a urinary tract infection, who presented to the emergency department with chest pain and nausea. The symptoms began this morning. The patient was previously
hospitalized, with discharge approximately one week ago to a [place] [facility]. Two weeks prior, she was treated for sepsis following a urinary infection. The patient mentions a history of fluctuating blood pressure and atrial fibrillation, having
received past treatments including fluid evacuation and medication adjustments for heart rhythm control. The patients diuretic was recently adjusted from Furosemide 160 mg twice daily to Torsemide 20 mg twice daily due to concerns with kidney
function. She reports compliance with prescribed medications, as dosing is supervised in her current living arrangement.
ADDITIONAL HISTORY OBTAINED FROM SOURCES OTHER THAN THE PATIENT
Per the family, the patient experienced shortness of breath last Tuesday and has received nebulizer treatments and oxygen which temporarily improved symptoms. The family notes recent occurrences of 'fluid in lungs,' and the night nurse reported
hearing crackles upon auscultation. The patient has been receiving consistent medication while at the [place] [facility].
CHRONIC MEDICAL CONDITIONS SIGNIFICANTLY AFFECTING CARE
- Atrial Fibrillation
- Hypertension
- Chronic Kidney Disease
SOCIAL DETERMINANTS AFFECTING HEALTH
The patient is currently residing in a [place] [facility] facility, which ensures her medication compliance.
REVIEW OF SYSTEMS
- Ear, Nose, and Throat: Ear pain reported.
- Gastrointestinal: Nausea present.
- Cardiovascular: History of atrial fibrillation and recent low blood pressure noted.
- Respiratory: Family reports intermittent shortness of breath and crackles as reported by the nurse.
PHYSICAL EXAM
General: Alert, no acute distress.
Skin: Warm, dry.
Head: Normocephalic, atraumatic.
Neck: Supple, trachea midline.
Eye Ears, nose, mouth and throat: Oral mucosa moist.
Cardiovascular: Normal peripheral perfusion, No edema. Irregularly irregular rhythm rate of 103 consistent with atrial fibrillation with rapid ventricular response
Respiratory: Respirations are non-labored.
Gastrointestinal : Abdomen nondistended
Back: Normal range of motion, Normal alignment.
Musculoskeletal: Normal range of motion, normal strength.
Neurological: Alert and oriented to person, place, time, and situation, No focal neurological deficit observed.
Psychiatric: Cooperative, appropriate mood & affect.
PROBLEM LIST
Acute Problems:
- Ear pain
- Nausea
- Shortness of breath
Chronic Problems:
- Atrial Fibrillation
- Hypertension
- Chronic Kidney Disease
PLAN
The patient will be admitted for further observation and management of her cardiovascular condition. Additional tests will be conducted to monitor her heart condition. Her current medication regimen, including anticoagulants, will be continued and
adjusted as necessary. Diuretics will be administered to manage fluid retention. Supportive care and treatment for nausea will be provided.
DIFFERENTIAL DIAGNOSIS
The Differential Diagnosis includes, in no particular order and is not limited to:
1. Heart Failure
2. Atrial Fibrillation
3. Hypertension-related complications
4. Sepsis Recurrence
5. Pneumonia
6. Dyspnea
7. Gastroesophageal Reflux Disease
8. Medication Side Effects
9. Vestibular Disorders
10. Anxiety-related symptoms
EKG
My independent EKG interpretation is:
- Time of EKG: Not explicitly stated
- Rhythm: Atrial fibrillation
- Heart Rate: 103 bpm
- ID Interval: Not mentioned
- QRS Duration: Not mentioned
- QT Interval: Not mentioned
- [place]: Left axis deviation
- Abnormalities:
- Left bundle branch block (seen on previous (
- Comparable morphology to previous EKG dated November 18, 2024
- Rate increase compared to previous EKG
Disposition:
SUMMARY OF ENCOUNTER
The patient is an 84-year-old female with a history of chronic heart failure (CHF) who presented to the emergency department with chest pain, which has since resolved. She has recently been discharged from the hospital after renal insufficiency
management, during which her diuretic prescription was adjusted from Furosemide (Lasix) 160 mg to Torsemide 20 mg. Following this change, she has experienced a 12-pound weight gain and intermittent difficulty breathing. Her troponin levels were
found to be elevated, consistent with past findings, but had recently normalized during a previous admission. Currently, she is on Apixaban (Eliquis), but her dose was held due to the concern of her condition. The patient is planned for admission to
manage a CHF exacerbation and chest pain.
DISPOSITION
Admit
ASSESSMENT
The patient presents with symptoms suggestive of a CHF exacerbation, likely related to recent medication adjustments and weight gain, accompanied by chest pain.
PLAN
The patient will be admitted to the hospital service for management of CHF exacerbation and monitoring of chest pain. Further evaluation and adjustments to her medication regimen may be necessary, considering her renal insufficiency and the recent
switch from Lasix to Torsemide.
INDEPENDENT REVIEW OF LABS AND INTERPRETATION OF TESTS
My independent review indicates elevated troponin levels, consistent with previous findings, although they were within normal range during the most recent admission.
MEDICATION RECONCILIATION
- Torsemide 20 mg (as current diuretic)
- Apixaban (Eliquis) held for now
MEDICAL DECISION MAKING
- Number and Complexity of Problems Addressed: Chronic conditions affecting care: CHF, renal insufficiency. DDx includes CHF exacerbation, renal failure, myocardial ischemia.
- Data:
Category 1: Referenced recent hospital records regarding renal insufficiency and CHF management.
Category 2: Obtained additional context from caregivers about patients history and evolution of symptoms.
- Risk: Elevated risk due to prescription drug management and CHF exacerbation, necessitating hospitalization.
DIAGNOSIS
1. Exacerbation of Chronic Heart Failure (I50.9)
2. Chest Pain (R07.9)
Past History
Past History
ED Past Medical History: Arrthythmia, CHF, COPD, GERD, Hypercholesterolemia, Valvular disease and Hypothyroidism
ED Past Surgical History: Cardiac and Orthopedic (Bunionectomy, bilateral knee replacement, right rotator cuff, back surgeries 2012, 2013)
Social History
Tobacco: Former smoker
Alcohol: None
Drug: None
Personal:
Living: alone
Employment: Employed
Family History
Family History: Other (Noncontributory)
Phy Exam
Physical Exam
Physical Exam:
.
Scores
Heart Failure Risk
Heart Failure Risk Score: Yes
History of Stroke or TIA: No
History of intubation for respiratory distress: No
Heart rate on ED arrival >/= 110: No
SaO2 <90% on arrival on room air: Yes
HR >/=110 during 3min walk test (or too ill to perform test): Yes
ECG has acute ischemic changes: No
Urea >/=12mmol/L (BUN 33.6mg/dL): No
Serum CO2>/=35mmol/L: No
Troponin I or T elevated to TN Level (0.4mg/dL): No
NT-proBNP >/=5,000ng/L (5,000pg/ml): Yes
HF Risk Score: 4
Admission Status: HIGH RISK 26.1% Consider SNF treatment or admission to hospital
Heart Score for Chest Pain Patients
STEMI patient?: No
History: Moderately Suspicious
ECG: Normal
Age: >/= 65 years
Risk Factors: >/= 3 Risk Factors or History of CAD
Troponin: >1 - <3 x Normal Limit
Heart Score for Chest Pain Patients: 6
Heart Score Risk: 20.3% MACE over next 6 weeks
Course
Orders/Labs/Results
Orders:
Orders
11/28/24 19:49
Electrocardiogram (*1) Urgent
Reason for Study: Chest Pain
Cardiac Monitoring- Treatment ONCE
EKG- Treatment ONCE
IV Insert/Care/Rem.- Treatment PRN
O2 Therapy [RESP] Urgent
Titrate/Wean O2 to maintain O2 sat greater than (%): 90
Special Instructions: Maintain sats >/=90%
Pulse Ox/spot Check [RESP] Urgent
Quantity: 1
Special Instructions: ON ROOM AIR
11/28/24 20:15
Complete Blood Count/With Diff Urgent
Comprehensive Metabolic Panel Urgent
NT-proBNP Urgent
Comment: ADD ON
Troponin I Urgent
11/28/24 21:28
Heparin 4,000 units IV NOW STA
Nursing to Place Non Medication Order As Directed
Physician Order: PTT 6 hours after initial start of Heparin infusion
Above order entered?: Yes
11/28/24 21:30
Heparin 61415 Units/250 ml 25,000 units in 250 ml IV PER PROTOCOL
Weight to be used for heparin protocol in kilograms (kg):: 91.3
Protocol:: Cardiac Tx/Acute Coronary
PTT Goal Range to be used:: PTT 73 to 111 seconds
Order type:: Initial
INITIAL Infusion Dose (UNITS/KG/hr) & then follow protocol:: 12 units/kg/hr
Infusion Dose in UNITS/hr & then follow protocol (UNITS/hr):: 1,000
INFUSION RATE in mL/hr & then follow protocol (mL/hr):: 10
PTT less than or equal to 64 seconds:: Increase rate by 200 units/hr (+ 2 mL/hr)
PTT 64.1 to 72.9 seconds:: Increase rate by 100 units/hr (+ 1 mL/hr)
PTT 73 to 111 seconds:: Target Range. No change in rate.
PTT 111.1 to 130.9 seconds:: Decrease rate by 100 units/hr (- 1 mL/hr)
PTT 131 to 199.9 seconds:: HOLD for 1 hr. Then decrease rate by 200 units/hr (- 2 mL/hr)
PTT greater than or equal to 200 seconds:: HOLD for 2 hrs & Notify Provider. Then decrease by 200 units/hr (-
2 mL/hr)
Lab follow-up:: Each change, PTT q6h until 2 consecutive are therapeutic. Then PTT
daily.
11/28/24 21:38
Ondansetron Injectable [Zofran] 4 mg .ROUTE .STK-MED ONE
11/28/24 21:39
CR Chest - 2 Views Urgent
Comment:
Reason For Exam: dyspnea
11/28/24 21:40
Metoclopramide [Reglan] 10 mg IV NOW STA
11/28/24 21:58
PTT Urgent
11/28/24 22:26
Bumetanide [Bumex] 1 mg IV NOW STA
11/28/24 23:10
Admit/Transfer Patient As Directed
Co-Sign Provider:
Level of Care: Inpatient admission
Assign to:: IVU
Physician / Group: Janeth
Diagnosis: NSTEMI
Reason for Hospitalization: NSTEMI, CHF exacerbation
Expected length of stay greater than two midnights?: Yes
ELOS- Estimated Length of Stay in days: 2
I certify the patient meets the requirements for IP care: Yes
PRN Pain Medication Management As Directed
May give lesser potent ordered pain med per pt: Yes
preference::
Protocol:: Medication orders for pain may be administered in a
manner that supports deferring to patient preference
when the pt is:
- Requesting an ordered lesser potent pain medication.
Least to most potent pain medications are defined
as: acetaminophen < NSAID < tramadol < opioids
(morphine, oxycodone, hydromorphone).
- Requesting a lesser dose of the same medication IF
ORDERED.
- Requesting a less intrusive route of administration
if both routes are prescribed by the provider (PO <
IV).
11/28/24 23:12
Code Status As Directed
Resuscitation Status: Do not resuscitate
Reached after discussion with pt or family/Healthcare POA: Yes
11/28/24 23:13
DNR Bracelet Application ONCE
Abnormal Lab Results
11/28/24 11/28/24
20:15 21:58
RBC 3.35 L 10^6/uL
(4.20-5.40)
Hgb 9.4 L g/dL
(12.0-16.0)
Hct 30.2 L %
(37.0-47.0)
MCHC 31.1 L g/dL
(33.0-37.0)
RDW 15.9 H %
(11.5-14.5)
Absolute Neuts (auto) 7.6 H 10^3/uL
(1.4-6.5)
Absolute Monos (auto) 0.9 H 10^3/uL
(0.1-0.6)
Neutrophils % 75.7 H %
(42.2-75.2)
Lymphocytes % 12.6 L %
(20.5-51.1)
APTT 41.8 H Sec
(23.4-35.0)
BUN 28 H mg/dl
(7-17)
Creatinine 1.2 H mg/dL
(0.6-1.0)
Glucose 105 H mg/dl
(70-99)
ALT 42 H U/L
(0-35)
Alkaline Phosphatase 136 H U/L
(38-126)
Troponin I 0.392 H* ng/ml
11/28/24 20:15
11/28/24 20:15
Vital Signs
Initial and Last Documented VS:
Initial Vital Signs
BP
109/71
11/28/24 19:51
Last Documented Vital Signs
Temp Pulse Resp BP Pulse Ox
98.3 F 93 19 113/67 95
11/28/24 19:54 11/28/24 21:45 11/28/24 21:45 11/28/24 21:35 11/28/24 21:35
*Pulse Oximetry
SaO2: 95
Nasal Cannula flow liters per minute: 4
Oxygen Mode of Delivery: Room air
Patient hypoxic: no
*Critical Care Note
Total Time (30-74mins, 75-104mins- exclusive of procedures): 33
comment:
Critical care statement: A total of 33 minutes of critical care time was provided for this patient. This time is separate from time utilized to perform the aforementioned documented procedures. Aggregate critical care time includes only time
during which I was engaged in work directly related to the patient's care, as described above, whether at the bedside or elsewhere in the Emergency Department.
ED Attending Note
-
Portions of this chart may have been created with voice recognition software.� Occasional wrong word or��sound alike� substitutions may have occurred due to the inherent limitations of voice recognition software.
Discharge Plan
Departure
Patient Disposition: Admit
Date of Disposition: 11/28/24
Time of Disposition: 23:20
Admit to: Telemetry
Presentation/result/management discussed w/ accepting MD/DO: Hospitalist
Discharge Problem:
Diastolic CHF, chronic, Chest pain, Non-ST elevated myocardial infarction (non-STEMI)
Interventions
Interventions:
*Risk Screen - Suicide Last Done: 11/28/24 19:54
*General Assessment Last Done: 11/28/24 19:54
*Neglect/Abuse Screening Last Done: 11/28/24 19:54
*ED- Fall Risk Assessment Last Done: 11/28/24 19:54
*ED COVID-19 Vaccine History Last Done: 11/28/24 19:54
ED- Cardiac Assessment Last Done: 11/28/24 20:54
[2024-11-28] MEDS: REGLAN 10 MG IV (21:42)
[2024-11-28 22:14] LABS: APTT 41.8 Sec (23.4-35.0)
[2024-11-28] MEDS: HEPARIN 25000 UNITS/250 ML IV (22:23)
[2024-11-28] MEDS: HEPARIN 4000 UNITS IV (22:25)
--- NOTE | 2024-11-28 22:57 | HPS.HSE ---
Family Physician
-
Family Physician: Lalit Zayas MD
Chief Complaint
-
Chest pain
History of Present Illness
This is a 84-year-old female with past medical history significant for atrial fibrillation on anticoagulation, AF status post TAVR, congestive heart failure with EF of 35 to 40%, COPD not on home O2, pulmonary hypertension, gout, hypothyroid and
Parkinson's disease who has recurrent admissions for rate control and CHF exacerbations presenting to the emergency department with 1 day history of recurrent chest pain.
Patient reported that she started having some shortness of breath about 3 days ago. She was giving nebs and treated symptomatically and she reported some improvement. She denies having cough fevers or chills. She did continue to have some
shortness of breath today. She reported that she was having intermittent chest pain that she localized to the left chest without any radiation. She states it alcohol throughout the day today. By afternoon she was having 8 out of 10 chest pain
again without radiation she felt short of breath. She was placed on oxygen and sent to the emergency department. On arrival she was back to atrial fibrillation again although rate controlled.
During the last discharge diuretic regimen was tailored down to torsemide 20 mg twice daily from a prior oral dose of Lasix 160 mg twice daily for RAÚL. Since discharge patient has had about a 7 kg weight gain. She notes increased lower extremity
edema. No known orthopnea or PND. She has otherwise been compliant with her Amio, Eliquis.
In the emergency department she was afebrile, blood pressure was 115/67 with a pulse rate of 93. Temperature was 98.3. She is satting 97% on 2 L.
ECG shows atrial fibrillation at a rate of [address] or T wave changes. Troponin is elevated at 0.4. BNP 9800. Her CBC was unremarkable. Electrolytes were unremarkable and BUN/creatinine were 28 and 1.2 respectively.
Medical History
Past Medical History
Past Medical History: Reports Other (hx of CHF, Arrhythmia, COPD, GERD, HLD, Hypothyroidism, pulmonary hypertension)
Past Surgical History: Reports Other (Cardiac and Orthopedic (Bunionectomy, bilateral knee replacement, right rotator cuff, back surgeries 2013, 2013))
Social History
Tobacco: Former Smoker
Alcohol: None
Personal:
Living: Alone
Family History
Family History: Not pertinent
Allergies / Home Medications
Allergies reflects when Allergies were last updated in [employer].
Home Medications with original date entered in [employer]
Allergy/Medication List:
Allergies
Allergy/AdvReac Type Severity Reaction Status Date / Time
ALIREZA Inhibitors Allergy cough Verified 11/12/24 14:09
nifedipine (From Procardia) Allergy Unknown Verified 11/12/24 14:09
Sulfa (Sulfonamide Allergy CHILDHOOD Verified 11/12/24 14:09
Antibiotics)
sulfisoxazole Allergy CHILDHOOD Verified 11/12/24 14:09
Home Medications
levothyroxine 50 mcg tablet 50 mcg PO DAILY Thyroid 09/24/16
pantoprazole 40 mg tablet,delayed release 40 mg PO DAILY Gastrointestinal Issue 09/24/16
citalopram 20 mg tablet 20 mg PO DAILY depression 02/21/20
atenolol 25 mg tablet 25 mg PO DAILY Blood pressure 06/04/21
atorvastatin 10 mg tablet 10 mg PO HS High cholesterol 06/04/21
carbidopa ER 50 mg-levodopa 200 mg tablet,extended release 1 tab PO BID P[place]IN[place] 03/17/23
montelukast 10 mg tablet 10 mg PO HS asthma 03/17/23
furosemide 40 mg tablet 160 mg PO BID Fluid Retention/Swelling 10/11/23
potassium chloride 20 mEq tablet,extended release(part/cryst) 20 meq PO BID Electrolyte Repletion 10/11/23
sildenafil (pulm.hypertension) 20 mg tablet 20 mg PO TID pulmonary hypertension 10/11/23
apixaban 5 mg tablet (Eliquis) 5 mg PO BID 30 days #60 tabs 07/14/24
famotidine 20 mg tablet 20 mg PO HS 11/12/24
gabapentin 400 mg tablet 400 mg PO HS 11/12/24
Review of Systems
-
Constitutional: Reports No Symptoms
EENT: Reports No Symptoms
Respiratory: Reports Trouble Breathing
Cardiac: Reports Chest Pain
Abdomen/GI: Reports No Symptoms
: Reports No Symptoms
Musculoskeletal: Reports No Symptoms
Skin: Reports No Symptoms
Neurological: Reports No Symptoms
Endocrine: Reports No Symptoms
Hematologic/Lymphatic: Reports No Symptoms
Psych: Reports No Symptoms
Physical Exam
Vital Signs
Vital Signs
Temp Pulse Resp BP Pulse Ox
98.3 F 93 19 113/67 95
11/28/24 19:54 11/28/24 21:45 11/28/24 21:45 11/28/24 21:35 11/28/24 21:35
Physical Exam
General: Respiratory Distress and Obese
HEENT: NormoCephalic, Anicteric, Moist mucous membranes, Atraumatic, PERRLA and Oxygen
Respiratory: Crackles
Cardiac: S1/S2, Irregular Rhythm and Peripheral Edema; No Murmur, Rub, Gallop, JVD or Carotid Bruits
Breast: Deferred by me
GI: Soft, Non Tender, Non Distended and Normal Bowel Sounds
Rectal: Deferred by Provider
Genito-urinary: Deferred by me
Musculoskeletal: No Clubbing, No Cyanosis, Edema, Left Lower Extremity and Edema, Right Lower Extremity
Skin: Warm
Neuro: AO x 3 and Nonfocal/grossly intact
Hematologic/Lymphatic: No Lymphadenopathy
Psych: Calm
Laboratory Results
-
11/28/24 20:15
11/28/24 20:15
Laboratory Results
APTT 41.8 Sec (23.4-35.0) H 11/28/24 21:58
Total Bilirubin 0.9 mg/dl (0.2-1.3) 11/28/24 20:15
AST 21 U/L (14-36) 11/28/24 20:15
ALT 42 U/L (0-35) H 11/28/24 20:15
Alkaline Phosphatase 136 U/L (38-126) H 11/28/24 20:15
Troponin I 0.392 ng/ml H* 11/28/24 20:15
Data Reviewed
-
Diagnostic Radiology: Image Personally Visualized and interpreted
Medical Tests (Nuc Med, Echo, EKG etc): Image Personally Visualized and interpreted
Lab Data: Labs Reviewed by me
Old Records: Reviewed
Impression/Plan
-
IMPRESSION:
84-year-old female with past medical history significant for atrial fibrillation on anticoagulation with Eliquis, rate controlled on amnio, aortic stenosis status post TAVR, COPD not on home O2, pulmonary hypertension, hypothyroid, no prior stents,
demand ischemia with rapid A-fib in August who now presents to the emergency department with episode of chest pain in the setting of ongoing shortness of breath for the last 3 days. She has increased oxygen requirement, pulmonary edema, chronically
elevated BNP but reduced compared to prior. Troponin was 0.4. She has 7 kg weight gain since her discharge concerning for CHF exacerbation. She is in atrial fibrillation with controlled rate in the 90s.
PLAN:
1. NSTEMI -possible NSTEMI, substernal and left-sided chest pain nonradiating, troponin 0.4, atrial fibrillation on ECG, HD stable, CHF
-Admit to IVU
-Currently chest pain-free, status post aspirin 324, holding Eliquis
-Heparin drip
-Oxygen
-Cycle cardiac enzyme every 4 hours
-Echocardiogram in a.m.
- npo after midnight
-Cardiology consultation
2. CHF -she has some volume overload with peripheral edema, pulmonary edema and hypoxia. Weight gain. BNP is actually improved compared to prior. H/O Cardiorenal and downtitration of lasix 160 bid to torsemide 20 bid at discharge recently.
- bumetanide 1mg given in ED.
- IV Lasix 80 mg twice daily as BP tolerates
-Continue metoprolol succinate 25 mg daily
-Continue sildenafil for pulm HTN with hold parameters
3. AFIB - Rate controlled
- heparin gtt
- amio
- metoprolol
4. Hypothyroid
- continue levothyroxine
DVT PPX - heparin gtt for now
Code status - DNR/DNI
[2024-11-28] MEDS: BUMEX 1 MG IV (22:59)
[2024-11-29] VITALS (16 sets, daily range): BP systolic 93–135; BP diastolic 52–113; BMI 33.5
[2024-11-29 04:04] LABS: Hematocrit 30.5 % (37.0-47.0); Hemoglobin 9.3 g/dL (12.0-16.0); Mean Corp Hgb Conc. 30.5 g/dL (33.0-37.0); Mean Corpuscular Volume 91.9 fL (81.0-99.0); Platelet Count 318 10^3/uL (130-400); Red Cell Dist. Width 15.8 % (11.5-14.5)
[2024-11-29 04:14] LABS: APTT 112.3 Sec (23.4-35.0)
[2024-11-29] MEDS: MORPHINE SULFATE 1 MG IV (04:23)
[2024-11-29 04:53] LABS: Troponin I 0.545 ng/ml
[2024-11-29 05:12] LABS: Blood Urea Nitrogen 27 mg/dl (7-17); Calcium 9.1 mg/dl (8.4-10.2); Carbon Dioxide 27 mmol/L (22-30); Chloride 107 mmol/L (98-107); Estimated Creatinine Clearance 42 ml/min; Glucose 105 mg/dl (70-99); HDL Cholesterol 38 mg/dl; LDL Cholesterol, Calculated 66 mg/dl; Magnesium 2.1 mg/dl (1.6-2.3); Potassium 4.3 mmol/L (3.5-5.1); Sodium 141 mmol/L (135-145); Very Low Density Lipoprotein 13 mg/dl (0-30); eGFR 50.17
--- NOTE | 2024-11-29 05:57 | PTCARENOTE ---
Received verbal report from VERONICA Amezcua. Pt arrived to floor via stretcher from ED. Pt aaox3 and soft spoken. SpO2 95% on 2L NC. Sinus rhythm with first degree HB with BBB on the monitor. Pt c/o 7/10 crushing chest pain. EKG completed, trop drawn, and
ROGER Kennedy notified. Rx received for IV Morphine (see MAR). Pt denies chest pain at this time and states it is now 0/10. Pt resting in bed with call martinez in reach.
[2024-11-29] MEDS: SYNTHROID 50 MCG PO (06:18)
--- NOTE | 2024-11-29 07:14 | W.PN.UPDATE ---
Update Note
Progress Note Update
patient c/o chest pain non radiating, 123/85 77 100 % 18, relieved with 1 dose of 1mg IV morphine, labs pending
Troponin elvated 0.392 0.545, Heparin drip maintained. Cardiology consult in place.
--- NOTE | 2024-11-29 07:45 | CON.CAR ---
Addendum entered and electronically signed by Dale Dawn MD 11/29/24 10:03:
I saw and examined the patient.
The Probate Paralegal's note was reviewed and I agree with the note.
Comment:
GEN: No distress, awake,alert
HEENT: supple, anicteric, mmm
LUNGS: bilat rhonchi
CV: Reg, S1/S2, 1/6 syst LSB, no gallop
ABD: soft, BS+, NT/ND
EXT: No edema
NEURO: + tremor
SKIN: No rash
Plan:
84-year-old female well-known to me with past medical history of transcatheter aortic valve replacement, pulmonary retention, left bundle branch block, CKD 3, chronic heart failure with reduced ejection fraction, paroxysmal atrial fibrillation, and
Parkinson's disease. She has had multiple emergency room visits and hospitalizations over the summer. Her recent visit was for 1 week in early November for UTI/sepsis/atrial fibrillation. She was discharged on torsemide 20 mg p.o. twice daily. At
that visit she was found to have a reduced ejection fraction of 30% which was treated conservatively.
She returns today with shortness of breath, leg pains, fatigue, and an episode of chest tightness yesterday. EKG has sinus rhythm with premature beats and known left bundle branch block. Cardiac troponin was abnormal at 0.5.
With her advanced age and Parkinson disease I would initially treat her conservatively. Okay to stop IV heparin and place her on Eliquis. Will check repeat echocardiogram to reevaluate LVEF.
She clearly is in acute/chronic heart failure with reduced ejection fraction. Start Lasix 80 mg IV twice daily. Follow creatinine. Currently 1.1. With recent UTIs would hold off on SLG 2 inhibitor
With her chest pain she clearly could have a non-STEMI but at this point would proceed with medical therapy. Continue metoprolol, and atorvastatin. Continue metoprolol.
Free T4 is elevated, adjust thyroid dose.
She continues to slowly decline with her Parkinson's disease and multiple hospitalizations. Agree with DNR.
Original Note:
Consultation
Consultation Request
Date/Time Consultation Performed: 11/29/24
Requesting Provider: Dr. Fowler
Performing Provider: Morena Weller PA-C for Dr. Dawn
Reason for Consultation: CP, CHF
Medical History
-
Chief Complaint: CP, SOB
History of Present Illness:
Patient is an 84-year-old female with past medical history of severe status post TAVR, pulm HTN on revatio, chronic left bundle branch block, hypertension, hyperlipidemia, CKD stage III, chronic diastolic congestive heart failure, paroxysmal
atrial fibrillation, with several recent visits to [facility]. She was in the ER on 09/19 for A-fib which spontaneously converted to sinus rhythm, and was then in the ER again on 09/25 due to a fall. Then was admitted to [facility] 11/12-11/19/24 for UTI/sepsis and
atrial fibrillation. was also diuresed during admission after EF by echo newly reduced at 30-35% which was felt to be tachy mediated and therefore managed conservatively. prior to admission she had been on lasix 160mg BID however was transitioned to
torsemide 20mg BID for DC. She was discharged to SNF on amiodarone 200mg daily and eliquis. She now presents back with SOB and leg pain. It was noted that patient had also complained of chest pain however patient denies this to me. Trop 0.5.
Cardiology consulted for evaluation.
PMH:
Paroxysmal atrial fibrillation
Anticoagulation with eliquis
Chronic diastolic congestive heart failure
Pulm HTN, on revatio
Severe status post TAVR 2020
Chronic left bundle branch block
CKD stage III
Hypertension
Hyperlipidemia
Parkinson's disease
Hypothyroidism
GERD
Obesity
Past Medical History
Past Medical History: Other (in HPI)
Social History
Tobacco: Former Smoker
Alcohol: None
Personal:
Living: Other (has 24 hour caregivers, but since last discharge was at SNF at [facility])
Employment: Retired
Family History
Family History: Hypertension
Allergies / Home Medications
Allergy/AdvReac Type Severity Reaction Status Date / Time
ALIREZA Inhibitors Allergy cough Verified 11/12/24 14:09
nifedipine (From Procardia) Allergy Unknown Verified 11/12/24 14:09
Sulfa (Sulfonamide Allergy CHILDHOOD Verified 11/12/24 14:09
Antibiotics)
sulfisoxazole Allergy CHILDHOOD Verified 11/12/24 14:09
�Medication �Instructions �Recorded �Confirmed �Type
levothyroxine 50 mcg tablet 50 mcg PO DAILY Thyroid 09/24/16 11/28/24 History
pantoprazole 40 mg tablet,delayed 40 mg PO DAILY Gastrointestinal 09/24/16 11/28/24 History
release Issue
citalopram 20 mg tablet 20 mg PO DAILY depression 02/21/20 11/28/24 History
atorvastatin 10 mg tablet 10 mg PO HS High cholesterol 06/04/21 11/28/24 History
carbidopa ER 50 mg-levodopa 200 mg 1 tab PO BID PARKINSON 03/17/23 11/28/24 History
tablet,extended release
montelukast 10 mg tablet 10 mg PO HS asthma 03/17/23 11/28/24 History
potassium chloride 20 mEq 20 meq PO BID Electrolyte Repletion 10/11/23 11/28/24 History
tablet,extended release(part/cryst)
sildenafil (pulm.hypertension) 20 20 mg PO TID pulmonary hypertension 10/11/23 11/28/24 History
mg tablet
apixaban 5 mg tablet (Eliquis) 5 mg PO BID 30 days #60 tabs 07/14/24 11/28/24 Rx
gabapentin 400 mg tablet 400 mg PO HS Neurological Condition 11/12/24 11/28/24 History
amiodarone 200 mg tablet 200 mg PO DAILY #30 tabs 11/19/24 11/28/24 Rx
metoprolol succinate 25 mg 25 mg PO DAILY Heart 11/19/24 11/28/24 Rx
tablet,extended release 24 hr disease/condition #30 tabs
midodrine 5 mg tablet 5 mg PO Q4HPRN PRN SBP<100 #30 tabs 11/19/24 11/28/24 Rx
torsemide 20 mg tablet 20 mg PO BID #30 tabs 11/19/24 11/28/24 Rx
acetaminophen 325 mg tablet 650 mg PO Q6HPRN PRN MILD PAIN 11/28/24 11/28/24 History
(Tylenol)
bisacodyl 10 mg rectal suppository 10 mg SD DAILYPRN PRN IF NO BM 11/28/24 11/28/24 History
(Dulcolax (bisacodyl)) AFTR MOM
magnesium hydroxide 400 mg/5 mL 2,400 mg PO [id number] PRN 11/28/24 11/28/24 History
oral suspension (Milk of Magnesia) CONSTIPATION
sodium phosphates 19 gram-7 118 ml SD DAILYPRN PRN IF NO BM 11/28/24 11/28/24 History
gram/118 mL enema (Fleet Enema) AFTR DULCOLAX
Review of Systems
-
History Source: Patient
All other systems: Negative unless noted
Physical Exam
Vital Signs
Temp Pulse Resp BP Pulse Ox
97.9 F 66 13 121/74 100
11/29/24 03:16 11/29/24 06:00 11/29/24 06:00 11/29/24 06:00 11/29/24 06:00
Lab Results
11/29/24 03:54
11/29/24 03:52
Troponin I 0.545 ng/ml H* D 11/29/24 03:52
Vsa-[place]azy Pept Cancelled 11/28/24 21:42
Physical Exam
General: No Apparent Distress, Comfortable and Other (essential tremor. on supp O2. )
HEENT: Normocephalic, Anicteric and Moist Mucous Membranes
Respiratory: Wheezes
Cardiac: S1/S2, Regular Rhythm and Murmur
GI: Soft, Non Tender, Non Distended and Normal Bowel Sounds
Musculoskeletal: No Clubbing, No Cyanosis and Edema (1+ of B/L LE)
Skin: Warm and Dry
Neuro: AO x 3
Impression / Plan
-
Primary Endoscopic Technician: Dr. Dawn
Assessment:
Presentation with SOB
Acute on chronic HFrEF
Elevated troponin
Admission to [facility] 11/12-03/05 for urosepsis/afib
Cardiomyopathy, EF 30-35% by echo 11/2024, suspected tachy mediated
Paroxysmal atrial fibrillation
Anticoagulation with eliquis
Pulm HTN, on revatio
Severe status post TAVR 2020
Chronic left bundle branch block
CKD stage III
Hypertension
Hyperlipidemia
Parkinson's disease
Hypothyroidism
GERD
Obesity
Echo 07/13/24: EF 60 to 65%, moderate concentric LVH, dense posterior MAC, mild to moderate MS, moderate to severe MR with peak/mean gradients 18/7 mmHg, #26 Bocanegra AMINA TAVR with peak/mean gradient 17/9 mmHg
Echo 11/14/24: Definity used, EF 35 to 40%, global hypokinesis, moderate to severe MR, moderate TR with moderate pulmonary hypertension, PASP 58 mmHg, status post TAVR Bocanegra valve, stable and well-seated
Plan:
-Patient presents from rehab with shortness of breath and noted to have elevated proBNP of 9800 and chest x-ray with findings consistent with acute heart failure
-She had been transitioned from p.o. Lasix 160 twice daily to torsemide 20 mg twice daily upon discharge 11/19.
-For now continue IV Lasix 80 mg twice daily. Creatinine 1.1
-Wean supplemental O2 as able, was not on prior to admission
-She was not felt to be candidate for ALIREZA/ARB/Arni/Aldactone given hypotension requiring as needed midodrine. She is not a candidate for SGLT2 inhibitor given recent UTI
- In sinus rhythm with occasional PVCs on review of telemetry. Continue amiodarone and Toprol. QTc stable on review of EKGs
-Will repeat echocardiogram to reassess EF, was newly reduced at 35% last admission, suspected tachycardia mediated related to rapid atrial fibrillation
-She was placed on IV heparin on arrival given elevated troponin. Trend to peak, Most recent 0.545. no CP. Would attempt to manage conservatively given comorbidities, however will discuss again after follow-up echo resulted. will plan to
transition back to [facility] this evening.
Data Reviewed
-
EKG: Tracing Personally Visualized and interpreted
Radiology: Report Reviewed by me
Medical Tests (Nuc Med, Echo etc): Report Reviewed by me
Labs: Labs Reviewed by me
Old Records: Reviewed
--- NOTE | 2024-11-29 08:04 | W.PN.HOSP.TC ---
Today's Communication/Plan
-
Continue diuretics
IV heparin
Cardiology consult
Assessment / Plan
Assessment / Plan
Gen-awake, alert, not completely oriented, NAD, masklike faces
HEENT-NC, AT, anicteric, clear oral mm
Neck-supple
CV-reg, no M, +S1/S2
Lungs-clear B/L
Abd-soft, NT, ND
Ext-no edema
Musculoskeletal-no cyanosis, clubbing
Skin-warm and dry
Neuro-grossly non-focal, mild hand tremor
Psych-calm, cooperative
Acute on chronic heart failure reduced EF -continue IV Lasix. Weight is up, BNP is elevated, chest x-ray with pulmonary edema. She was recently discharged on torsemide 20 mg twice daily which apparently is a reduction in her previous diuretic dose
as she was previously on Lasix 160 mg twice daily.
Discharge weight was 85 kg, noted to be 91 kg on 11/28 in the emergency room, 88 kg this morning.
Last echocardiogram 11/14 showed LVEF 35 to 40%, moderate to severe MR, moderate TR, moderate pulmonary hypertension. Intact TAVR.
BNP is actually down compared to most recent.
Troponin elevation -presentation with substernal chest pain, now resolved. ACS versus acute nonischemic myocardial injury. EKG with atrial fibrillation on presentation.
Possible NSTEMI, continue IV heparin. Trend troponin. Cardiology consulted. Keep n.p.o. for now.
However, given age frailty Parkinson's disease and possible dementia would favor conservative management.
Paroxysmal atrial fibrillation -now rate controlled. Hold Eliquis as she is currently on IV heparin. Continue amiodarone.
COPD without exacerbation
Pulmonary hypertension -on sildenafil.
Dementia -unclear if Alzheimer's type versus due to Parkinson's disease.
Essential hypertension -stable.
Hyperlipidemia -on atorvastatin.
GERD
Chronic anemia -hemoglobin at baseline.
Parkinson's disease -continue Sinemet.
Hypothyroidism -continue current dose levothyroxine. TSH 8.6 but noted to be 1.1 11/13/2024. Elevated free T4, 2.29, would repeat thyroid labs in 3 to 4 weeks.
Obesity due to excess calories
DNR
Anticipated Discharge: > 48 hours
Subjective/Interval History
-
Date of Service: November 29, 2024
Patient seen and examined, no complaints.
Objective Data
-
Labs:
Laboratory Results
11/28/24 11/28/24 11/28/24
20:15 21:28 21:37
WBC 10.1
Hgb 9.4 L
Hct 30.2 L
Plt Count 333
APTT Cancelled Cancelled
Sodium 141
Potassium 4.0
Chloride 105
Carbon Dioxide 30
BUN 28 H
Creatinine 1.2 H
Glucose 105 H
Calcium 9.0
Total Bilirubin 0.9
AST 21
ALT 42 H
Alkaline Phosphatase 136 H
11/28/24 11/29/24 11/29/24
21:58 03:52 03:54
WBC 8.4
Hgb 9.3 L
Hct 30.5 L
Plt Count 318
APTT 41.8 H 112.3 H
Sodium 141
Potassium 4.3
Chloride 107
Carbon Dioxide 27
BUN 27 H
Creatinine 1.1 H
Glucose 105 H
Calcium 9.1
Total Bilirubin
AST
ALT
Alkaline Phosphatase
11/29/24
10:25
WBC
Hgb
Hct
Plt Count
APTT Pending
Sodium
Potassium
Chloride
Carbon Dioxide
BUN
Creatinine
Glucose
Calcium
Total Bilirubin
AST
ALT
Alkaline Phosphatase
Vital Signs:
Vital Signs
Temp Pulse Resp BP Pulse Ox
97.9 F 66 13 121/74 100
11/29/24 03:16 11/29/24 06:00 11/29/24 06:00 11/29/24 06:00 11/29/24 06:00
Review of Systems
-
History Source: Patient
All other systems: Reviewed and negative
[2024-11-29] MEDS: REVATIO 20 MG PO ×3 (09:20→22:52)
[2024-11-29] MEDS: PACERONE 200 MG PO (09:20)
[2024-11-29] MEDS: TOPROL XL 25 MG PO (09:20)
[2024-11-29] MEDS: LASIX 80 MG IV ×2 (09:21→16:01)
[2024-11-29] MEDS: SINEMET CR 50/200 (EXTENDED RELEASE) 1 TABLET PO ×2 (09:21→20:24)
[2024-11-29] MEDS: CELEXA 20 MG PO (09:21)
[2024-11-29] MEDS: PROTONIX 40 MG PO (09:21)
[2024-11-29] MEDS: DUONEB 3 ML INH ×4 (09:45→21:06)
[2024-11-29 11:01] LABS: APTT 52.7 Sec (23.4-35.0)
[2024-11-29 11:18] LABS: Troponin I 1.170 ng/ml
--- NOTE | 2024-11-29 12:00 | PTCARENOTE ---
Patient AAOx3, anxious, sad at times. C/o SOB, PRN nebs given with relief. VSS. Heparin infusing per protocol. Critical trop level communicated to cardiology. Patient with no chest pain. EKG done. Will closely monitor.
--- NOTE | 2024-11-29 15:17 | CM ---
Addendum entered by Mattie Marx 11/29/24 16:13:
CM updated patient family about SNF not having beds they will continue to keep in touch with CM about patient plans for discharge.
Addendum entered by Mattie Marx 11/29/24 16:10:
[facility] updated CM that there are no available beds through next week. CM will call to patient family to update.
Original Note:
Patient was at [facility] prior to admission to . Patient asking to return prior to facility. Previously patient lived in [address] [place]. Patient had a a caregiver Loli who lived with her. Per prior chart notes patient needed assistance with
ADLs and personal care, and used a RW for ambulation.
Son and his lives close by and also provides support. Patient had been receiving HH Pt/OT; [facility]. PCP is Dr. Colorado and she uses the [facility] in [place]. CM will call to Liaison at [facility] and confirm with family patient plan to
return to SNF. CM will continue to follow for discharge planning needs.
Plan; return to SNF
[2024-11-29 18:42] LABS: APTT 64.9 Sec (23.4-35.0)
[2024-11-29 19:15] LABS: Troponin I 1.710 ng/ml
[2024-11-29] MEDS: ELIQUIS 5 MG PO (20:23)
[2024-11-29] MEDS: LIPITOR 10 MG PO (22:53)
[2024-11-29] MEDS: SINGULAIR 10 MG PO (22:53)
[2024-11-29] MEDS: NEURONTIN 400 MG PO (22:53)
[2024-11-30] VITALS (9 sets, daily range): BP systolic 96–120; BP diastolic 51–104; PULSE 67; BMI 32.6
[2024-11-30 01:15] LABS: Troponin I 1.360 ng/ml
--- NOTE | 2024-11-30 03:04 | PTCARENOTE ---
Tele monitor shows SR w/ 1st AV block, BBBC, and PVCs. HR in the 60-80's. Denies any chest pain. C/o SOB when laying flat in bed and becomes wheezy. Sating 89% RA, this RN applied 2L of O2 and sat patient up. Lung sounds improved. Fall risk
precautions maintained, call martinez within reach.
[2024-11-30] MEDS: BENADRYL 25 MG PO ×2 (03:35→14:40)
[2024-11-30] MEDS: SYNTHROID 50 MCG PO (05:07)
[2024-11-30 05:33] LABS: Hematocrit 24.7 % (37.0-47.0); Hemoglobin 7.7 g/dL (12.0-16.0); Mean Corp Hgb Conc. 31.2 g/dL (33.0-37.0); Mean Corpuscular Volume 89.5 fL (81.0-99.0); Platelet Count 247 10^3/uL (130-400); Red Cell Dist. Width 15.8 % (11.5-14.5)
[2024-11-30 05:45] LABS: Blood Urea Nitrogen 23 mg/dl (7-17); Calcium 8.8 mg/dl (8.4-10.2); Carbon Dioxide 30 mmol/L (22-30); Chloride 104 mmol/L (98-107); Estimated Creatinine Clearance 42 ml/min; Glucose 105 mg/dl (70-99); Potassium 3.7 mmol/L (3.5-5.1); Sodium 139 mmol/L (135-145); eGFR 50.17
[2024-11-30] MEDS: LASIX 80 MG IV ×2 (08:18→17:51)
[2024-11-30] MEDS: TOPROL XL 25 MG PO (08:19)
[2024-11-30] MEDS: PACERONE 200 MG PO (08:19)
[2024-11-30] MEDS: ELIQUIS 5 MG PO ×2 (08:19→20:08)
[2024-11-30] MEDS: SINEMET CR 50/200 (EXTENDED RELEASE) 1 TABLET PO ×2 (08:19→20:08)
[2024-11-30] MEDS: REVATIO 20 MG PO ×3 (08:19→22:52)
[2024-11-30] MEDS: CELEXA 20 MG PO (08:19)
--- NOTE | 2024-11-30 08:45 | W.PN.CARDCBS ---
Addendum entered and electronically signed by Brett Jones MD 11/30/24 12:34:
I saw and examined the patient.
The Attraction Worker's note was reviewed and I agree with the note.
Comment: Briefly, 84-year-old woman past medical history of heart failure with reduced ejection fraction and prior TAVR who presents in acute decompensated heart failure
Still appears volume overloaded on exam and is requiring supplemental oxygen
Echo here showing mildly reduced LVEF estimated at 40% which is similar to prior however estimated pulmonary artery pressure is now higher consistent with acute heart failure
Would continue IV Lasix 80 mg twice daily
Follow daily weights, renal function and electrolytes
Wean O2 as able
Troponin elevation noted which peaked at 1.7
Not reporting any chest discomfort today
Due to her comorbidities plan is for conservative management� continue Eliquis, atorvastatin and metoprolol
Rest per Germania Coley
Original Note:
Today's Communication / Plan
-
Continue IV lasix 80mg BID
Continue metoprolol, amiodarone
Continue Eliquis, follow hgb
Wean O2 as able
Impression / Plan
-
Primary Liability Claims Manager: Dr. Dawn
Assessment:
Presentation with SOB
Acute on chronic HFrEF
Elevated troponin
Admission to [facility] 11/12-03/05 for urosepsis/afib
Cardiomyopathy, EF 30-35% by echo 11/2024, suspected tachy mediated
Paroxysmal atrial fibrillation
Anticoagulation with eliquis
Pulm HTN, on revatio
Severe status post TAVR 2020
Chronic left bundle branch block
CKD stage III
Hypertension
Hyperlipidemia
Parkinson's disease
Hypothyroidism
GERD
Obesity
Echo 07/13/2024: EF 60 to 65%, moderate concentric LVH, dense posterior MAC, mild to moderate MS, moderate to severe MR with peak/mean gradients 18/7 mmHg, #26 Bocanegra AMINA TAVR with peak/mean gradient 17/9 mmHg
Echo 11/14/2024: Definity used, EF 35 to 40%, global hypokinesis, moderate to severe MR, moderate TR with moderate pulmonary hypertension, PASP 58 mmHg, status post TAVR Bocanegra valve, stable and well-seated
Echo 11/29/2024: EF 40%, mild concentric LVH, mild global hypokinesis, paradoxical septal motion, status post TAVR with peak/mean gradient 16/9 mmHg, dense MAC with peak/mean gradients across the mitral valve of 16/9 mmHg, moderate to severe MR,
moderate to severe TR, estimated PAP 79 mmHg
Plan:
-Presented with shortness of breath. Admitted with acute heart failure exacerbation. proBNP 9800. Chest x-ray consistent with acute heart failure.
-Diuresing with IV Lasix 80 mg twice daily. At discharge from recent admission 11/19/2024 she was transition from Lasix 160 mg twice daily to torsemide 20 mg twice daily
-Weight down 6lbs overnight to 189 lbs 11/30.
-Continue to follow daily weights, I&Os.
-Notes improvement in her breathing, but still appears volume overloaded
-Echo 11/29 with EF 40%, overall stable compared to prior echo earlier this month.
-Not felt to be a candidate for ALIREZA/ARB/ARNI/Aldactone due to hypotension requiring midodrine. Not a candidate for SGLT2 inhibitor given recent UTI
-Continue medical therapy with metoprolol 25 mg daily alone for now.
-Eliquis restarted in PM 11/29. Hgb down to 7.7 this AM, no bleeding noted. Repeat labs ordered.
-Elevated troponin noted this admission, peaking at 1.71 and trending down thereafter. Will manage conservatively given comorbidities.
-Wean O2 as able.
Progress Note - Liability Claims Manager
Subjective
Date of Service: November 30, 2024
Breathing improving, however still volume overloaded.
Objective
Labs:
11/30/24 05:04
11/30/24 05:04
Labs
Hgb 7.7 g/dL (12.0-16.0) L 11/30/24 05:04
Hct 24.7 % (37.0-47.0) L 11/30/24 05:04
Plt Count 247 10^3/uL (130-400) D 11/30/24 05:04
APTT 64.9 Sec (23.4-35.0) H 11/29/24 18:02
Sodium 139 mmol/L (135-145) 11/30/24 05:04
Potassium 3.7 mmol/L (3.5-5.1) 11/30/24 05:04
BUN 23 mg/dl (7-17) H 11/30/24 05:04
Creatinine 1.1 mg/dL (0.6-1.0) H 11/30/24 05:04
Glucose 105 mg/dl (70-99) H 11/30/24 05:04
Troponins
11/28/24 11/29/24 11/29/24
20:15 03:52 10:35
Troponin I 0.392 H* 0.545 H* D 1.170 H* D
11/29/24 11/30/24
18:33 00:33
Troponin I 1.710 H* D 1.360 H*
Vital Signs and I&O:
Vital Signs
Temp Pulse Resp BP Pulse Ox
98.3 F 73 20 104/64 91
11/30/24 07:15 11/30/24 04:00 11/30/24 07:15 11/30/24 02:50 11/30/24 07:15
Vital Signs
Temp Pulse Resp BP Pulse Ox
98.3 F 73 20 104/64 91
11/30/24 07:15 11/30/24 04:00 11/30/24 07:15 11/30/24 02:50 11/30/24 07:15
Intake & Output
11/28/24 11/29/24 11/30/24 12/01/24
06:59 06:59 06:59 06:59
Output Total 1200 / 1200
Balance -1200 / -1200
Physical Exam
Physical Exam
GEN: No distress, awake, alert.
HEENT: supple, anicteric, mmm
LUNGS: few crackles at b/l bases, no wheezes
CV: Reg, S1/S2, 2/6 murmur
EXT: No cyanosis or clubbing, +1 edema of B/L LE
NEURO: Gross non-focal
SKIN: Warm, pink, dry. No rash
--- NOTE | 2024-11-30 09:02 | PTCARENOTE ---
Patient resting comfortable. AO x3, tremors, rigidity. VSS, purwick in place. NSR 1st degree HB BBB, +1 dependent edema, weak DP. Breakfast ordered, meds given whole in applesauce. Audible expiratory wheezes with exertion, orthopnea. Oxygen 2 liters
NC 95%. Call martinez in reach
[2024-11-30] MEDS: PROTONIX 40 MG PO (09:06)
[2024-11-30 09:18] LABS: Reticulocyte Count 4.4 % (0.4-2.8)
[2024-11-30 09:36] LABS: Iron 35 ug/dl (37-170)
--- NOTE | 2024-11-30 09:38 | W.PN.HOSP.TC ---
Today's Communication/Plan
-
Continue diuretics
Recheck hemoglobin
Check anemia panel
PT consult
Assessment / Plan
Assessment / Plan
Gen-awake, alert, not completely oriented, NAD, masklike faces
HEENT-NC, AT, anicteric, clear oral mm
Neck-supple
CV-reg, no M, +S1/S2
Lungs-clear B/L
Abd-soft, NT, ND
Ext-no edema
Musculoskeletal-no cyanosis, clubbing
Skin-warm and dry
Neuro-grossly non-focal, mild hand tremor
Psych-calm, cooperative
Acute on chronic heart failure reduced EF -continue IV Lasix. Weight is up, BNP is elevated, chest x-ray with pulmonary edema. She was recently discharged on torsemide 20 mg twice daily which apparently is a reduction in her previous diuretic dose
as she was previously on Lasix 160 mg twice daily.
Discharge weight was 85 kg, noted to be 91 kg on 11/28 in the emergency room, weight down to 86 kg today.
Last echocardiogram 11/14 showed LVEF 35 to 40%, moderate to severe MR, moderate TR, moderate pulmonary hypertension. Intact TAVR.
BNP is actually down compared to most recent.
NSTEMI -medical therapy recommended by cardiology. Heparin transitioned back to Eliquis. Troponin peaked at 1.7.
Paroxysmal atrial fibrillation -now rate controlled. Continue Eliquis.
COPD without exacerbation
Pulmonary hypertension -on sildenafil.
Dementia -unclear if Alzheimer's type versus due to Parkinson's disease.
Essential hypertension -stable.
Hyperlipidemia -on atorvastatin.
GERD
Acute on chronic anemia -hemoglobin down to 7.7 this morning, will recheck at noon time. No obvious bleeding. Will check anemia labs. MCV normal. No bowel movements in the hospital so far.
She does have a history of iron deficiency anemia. Colonoscopy was noted to be done in September 2020 showing diverticulosis and a single solitary ulcer in the rectum which was biopsied. Internal hemorrhoids were noted.
EGD in September 2020 showed 2 gastric polyps, path report consistent with hyperplastic polyp.
Parkinson's disease -continue Sinemet.
Hypothyroidism -continue current dose levothyroxine. TSH 8.6 but noted to be 1.1 11/13/2024. Elevated free T4, 2.29, would repeat thyroid labs in 3 to 4 weeks.
Obesity due to excess calories
DNR
PT consult
Anticipated Discharge: > 48 hours
Subjective/Interval History
-
Date of Service: November 30, 2024
Patient seen and examined. States she had orthopnea last night. Breathing improved with sitting up. However, eager to go home.
Objective Data
-
Labs:
Laboratory Results
11/30/24 11/30/24
05:04 12:00
WBC 6.9
Hgb 7.7 L Pending
Hct 24.7 L Pending
Plt Count 247 D
Sodium 139
Potassium 3.7
Chloride 104
Carbon Dioxide 30
BUN 23 H
Creatinine 1.1 H
Glucose 105 H
Calcium 8.8
Vital Signs:
Vital Signs
Temp Pulse Resp BP Pulse Ox
98.3 F 71 20 113/72 95
11/30/24 07:15 11/30/24 08:22 11/30/24 07:15 11/30/24 08:22 11/30/24 08:35
I&O
11/29/24 11/30/24 12/01/24
06:59 06:59 06:59
Output Total 1200 / 1200
Balance -1200 / -1200
Review of Systems
-
Unable to obtain full review of systems at this time due to: Dementia
History Source: Patient
All other systems: Reviewed and negative
[2024-11-30 09:45] LABS: Total Iron Binding Capacity 304 ug/dl (265-497)
[2024-11-30 10:12] LABS: Ferritin 37.5 ng/ml (11.1-264.0)
[2024-11-30 10:43] LABS: Folate 8.3 ng/ml (2.76-20); Vitamin B12 747 pg/ml (239-931)
--- NOTE | 2024-11-30 10:47 | PTCARENOTE ---
Patient out of bed to the chair. Patient able to stand take a few steps with rolling walker. Call martinez in reach
--- NOTE | 2024-11-30 11:03 | CM ---
spoke with pt in room, she prev lives alone in a 1 story home with 1 step to enter. she uses a cane and a walker . she had a recent hospitalization 11/12-11/19 for sepsis/UTI and went to [facility] for SNF. Pt returned to 11/19 with NSTEMI/HF.
called [facility] and spoke to michelle in admissions- the pt did not pay for a bed hold and there are no beds avail all next week. discussed with pt and she asked for [facility]- referral faxed, await PT/OT to [facility]. pt agreeable to this plan.
[2024-11-30 12:34] LABS: Hematocrit 27.7 % (37.0-47.0); Hemoglobin 8.6 g/dL (12.0-16.0)
--- NOTE | 2024-11-30 15:07 | PN.CDI ---
CDI
- -
CDI:
Physician Documentation Request
Admit Date: 11/28/24 23:51
Dear Doctor Jb,
Patient admitted acute on chronic systolic CHF.
11/30 Nursing skin assessment, 'Stage 1 bilateral buttock pressure injuries, POA.'
Physician documentation of the type and location of wounds is required for compliant documentation. Based on the above clinical findings and your assessment, please provide the following in your progress note:
Type (etiology) of ulcer/wound:
- Pressure (decubitus) ulcer
- Other
- Unable to determine
For a pressure ulcer, please also include the stage* of the ulcer:
- Stage 1 - Skin intact, non-blanchable redness
- Stage 2 - Partial thickness loss of dermis, includes intact or open blister
- Stage 3 - Full thickness tissue not including bone, tendon or muscle
- Stage 4 - Full thickness tissue loss, including exposed bone, tendon or muscle
- Unstageable - Full thickness loss in which the base of the ulcer is covered by slough (yellow, barnes, ovalle, green or brown) and/or eschar (barnes, brown or black) in the wound bed.
- Unable to determine
Use of terms such as suspected, likely, concern for, or probable (associated with a specific diagnosis that is being evaluated, monitored, or treated as if it exists) are acceptable and can be coded in the inpatient setting, when documented at the
time of discharge.
Thank you,
Vanda ALFORD,RN,CCDS
CDI Specialist
Available via [place] text
Please use your independent medical judgment in providing your response.
*Source: National Pressure Ulcer Advisory Panel (NPUAP)
[2024-11-30] MEDS: TYLENOL 650 MG PO (17:59)
[2024-11-30] MEDS: SINGULAIR 10 MG PO (22:52)
[2024-11-30] MEDS: LIPITOR 10 MG PO (22:52)
[2024-11-30] MEDS: NEURONTIN 400 MG PO (22:52)
--- NOTE | 2024-11-30 23:43 | PTCARENOTE ---
Received pt at change of shift OOB in chair. SR w/ 1st degree AVB, BBBC, and PVC's. HR in the 60's. Captured VS from previous shift. pt denies any CP or SOB. on RA sating 94%. Fall risk precautions maintained, bed alarm on and audible. Call martinez
within reach.
[2024-12-01] VITALS (10 sets, daily range): BP systolic 92–133; BP diastolic 49–114; BMI 32.8
[2024-12-01 04:55] LABS: Hematocrit 25.0 % (37.0-47.0); Hemoglobin 7.8 g/dL (12.0-16.0); Mean Corp Hgb Conc. 31.2 g/dL (33.0-37.0); Mean Corpuscular Volume 89.3 fL (81.0-99.0); Nucleated Red Blood Cells % 0 %; Platelet Count 240 10^3/uL (130-400); Red Cell Dist. Width 15.7 % (11.5-14.5)
[2024-12-01 05:16] LABS: Blood Urea Nitrogen 24 mg/dl (7-17); Calcium 9.1 mg/dl (8.4-10.2); Carbon Dioxide 30 mmol/L (22-30); Chloride 106 mmol/L (98-107); Estimated Creatinine Clearance 42 ml/min; Glucose 104 mg/dl (70-99); Potassium 3.7 mmol/L (3.5-5.1); Sodium 141 mmol/L (135-145); eGFR 50.17
[2024-12-01] MEDS: SYNTHROID 50 MCG PO (06:31)
[2024-12-01] MEDS: TOPROL XL 25 MG PO (08:17)
[2024-12-01] MEDS: LASIX IV (08:17)
[2024-12-01] MEDS: CELEXA 20 MG PO (08:17)
[2024-12-01] MEDS: PACERONE 200 MG PO (08:17)
[2024-12-01] MEDS: REVATIO 20 MG PO ×3 (08:17→21:40)
[2024-12-01] MEDS: ELIQUIS 5 MG PO ×2 (08:17→19:19)
[2024-12-01] MEDS: SINEMET CR 50/200 (EXTENDED RELEASE) 1 TABLET PO ×2 (08:17→19:20)
[2024-12-01] MEDS: PROTONIX 40 MG PO (08:17)
[2024-12-01] MEDS: DUONEB 3 ML INH (08:24)
--- NOTE | 2024-12-01 09:00 | PTCARENOTE ---
Pt showing afib on monitor, denies pain or palpitations. EKG obtained. Janice HARLEY/ Dr. Dawn made aware. No new orders at present.
--- NOTE | 2024-12-01 09:05 | W.PN.CARDCBS ---
Addendum entered and electronically signed by Dale Dawn MD 12/01/24 09:57:
I saw and examined the patient.
The Ice Cream Van Vendor's note was reviewed and I agree with the note.
Comment:
GEN: No distress, awake, Ox3
HEENT: supple, anicteric, mmm
LUNGS: dec Bs at bases
CV: Irreg, S1/S2, / syst LSB, S3+
ABD: soft, BS+, NT/ND
EXT: No edema
NEURO: + tremor
SKIN: No rash
PLan:
Having some A-fib on telemetry. Overall denies chest pains. Blood pressure remains borderline.
Will continue to aggressively diurese her. Will add metolazone 2.5mg to Lasix. Okay to give diuretics with systolic blood pressure in the 90s. Creatinine overall stable at 1.1.
With abnormal troponins would be reasonable to consider cardiac cath but for now with Parkinson's disease and multiple hospitalizations we will continue medical therapy. Cardiac cath in 2019 prior to transcatheter valve replacement had
nonobstructive CAD.
Continue amiodarone and Toprol. Will increase amiodarone to 200mg twice daily with paroxysmal A-fib for the next several days.
Continue Sinemet for Parkinson's disease.
No SLG 2 inhib due to frequent UTIs.
Continue Eliquis.
Original Note:
Today's Communication / Plan
-
Continue amiodarone, Toprol-XL and Eliquis
Adding a dose of metolazone with this afternoon's Lasix
Impression / Plan
-
Primary Finished Stock Inspector: Dr. Dawn
Assessment:
Presentation with SOB
Acute on chronic HFrEF
Elevated troponin
Admission to [facility] 11/12-03/05 for urosepsis/afib
Cardiomyopathy, EF 30-35% by echo 11/2024, suspected tachy mediated, improved a bit to 40% by echo 11/29/2024
Paroxysmal atrial fibrillation
Eliquis OAC
Pulm HTN, on Revatio
Severe status post TAVR 2020
Chronic left bundle branch block
CKD stage III
Hypertension
Hyperlipidemia
Parkinson's disease
Hypothyroidism
GERD
Obesity
Echo 07/13/2024: EF 60 to 65%, moderate concentric LVH, dense posterior MAC, mild to moderate MS, moderate to severe MR with peak/mean gradients 18/7 mmHg, #26 Boc[place]ra AMINA TAVR with peak/mean gradient 17/9 mmHg
Echo 11/14/2024: Definity used, EF 35 to 40%, global hypokinesis, moderate to severe MR, moderate TR with moderate pulmonary hypertension, PASP 58 mmHg, status post TAVR Bocanegra valve, stable and well-seated
Echo 11/29/2024: EF 40%, mild concentric LVH, mild global hypokinesis, paradoxical septal motion, status post TAVR with peak/mean gradient 16/9 mmHg, dense MAC with peak/mean gradients across the mitral valve of 16/9 mmHg, moderate to severe MR,
moderate to severe TR, estimated PAP 79 mmHg
Plan:
-Presented with shortness of breath. Admitted with acute heart failure exacerbation. proBNP 9800. Chest x-ray consistent with acute heart failure.
-Depending on the accuracy of the bed scale weights the patient gained 2 lbs overnight. Previous dry weight was 187 lbs at last discharge on 11/19/2024
-Patient being diuresed with Lasix 80 mg IV BID. Patient was taking torsemide 20 mg PO BID prior to admission. Will give a dose of metolazone 2.5 mg prior to Lasix dose on 12/01/2024 afternoon
-EF was 40% by echo 11/29/2024 and this is stable compared to echo from 11/14/2024, but overall down from echo earlier this year when EF was 60 to 65% on 07/13/2024.
-GDMT limited by hypotension
-Patient is not a candidate for ALIREZA/ARB/ARNI/aldosterone antagonist due to hypotension
-Patient is not a candidate for SGLT2 inhibitor given recent UTI
-ECG and telemetry reviewed by me on 12/01/2024, patient undergoing albuterol nebulizer and noted to have tachycardia on monitor. ECG is difficult to interpret due to underlying artifact from tremor, but telemetry looks more consistent with SR.
Patient with known paroxysmal A-fib
-Outpatient dose of Eliquis 5 mg BID has been continued
-Outpatient dose of amiodarone 200 mg daily has been continued
-Outpatient dose of Toprol-XL 25 mg daily has been continued
-Troponin on admission was 1.71 and trended down thereafter. Patient being treated as a nonischemic myocardial injury troponin elevation.
Progress Note - Finished Stock Inspector
Subjective
Date of Service: December 01, 2024
Denies palpitations
Objective
Labs:
12/01/24 04:42
12/01/24 04:42
Labs
Hgb 7.8 g/dL (12.0-16.0) L 12/01/24 04:42
Hct 25.0 % (37.0-47.0) L 12/01/24 04:42
Plt Count 240 10^3/uL (130-400) 12/01/24 04:42
APTT 64.9 Sec (23.4-35.0) H 11/29/24 18:02
Sodium 141 mmol/L (135-145) 12/01/24 04:42
Potassium 3.7 mmol/L (3.5-5.1) 12/01/24 04:42
BUN 24 mg/dl (7-17) H 12/01/24 04:42
Creatinine 1.1 mg/dL (0.6-1.0) H 12/01/24 04:42
Glucose 104 mg/dl (70-99) H 12/01/24 04:42
Troponins
11/28/24 11/29/24 11/29/24
20:15 03:52 10:35
Troponin I 0.392 H* 0.545 H* D 1.170 H* D
11/29/24 11/30/24
18:33 00:33
Troponin I 1.710 H* D 1.360 H*
Vital Signs and I&O:
Vital Signs
Temp Pulse Resp BP Pulse Ox
97.9 F 79 18 92/64 92
12/01/24 07:30 12/01/24 08:27 12/01/24 08:27 12/01/24 07:32 12/01/24 07:32
Vital Signs
Temp Pulse Resp BP Pulse Ox
97.9 F 79 18 92/64 92
12/01/24 07:30 12/01/24 08:27 12/01/24 08:27 12/01/24 07:32 12/01/24 07:32
Intake & Output
11/29/24 11/30/24 12/01/24 12/02/24
06:59 06:59 06:59 06:59
Intake Total 120 / 120
Output Total 1200 / 1200 850 / 850
Balance -1200 / -1200 -730 / -730
Physical Exam
Physical Exam
GEN: NAD
LUNGS: Nebulizer by mask. No audible wheeze
CV: SR on tele.
[2024-12-01] MEDS: LASIX 80 MG IV ×2 (09:49→16:14)
--- NOTE | 2024-12-01 13:40 | W.PN.HOSP.TC ---
Addendum entered and electronically signed by Jude Muhammad DO 12/01/24 15:22:
Stage 1 bilateral buttock pressure injuries, POA.
Original Note:
Today's Communication/Plan
-
Continue current care
Assessment / Plan
Assessment / Plan
Gen-awake, alert, not completely oriented, NAD, masklike faces
HEENT-NC, AT, anicteric, clear oral mm
Neck-supple
CV-reg, no M, +S1/S2
Lungs-clear B/L
Abd-soft, NT, ND
Ext-no edema
Musculoskeletal-no cyanosis, clubbing
Skin-warm and dry
Neuro-grossly non-focal, mild hand tremor
Psych-calm, cooperative
Acute on chronic heart failure reduced EF -continue IV Lasix. Cardiology has added metolazone.
Clinically improving with weight trending down.
Echocardiogram done 11/29 shows normal LV size, LV systolic function mild to moderately reduced with EF 40%. Mild concentric LVH, mild global hypokinesis. Moderate to severe MR. Moderate to severe TR.
NSTEMI -medical therapy recommended by cardiology. Heparin transitioned back to Eliquis. Troponin peaked at 1.7.
Paroxysmal atrial fibrillation -now rate controlled. Continue Eliquis.
COPD without exacerbation -stable.
Pulmonary hypertension -on sildenafil.
Dementia -unclear if Alzheimer's type versus due to Parkinson's disease.
Essential hypertension -stable.
Hyperlipidemia -on atorvastatin.
GERD
Acute on chronic anemia -hemoglobin stable at 7.8 this morning. Monitor for now. No evidence of bleeding.
Iron panel not entirely consistent with iron deficiency. B12 and folic acid normal.
She does have a history of iron deficiency anemia. Colonoscopy was noted to be done in September 2020 showing diverticulosis and a single solitary ulcer in the rectum which was biopsied. Internal hemorrhoids were noted.
EGD in September 2020 showed 2 gastric polyps, path report consistent with hyperplastic polyp.
Parkinson's disease -continue Sinemet.
Hypothyroidism -continue current dose levothyroxine. TSH 8.6 but noted to be 1.1 11/13/2024. Elevated free T4, 2.29, would repeat thyroid labs in 3 to 4 weeks.
Obesity due to excess calories
DNR
PT consult -SNF recommended.
Anticipated Discharge: > 48 hours
Subjective/Interval History
-
Date of Service: December 01, 2024
Patient seen and examined. No complaints.
Objective Data
-
Labs:
Laboratory Results
12/01/24
04:42
WBC 5.7
Hgb 7.8 L
Hct 25.0 L
Plt Count 240
Sodium 141
Potassium 3.7
Chloride 106
Carbon Dioxide 30
BUN 24 H
Creatinine 1.1 H
Glucose 104 H
Calcium 9.1
Vital Signs:
Vital Signs
Temp Pulse Resp BP Pulse Ox
98.2 F 91 22 97/49 83
12/01/24 11:20 12/01/24 12:00 12/01/24 11:20 12/01/24 11:24 12/01/24 11:21
I&O
11/30/24 12/01/24 12/02/24
06:59 06:59 06:59
Intake Total 120 / 120
Output Total 1200 / 1200 850 / 850
Balance -1200 / -1200 -730 / -730
Review of Systems
-
History Source: Patient
All other systems: Reviewed and negative
[2024-12-01] MEDS: ZAROXOLYN 2.5 MG PO (15:25)
[2024-12-01] MEDS: MIRALAX 17 GRAMS PO (16:11)
[2024-12-01] MEDS: LIPITOR 10 MG PO (21:40)
[2024-12-01] MEDS: NEURONTIN 400 MG PO (21:40)
[2024-12-01] MEDS: SINGULAIR 10 MG PO (21:40)
--- NOTE | 2024-12-01 23:15 | PTCARENOTE ---
Pt. in both A-fib and NSR this shift. Draining moderate amount yellow urine via Purewick. No complaints of chest pain/discomfort. Currently resting quietly.
[2024-12-02] VITALS (8 sets, daily range): BP systolic 98–122; BP diastolic 56–70; BMI 32.6
[2024-12-02 03:13] LABS: Hematocrit 26.0 % (37.0-47.0); Hemoglobin 8.1 g/dL (12.0-16.0); Mean Corp Hgb Conc. 31.2 g/dL (33.0-37.0); Mean Corpuscular Volume 90.9 fL (81.0-99.0); Nucleated Red Blood Cells % 0 %; Platelet Count 284 10^3/uL (130-400); Red Cell Dist. Width 15.8 % (11.5-14.5)
[2024-12-02 03:28] LABS: Blood Urea Nitrogen 24 mg/dl (7-17); Calcium 8.8 mg/dl (8.4-10.2); Carbon Dioxide 31 mmol/L (22-30); Chloride 104 mmol/L (98-107); Estimated Creatinine Clearance 42 ml/min; Glucose 110 mg/dl (70-99); Potassium 3.4 mmol/L (3.5-5.1); Sodium 139 mmol/L (135-145); eGFR 50.17
[2024-12-02] MEDS: SYNTHROID 50 MCG PO (06:37)
--- NOTE | 2024-12-02 08:26 | W.PN.CARDCBS ---
Today's Communication / Plan
-
She is improving. Will give another dose of Zaroxolyn today with IV Lasix to try to augment diuresis. Creatinine remains normal.
Continue Toprol and Eliquis. Amiodarone was increased this admission to help with her paroxysmal atrial fibrillation. Would continue 200 mg p.o. twice daily for 1 month then decrease back to 200 mg daily.
Treat constipation. HG stable at 8.1
Continue Revatio for pulmonary hypertension and diuresis.
Likely will be stable for transfer to rehab facility over next 24 to 48 hours.
Impression / Plan
-
Primary Crust Sorter: Dr. Dawn
Assessment:
Presentation with SOB
Acute on chronic HFrEF
Elevated troponin
Admission to [facility] 11/12-03/05 for urosepsis/afib
Cardiomyopathy, EF 30-35% by echo 11/2024, suspected tachy mediated, improved a bit to 40% by echo 11/29/2024
Paroxysmal atrial fibrillation
Eliquis OAC
Pulm HTN, on Revatio
Severe status post TAVR 2020
Chronic left bundle branch block
CKD stage III
Hypertension
Hyperlipidemia
Parkinson's disease
Hypothyroidism
GERD
Obesity
Echo 07/13/2024: EF 60 to 65%, moderate concentric LVH, dense posterior MAC, mild to moderate MS, moderate to severe MR with peak/mean gradients 18/7 mmHg, #26 [place] AMINA TAVR with peak/mean gradient 17/9 mmHg
Echo 11/14/2024: Definity used, EF 35 to 40%, global hypokinesis, moderate to severe MR, moderate TR with moderate pulmonary hypertension, PASP 58 mmHg, status post TAVR Bocanegra valve, stable and well-seated
Echo 11/29/2024: EF 40%, mild concentric LVH, mild global hypokinesis, paradoxical septal motion, status post TAVR with peak/mean gradient 16/9 mmHg, dense MAC with peak/mean gradients across the mitral valve of 16/9 mmHg, moderate to severe MR,
moderate to severe TR, estimated PAP 79 mmHg
Plan:
-Presented with shortness of breath. Admitted with acute heart failure exacerbation. proBNP 9800. Chest x-ray consistent with acute heart failure.
-Weight back down now at 189. Would like to diurese another 3 to 5 pounds before discharge if possible.
-Patient being diuresed with Lasix 80 mg IV BID. Patient was taking torsemide 20 mg PO BID prior to admission. Will give another dose of metolazone 2.5 mg prior to Lasix.
-EF was 40% by echo 11/29/2024 and this is stable compared to echo from 11/14/2024, but overall down from echo earlier this year when EF was 60 to 65% on 07/13/2024.
-GDMT limited by hypotension
-Patient is not a candidate for ALIREZA/ARB/ARNI/aldosterone antagonist due to hypotension
-Patient is not a candidate for SGLT2 inhibitor given recent UTI
-Rhythm is improved this morning with higher dose of amiodarone. Would continue Amio 200 mg p.o. twice daily for 1 month then decrease back to 200 mg daily.
-Outpatient dose of Eliquis 5 mg BID has been continued
-Outpatient dose of Toprol-XL 25 mg daily has been continued
-Troponin on admission was 1.71 and trended down thereafter. Patient being treated as a nonischemic myocardial injury troponin elevation.
Progress Note - Crust Sorter
Subjective
Date of Service: December 02, 2024
Having some constipation. Breathing is improved and she is diuresing. No chest pains.
Objective
Labs:
12/02/24 02:45
12/02/24 02:45
Labs
Hgb 8.1 g/dL (12.0-16.0) L 12/02/24 02:45
Hct 26.0 % (37.0-47.0) L 12/02/24 02:45
Plt Count 284 10^3/uL (130-400) 12/02/24 02:45
APTT 64.9 Sec (23.4-35.0) H 11/29/24 18:02
Sodium 139 mmol/L (135-145) 12/02/24 02:45
Potassium 3.4 mmol/L (3.5-5.1) L 12/02/24 02:45
BUN 24 mg/dl (7-17) H 12/02/24 02:45
Creatinine 1.1 mg/dL (0.6-1.0) H 12/02/24 02:45
Glucose 110 mg/dl (70-99) H 12/02/24 02:45
Troponins
11/29/24 11/29/24 11/30/24
10:35 18:33 00:33
Troponin I 1.170 H* D 1.710 H* D 1.360 H*
Vital Signs and I&O:
Vital Signs
Temp Pulse Resp BP Pulse Ox
98.1 F 76 16 104/65 89
12/02/24 07:23 12/02/24 07:25 12/02/24 07:23 12/02/24 07:25 12/02/24 07:24
Vital Signs
Temp Pulse Resp BP Pulse Ox
98.1 F 76 16 104/65 89
12/02/24 07:23 12/02/24 07:25 12/02/24 07:23 12/02/24 07:25 12/02/24 07:24
Intake & Output
11/30/24 12/01/24 12/02/24 12/03/24
06:59 06:59 06:59 06:59
Intake Total 120 / 120 600 / 600
Output Total 1200 / 1200 850 / 850 1350 / 1350
Balance -1200 / -1200 -730 / -730 -750 / -750
Physical Exam
Physical Exam
GEN: No distress, awake, alert
HEENT: supple, anicteric, mmm
LUNGS: CTA, no wheezes/rales
CV: Reg, S1/S2, 1/6 syst LSB, S3+
ABD: soft, BS+, NT/ND
EXT: No edema
NEURO: Gross non-focal
SKIN: No rash
[2024-12-02] MEDS: MIRALAX 17 GRAMS PO (09:26)
[2024-12-02] MEDS: TOPROL XL 25 MG PO (09:26)
[2024-12-02] MEDS: PROTONIX 40 MG PO (09:26)
[2024-12-02] MEDS: REVATIO 20 MG PO ×3 (09:27→21:08)
[2024-12-02] MEDS: SINEMET CR 50/200 (EXTENDED RELEASE) 1 TABLET PO ×2 (09:27→21:00)
[2024-12-02] MEDS: PACERONE 200 MG PO ×2 (09:27→21:00)
[2024-12-02] MEDS: LASIX 80 MG IV ×2 (09:27→15:56)
[2024-12-02] MEDS: DULCOLAX 10 MG RECTAL (09:27)
[2024-12-02] MEDS: ELIQUIS 5 MG PO ×2 (09:27→21:00)
[2024-12-02] MEDS: CELEXA 20 MG PO (09:27)
--- NOTE | 2024-12-02 10:58 | W.PN.HOSP.TC ---
Addendum entered and electronically signed by Jude Muhammad DO 12/02/24 12:27:
Met with family from [place], answered questions regarding her progress and medical care. All questions answered. They asked to also speak with cardiology. [place] text sent to soils analyst.
Original Note:
Today's Communication/Plan
-
Check magnesium
Replete potassium
Continue diuretics
Assessment / Plan
Assessment / Plan
Gen-awake, alert, not completely oriented, NAD, masklike faces
HEENT-NC, AT, anicteric, clear oral mm
Neck-supple
CV-reg, no M, +S1/S2
Lungs-clear B/L
Abd-soft, NT, ND
Ext-no edema
Musculoskeletal-no cyanosis, clubbing
Skin-warm and dry
Neuro-grossly non-focal, mild hand tremor
Psych-calm, cooperative
Acute on chronic heart failure reduced EF -continue IV Lasix. Cardiology has added metolazone.
Clinically improving with weight trending down.
Echocardiogram done 11/29 shows normal LV size, LV systolic function mild to moderately reduced with EF 40%. Mild concentric LVH, mild global hypokinesis. Moderate to severe MR. Moderate to severe TR.
Hypokalemia -replete orally. Check magnesium.
NSTEMI -medical therapy recommended by cardiology. Heparin transitioned back to Eliquis. Troponin peaked at 1.7.
Paroxysmal atrial fibrillation -now rate controlled. Continue Eliquis.
COPD without exacerbation -stable.
Pulmonary hypertension -on sildenafil.
Dementia -unclear if Alzheimer's type versus due to Parkinson's disease.
Essential hypertension -stable.
Hyperlipidemia -on atorvastatin.
GERD
Acute on chronic anemia -hemoglobin stable at 8.1 this morning. Monitor for now. No evidence of bleeding.
Iron panel not entirely consistent with iron deficiency. B12 and folic acid normal.
She does have a history of iron deficiency anemia. Colonoscopy was noted to be done in September 2020 showing diverticulosis and a single solitary ulcer in the rectum which was biopsied. Internal hemorrhoids were noted.
EGD in September 2020 showed 2 gastric polyps, path report consistent with hyperplastic polyp.
Parkinson's disease -continue Sinemet.
Hypothyroidism -continue current dose levothyroxine. TSH 8.6 but noted to be 1.1 11/13/2024. Elevated free T4, 2.29, would repeat thyroid labs in 3 to 4 weeks.
Obesity due to excess calories
DNR
PT consult -SNF recommended.
Anticipated Discharge: 24 - 48 hours
Subjective/Interval History
-
Date of Service: December 02, 2024
Patient seen and examined, no complaints.
Objective Data
-
Labs:
Laboratory Results
12/02/24
02:45
WBC 8.3
Hgb 8.1 L
Hct 26.0 L
Plt Count 284
Sodium 139
Potassium 3.4 L
Chloride 104
Carbon Dioxide 31 H
BUN 24 H
Creatinine 1.1 H
Glucose 110 H
Calcium 8.8
Vital Signs:
Vital Signs
Temp Pulse Resp BP Pulse Ox
98.1 F 76 16 104/65 89
12/02/24 07:23 12/02/24 07:25 12/02/24 07:23 12/02/24 07:25 12/02/24 07:24
I&O
12/01/24 12/02/24 12/03/24
06:59 06:59 06:59
Intake Total 120 / 120 600 / 600
Output Total 850 / 850 1350 / 1350
Balance -730 / -730 -750 / -750
Review of Systems
-
History Source: Patient
All other systems: Reviewed and negative
[2024-12-02 11:51] LABS: Magnesium 2.0 mg/dl (1.6-2.3)
[2024-12-02] MEDS: KCL 40 MEQ PO (12:09)
[2024-12-02] MEDS: ZAROXOLYN 5 MG PO (15:05)
[2024-12-02] MEDS: KCL 20 MEQ PO (21:00)
[2024-12-02] MEDS: SINGULAIR 10 MG PO (21:08)
[2024-12-02] MEDS: NEURONTIN 400 MG PO (21:08)
[2024-12-02] MEDS: LIPITOR 10 MG PO (21:08)
[2024-12-02] MEDS: TYLENOL 650 MG PO (23:57)
[2024-12-03] VITALS (12 sets, daily range): BP systolic 82–128; BP diastolic 40–70; PULSE 65; O2SAT 92; BMI 31.9
--- NOTE | 2024-12-03 04:09 | PTCARENOTE ---
Pt. in NSR - SB (50's) all shift, vitals stable. Voiding large amounts clear yellow urine via Purewick.
[2024-12-03 04:39] LABS: Hematocrit 25.0 % (37.0-47.0); Hemoglobin 7.8 g/dL (12.0-16.0); Mean Corp Hgb Conc. 31.2 g/dL (33.0-37.0); Mean Corpuscular Volume 88.7 fL (81.0-99.0); Nucleated Red Blood Cells % 0 %; Platelet Count 250 10^3/uL (130-400); Red Cell Dist. Width 15.4 % (11.5-14.5)
[2024-12-03 05:04] LABS: Blood Urea Nitrogen 24 mg/dl (7-17); Calcium 8.6 mg/dl (8.4-10.2); Carbon Dioxide 37 mmol/L (22-30); Chloride 98 mmol/L (98-107); Estimated Creatinine Clearance 38 ml/min; Glucose 92 mg/dl (70-99); Potassium 3.0 mmol/L (3.5-5.1); Sodium 138 mmol/L (135-145); eGFR 45.19
[2024-12-03] MEDS: KCL 40 MEQ PO ×2 (07:30→17:29)
[2024-12-03] MEDS: SYNTHROID 50 MCG PO (07:30)
[2024-12-03] MEDS: PROTONIX 40 MG PO (07:53)
[2024-12-03] MEDS: CELEXA 20 MG PO (07:53)
[2024-12-03] MEDS: REVATIO 20 MG PO ×3 (07:53→23:01)
[2024-12-03] MEDS: KCL 20 MEQ PO ×2 (07:54→20:49)
[2024-12-03] MEDS: SINEMET CR 50/200 (EXTENDED RELEASE) 1 TABLET PO ×2 (07:54→20:49)
[2024-12-03] MEDS: PACERONE 200 MG PO ×2 (07:54→20:49)
[2024-12-03] MEDS: ELIQUIS 5 MG PO ×2 (07:55→20:49)
[2024-12-03] MEDS: MIRALAX 17 GRAMS PO (08:29)
--- NOTE | 2024-12-03 08:59 | W.PN.CARDCBS ---
Addendum entered and electronically signed by Helder Wright MD 12/03/24 10:29:
Abhijeet 84-year-old woman with multiple comorbidities admitted with acute on chronic HFrEF and moderate to severe mitral regurgitation, initial proBNP 9800
PMH: PAF, HFrEF, possibly tachycardia mediated, EF 40% by echo November 29, 2024, Pulmonary hypertension, on sildenafil, TAVR 2020, left bundle branch block, CKD 3, hypertension, hyperlipidemia, Parkinson's, hypothyroidism, GERD. EF was 60 to 65% in
July
Current meds: Atorvastatin 10 mg a day, Sinemet, citalopram, Neurontin 400 a day, levothyroxine, metoprolol ER 25 mg a day, Singulair 10 mg a day, pantoprazole 40 mg a day, sildenafil, furosemide 80 mg IV twice daily, as outpatient had been on
torsemide 20 mg twice daily, apixaban 5 mg twice daily, MiraLAX, amiodarone 200 mg twice daily, potassium 20 meqs twice daily, iron sulfate had required midodrine in the past, had been on amiodarone, has received metolazone here in the hospital
107/54, pulse 61, respirate 20, afebrile, weight is 84.2 kg, if accurate down 1.9 kg, weight was 91.3 kg on admission, abhijeet woman, Parkinson's, lungs are clear, regular rate and rhythm,2/6 MR murmur, JVD okay, not much edema
Hemoglobin 7.8, platelets 250, BUN and creatinine are 24 and 1.2, potassium is 3
ECG December 01 atrial fibrillation left axis left bundle, rate is 91
Telemetry: Currently sinus rhythm with first-degree AV block
Impression: Acute on chronic HFmrEF
Admission to [facility] 11/12-03/05 for urosepsis/afib
Cardiomyopathy, EF 30-35% by echo 11/2024, suspected tachy mediated, 40% by echo 11/29/2024
Paroxysmal atrial fibrillation
Pulm HTN, on Revatio
TAVR 2020
Chronic left bundle branch block
CKD stage III
Hypertension
Hyperlipidemia
Parkinson's disease
Hypothyroidism
GERD
Plan:
She appears relatively euvolemic. Will transition back to torsemide 20 mg twice daily. Add spironolactone 12.5 mg daily. Continue to follow potassium. She may need as needed metolazone.
She is a poor candidate for SGLT2 antagonist, currently has purewick in place.
Currently she is in sinus rhythm. Currently on amiodarone 200 mg twice daily. She is relatively bradycardic.
Renal function remains adequate.
If LV function remains depressed, she could be considered for [employer] with or without D
Discharge planning.
Original Note:
Today's Communication / Plan
-
-replete K
-consider transition to oral diuretics
-eventual d/c to SNF
Impression / Plan
-
Primary Digital Sales Manager: Dr. Dawn
Assessment:
Presentation with SOB
Acute on chronic HFrEF
Elevated troponin
Admission to [facility] 11/12-03/05 for urosepsis/afib
Cardiomyopathy, EF 30-35% by echo 11/2024, suspected tachy mediated, improved a bit to 40% by echo 11/29/2024
Paroxysmal atrial fibrillation
Eliquis OAC
Pulm HTN, on Revatio
Severe status post TAVR 2020
Chronic left bundle branch block
CKD stage III
Hypertension
Hyperlipidemia
Parkinson's disease
Hypothyroidism
GERD
Obesity
Echo 07/13/2024: EF 60 to 65%, moderate concentric LVH, dense posterior MAC, mild to moderate MS, moderate to severe MR with peak/mean gradients 18/7 mmHg, #26 Boc[place]ra AMINA TAVR with peak/mean gradient 17/9 mmHg
Echo 11/14/2024: Definity used, EF 35 to 40%, global hypokinesis, moderate to severe MR, moderate TR with moderate pulmonary hypertension, PASP 58 mmHg, status post TAVR Bocanegra valve, stable and well-seated
Echo 11/29/2024: EF 40%, mild concentric LVH, mild global hypokinesis, paradoxical septal motion, status post TAVR with peak/mean gradient 16/9 mmHg, dense MAC with peak/mean gradients across the mitral valve of 16/9 mmHg, moderate to severe MR,
moderate to severe TR, estimated PAP 79 mmHg
Plan:
-Presented with shortness of breath and admitted with acute heart failure exacerbation. proBNP 9800. Chest x-ray consistent with acute heart failure.
-Weight 195 on admit, down now at 185lbs,including 4 lb diuresis overnight after receiving Zaroxolyn in addition to IV Lasix yest 12/02.
-creat 1.2 12/03, has been 1.1.
-K 3.0-on KCl 20 meq bid and rec'd extra 40 meq today 12/03
-consider transition to oral diuretics today.
-Patient being diuresed with Lasix 80 mg IV BID. Patient was taking torsemide 20 mg PO BID prior to admission. Consider transition back to oral diuretic today.
-EF was 40% by echo 11/29/2024 and this is stable compared to echo from 11/14/2024, but overall down from echo earlier this year when EF was 60 to 65% on 07/13/2024.
-GDMT limited by hypotension
-Patient is not a candidate for ALIREZA/ARB/ARNI/aldosterone antagonist due to hypotension
-Patient is not a candidate for SGLT2 inhibitor given recent UTI
-telem personally reviewed: SB 50s
-remains on higher dose of amiodarone due to runs of afib on telemetry. Would continue uptitrated dose of Amio 200 mg p.o. twice daily for 1 month then decrease back to 200 mg daily.
-Outpatient dose of Eliquis 5 mg BID has been continued
-Outpatient dose of Toprol-XL 25 mg daily has been continued
-Troponin on admission was 1.71 and trended down thereafter. Patient being treated as a nonischemic myocardial injury troponin elevation.
-tele personally reviewed NSR 60-85bpm, occ PVCs, 3-4 beat runs WCT
Progress Note - Digital Sales Manager
Subjective
Date of Service: December 03, 2024
asking when she can be discharged
denies SOB
wt down 4 lbs overnight, down at least 10 lbs since admission
Objective
Labs:
12/03/24 03:54
12/03/24 03:54
Labs
Hgb 7.8 g/dL (12.0-16.0) L 12/03/24 03:54
Hct 25.0 % (37.0-47.0) L 12/03/24 03:54
Plt Count 250 10^3/uL (130-400) 12/03/24 03:54
APTT 64.9 Sec (23.4-35.0) H 11/29/24 18:02
Sodium 138 mmol/L (135-145) 12/03/24 03:54
Potassium 3.0 mmol/L (3.5-5.1) L 12/03/24 03:54
BUN 24 mg/dl (7-17) H 12/03/24 03:54
Creatinine 1.2 mg/dL (0.6-1.0) H 12/03/24 03:54
Glucose 92 mg/dl (70-99) 12/03/24 03:54
Vital Signs and I&O:
Vital Signs
Temp Pulse Resp BP Pulse Ox
98.3 F 61 20 107/54 90
12/03/24 07:22 12/03/24 04:00 12/03/24 07:22 12/03/24 03:49 12/03/24 07:22
Vital Signs
Temp Pulse Resp BP Pulse Ox
98.3 F 61 20 107/54 90
12/03/24 07:22 12/03/24 04:00 12/03/24 07:22 12/03/24 03:49 12/03/24 07:22
Intake & Output
12/01/24 12/02/24 12/03/24 08/26/25
06:59 06:59 06:59 06:59
Intake Total 120 / 120 600 / 600 480 / 480
Output Total 850 / 850 1350 / 1350 1900 / 1900
Balance -730 / -730 -750 / -750 -1420 / -1420
Physical Exam
Physical Exam
GEN: No distress, awake, Ox3
HEENT: supple, anicteric, mmm
LUNGS: CTA, no wheezes/rales
CV: Reg, S1/S2, 1/6 syst LSB
ABD: soft, BS+, NT/ND
EXT: trace B/L LE edema
NEURO: Gross non-focal
SKIN: No rash
[2024-12-03] MEDS: LASIX 80 MG IV ×2 (10:38→17:18)
[2024-12-03] MEDS: TOPROL XL 25 MG PO (10:38)
--- NOTE | 2024-12-03 14:49 | PTCARENOTE ---
Patient with no complaint, [place], tremors, rigidity, AO x3. Room air 96%. NSR with 1st degree HB, BBB, trace edema. Large BM soft brown on commode. Purwick in place large volumes of dark yellow urine. Using call martinez for assistance
[2024-12-03] MEDS: FERRLECIT 110 MG IV (15:19)
--- NOTE | 2024-12-03 16:55 | W.PN.HOSP.TC ---
Today's Communication/Plan
-
dc planning to SNF in 24 hours
Assessment / Plan
Assessment / Plan
Exam:
Gen-awake, alert, not completely oriented, NAD, masklike faces
HEENT-NC, AT, anicteric, clear oral mm
Neck-supple
CV-reg, no M, +S1/S2
Lungs-clear B/L
Abd-soft, NT, ND
Ext-no edema
Musculoskeletal-no cyanosis, clubbing
Skin-warm and dry
Neuro-grossly non-focal, mild hand tremor
Psych-calm, cooperative
Assessment:
Acute on chronic heart failure reduced EF
- s/p IV Lasix course; continue oral Torsemide
- GDMT: Aldactone/BB. not an SGLT2 candidate
- Echocardiogram done 11/29 shows normal LV size, LV systolic function mild to moderately reduced with EF 40%. Mild concentric LVH, mild global hypokinesis. Moderate to severe MR. Moderate to severe TR.
Hypokalemia
- replete prn
- mag normal
NSTEMI - medical therapy recommended by cardiology. Heparin transitioned back to Eliquis. Troponin peaked at 1.7.
Paroxysmal atrial fibrillation - now rate controlled. Continue Eliquis.
COPD without exacerbation - stable.
Pulmonary hypertension - on sildenafil.
Dementia - unclear if Alzheimer's type versus due to Parkinson's disease.
Essential hypertension -stable.
Hyperlipidemia -on atorvastatin.
GERD
Acute on chronic anemia - hemoglobin 7.8 this morning. Monitor for now. No evidence of bleeding.
Iron panel not entirely consistent with iron deficiency. B12 and folic acid normal. start IV Iron.
She does have a history of iron deficiency anemia. Colonoscopy was noted to be done in September 2020 showing diverticulosis and a single solitary ulcer in the rectum which was biopsied. Internal hemorrhoids were noted.
EGD in September 2020 showed 2 gastric polyps, path report consistent with hyperplastic polyp.
Parkinson's disease - continue Sinemet.
Hypothyroidism - continue current dose levothyroxine. TSH 8.6 but noted to be 1.1 11/13/2024. Elevated free T4, 2.29, would repeat thyroid labs in 3 to 4 weeks.
Obesity due to excess calories
DVT ppx: Eliquis
Code: DNR/DNI
Anticipated Discharge: > 48 hours
Subjective/Interval History
-
Date of Service: December 03, 2024
denies SOB or chest pain
down >10 lbs since admission
Objective Data
-
Labs:
Laboratory Results
12/03/24
03:54
Sodium 138
Potassium 3.0 L
Chloride 98
Carbon Dioxide 37 H
BUN 24 H
Creatinine 1.2 H
Glucose 92
Calcium 8.6
Vital Signs:
Vital Signs
Temp Pulse Resp BP Pulse Ox
98.6 F 59 16 115/60 96
12/03/24 15:31 12/03/24 15:26 12/03/24 15:31 12/03/24 15:26 12/03/24 15:31
I&O
12/02/24 12/03/24 12/04/24
06:59 06:59 06:59
Intake Total 600 / 600 480 / 480 480 / 480
Output Total 1350 / 1350 1900 / 1900 1950 / 1950
Balance -750 / -750 -1420 / -1420 -1470 / -1470
Data Reviewed
-
Total Time Spent with Patient (in minutes): 44
Labs: Labs Reviewed by me
--- NOTE | 2024-12-03 17:02 | CM ---
with pt/family, they would like pt to go to [facility] as they are looking into [facility] or LTC. called [facility] and they have a bed for tomorrow and have accepted her. pt/family agree, van set up for 330 tomorrow. they are aware they will be billed
for the cost $120. Dr Lombardo aware.
--- NOTE | 2024-12-03 22:25 | PTCARENOTE ---
Received pt at change of shift resting in bed. SB-SR w/ 1st degree AVB, BBBC on tele, HR 50's-60's. pt denies any CP or SOB. Fall risk precautions maintained. pt calls appropriately. Q2H turn scheduled followed. Encouraged pt to call RN with any
questions/concerns. Call martinez within reach.
[2024-12-03] MEDS: NEURONTIN 400 MG PO (23:01)
[2024-12-03] MEDS: SINGULAIR 10 MG PO (23:02)
[2024-12-03] MEDS: LIPITOR 10 MG PO (23:02)
[2024-12-04] VITALS (13 sets, daily range): BP systolic 76–114; BP diastolic 39–68; PULSE 62; BMI 31.2
[2024-12-04 04:06] LABS: Blood Urea Nitrogen 26 mg/dl (7-17); Calcium 8.9 mg/dl (8.4-10.2); Carbon Dioxide 38 mmol/L (22-30); Chloride 98 mmol/L (98-107); Estimated Creatinine Clearance 41 ml/min; Glucose 94 mg/dl (70-99); Magnesium 2.0 mg/dl (1.6-2.3); Potassium 3.4 mmol/L (3.5-5.1); Sodium 140 mmol/L (135-145); eGFR 50.17
[2024-12-04] MEDS: SYNTHROID 50 MCG PO (06:42)
--- NOTE | 2024-12-04 10:09 | W.PN.CARDCBS ---
Addendum entered and electronically signed by Helder Wright MD 12/04/24 12:30:
Pleasant 84-year-old woman with multiple comorbidities admitted with acute on chronic HFrEF and moderate to severe mitral regurgitation, initial proBNP 9800
PMH: PAF, HFrEF, possibly tachycardia mediated, EF 40% by echo November 29, 2024, Pulmonary hypertension, on sildenafil, TAVR 2020, left bundle branch block, CKD 3, hypertension, hyperlipidemia, Parkinson's, hypothyroidism, GERD. EF was 60 to 65% in
July
Current meds: Reviewed.
76/66, pulse 54, respiratory rate 12, afebrile, intake and output -3.2 L, weight is 82.5 kg, down 1.7 kg, admission weight was 91.3 kg, somewhat lethargic but awakens and conversant, lungs are clear, systolic murmur, abdomen benign not much edema
Potassium is 3.4, BUN and creatinine are 26 and 1.1, creatinine had been 1.2
Impression: Acute on chronic HFrEF
Moderate to severe mitral regurgitation
Nonischemic cardiomyopathy, EF 40% November 2024
Paroxysmal atrial fibrillation on amiodarone
Pulmonary hypertension, on sildenafil
History of TAVR 2020
Chronic left bundle branch block
CKD 3 AA
Hypertension
Hyperlipidemia
Parkinson's
Other diagnoses as below. Reviewed in detail and agree, unless otherwise specified.
Plan:
Currently, she is relatively volume contracted and is fairly hypotensive. Appropriate dose of torsemide at discharge is unclear.
Agree with holding torsemide for now, giving small fluid bolus and reassessing.
In a supervised setting, it may be that torsemide 20 mg twice daily is sufficient. In the past she had required 160 of furosemide twice daily. She says she was taking her medications at home but I am not certain as to her ability to comply. If
this is true, her diuretic requirement in a supervised setting would be less.
If patient be discharged today still favor torsemide 20 mg twice daily with as needed metolazone 2.5 mg for weight gain over 3 pounds.
I had planned to add spironolactone but given hypotension will hold off for now.
She is in sinus rhythm on amiodarone 200 twice daily and metoprolol is 25 mg daily. Will cut metoprolol to 12.5 mg daily. Continue her Revatio, though this may be contributing to hypotension. Sinemet will also predispose to hypotension.
If patient is to be kept overnight Will reassess in AM.
Original Note:
Today's Communication / Plan
-
Holding diuretics and GDMT with hypotension. Follow blood pressures
in SR on toprol, amio, eliquis
DC planning
Impression / Plan
-
Primary Car Worker: Dr. Dawn
Assessment:
Presentation with SOB
Acute on chronic HFrEF
Elevated troponin
Admission to [facility] 11/12-03/05 for urosepsis/afib
Cardiomyopathy, EF 30-35% by echo 11/2024, suspected tachy mediated, improved a bit to 40% by echo 11/29/2024
Paroxysmal atrial fibrillation
Eliquis OAC
Pulm HTN, on Revatio
Severe status post TAVR 2020
Chronic left bundle branch block
CKD stage III
Hypertension
Hyperlipidemia
Parkinson's disease
Hypothyroidism
GERD
Obesity
Echo 07/13/2024: EF 60 to 65%, moderate concentric LVH, dense posterior MAC, mild to moderate MS, moderate to severe MR with peak/mean gradients 18/7 mmHg, #26 Boc[place]ra AMINA TAVR with peak/mean gradient 17/9 mmHg
Echo 11/14/2024: Definity used, EF 35 to 40%, global hypokinesis, moderate to severe MR, moderate TR with moderate pulmonary hypertension, PASP 58 mmHg, status post TAVR Bocanegra valve, stable and well-seated
Echo 11/29/2024: EF 40%, mild concentric LVH, mild global hypokinesis, paradoxical septal motion, status post TAVR with peak/mean gradient 16/9 mmHg, dense MAC with peak/mean gradients across the mitral valve of 16/9 mmHg, moderate to severe MR,
moderate to severe TR, estimated PAP 79 mmHg
Plan:
- Patient presented with shortness of breath and admitted with acute CHF with proBNP 9800.
- Weight was 195 pounds on admission, now if accurate down to 181 pounds.
- This morning patient noted to complain of dizziness and headache with associated hypotension. Was given 250 cc bolus per primary service
- Holding diuretics today. Cr stable at 1.1
- Prior to last admission patient was taking Lasix 160 mg twice daily, on discharge last admission this was transition to torsemide 20 mg p.o. twice daily. May need to uptitrate outpatient torsemide dosing to maintain euvolemia as outpatient
- EF was 40% by echo 11/29/2024 and this is stable compared to echo from 11/14/2024, but overall down from echo earlier this year when EF was 60 to 65% on 07/13/2024.
- GDMT limited by hypotension. Patient is not a candidate for ALIREZA/ARB/ARNI/aldosterone antagonist due to hypotension. Patient is not a candidate for SGLT2 inhibitor given recent UTI
-in SB on review of tele overnight. continue amio 200mg BID for 1 month then decrease to 200mg daily, toprol 25mg daily, eliquis 5mg BID
-Troponin on admission was 1.71 and trended down thereafter. Patient being treated as a nonischemic myocardial injury troponin elevation.
-DC planning. plan for SNF upon DC
-OP cardiac follow up arranged
-d/w nursing, hospitalist
Progress Note - Car Worker
Subjective
Date of Service: December 04, 2024
Reports some dizziness and headache
Objective
Labs:
12/03/24 03:54
12/04/24 03:15
Labs
Hgb 7.8 g/dL (12.0-16.0) L 12/03/24 03:54
Hct 25.0 % (37.0-47.0) L 12/03/24 03:54
Plt Count 250 10^3/uL (130-400) 12/03/24 03:54
APTT 64.9 Sec (23.4-35.0) H 11/29/24 18:02
Sodium 140 mmol/L (135-145) 12/04/24 03:15
Potassium 3.4 mmol/L (3.5-5.1) L 12/04/24 03:15
BUN 26 mg/dl (7-17) H 12/04/24 03:15
Creatinine 1.1 mg/dL (0.6-1.0) H 12/04/24 03:15
Glucose 94 mg/dl (70-99) 12/04/24 03:15
Vital Signs and I&O:
Vital Signs
Temp Pulse Resp BP Pulse Ox
98.1 F 54 12 91
12/04/24 07:28 12/04/24 08:00 12/04/24 07:28 12/04/24 07:34 12/04/24 07:28
Vital Signs
Temp Pulse Resp BP Pulse Ox
98.1 F 54 12 91
12/04/24 07:28 12/04/24 08:00 12/04/24 07:28 12/04/24 07:34 12/04/24 07:28
Intake & Output
12/02/24 12/03/24 12/04/24 12/05/24
07:59 07:59 07:59 07:59
Intake Total 600 / 600 480 / 480 600 / 600
Output Total 1350 / 1350 1900 / 1900 4070 / 4070
Balance -750 / -750 -1420 / -1420 -3470 / -3470
Physical Exam
Physical Exam
GEN: No distress, awake, alert, oriented x3
HEENT: supple, anicteric, mmm
LUNGS: CTA bilaterally, no wheezes/rales
CV: Reg, S1/S2, 2/6 murmur
ABD: soft, BS+, NT/ND
EXT: No cyanosis, clubbing, edema
NEURO: Gross non-focal
SKIN: Warm, pink, dry. No rash
--- NOTE | 2024-12-04 10:12 | W.PN.HOSP.TC ---
Today's Communication/Plan
-
small IVF bolus for hypotension - asymptomatic - repeat BP 1 pm
Torsemide BID - can resume tomorrow
prn Metolazone
Assessment / Plan
Assessment / Plan
Exam:
Gen-awake, alert, not completely oriented, NAD, masklike faces
HEENT-NC, AT, anicteric, clear oral mm
Neck-supple
CV-reg, no M, +S1/S2
Lungs-clear B/L
Abd-soft, NT, ND
Ext-no edema
Musculoskeletal-no cyanosis, clubbing
Skin-warm and dry
Neuro-grossly non-focal, mild hand tremor
Psych-calm, cooperative
Assessment:
Acute on chronic heart failure reduced EF
- s/p IV Lasix course; continue oral Torsemide 20mg BID
- GDMT: BB. not an SGLT2 candidate. Hypotension precludes ALIREZA/ARB/ARNI.
- Echocardiogram done 11/29 shows normal LV size, LV systolic function mild to moderately reduced with EF 40%. Mild concentric LVH, mild global hypokinesis. Moderate to severe MR. Moderate to severe TR.
Hypokalemia
- replete prn
- mag normal
NSTEMI - medical therapy recommended by cardiology. Heparin transitioned back to Eliquis. Troponin peaked at 1.7.
Paroxysmal atrial fibrillation - now rate controlled on Toprol. Continue Eliquis.
COPD without exacerbation - stable.
Pulmonary hypertension - on sildenafil.
Dementia - unclear if Alzheimer's type versus due to Parkinson's disease.
Essential hypertension -stable.
Hyperlipidemia -on atorvastatin.
GERD
Acute on chronic anemia - hemoglobin 7.8 this morning. Monitor for now. No evidence of bleeding.
Iron panel not entirely consistent with iron deficiency. B12 and folic acid normal. start IV Iron.
She does have a history of iron deficiency anemia. Colonoscopy was noted to be done in September 2020 showing diverticulosis and a single solitary ulcer in the rectum which was biopsied. Internal hemorrhoids were noted.
EGD in September 2020 showed 2 gastric polyps, path report consistent with hyperplastic polyp.
Parkinson's disease - continue Sinemet.
Hypothyroidism - continue current dose levothyroxine. TSH 8.6 but noted to be 1.1 11/13/2024. Elevated free T4, 2.29, would repeat thyroid labs in 3 to 4 weeks.
Obesity due to excess calories
DVT ppx: Eliquis
Code: DNR/DNI
Anticipated Discharge: Today
Subjective/Interval History
-
Date of Service: December 04, 2024
resting comfortaby, no complaints at present
Objective Data
-
Labs:
Laboratory Results
12/04/24
03:15
Sodium 140
Potassium 3.4 L
Chloride 98
Carbon Dioxide 38 H
BUN 26 H
Creatinine 1.1 H
Glucose 94
Calcium 8.9
Vital Signs:
Vital Signs
Temp Pulse Resp BP Pulse Ox
98.1 F 54 12 76/66 91
12/04/24 07:28 12/04/24 08:00 12/04/24 07:28 12/04/24 07:34 12/04/24 07:28
I&O
12/03/24 12/04/24 12/05/24
06:59 06:59 06:59
Intake Total 480 / 480 600 / 600
Output Total 1900 / 1900 4070 / 4070
Balance -1420 / -1420 -3470 / -3470
Data Reviewed
-
Total Time Spent with Patient (in minutes): 41
Labs: Labs Reviewed by me
[2024-12-04] MEDS: LASIX IV (10:28)
[2024-12-04] MEDS: PACERONE 200 MG PO ×2 (11:00→20:06)
[2024-12-04] MEDS: TOPROL XL 25 MG PO (11:00)
[2024-12-04] MEDS: REVATIO 20 MG PO ×3 (11:00→22:35)
[2024-12-04] MEDS: CELEXA 20 MG PO (11:00)
[2024-12-04] MEDS: KLOR-CON 20 MEQ PO (11:01)
[2024-12-04] MEDS: PROTONIX 40 MG PO (11:01)
[2024-12-04] MEDS: MIRALAX PO (11:01)
[2024-12-04] MEDS: ELIQUIS 5 MG PO ×2 (11:01→20:06)
[2024-12-04] MEDS: KCL 20 MEQ PO ×2 (11:01→20:11)
[2024-12-04] MEDS: SINEMET CR 50/200 (EXTENDED RELEASE) 1 TABLET PO ×2 (11:01→20:06)
[2024-12-04] MEDS: NSS 250 IV (11:02)
--- NOTE | 2024-12-04 15:59 | CM ---
pt to be transfered to [facility] tomorrow. [facility] van set up for 430, family is aware.
[2024-12-04] MEDS: FERRLECIT 110 MG IV (17:04)
[2024-12-04] MEDS: FLUSH (NSS) 2 FLUSH IV (17:05)
--- NOTE | 2024-12-04 22:24 | PTCARENOTE ---
Received pt at change of shift OOB in chair. pt stood and pivoted to bed with assistance of rw. SB-SR w/ 1st degree AVB, BBBC on tele, HR 50's-60's. pt denies any CP. pt BACA and orthopneic, sating 97%. Fall risk precautions maintained. pt calls
appropriately. Q2H turn scheduled followed. Encouraged pt to call RN with any questions/concerns. Call martinez within reach.
[2024-12-04] MEDS: LIPITOR 10 MG PO (22:35)
[2024-12-04] MEDS: NEURONTIN 400 MG PO (22:35)
[2024-12-04] MEDS: SINGULAIR 10 MG PO (22:35)
[2024-12-04] MEDS: TYLENOL 650 MG PO (23:19)
[2024-12-05 04:13] VITALS: BP 111/54
[2024-12-05 04:21] VITALS: BMI 31.4
[2024-12-05 05:08] LABS: Blood Urea Nitrogen 22 mg/dl (7-17); Calcium 9.0 mg/dl (8.4-10.2); Carbon Dioxide 37 mmol/L (22-30); Chloride 99 mmol/L (98-107); Estimated Creatinine Clearance 41 ml/min; Glucose 87 mg/dl (70-99); Magnesium 2.1 mg/dl (1.6-2.3); Potassium 3.4 mmol/L (3.5-5.1); Sodium 139 mmol/L (135-145); eGFR 50.17
[2024-12-05] MEDS: SYNTHROID 50 MCG PO (06:06)
[2024-12-05 07:21] VITALS: BP 89/58
[2024-12-05 07:23] VITALS: BP 92/46
--- NOTE | 2024-12-05 07:35 | W.PN.CARDCBS ---
Addendum entered and electronically signed by Dale Dawn MD 12/05/24 10:08:
I saw and examined the patient.
The Cup Setter Lockstitch's note was reviewed and I agree with the note.
Comment:
GEN: No distress, awake
HEENT: supple, anicteric, mmm
LUNGS: CTA, no wheezes/rales
CV: Reg, S1/S2, 1/6 syst LSB, no gallop
ABD: soft, BS+, NT/ND
EXT: No edema
NEURO: + tremor
SKIN: No rash
PLan:
She has diuresed well. Denies shortness of breath.
She remains in sinus rhythm with some occasional bradycardia. We will decrease Toprol to 12.5 mg daily and amiodarone to 200 mg daily. Continue Eliquis.
Will discharge on torsemide 20 mg p.o. twice daily with metolazone as needed. Replete potassium.
Okay for transfer to skilled facility today.
Continue atorvastatin and Sinemet.
Long-term prognosis is poor with Parkinson's disease
Original Note:
Today's Communication / Plan
-
follow BPs
torsemide 20mg BID with metolazone 2.5mg PRN
replete K
BMP in 1 week
decrease toprol to 12.5mg daily. decrease amio to 200mg daily
OP cardiac follow up arranged
planned for DC to SNF today
Impression / Plan
-
Primary Plug Machine Operator: Dr. Dawn
Assessment:
Presentation with SOB
Acute on chronic HFrEF
Elevated troponin
Admission to [facility] 11/12-03/05 for urosepsis/afib
Cardiomyopathy, EF 30-35% by echo 11/2024, suspected tachy mediated, improved a bit to 40% by echo 11/29/2024
Paroxysmal atrial fibrillation
Eliquis OAC
Pulm HTN, on Revatio
Severe status post TAVR 2020
Chronic left bundle branch block
CKD stage III
Hypertension
Hyperlipidemia
Parkinson's disease
Hypothyroidism
GERD
Obesity
Echo 07/13/2024: EF 60 to 65%, moderate concentric LVH, dense posterior MAC, mild to moderate MS, moderate to severe MR with peak/mean gradients 18/7 mmHg, #26 [place] AMINA TAVR with peak/mean gradient 17/9 mmHg
Echo 11/14/2024: Definity used, EF 35 to 40%, global hypokinesis, moderate to severe MR, moderate TR with moderate pulmonary hypertension, PASP 58 mmHg, status post TAVR [place] valve, stable and well-seated
Echo 11/29/2024: EF 40%, mild concentric LVH, mild global hypokinesis, paradoxical septal motion, status post TAVR with peak/mean gradient 16/9 mmHg, dense MAC with peak/mean gradients across the mitral valve of 16/9 mmHg, moderate to severe MR,
moderate to severe TR, estimated PAP 79 mmHg
Plan:
- Patient presented with shortness of breath and admitted with acute CHF with proBNP 9800.
- Weight was 195 pounds on admission, down 12/04 to 181 pounds however then complained of dizziness with associated hypotension. was given 250cc bolus with some improvement. plan for torsemide 20mg BID with metolazone 2.5mg PRN for weight gain, SOB
- Cr stable at 1.1
- replete K
- EF was 40% by echo 11/29/2024 and this is stable compared to echo from 11/14/2024, but overall down from echo earlier this year when EF was 60 to 65% on 07/13/2024.
- Patient is not a candidate for SGLT2 inhibitor given recent UTI and not current candidate for mirna/arb/arni/aldactone given hypotension
- in SB on review of tele overnight. toprol dose decreased to 12.5mg daily. will decrease amiodarone dose to 200mg daily.
- Troponin on admission was 1.71 and trended down thereafter. Patient being treated as a nonischemic myocardial injury troponin elevation.
- plan for SNF, likely today
- OP cardiac follow up arranged
- d/w nursing
Progress Note - Plug Machine Operator
Subjective
Date of Service: December 05, 2024
Resting comfortably.
Objective
Labs:
12/03/24 03:54
12/05/24 04:20
Labs
Hgb 7.8 g/dL (12.0-16.0) L 12/03/24 03:54
Hct 25.0 % (37.0-47.0) L 12/03/24 03:54
Plt Count 250 10^3/uL (130-400) 12/03/24 03:54
APTT 64.9 Sec (23.4-35.0) H 11/29/24 18:02
Sodium 139 mmol/L (135-145) 12/05/24 04:20
Potassium 3.4 mmol/L (3.5-5.1) L 12/05/24 04:20
BUN 22 mg/dl (7-17) H 12/05/24 04:20
Creatinine 1.1 mg/dL (0.6-1.0) H 12/05/24 04:20
Glucose 87 mg/dl (70-99) 12/05/24 04:20
Vital Signs and I&O:
Vital Signs
Temp Pulse Resp BP Pulse Ox
97.8 F 49 16 92/46 95
12/05/24 07:19 12/05/24 07:23 12/05/24 07:19 12/05/24 07:23 12/05/24 07:19
Vital Signs
Temp Pulse Resp BP Pulse Ox
97.8 F 49 16 92/46 95
12/05/24 07:19 12/05/24 07:23 12/05/24 07:19 12/05/24 07:23 12/05/24 07:19
Intake & Output
0812/03/24 12/04/24 12/05/24
07:59 07:59 07:59 07:59
Intake Total 600 / 600 480 / 480 600 / 600 960 / 960
Output Total 1350 / 1350 1900 / 1900 4070 / 4070 200 / 200
Balance -750 / -750 -1420 / -1420 -3470 / -3470 760 / 760
Physical Exam
Physical Exam
GEN: No distress, awake, alert, oriented x3
HEENT: supple, anicteric, mmm
LUNGS: CTA bilaterally, no wheezes/rales
CV: Reg and luz, S1/S2, 2/6 murmur
ABD: soft, BS+, NT/ND
EXT: No cyanosis, clubbing, edema
NEURO: Gross non-focal
SKIN: Warm, pink, dry. No rash
--- NOTE | 2024-12-05 07:51 | PTCARENOTE ---
Assumed care of pt from prev nsg shift; Pt AAOx3, mildly drowsy, but easily arousable. Pt w/no c/o CP or SOB. Pt's VSS w/HR in the 50's & BP 92/46 this AM. Pt is SB w/1st deg AV block & L BBB on telemetry monitoring. Pt anticipating D/C this
afternoon. Pt w/call martinez within reach & no addtl needs at this time. Plan of care ongoing.
[2024-12-05] MEDS: ELIQUIS 5 MG PO (10:34)
[2024-12-05] MEDS: PACERONE 200 MG PO (10:34)
[2024-12-05] MEDS: CELEXA 20 MG PO (10:34)
[2024-12-05] MEDS: PROTONIX 40 MG PO (10:34)
[2024-12-05] MEDS: TOPROL XL 12.5 MG PO (10:34)
[2024-12-05] MEDS: SINEMET CR 50/200 (EXTENDED RELEASE) 1 TABLET PO (10:34)
[2024-12-05] MEDS: REVATIO 20 MG PO ×2 (10:34→15:08)
[2024-12-05] MEDS: KCL 20 MEQ PO (10:34)
[2024-12-05] MEDS: MIRALAX PO (10:35)
--- NOTE | 2024-12-05 10:49 | W.PN.HOSP.TC ---
Today's Communication/Plan
-
dc to SNF
Assessment / Plan
Assessment / Plan
Exam:
Gen-awake, alert, not completely oriented, NAD, masklike faces
HEENT-NC, AT, anicteric, clear oral mm
Neck-supple
CV-reg, no M, +S1/S2
Lungs-clear B/L
Abd-soft, NT, ND
Ext-no edema
Musculoskeletal-no cyanosis, clubbing
Skin-warm and dry
Neuro-grossly non-focal, mild hand tremor
Psych-calm, cooperative
Assessment:
Acute on chronic heart failure reduced EF
- s/p IV Lasix course; continue oral Torsemide 20mg BID
- GDMT: BB. not an SGLT2 candidate. Hypotension precludes ALIREZA/ARB/ARNI.
- Echocardiogram done 11/29 shows normal LV size, LV systolic function mild to moderately reduced with EF 40%. Mild concentric LVH, mild global hypokinesis. Moderate to severe MR. Moderate to severe TR.
Hypokalemia
- replete prn
- mag normal
NSTEMI - medical therapy recommended by cardiology. Heparin transitioned back to Eliquis. Troponin peaked at 1.7.
Paroxysmal atrial fibrillation - now rate controlled on Toprol and Amiodarone. Continue Eliquis.
COPD without exacerbation - stable.
Pulmonary hypertension - on sildenafil.
Dementia - unclear if Alzheimer's type versus due to Parkinson's disease.
Essential hypertension - stable.
Hyperlipidemia - on atorvastatin.
GERD
Acute on chronic anemia - hemoglobin 7.8 this morning. Monitor for now. No evidence of bleeding.
Iron panel not entirely consistent with iron deficiency. B12 and folic acid normal. start IV Iron.
She does have a history of iron deficiency anemia. Colonoscopy was noted to be done in September 2020 showing diverticulosis and a single solitary ulcer in the rectum which was biopsied. Internal hemorrhoids were noted.
EGD in September 2020 showed 2 gastric polyps, path report consistent with hyperplastic polyp.
Parkinson's disease - continue Sinemet.
Hypothyroidism - continue current dose levothyroxine. TSH 8.6 but noted to be 1.1 11/13/2024. Elevated free T4, 2.29, would repeat thyroid labs in 3 to 4 weeks.
Obesity due to excess calories
DVT ppx: Eliquis
Code: DNR/DNI.
More than 30 minutes spent in discharge including
Final examination of the patient
Summarizing hospital stay
Instructions for continuing care to all relevant caregivers
Preparation of discharge records, prescriptions, and referral forms
Total time spent (in minutes): 41
Anticipated Discharge: Today
Subjective/Interval History
-
Date of Service: December 05, 2024
resting comfortably
Objective Data
-
Labs:
Laboratory Results
12/05/24
04:20
Sodium 139
Potassium 3.4 L
Chloride 99
Carbon Dioxide 37 H
BUN 22 H
Creatinine 1.1 H
Glucose 87
Calcium 9.0
Vital Signs:
Vital Signs
Temp Pulse Resp BP Pulse Ox
97.8 F 49 16 92/46 95
12/05/24 07:19 12/05/24 07:23 12/05/24 07:19 12/05/24 07:23 12/05/24 07:19
I&O
12/04/24 12/05/24 12/06/24
06:59 06:59 06:59
Intake Total 600 / 600 960 / 960
Output Total 4070 / 4070 200 / 200
Balance -3470 / -3470 760 / 760
Data Reviewed
-
Total Time Spent with Patient (in minutes): 41
Labs: Labs Reviewed by me
--- NOTE | 2024-12-05 10:54 | W.DCSUMMARY ---
Discharge Summary
Discharge Data
Date of Admission: 11/28/24
Date of Discharge: 12/05/24
-
Pending Results: No
Hospital Course
84 y/o F, hx of CHF, cardiomyopathy and hx of Afib, TAVR, COPD, Pulm HTN presented to ER with chest pain and SOB. Her troponin was elevated - ruling her in for NSTEMI which was medically managed with IV Heparin. She also was found to have acute CHF.
She was given IV diuretics and dropped several pounds of edema weight. Her repeat Echo showed EF 40$ and moderate MR and TR. She was transferred on 12/05 to SNF.
Discharge Plan
-
Patient Disposition: [facility]/SNF
Discharge Diagnosis/Procedures: acute CHF, NSTEMI, A. Fib, hypokalemia
Condition: Fair
Diet: Low Cholesterol, 2 Gram Sodium and Restrict fluids to 48 oz
Activity: As tolerated
Blood Work: BMP/proBNP in 1 week
Other Services: PT and OT
Specialty Instructions: Weigh Daily- Call MD for wt gain/loss 3 lbs overnight/5 lbs in 1 week
Instructions: *[facility] Heart Failure Instructions
Referrals:
Usha Ko PA-C [Specified Professional Personl, Cardiology] - 01/09/25 1:20 pm
Referral Note: You have a cardiology follow up appointment at the [facility] office with Dr. Dawn's Uhsa HARLEY. Please call with questions
Lalit Zayas MD [Family Provider, Family Practice] - in one week
Prescriptions:
New
metoprolol succinate 25 mg Tablet Extended Release 24 Hr
12.5 mg PO DAILY Qty: 30 0RF
metolazone 2.5 mg tablet
2.5 mg PO DAILY PRN (Reason: weight gain >3 lbs) Qty: 20 0RF
Continued
levothyroxine 50 MCG tablet
50 mcg PO DAILY
pantoprazole 40 MG tablet,delayed release (/EC)
40 mg PO DAILY
citalopram 20 MG tablet
20 mg PO DAILY
atorvastatin 10 MG tablet
10 mg PO HS
carbidopa-levodopa 50-200 mg Tablet Extended Release
1 tab PO BID
montelukast 10 mg Tablet
10 mg PO HS
sildenafil (pulm.hypertension) 20 mg tablet
20 mg PO TID
potassium chloride 20 mEq tablet,ER particles/crystals
20 meq PO BID
Eliquis 5 mg Tablet
5 mg PO BID 30 Days Qty: 60 0RF
gabapentin 400 mg Tablet
400 mg PO HS
midodrine 5 mg Tablet
5 mg PO Q4HPRN PRN (Reason: SBP<100) Qty: 30 0RF
amiodarone 200 mg tablet
200 mg PO DAILY Qty: 30 0RF
torsemide 20 mg tablet
20 mg PO BID Qty: 30 0RF
acetaminophen [Tylenol] 325 mg Tablet
650 mg PO Q6HPRN PRN (Reason: MILD PAIN)
magnesium hydroxide [Milk of Magnesia] 400 mg/5 mL Suspension
2,400 mg PO [id number] PRN (Reason: CONSTIPATION)
bisacodyl [Dulcolax (bisacodyl)] 10 mg Suppository
10 mg MI DAILYPRN PRN (Reason: IF NO BM AFTR MOM)
Fleet Enema 19-7 gram/118 mL Enema
118 ml MI DAILYPRN PRN (Reason: IF NO BM AFTR DULCOLAX)
Discontinued
metoprolol succinate 25 mg Tablet Extended Release 24 Hr
25 mg PO DAILY Qty: 30 0RF
Discharge Orders:
Discharge Patient (As Directed); Ordered 12/05/24
Ordered By: Shiloh Lombardo
Care Plan Goals
Care Plan Goals:
Problem: Readiness for enhanced knowledge related to diagnosis and treatment plan
Goal: Understand your diagnosis and treatment plan needs, including medications if applicable.
Instructions: Know your diagnosis, underlying causes and treatment plan options, including medications if applicable. Consult with your health care team to learn about your diagnosis and treatment plan, including medications if applicable.
Discharge Date and Time
Print Language: MONEGASQUE
[2024-12-05 11:29] VITALS: BP 94/59
--- NOTE | 2024-12-05 12:46 | CM ---
pt to go to [facility] today via [employer] van, son is ok with cost of [employer] van
[2024-12-05] MEDS: FERRLECIT 110 MG IV (15:08)
[2024-12-05] MEDS: FLUSH (NSS) 1 FLUSH IV (15:08)
[2024-12-05 15:18] VITALS: BP 78/42
[2024-12-05 16:00] VITALS: BP 112/60
== END 2024-12-05 17:42 | DRG 280 ==
LOC: IVU 23:51
PROVIDERS: Hospitalist; Nurse Practitioner Gerontology; Physician Assistant; Registered Nurse; ADMITTING PHYSICIAN Internal Medicine; ATTENDING PHYSICIAN Internal Medicine; EMERGENCY PHYSICIAN Student in an Organized Health Care Education/Training Program; FAMILY PHYSICIAN Family Medicine; OTHER PHYSICIAN Internal Medicine Cardiovascular Disease
DX: I21.4 Non-ST elevation (NSTEMI) myocardial infarction (principal); I50.23 Acute on chronic systolic (congestive) heart failure; I13.0 Hypertensive heart and chronic kidney disease with heart failure and stage 1 through stage 4 chronic kidney disease, or unspecified chronic kidney disease; I42.8 Other cardiomyopathies; I48.0 Paroxysmal atrial fibrillation; N18.30 Chronic kidney disease, stage 3 unspecified; I44.7 Left bundle-branch block, unspecified; E03.9 Hypothyroidism, unspecified; E78.00 Pure hypercholesterolemia, unspecified; J44.89 Other specified chronic obstructive pulmonary disease; I27.20 Pulmonary hypertension, unspecified; G20.A1 Parkinson's disease without dyskinesia, without mention of fluctuations; D50.9 Iron deficiency anemia, unspecified; I25.10 Atherosclerotic heart disease of native coronary artery without angina pectoris; L89.321 Pressure ulcer of left buttock, stage 1; L89.311 Pressure ulcer of right buttock, stage 1; K59.00 Constipation, unspecified; E87.6 Hypokalemia; E66.09 Other obesity due to excess calories; I34.0 Nonrheumatic mitral (valve) insufficiency; F03.90 Unspecified dementia, unspecified severity, without behavioral disturbance, psychotic disturbance, mood disturbance, and anxiety; I44.0 Atrioventricular block, first degree; K21.9 Gastro-esophageal reflux disease without esophagitis; R09.02 Hypoxemia; I49.40 Unspecified premature depolarization; Z60.2 Problems related to living alone; Z66 Do not resuscitate; Z96.653 Presence of artificial knee joint, bilateral; Z87.891 Personal history of nicotine dependence; Z87.440 Personal history of urinary (tract) infections; Z88.2 Allergy status to sulfonamides; Z88.8 Allergy status to other drugs, medicaments and biological substances; Z79.890 Hormone replacement therapy; Z68.31 Body mass index [BMI] 31.0-31.9, adult; Z87.11 Personal history of peptic ulcer disease; Z79.01 Long term (current) use of anticoagulants
CPT/HCPCS: 71046; 80048; 80053; 80061; 82607; 82728; 82746; 83540; 83550; 83735; 83880; 84100; 84439; 84443; 84484; 85014; 85018; 85025; 85027; 85045; 85730; 87070; 93005; 93308; 93321; 93325; 94640; 97163; 97167; 97530; 97535; J2916; Q9950

== ENCOUNTER 2024-12-07 23:56 | Observation (INO) | payer MEDICARE, OTHER, SELFPAY ==
[2024-12-07 20:43] VITALS: BP 91/57
[2024-12-07 21:06] VITALS: BP 95/53
[2024-12-07 21:07] LABS: Hematocrit 30.4 % (37.0-47.0); Hemoglobin 9.5 g/dL (12.0-16.0); Mean Corp Hgb Conc. 31.3 g/dL (33.0-37.0); Mean Corpuscular Volume 88.4 fL (81.0-99.0); Nucleated Red Blood Cells % 0 %; Platelet Count 286 10^3/uL (130-400); Red Cell Dist. Width 16.1 % (11.5-14.5)
[2024-12-07 21:31] LABS: ALT (SGPT) 13 U/L (0-35); AST (SGOT) 25 U/L (14-36); Albumin 3.5 g/dl (3.5-5.0); Alkaline Phosphatase 95 U/L (38-126); Blood Urea Nitrogen 26 mg/dl (7-17); Calcium 9.6 mg/dl (8.4-10.2); Carbon Dioxide 36 mmol/L (22-30); Chloride 98 mmol/L (98-107); Glucose 112 mg/dl (70-99); Potassium 3.3 mmol/L (3.5-5.1); Sodium 139 mmol/L (135-145); Total Protein 6.4 g/dl (6.3-8.2); eGFR 41.06
[2024-12-07 21:32] LABS: Troponin I 0.987 ng/ml
[2024-12-07 22:00] VITALS: BP 94/49
--- NOTE | 2024-12-07 22:19 | ED.GENMED ---
History of Present Illness
General
Chief Complaint: Cardiac Symptoms
Source: patient and family
Exam Limitations: clinical condition
Time Seen by Provider: 12/07/24 21:31
History of Present Illness
History of Present Illness:
Note:
CHIEF COMPLAINT(S)
Chest pain and elevated cardiac enzyme levels.
HISTORY OF PRESENT ILLNESS
The patient is an 84-year-old female with a significant history of atrial fibrillation and congestive heart failure, who was admitted with chest pain and elevated troponin levels. Onset of the chest pain was around 3 a.m., which was treated with
nitroglycerin, resulting in pain relief within approximately two hours, but accompanied by a headache. The family reports a history of atrial fibrillation treated previously with medication and an iron-deficiency anemia treated with iron
supplements. The patient was recently discharged from the hospital after receiving treatment for atrial fibrillation, including cardioversion, and was switched from apixaban (Eliquis) to heparin during hospitalization.
The patient reported chest pain during the night, which resolved with nitroglycerin. However, she subsequently experienced headache, treated initially with acetaminophen and then ibuprofen. No further complaints of chest pain were noted since the
initial episode. Elevated troponin levels at 3 a.m. were communicated, raising concerns for possible myocardial infarction, although her most recent troponin was 0.9 ng/mL.
PAST MEDICAL AND SURIGICAL HISTORY
Her past medical history includes a prior history of atrial fibrillation, iron-deficiency anemia, chronic heart failure, and the presence of a mechanical heart valveRomeo gilliam
ADDITIONAL HISTORY OBTAINED FROM SOURCES OTHER THAN THE PATIENT
Information was provided primarily by the patients son. According to him, the patient had elevated cardiac enzyme levels communicated by medical staff during the night, which prompted the decision for further medical evaluation.
CHRONIC MEDICAL CONDITIONS SIGNIFICANTLY AFFECTING CARE
- Atrial Fibrillation
- Congestive Heart Failure
- History of Iron-Deficiency Anemia
SOCIAL HISTORY
The patient previously had a rectal ulcer and underwent a colonoscopy. They are currently on a regimen involving anticoagulants and diuretics. The family notes a balance in management between diuretics and renal function is crucial.
PHYSICAL EXAM
General: Alert, no acute distress.
Skin: Warm, dry.
Head: Normocephalic, atraumatic.
Neck: Supple, trachea midline.
Eye, ears, nose, mouth and throat: Oral mucosa moist.
Cardiovascular: Heart rate is bradycardic at 50 beats per minute, blood pressure recorded at 95/50 mmHg, heart rhythm is regular, no edema noted.
Respiratory: Lungs clear. Respirations are non-labored.
Gastrointestinal: Abdomen nondistended.
Back: Normal range of motion, Normal alignment.
Musculoskeletal: Normal ROM, normal strength.
Neurological: Alert and oriented to person.
Psychiatric: Cooperative, appropriate mood & affect.
PROBLEM LIST
Acute Problems:
- Chest pain with elevated cardiac enzymes.
- Headache following nitroglycerin treatment.
Chronic Problems:
- Atrial Fibrillation
- Congestive Heart Failure
- Mechanical Heart Valve
PLAN
The plan involves keeping the patient for cardiology consultation to evaluate potential coronary artery disease and consider the necessity for cardiac catheterization. Medications will be reviewed, particularly the use of anticoagulation therapy
with apixaban (Eliquis) versus heparin. Fluid and electrolyte management will be reassessed regarding the patients diuretic regimen (such as furosemide). Emphasis will be placed on balancing the need for stroke prophylaxis with the risk of bleeding.
The patients response to medications will be monitored closely, especially regarding symptoms of heart failure and hypertension.
DIFFERENTIAL DIAGNOSIS
The Differential Diagnosis includes, in no particular order and is not limited to:
1. Myocardial Infarction
2. Acute Coronary Syndrome
3. Angina Pectoris
4. Heart Failure Exacerbation
5. Atrial Fibrillation Recurrence
6. Cardiac Arrhythmias
7. Gastroesophageal Reflux Disease
8. Anemia-related Chest Pain
9. Thromboembolic Event
10. Sequelae of Hypertension
EKG
My independent EKG interpretation is:
- Rhythm: Sinus bradycardia
- Heart rate: 57 bpm
- Intervals: First-degree AV block
- [place]: Left axis deviation
- Abnormalities: Left bundle branch block
- Baseline: Poor baseline due to patients history of Parkinsons disease
Disposition:
SUMMARY OF ENCOUNTER
The patient is an 84-year-old female with a history of atrial fibrillation and congestive heart failure, who presented to the emergency department after experiencing chest pain in the middle of the night, but current complaints have resolved. The
initial episode of chest pain was treated with nitroglycerin at home, leading to relief. Her outpatient lab results showed an elevated troponin level. She is on apixaban (Eliquis) at home and did take her evening dose before presenting to the ED.
During a recent admission, her troponin level was 1.3 ng/mL, and it is now recorded at 0.987 ng/mL, which raises questions regarding it being a continuing elevation or a new rise after a decrease. Given her history of chest pain and elevated
troponin, the decision is made to observe her for a cardiology evaluation.
ASSESSMENT
Chest pain with a history of elevated cardiac enzymes, likely myocardial strain requiring further cardiological assessment.
EMERGENCY TREATMENTS ADMINISTERED
One dose of aspirin was administered pending cardiology evaluation.
INDEPENDENT REVIEW OF LABS AND INTERPRETATION OF TESTS
My independent review of troponin indicates the current level is 0.987 ng/mL, which is noted to have been higher (1.3 ng/mL) in a recent admission.
My independent review of CBC shows hemoglobin is 9.5 g/dL, which is up from 7.8 g/dL on December 03.
My independent review of electrolytes shows mild hypokalemia with potassium at 3.3 mEq/L and creatinine at 1.3 mg/dL, up from a baseline of 1.1 mg/dL.
My independent review of LFTs is normal.
My independent review of BNP shows a level of 30,000, down from 9,500.
PLAN
Monitor the patient under observation for cardiology evaluation. Repeat the troponin test to determine the trend in enzyme levels. Continue current anticoagulation therapy with apixaban. Further assessments for any myocardial ischemia or strain will
be guided by cardiology.
MEDICATION RECONCILIATION
Administered: Aspirin was given as a single dose.
MEDICAL DECISION MAKING
- Chronic conditions affecting care: Atrial Fibrillation, Congestive Heart Failure, (presence of) Mechanical Heart Valve.
- Data:
Category 1:
- Clinical information was obtained from an independent historian (the patients family member present).
- My independent interpretation of the EKG showed sinus bradycardia, a first-degree AV block, left axis deviation, left bundle branch block, and poor baseline due to Parkinson�s disease.
Category 2:
- Historical input from the patients family and previous hospitalization records regarding troponin levels and current medication.
Category 3:
- Discussion of management pending cardiological evaluation with respect to ongoing complaints and adjustments to her medications.
-Risk:
- Prescription medication was considered, but ultimately not given after discussion with patient/family. The patient was already premedicated with apixaban (Eliquis).
DIAGNOSIS
- Chest pain, unspecified (ICD-10: R07.9)
- Elevated cardiac enzymes (myocardial strain, unspecified if myocardial infarction, ICD-10: I11.9)
- history of paroxysmal Atrial fibrillation, unspecified (ICD-10: I48.91)
- Congestive heart failure, unspecified (ICD-10: I50.9)
Past History
Past History
ED Past Medical History: Arrthythmia, CHF, COPD, GERD, Hypercholesterolemia, Valvular disease and Hypothyroidism
ED Past Surgical History: Cardiac and Orthopedic (Bunionectomy, bilateral knee replacement, right rotator cuff, back surgeries 2012, 2013)
Social History
Tobacco: Former smoker
Alcohol: None
Drug: None
Personal:
Living: alone
Employment: Employed
Family History
Family History: Other (Noncontributory)
Phy Exam
Physical Exam
Physical Exam:
.
Course
Orders/Labs/Results
Orders:
Orders
12/07/24 20:49
ECG [Electrocardiogram (*1)] Urgent
Reason for Study: Chest Pain
EKG- Treatment ONCE
12/07/24 20:54
Complete Blood Count/With Diff Urgent
Comprehensive Metabolic Panel Urgent
NT-proBNP Urgent
Troponin I Urgent
12/07/24 22:27
Aspirin 325 mg PO NOW STA
12/07/24 23:03
Potassium Chloride 10% Elixir [KCl Elixir] 40 meq PO NOW STA
12/07/24 23:05
Admit/Transfer Patient As Directed
Co-Sign Provider:
Level of Care: Observation services
Assign to:: Telemetry
Physician / Group: mina,fitz
Diagnosis: chest pain
Reason for Telemetry: Chest Pain syndromes
Date to Stop Telemetry: 12/09/24
Time to Stop Telemetry: 11:00
12/07/24 23:06
PRN Pain Medication Management As Directed
May give lesser potent ordered pain med per pt: Yes
preference::
Protocol:: Medication orders for pain may be administered in a
manner that supports deferring to patient preference
when the pt is:
- Requesting an ordered lesser potent pain medication.
Least to most potent pain medications are defined
as: acetaminophen < NSAID < tramadol < opioids
(morphine, oxycodone, hydromorphone).
- Requesting a lesser dose of the same medication IF
ORDERED.
- Requesting a less intrusive route of administration
if both routes are prescribed by the provider (PO <
IV).
12/07/24 23:07
Code Status As Directed
Resuscitation Status: Do not resuscitate
Reached after discussion with pt or family/Healthcare POA: Yes
12/07/24 23:08
DNR Bracelet Application ONCE
12/07/24 23:50
Troponin I Urgent
12/08/24 01:05
Electrocardiogram (*1) Q6H
Reason for Study: Chest Pain
Comment: at admission and Q3H for total of 3, to be done with each troponin
Troponin I Q3H
Comment: at admit & Q3H for 3 total including ED draws, obtain ECG with each level
Carbidopa/Levodopa Cr [Sinemet Cr 50/200 (Extended Release)] 1 tablet PO BID
Midodrine [ProAmatine] 5 mg PO Q4HPRN PRN SBP<100
12/08/24 01:05
CARDIOLOGY CONSULT Routine
Consulting Provider: Sue Denny
Was physician already notified: No
Reason for consult: chest pain
Consult Notification Routine
Specialty to Notify: Cardiology
Glycohemoglobin (HgbA1c) Routine
Activity As Directed
Activity Level: As Tolerated
INT (Intravenous Needle Therapy) As Directed
Comment: maintain peripheral IV access
Intake/ Output As Directed
Frequency: Per unit guidelines
Vital Signs As Directed
Frequency: q4h
Weight As Directed
Frequency: Daily
Ot Eval And Treat Routine
Pt Eval And Treat Routine
Activity Level: As Tolerated
12/08/24 01:15
Apixaban [Eliquis] 5 mg PO BID
12/08/24 02:00
Metolazone [Zaroxolyn] 2.5 mg PO TuTh
12/08/24 04:05
Troponin I Q3H
Comment: at admit & Q3H for 3 total including ED draws, obtain ECG with each level
12/08/24 Breakfast
Cholesterol Lowering
Cholesterol Lowering: Sodium, 2 Gram
Basic Metabolic Panel IN AM
Cardiovascular Evaluation IN AM
Complete Blood Count/No Diff IN AM
Levothyroxine [Synthroid] 50 mcg PO DAILY @ 0600
12/08/24 07:05
Electrocardiogram (*1) Q6H
Reason for Study: Chest Pain
Comment: at admission and Q3H for total of 3, to be done with each troponin
Troponin I Q3H
Comment: at admit & Q3H for 3 total including ED draws, obtain ECG with each level
12/08/24 08:00
Amiodarone [Pacerone] 200 mg PO DAILY
Citalopram [Celexa] 20 mg PO DAILY
Metoprolol Xl [Toprol Xl] 12.5 mg PO DAILY
Pantoprazole [Protonix] 40 mg PO DAILY
Potassium Chloride [KCl] 20 meq PO BID
Sildenafil Citrate [Revatio] 20 mg PO TID
Torsemide [Demadex] 20 mg PO BID
12/08/24 13:05
Electrocardiogram (*1) Q6H
Reason for Study: Chest Pain
Comment: at admission and Q3H for total of 3, to be done with each troponin
12/08/24 22:00
Atorvastatin [Lipitor] 10 mg PO HS
Gabapentin [Neurontin] 400 mg PO HS
Montelukast Sodium [Singulair] 10 mg PO HS
12/09/24 11:00
DC Protocol for Telemetry ONCE
Abnormal Lab Results
12/07/24 12/07/24
20:54 23:50
RBC 3.44 L 10^6/uL
(4.20-5.40)
Hgb 9.5 L D g/dL
(12.0-16.0)
Hct 30.4 L %
(37.0-47.0)
MCHC 31.3 L g/dL
(33.0-37.0)
RDW 16.1 H %
(11.5-14.5)
Absolute Monos (auto) 0.7 H 10^3/uL
(0.1-0.6)
Monocytes % 10.7 H %
(1.7-9.3)
Potassium 3.3 L mmol/L
(3.5-5.1)
Carbon Dioxide 36 H mmol/L
(22-30)
BUN 26 H mg/dl
(7-17)
Creatinine 1.3 H mg/dL
(0.6-1.0)
Glucose 112 H mg/dl
(70-99)
Troponin I 0.987 H* ng/ml 0.848 H* ng/ml
12/07/24 20:54
12/07/24 20:54
Vital Signs
Initial and Last Documented VS:
Initial Vital Signs
Temp Pulse Resp BP Pulse Ox
98.5 F 56 16 91/57 95
12/07/24 20:43 12/07/24 20:43 12/07/24 20:43 12/07/24 20:43 12/07/24 20:43
Last Documented Vital Signs
Temp Pulse Resp BP Pulse Ox
97.7 F 65 16 117/62 93
12/08/24 01:22 12/08/24 01:22 12/08/24 01:22 12/08/24 01:22 12/08/24 01:22
*Pulse Oximetry
SaO2: 92
Oxygen Mode of Delivery: Room air
Patient hypoxic: yes
*Critical Care Note
Total Time (30-74mins, 75-104mins- exclusive of procedures): Not Applicable
ED Attending Note
-
Portions of this chart may have been created with voice recognition software.� Occasional wrong word or��sound alike� substitutions may have occurred due to the inherent limitations of voice recognition software.
Discharge Plan
Departure
Patient Disposition: Admit
Date of Disposition: 12/07/24
Time of Disposition: 22:25
Admit to: Telemetry
Presentation/result/management discussed w/ accepting MD/DO: Hospitalist
Discharge Problem:
Unstable angina, Parkinson disease
Interventions
Interventions:
*Risk Screen - Suicide Last Done: 12/07/24 21:13
*General Assessment Last Done: 12/07/24 21:13
*Neglect/Abuse Screening Last Done: 12/07/24 21:13
*ED- Fall Risk Assessment Last Done: 12/07/24 21:13
*ED COVID-19 Vaccine History Last Done: 12/07/24 21:13
*Nursing Disposition Last Done: 12/08/24 01:11
ED- Pulmonary Assessment Last Done: 12/07/24 21:12
ED- Cardiac Assessment Last Done: 12/07/24 21:12
Discharge Date and Time
Discharge Date/Time: 12/08/24 01:11
--- NOTE | 2024-12-07 22:42 | HPS.HSE ---
Family Physician
-
Family Physician: Chetna [place]
Chief Complaint
-
Chest pain
History of Present Illness
84-year-old female with a significant history of atrial fibrillation and congestive heart failure presented to us with chest pain. at present she denied chest pain and sob. at present she is not able to provide meaningful story. she is sleepy,
easily arousable but falls sleep right away.
upon arrival noted elevated trop, EKG with Sinus Luz with 1st degree block. patient received asa in ER. admitting for further management.
Medical History
Past Medical History
Past Medical History: Reports Other
Additional Past Medical History:
Spinal stenosis, hypertension, radiculopathy, hypothyroidism, PAF, GERD, Raynaud's, H. pylori, hyperlipidemia, palpitation, mitral regurgitation, colon polyps, aortic sclerosis, PVCs, murmur pancreatic cyst nonobstructive CAD, anxiety pericardial
effusion, diverticulosis, chronic CHF, dementia, lung nodule, PE, Parkinson's
Past Surgical History: Reports Other
Additional Past Surgical History:
Abdominoplasty, knee replacement, TAVR, laminectomy, right rotator cuff repair, bilateral knee replacement, left bunionectomy, right shoulder replacement
Social History
Unable to obtain full social history at this time due to: Acuity
Family History
Family History: Not pertinent
Allergies / Home Medications
Allergies reflects when Allergies were last updated in [facility].
Home Medications with original date entered in [facility]
Allergy/Medication List:
Allergies
Allergy/AdvReac Type Severity Reaction Status Date / Time
ALIREZA Inhibitors Allergy cough Verified 12/07/24 20:48
nifedipine (From Procardia) Allergy Unknown Verified 12/07/24 20:48
Sulfa (Sulfonamide Allergy CHILDHOOD Verified 12/07/24 20:48
Antibiotics)
sulfisoxazole Allergy CHILDHOOD Verified 12/07/24 20:48
Home Medications
levothyroxine 50 mcg tablet 50 mcg PO DAILY Thyroid 09/24/16
pantoprazole 40 mg tablet,delayed release 40 mg PO DAILY Gastrointestinal Issue 09/24/16
citalopram 20 mg tablet 20 mg PO DAILY depression 02/21/20
atorvastatin 10 mg tablet 10 mg PO HS High cholesterol 06/04/21
carbidopa ER 50 mg-levodopa 200 mg tablet,extended release 1 tab PO BID [place]IN[place] 03/17/23
montelukast 10 mg tablet 10 mg PO HS asthma 03/17/23
potassium chloride 20 mEq tablet,extended release(part/cryst) 20 meq PO BID Electrolyte Repletion 10/11/23
sildenafil (pulm.hypertension) 20 mg tablet 20 mg PO TID pulmonary hypertension 10/11/23
apixaban 5 mg tablet (Eliquis) 5 mg PO BID 30 days #60 tabs 07/14/24
gabapentin 400 mg tablet 400 mg PO HS Neurological Condition 11/12/24
amiodarone 200 mg tablet 200 mg PO DAILY #30 tabs 11/19/24
midodrine 5 mg tablet 5 mg PO Q4HPRN PRN SBP<100 #30 tabs 11/19/24
torsemide 20 mg tablet 20 mg PO BID #30 tabs 11/19/24
acetaminophen 325 mg tablet (Tylenol) 650 mg PO Q6HPRN PRN MILD PAIN 11/28/24
bisacodyl 10 mg rectal suppository (Dulcolax (bisacodyl)) 10 mg NE DAILYPRN PRN IF NO BM AFTR MOM 11/28/24
magnesium hydroxide 400 mg/5 mL oral suspension (Milk of Magnesia) 2,400 mg PO [id number] PRN CONSTIPATION 11/28/24
sodium phosphates 19 gram-7 gram/118 mL enema (Fleet Enema) 118 ml NE DAILYPRN PRN IF NO BM AFTR DULCOLAX 11/28/24
metoprolol succinate 25 mg tablet,extended release 24 hr 12.5 mg (1/2 x 25 mg) PO DAILY #30 tabs 12/05/24
metolazone 2.5 mg tablet 2.5 mg PO USEASDIRECTD 12/07/24
Review of Systems
-
Constitutional: Reports No Symptoms
EENT: Reports No Symptoms
Respiratory: Reports No Symptoms
Cardiac: Reports No Symptoms
Abdomen/GI: Reports No Symptoms
: Reports No Symptoms
Musculoskeletal: Reports No Symptoms
Skin: Reports No Symptoms
Neurological: Reports No Symptoms
Endocrine: Reports No Symptoms
Hematologic/Lymphatic: Reports No Symptoms
Psych: Reports No Symptoms
Physical Exam
Vital Signs
Vital Signs
Temp Pulse Resp BP Pulse Ox
98.5 F 52 11 94/49 92
12/07/24 20:43 12/07/24 22:17 12/07/24 22:00 12/07/24 22:00 12/07/24 22:20
Physical Exam
General: Well Developed, Well Nourished and No Apparent Distress
HEENT: NormoCephalic, Moist mucous membranes and Atraumatic
Respiratory: Clear
Cardiac: S1/S2 and Regular Rhythm; No Murmur or Rub
GI: Soft, Non Tender, Non Distended and Normal Bowel Sounds; No Organomegaly
Rectal: Deferred by Provider
Musculoskeletal: No Clubbing, No Cyanosis and No Edema
Skin: No Rash
Neuro: AO x 3 and Nonfocal/grossly intact
Psych: Calm
Laboratory Results
-
12/07/24 20:54
12/07/24 20:54
Laboratory Results
Total Bilirubin 0.9 mg/dl (0.2-1.3) 12/07/24 20:54
AST 25 U/L (14-36) 12/07/24 20:54
ALT 13 U/L (0-35) 12/07/24 20:54
Alkaline Phosphatase 95 U/L (38-126) 12/07/24 20:54
Troponin I 0.987 ng/ml H* 12/07/24 20:54
Data Reviewed
-
Lab Data: Labs Reviewed by me
Impression/Plan
-
# Chest pain/elevated Trope rule out NSTEMI
- Continue to trend Trop
-cardiology consulted
-received a dose of asa in Er
-EKG with sinus luz with 1se degree AV block, left bundle branch blcok.
# Anemia of chronic disease
- Hemoglobin stable at 9.5, no active bleeding
- Continue to monitor
# Hypokalemia/CKD stage IIIb
- K3.3
-k elixir in ER
-BMP in am
# Hypotension
-BP soft in ER
-ctm
-midodrine continued
# chronic heart failure reduced EF
- continue oral Torsemide 20mg BID
- strict I&O,daily weight
- Echocardiogram done 11/29 shows normal LV size, LV systolic function mild to moderately reduced with EF 40%. Mild concentric LVH, mild global hypokinesis. Moderate to severe MR. Moderate to severe TR.
#Paroxysmal atrial fibrillation - HR in low 50's. Toprol and Amiodarone with hold parameter. Continue Eliquis.
#COPD without exacerbation - stable.
#Pulmonary hypertension - on sildenafil.
#Dementia - unclear if Alzheimer's type versus due to Parkinson's disease.
#Essential hypertension - stable.
#Hyperlipidemia - on atorvastatin.
#GERD
#Parkinson's disease - continue Sinemet.
#Hypothyroidism - continue current dose levothyroxine.
#Obesity due to excess calories
#DVT ppx: Eliquis
#Code: DNR/DNI.
[2024-12-07 23:00] VITALS: BP 105/53
--- NOTE | 2024-12-07 23:00 | W.PN.UPDATE ---
Update Note
Progress Note Update
I could not get any information from the patient has cognitve disorder �
Information gathered by chart review and speaking with the ER staff.
This note serves as an addendum to the H&P by bander operator SHIRA�
Faviola DORIE�
HPI
84F HX chr HFmEF with LVEF 40 %, tachyardia mediated cardiomyopathy , HX Afib, TAVR, COPD, Pulm HTN, PKDz seen at ER:
- pw CP trending down rcently peaked troponin levels
- onset of the chest pain was around 3 a.m., which was treated with nitroglycerin, resulting in pain relief within approximately two hours, but accompanied by a headache.
Relevant VS
Temp Pulse Resp BP Pulse Ox
98.5 F 52 11 94/49 92
12/07/24 20:43 12/07/24 22:17 12/07/24 22:00 12/07/24 22:00 12/07/24 22:20
Relevant Data
11/28/24 11/30/24 12/03/24
20:15 00:33 03:54
Hgb 7.8 L
Potassium
Carbon Dioxide
BUN
Creatinine
eGFR
Troponin I 1.360 H*
Jap-L-Rnefxgktucf Pept 9880
12/05/24 12/07/24
04:20 20:54
Hgb 9.5 L D
Potassium 3.3 L
Carbon Dioxide 36 H
BUN 22 H 26 H
Creatinine 1.1 H 1.3 H
eGFR 50.17 41.06
Troponin I 0.987 H*
Fgq-T-Vrgyhevqdau Pept 3810
PE
Gen: no acute distress.
HEENT: anicteric
Neck: supple , no JVD
Lungs: CTA
Cor: RRR, Bradycardic, hypotensive
Abdomen:�NT NG
INDUSTRIAL AERIAL INSTALLER: AAO3 NFND
MS: no edema
Psych:Nl mood and affect
EKG
SINUS BRADYCARDIA WITH 1ST DEGREE A-V BLOCK
LEFT AXIS DEVIATION
LEFT BUNDLE BRANCH BLOCK
ABNORMAL ECG
WHEN COMPARED WITH ECG OF 01-Dec-2024 08:30,
SINUS RHYTHM HAS REPLACED ATRIAL FIBRILLATION
VENT. RATE HAS DECREASED by 34 bpm
11/29/24 TTE
EF 40%, mild concentric LVH, mild global hypokinesis, paradoxical septal motion, status post TAVR with peak/mean gradient 16/9 mmHg, dense MAC with peak/mean gradients across the mitral valve of 16/9 mmHg, moderate to severe MR, moderate to severe
TR, estimated PAP 79 mmHg
Last hospitalist admission: Date of Admission: 11/28/24 - Date of Discharge: 12/05/24
Discharge Diagnosis/Procedures: acute CHF, NSTEMI, A. Fib, hypokalemia
ASSESSMENT & PLAN
CP improved with NTG
Unremarkable EKG for acute ischemia
- trending down recently peaked troponin levels ( TPNI peaked at 1.7.)
- f/u TPNI in am
- [facility] card consult
Chronic HFrEF
- on l Torsemide 20mg BID
- GDMT: BB. not an SGLT2 candidate. Hypotension precludes ALIREZA/ARB/ARNI.
Recent NSTEMI per <del>re</del>cent last admission record
- medical therapy recommended by [facility] cardiology.
- Heparin gtt was transitioned back to Eliquis upm DC
In NSR , SB on BB and Amiodarone
Paroxysmal AF
- on Toprol and Amiodarone.
- on BODY CORPORATE MANAGER Eliquis.
COPD without exacerbation
- stable.
Pulmonary HTN
- on sildenafil.
Hypotensive
Essential hypertension - stable.
Hyperlipidemia
- on atorvastatin.
Chronic anemia
- HX GERD
- HX iron deficiency anemia.
- September 2020 Colonoscopy- diverticulosis and a single solitary ulcer in the rectum which was biopsied. Internal hemorrhoids were noted.
- September 2020 EGD - 2 gastric polyps, path report consistent with hyperplastic polyp.
- No evidence of bleeding.
- last Iron panel not entirely consistent with iron deficiency. B12 and folic acid normal
- s/p IV Iron.
Parkinson's disease
Dementia
- unclear if Alzheimer's type versus due to Parkinson's disease.
- c/w BODY CORPORATE MANAGER Sinemet.
Hypothyroidism
- c/w BODY CORPORATE MANAGER current dose levothyroxine.
Obesity due to excess calories
DVT px: Eliquis
Code: DNR
OBS TLM
[2024-12-07] MEDS: ASPIRIN 325 MG PO (23:44)
[2024-12-08] VITALS (10 sets, daily range): BP systolic 90–133; BP diastolic 42–65; PULSE 59–60; O2SAT 93; BMI 34.6; BMI 33.0; BMI 33.9
[2024-12-08 00:33] LABS: Troponin I 0.848 ng/ml
[2024-12-08] MEDS: SINEMET CR 50/200 (EXTENDED RELEASE) 1 TABLET PO ×3 (01:44→20:34)
[2024-12-08] MEDS: ELIQUIS 5 MG PO ×3 (01:45→20:34)
[2024-12-08] MEDS: KCL 40 MEQ PO (01:45)
[2024-12-08 04:14] LABS: Troponin I 0.731 ng/ml
[2024-12-08 05:26] LABS: Hematocrit 30.2 % (37.0-47.0); Hemoglobin 9.2 g/dL (12.0-16.0); Mean Corp Hgb Conc. 30.5 g/dL (33.0-37.0); Mean Corpuscular Volume 89.3 fL (81.0-99.0); Platelet Count 235 10^3/uL (130-400); Red Cell Dist. Width 16.1 % (11.5-14.5)
[2024-12-08] MEDS: SYNTHROID 50 MCG PO (05:35)
[2024-12-08 05:46] LABS: Blood Urea Nitrogen 27 mg/dl (7-17); Calcium 9.4 mg/dl (8.4-10.2); Carbon Dioxide 39 mmol/L (22-30); Chloride 98 mmol/L (98-107); Estimated Creatinine Clearance 35 ml/min; Glucose 116 mg/dl (70-99); HDL Cholesterol 43 mg/dl; LDL Cholesterol, Calculated 53 mg/dl; Potassium 2.9 mmol/L (3.5-5.1); Sodium 142 mmol/L (135-145); Very Low Density Lipoprotein 17 mg/dl (0-30); eGFR 45.19
[2024-12-08 05:59] LABS: Troponin I 0.693 ng/ml
[2024-12-08 08:16] LABS: Troponin I 0.611 ng/ml
[2024-12-08 08:27] LABS: Potassium 3.1 mmol/L (3.5-5.1)
[2024-12-08 08:54] LABS: Glycohemoglobin (HgbA1c) 5.4 % (4.0-5.6)
--- NOTE | 2024-12-08 09:23 | W.PN.CARDCBS ---
Addendum entered and electronically signed by Helder Wright MD 12/08/24 17:33:
Pleasant 84-year-old woman with multiple comorbidities admitted 12/07/24 with chest pain and troponin of 0.987, proBNP 3810. She had chest pain with relief with nitroglycerin yesterday. However she was sent to the emergency department because of
her troponin which was elevated but trending downward from hospital stay. She had been hospitalized 11/28-12/05 with acute on chronic HFrEF, initial proBNP of 9800. Peak troponin at 11/28/24 admission was 1.7. Overall, troponin has been trending
downward, patient refuses ischemic evaluation
PMH: PAF in sinus rhythm on amiodarone, HFrEF, possibly tachycardia mediated, EF 40% by echo November 29, 2024, Pulmonary hypertension, on sildenafil, TAVR 2020, left bundle branch block, CKD 3, hypertension, hyperlipidemia, Parkinson's,
hypothyroidism, GERD. Hospitalized in early November with urosepsis. EF was 60 to 65% in July
Current medications: Amiodarone 200 mg a day, apixaban 5 mg twice daily, lovastatin 10 mg at bedtime, Sinemet, citalopram 20 mg a day, gabapentin 400 nightly, levothyroxine 50 mcg daily, metolazone 2.5 mg 2 days a week, metoprolol ER 12.5 mg daily,
Singulair, pantoprazole 40 mg a day, potassium 20 mEq twice daily, sildenafil 20 mg 3 times daily, torsemide 20 mg twice daily, potassium 20 mill equivalents daily
No distress, forgetful, son and [id number] at bedside blood pressure 121/64, pulse 60, respiratory rate 18, afebrile, blood pressure as low as 94 systolic, lungs are clear, regular rate and rhythm, MR murmur, JVD okay, not much edema
ECG: Sinus rhythm, AV block, left bundle branch block
Telemetry: Sinus rhythm first-degree AV block left bundle
Hemoglobin is 9.2, white count is 6, had been 7.8 on December 03
Impression:
See below, reviewed in detail and agree unless otherwise specified
Plan:
She had an episode of angina, but was sent to the emergency department for her troponin which is still elevated and to be expected given her recent hospital stay. Family agreed that care strategy should be very conservative, she is not a candidate
for stress testing, interventions, etc.
Ranexa may be problematic given amiodarone, nitrates should be avoided given that she is on sildenafil.
Will add amlodipine 2.5 mg daily.
Unless further issues, would favor transfer back to nursing facility tomorrow.
Original Note:
Today's Communication / Plan
-
Replete K+
Downward trending troponin -continue conservative approach/medical therapy. Patient and family declines ischemic evaluation
Continue Eliquis, Toprol, statin
Continue torsemide 20 mg twice a day orally
Could consider Ranexa but not ideal candidate for isosorbide
Impression / Plan
-
Family Physician: Chetna [place]
Primary Dance Teacher: Dr. Dawn
Please refer to consultation note 11/29/2024 for full H&P
Impression:
Presented 12/07/2024 with chest pain
Elevated troponin, peak 0.987
Hypokalemia
Chronic HFrEF, proBNP 3810
Recent admission to [facility] 11/28/2024 to 12/05/2024 for acute heart failure, proBNP 9800 and NSTEMI peak trop 1.7
Recent admission to [facility] 11/12-11/19/24 for urosepsis/afib
Cardiomyopathy, EF 30-35% by echo 11/2024, suspected tachy mediated, improved a bit to 40% by echo 11/29/2024
Paroxysmal atrial fibrillation
Eliquis OAC
Pulm HTN, on Revatio
Severe status post TAVR 2020
Chronic left bundle branch block
CKD stage III
Hypertension
Hyperlipidemia
Parkinson's disease
Hypothyroidism
GERD
Obesity
Echo 07/13/2024: EF 60 to 65%, moderate concentric LVH, dense posterior MAC, mild to moderate MS, moderate to severe MR with peak/mean gradients 18/7 mmHg, #26 Bocanegra AMINA TAVR with peak/mean gradient 17/9 mmHg
Echo 11/14/2024: Definity used, EF 35 to 40%, global hypokinesis, moderate to severe MR, moderate TR with moderate pulmonary hypertension, PASP 58 mmHg, status post TAVR Bocanegra valve, stable and well-seated
Echo 11/29/2024: EF 40%, mild concentric LVH, mild global hypokinesis, paradoxical septal motion, status post TAVR with peak/mean gradient 16/9 mmHg, dense MAC with peak/mean gradients across the mitral valve of 16/9 mmHg, moderate to severe MR,
moderate to severe TR, estimated PAP 79 mmHg
Cardiac catheterization 02/21/2020: LM patent. LAD 40% mid. Circumflex LI. RCA proximal 40% with diffuse LI distally.
Plan:
- Patient presented 12/07/2024 with chest pain relieved with sublingual nitroglycerin, EKG demonstrated sinus rhythm with left bundle branch block. Initial troponin 0.97
- Patient had recent admission 11/28/2024 through 12/05/2024 for acute heart failure and NSTEMI treated medically with peak troponin of 1.7. Troponin initially this admission 0.970 possibly continuing to downward trend from recent admission as repeat
0.693, 0.611.
-Patient chest pain free at this time. Continue Eliquis, metoprolol and atorvastatin
- Last ischemic evaluation was in 2019 where patient had mild to moderate nonobstructive coronary artery disease. Discussed with son and [id number] at bedside pursuing possible ischemic evaluation. However both patient and family are in
agreement that they would not want to do a cardiac catheterization even if stress test was abnormal. Then would approach this as treating her conservatively with medical management.
-Patient not a candidate for nitrates secondary to use of sildenafil for pulmonary hypertension. Could consider Ranexa but would need to watch QT given use of amiodarone
- EF was 40% by echo 11/29/2024 and this is stable compared to echo from 11/14/2024, but overall down from echo earlier this year when EF was 60 to 65% on 07/13/2024.
Chronic heart failure with previous proBNP of greater than 27,000 and 9880. proBNP this admission 3810. Patient's weight is 3 pounds less than prior discharge weight on 12/05. Do not feel she has acute heart failure exacerbation and she is
euvolemic. Continue torsemide 20 mg p.o. twice daily.
- Patient is not a candidate for SGLT2 inhibitor given recent UTI and not current candidate for mirna/arb/arni/aldactone given hypotension
-Creatinine on admission 1.3, repeat 1.2 (12/08/2024)
-Noted to be hypokalemic with K of 3.3 on admission. Ongoing repletion with potassium supplementation. May need to be discharged on 40 mEq twice a day.
Patient has history of symptomatic hypotension. Utilizes midodrine as needed. Continue to monitor blood pressure.
-History of paroxysmal atrial fibrillation on chronic anticoagulation with Eliquis. Patient presents in sinus rhythm with left bundle branch block. Per review of telemetry no A-fib noted. Patient sinus bradycardia/sinus rhythm. Most recent
admission in late November she was noted to have sinus bradycardia requiring reduction in Toprol to 12.5 mg and decrease in amiodarone to 200 mg. Continue to monitor and trend heart rate on telemetry. Would not uptitrate AV shawanda blocking agents at
this time.
-Lipids at goal on labs 12/08/2024 TC 113, HDL 43, LDL 53, triglycerides 87. Continue atorvastatin
Progress Note - Dance Teacher
Subjective
Date of Service: December 08, 2024
Patient seen and examined. Patient's family including son and [id number] at bedside. Patient currently denies having chest pain or shortness of breath. She is resting comfortably in bed. Family thinks there may be a component of anxiety to
some of her chest pain.
Objective
Labs:
12/08/24 05:04
12/08/24 07:41
Labs
Hgb 9.2 g/dL (12.0-16.0) L 08/30/25 05:04
Hct 30.2 % (37.0-47.0) L 12/08/24 05:04
Plt Count 235 10^3/uL (130-400) 12/08/24 05:04
Sodium 142 mmol/L (135-145) 12/08/24 05:04
Potassium 3.1 mmol/L (3.5-5.1) L 12/08/24 07:41
BUN 27 mg/dl (7-17) H 12/08/24 05:04
Creatinine 1.2 mg/dL (0.6-1.0) H 12/08/24 05:04
Glucose 116 mg/dl (70-99) H 12/08/24 05:04
Troponins
12/07/24 12/07/24 12/08/24
20:54 23:50 03:20
Troponin I 0.987 H* 0.848 H* 0.731 H*
12/08/24 12/08/24 12/08/24
05:04 07:05 07:41
Troponin I 0.693 H* Cancelled 0.611 H*
Vital Signs and I&O:
Vital Signs
Temp Pulse Resp BP Pulse Ox
97.5 F 61 18 133/65 92
12/08/24 07:10 12/08/24 07:10 12/08/24 07:10 12/08/24 07:10 12/08/24 07:10
Vital Signs
Temp Pulse Resp BP Pulse Ox
97.5 F 61 18 133/65 92
12/08/24 07:10 12/08/24 07:10 12/08/24 07:10 12/08/24 07:10 12/08/24 07:10
Physical Exam
Physical Exam
GEN: No distress, awake, alert, oriented x3, sitting comfortably in bed
HEENT: supple, anicteric, mmm
LUNGS: CTA bilaterally, no wheezes/rales, on room air
CV: Reg rate and rhythm, S1/S2, 2/6 murmur
ABD: soft, BS+, NT/ND
EXT: No cyanosis, clubbing, edema
NEURO: Gross non-focal
SKIN: Warm, pink, dry. No rash
[2024-12-08] MEDS: PROTONIX 40 MG PO (10:02)
[2024-12-08] MEDS: TOPROL XL 12.5 MG PO (10:02)
[2024-12-08] MEDS: DEMADEX 20 MG PO (10:02)
[2024-12-08] MEDS: KCL 20 MEQ PO ×3 (10:02→20:34)
[2024-12-08] MEDS: PACERONE 200 MG PO (10:04)
[2024-12-08] MEDS: REVATIO 20 MG PO ×3 (10:04→20:35)
[2024-12-08] MEDS: CELEXA 20 MG PO (10:04)
--- NOTE | 2024-12-08 10:10 | W.PN.HOSP.TC ---
Today's Communication/Plan
-
see outlined plan below
Assessment / Plan
Assessment / Plan
Assessment:
Chest pain
Recent NSTEMI medically managed
- Trop .987 and now down to .611 - overall lower than recent admission peak troponin of 1.710
- continue Eliquis/BB.
- DCA cards evaluation for ongoing medical optimization vs ischemic evaluation
Acute on chronic heart failure reduced EF
- continue oral Torsemide 20mg BID. Continue twice weekly Metolazone
- GDMT: BB. not an SGLT2 candidate. Hypotension precludes ALIREZA/ARB/ARNI.
- Echocardiogram done 11/29 shows normal LV size, LV systolic function mild to moderately reduced with EF 40%. Mild concentric LVH, mild global hypokinesis. Moderate to severe MR. Moderate to severe TR.
Hypokalemia
- replete prn
- mag normal
Paroxysmal atrial fibrillation - now rate controlled on Toprol and Amiodarone. Continue Eliquis.
COPD without exacerbation - stable.
Pulmonary hypertension - on sildenafil.
Dementia - unclear if Alzheimer's type versus due to Parkinson's disease.
Essential hypertension - stable.
Hyperlipidemia - on atorvastatin.
GERD
Acute on chronic anemia - hemoglobin 9.5
- previously with low normal iron, B12/Folate normal
- She does have a history of iron deficiency anemia. Colonoscopy was noted to be done in September 2020 showing diverticulosis and a single solitary ulcer in the rectum which was biopsied. Internal hemorrhoids were noted. EGD in September 2020 showed 2
gastric polyps, path report consistent with hyperplastic polyp.
Parkinson's disease - continue Sinemet.
Hypothyroidism - continue current dose levothyroxine. TSH 8.6 but noted to be 1.1 11/13/2024. Elevated free T4, 2.29, would repeat thyroid labs in 3 to 4 weeks.
Obesity due to excess calories
DVT ppx: Eliquis
Code: DNR/DNI.
Anticipated Discharge: > 48 hours
Subjective/Interval History
-
Date of Service: December 08, 2024
denies any chest pain at present
Objective Data
-
Labs:
Laboratory Results
12/08/24 12/08/24
05:04 07:41
WBC 6.0
Hgb 9.2 L
Hct 30.2 L
Plt Count 235
Sodium 142
Potassium 2.9 L 3.1 L
Chloride 98
Carbon Dioxide 39 H
BUN 27 H
Creatinine 1.2 H
Glucose 116 H
Calcium 9.4
Vital Signs:
Vital Signs
Temp Pulse Resp BP Pulse Ox
97.5 F 61 18 133/65 92
12/08/24 07:10 12/08/24 07:10 12/08/24 07:10 12/08/24 07:10 12/08/24 07:10
Physical Exam
-
General: No Apparent Distress
HEENT: Normocephalic and Atraumatic
Respiratory: Negative Wheezes
Cardiac: Regular Rhythm and S1/S2
GI: Soft
Neuro: AO x 3
Psych: Calm
Data Reviewed
-
Total Time Spent with Patient (in minutes): 42
Labs: Labs Reviewed by me
--- NOTE | 2024-12-08 15:11 | CM ---
Addendum entered by Natacha Gonzales 12/08/24 15:49:
CM spoke with patients son, Dilan ([phone])- POA. Dilan reports he has spoken to admissions at [facility] and has completed a financial application and will be submitting to [facility], is looking for STR with transition to LTC, does not feel
patient can transition home after rehab. CM will update referral in [facility].
Original Note:
CM reviewed chart, patient seen bedside with family, initial assessment completed by assistance from family.
Per family (visiting from [place], plan to return to [place] tomorrow, patients other children will be in and are able to assist with discharge planning). Patient came from [facility] SN[facility], per family and patient, requesting referrals to [facility] and
[facility]. Prior to rehab, patient resides in a one level home with a livestock auctioneer, one step to enter through front door, two steps to enter through garage. Patient ambulatory with Patient PCP Chetna [place], pharmacy [facility]. TEJADA form
verbally reviewed, provided with copy, placed in chart. CM will continue to follow for all discharge planning needs.
Plan; SNF pending accepting facility, referrals to [facility] and [facility]
[2024-12-08] MEDS: TYLENOL 650 MG PO ×2 (16:19→22:19)
[2024-12-08] MEDS: NORVASC 2.5 MG PO (18:18)
[2024-12-08] MEDS: NEURONTIN 400 MG PO (20:35)
[2024-12-08] MEDS: LIPITOR 10 MG PO (20:35)
[2024-12-08] MEDS: DEMADEX PO (20:35)
[2024-12-08] MEDS: SINGULAIR 10 MG PO (20:35)
[2024-12-09] VITALS (9 sets, daily range): BP systolic 88–141; BP diastolic 42–69; BMI 33.0
[2024-12-09] MEDS: NSS 250 IV (01:26)
[2024-12-09] MEDS: SYNTHROID 50 MCG PO (06:16)
[2024-12-09 07:27] LABS: Hematocrit 28.7 % (37.0-47.0); Hemoglobin 9.0 g/dL (12.0-16.0); Mean Corp Hgb Conc. 31.4 g/dL (33.0-37.0); Mean Corpuscular Volume 89.4 fL (81.0-99.0); Platelet Count 242 10^3/uL (130-400); Red Cell Dist. Width 16.6 % (11.5-14.5)
[2024-12-09 08:02] LABS: Blood Urea Nitrogen 25 mg/dl (7-17); Calcium 8.7 mg/dl (8.4-10.2); Carbon Dioxide 37 mmol/L (22-30); Chloride 97 mmol/L (98-107); Estimated Creatinine Clearance 38 ml/min; Glucose 90 mg/dl (70-99); Potassium 3.1 mmol/L (3.5-5.1); Sodium 138 mmol/L (135-145); eGFR 50.17
[2024-12-09] MEDS: ELIQUIS 5 MG PO ×2 (08:29→21:41)
[2024-12-09] MEDS: PROTONIX 40 MG PO (08:30)
[2024-12-09] MEDS: REVATIO 20 MG PO ×3 (08:30→21:42)
[2024-12-09] MEDS: KCL 20 MEQ PO (08:31)
[2024-12-09] MEDS: DEMADEX PO (08:31)
[2024-12-09] MEDS: CELEXA 20 MG PO (08:31)
[2024-12-09] MEDS: TOPROL XL PO (08:32)
[2024-12-09] MEDS: SINEMET CR 50/200 (EXTENDED RELEASE) 1 TABLET PO ×2 (08:32→21:41)
[2024-12-09] MEDS: PACERONE 200 MG PO (08:32)
[2024-12-09] MEDS: NORVASC 2.5 MG PO (08:33)
--- NOTE | 2024-12-09 09:14 | W.PN.CARDCBS ---
Today's Communication / Plan
-
Transfer back to nursing facility
Impression / Plan
-
Family Physician: Chetna [place]
Primary Emergency Room Rn: Dr. Dawn
Please refer to consultation note 11/29/2024 for full H&P
Impression:
Presented 12/07/2024 with chest pain
Elevated troponin, peak 0.987
Hypokalemia
Chronic HFrEF, proBNP 3810
Recent admission to [facility] 11/28/2024 to 12/05/2024 for acute heart failure, proBNP 9800 and NSTEMI peak trop 1.[address] admission [address] [facility] 11/12-11/19/24 for urosepsis/afib
Cardiomyopathy, EF 30-35% by echo 11/2024, suspected tachy mediated, improved a bit to 40% by echo 11/29/2024
Paroxysmal atrial fibrillation
Eliquis OAC
Pulm HTN, on Revatio
Severe status post TAVR 2020
Chronic left bundle branch block
CKD stage III
Hypertension
Hyperlipidemia
Parkinson's disease
Hypothyroidism
GERD
Obesity
Echo 07/13/2024: EF 60 to 65%, moderate concentric LVH, dense posterior MAC, mild to moderate MS, moderate to severe MR with peak/mean gradients 18/7 mmHg, #26 Bocanegra AMINA TAVR with peak/mean gradient 17/9 mmHg
Echo 11/14/2024: Definity used, EF 35 to 40%, global hypokinesis, moderate to severe MR, moderate TR with moderate pulmonary hypertension, PASP 58 mmHg, status post TAVR Bocanegra valve, stable and well-seated
Echo 11/29/2024: EF 40%, mild concentric LVH, mild global hypokinesis, paradoxical septal motion, status post TAVR with peak/mean gradient 16/9 mmHg, dense MAC with peak/mean gradients across the mitral valve of 16/9 mmHg, moderate to severe MR,
moderate to severe TR, estimated PAP 79 mmHg
Cardiac catheterization 02/21/2020: LM patent. LAD 40% mid. Circumflex LI. RCA proximal 40% with diffuse LI distally.
Plan:
She appears stable at this time, ok for transfer back to her facility.
Recommended medications at transfer as per current meds in [facility]. Potassium has been doubled to 40 mEq twice daily and amlodipine was added. Would hold amlodipine for blood pressure less than 90
Please instruct senior care not to administer nitroglycerin given that she is on sildenafil.
She has a follow-up appointment with our [facility] office with Usha on January 09 at 1:20 PM. This was set up at the time of prior discharge.
Progress Note - Emergency Room Rn
Subjective
Date of Service: December 09, 2024:
Pleasant 84-year-old woman with multiple comorbidities admitted 12/07/24 with chest pain and troponin of 0.987, proBNP 3810. She had chest pain with relief with nitroglycerin yesterday. However she was sent to the emergency department because of
her troponin which was elevated but trending downward from hospital stay. She had been hospitalized 11/28-12/05 with acute on chronic HFrEF, initial proBNP of 9800. Peak troponin at 11/28/24 admission was 1.7. Overall, troponin has been trending
downward, patient refuses ischemic evaluation
PMH: PAF in sinus rhythm on amiodarone, HFrEF, possibly tachycardia mediated, EF 40% by echo November 29, 2024, Pulmonary hypertension, on sildenafil, TAVR 2020, left bundle branch block, CKD 3, hypertension, hyperlipidemia, Parkinson's,
hypothyroidism, GERD. Hospitalized in early November with urosepsis. EF was 60 to 65% in July.
Current medications: Amiodarone 200 mg a day, apixaban 5 mg twice daily, atorvastatin 10 mg a day, Sinemet, citalopram, Neurontin 400 nightly, levothyroxine 50 mcg a day, metolazone 2.5 mg and Tuesdays, metoprolol ER 12.5 mg daily,
Singulair, pantoprazole 40 mg a day, potassium 20 mill equivalents twice daily, sildenafil 20 3 times daily, torsemide 20 mg twice daily, amlodipine 2.5 mg daily
97/44, weight is 79 kg, if accurate down 2.15 kg, no complaints, head neck exam unremarkable, lungs are clear, regular rate and rhythm, MR murmur, JVD okay, mild edema
Hemoglobin is 9.0, had been 9.2, BUN and creatinine are 25 and 1.1, potassium is 3.1
Objective
Labs:
12/09/24 07:13
12/09/24 07:13
Labs
Hgb 9.0 g/dL (12.0-16.0) L 12/09/24 07:13
Hct 28.7 % (37.0-47.0) L 12/09/24 07:13
Plt Count 242 10^3/uL (130-400) 12/09/24 07:13
Sodium 138 mmol/L (135-145) 12/09/24 07:13
Potassium 3.1 mmol/L (3.5-5.1) L 12/09/24 07:13
BUN 25 mg/dl (7-17) H 12/09/24 07:13
Creatinine 1.1 mg/dL (0.6-1.0) H 12/09/24 07:13
Glucose 90 mg/dl (70-99) 12/09/24 07:13
Troponins
12/07/24 12/07/24 12/08/24
20:54 23:50 03:20
Troponin I 0.987 H* 0.848 H* 0.731 H*
12/08/24 12/08/24 12/08/24
05:04 07:05 07:41
Troponin I 0.693 H* Cancelled 0.611 H*
Vital Signs and I&O:
Vital Signs
Temp Pulse Resp BP Pulse Ox
36.6 C 59 16 97/44 90
12/09/24 07:19 12/09/24 07:19 12/09/24 07:19 12/09/24 07:19 12/09/24 07:19
Vital Signs
Temp Pulse Resp BP Pulse Ox
36.6 C 59 16 97/44 90
12/09/24 07:19 12/09/24 07:19 12/09/24 07:19 12/09/24 07:19 12/09/24 07:19
Intake & Output
12/07/24 12/08/24 12/09/24 12/10/24
07:59 07:59 07:59 07:59
Intake Total 720 / 720
Output Total 350 / 350
Balance 370 / 370
Physical Exam
Physical Exam
See above
[2024-12-09] MEDS: KCL 40 MEQ PO ×2 (11:42→21:41)
--- NOTE | 2024-12-09 14:12 | W.PN.HOSP.TC ---
Today's Communication/Plan
-
medically stable for placement back to SNF pending bed/auth. CM aware.
Assessment / Plan
Assessment / Plan
Assessment:
Chest pain
Recent NSTEMI medically managed
- Trop .987 and now down to .611 - overall lower than recent admission peak troponin of 1.710
- continue Eliquis/BB.
- DCA cards following; after their discussion with family, plan is for conservative management
- Ranexa and Imdur contraindicated in setting of Amio/Sildenafil. Cannot have nitroglycerin due to sildenafil.
- Amlodipine started
Acute on chronic heart failure reduced EF
- continue oral Torsemide 20mg BID. Continue twice weekly Metolazone
- GDMT: BB. not an SGLT2 candidate. Hypotension precludes ALIREZA/ARB/ARNI.
- Echocardiogram done 11/29 shows normal LV size, LV systolic function mild to moderately reduced with EF 40%. Mild concentric LVH, mild global hypokinesis. Moderate to severe MR. Moderate to severe TR.
Hypokalemia
- continue KCL 40 BID
Paroxysmal atrial fibrillation - now rate controlled on Toprol and Amiodarone. Continue Eliquis.
COPD without exacerbation - stable.
Pulmonary hypertension - on sildenafil.
Dementia - unclear if Alzheimer's type versus due to Parkinson's disease.
Essential hypertension - stable.
Hyperlipidemia - on atorvastatin.
GERD
Acute on chronic anemia - hemoglobin 9.5
- previously with low normal iron, B12/Folate normal
- She does have a history of iron deficiency anemia. Colonoscopy was noted to be done in September 2020 showing diverticulosis and a single solitary ulcer in the rectum which was biopsied. Internal hemorrhoids were noted. EGD in September 2020 showed 2
gastric polyps, path report consistent with hyperplastic polyp.
Parkinson's disease - continue Sinemet.
Hypothyroidism - continue current dose levothyroxine. TSH 8.6 but noted to be 1.1 11/13/2024. Elevated free T4, 2.29, would repeat thyroid labs in 3 to 4 weeks.
Obesity due to excess calories
DVT ppx: Eliquis
Code: DNR/DNI.
Dispo: medically stable for placement back to SNF pending bed/auth. CM aware.
Anticipated Discharge: > 48 hours
Subjective/Interval History
-
Date of Service: December 09, 2024
resting comfortably, no cp or sob
Objective Data
-
Labs:
Laboratory Results
12/09/24
07:13
WBC 6.1
Hgb 9.0 L
Hct 28.7 L
Plt Count 242
Sodium 138
Potassium 3.1 L
Chloride 97 L
Carbon Dioxide 37 H
BUN 25 H
Creatinine 1.1 H
Glucose 90
Calcium 8.7
Vital Signs:
Vital Signs
Temp Pulse Resp BP Pulse Ox
98.7 F 59 16 128/64 96
12/09/24 11:10 12/09/24 11:10 12/09/24 11:10 12/09/24 11:10 12/09/24 11:10
I&O
12/08/24 12/09/24 12/10/24
06:59 06:59 06:59
Intake Total 720 / 720 360 / 360
Output Total 350 / 350
Balance 370 / 370 360 / 360
Physical Exam
-
General: No Apparent Distress
HEENT: Normocephalic and Atraumatic
Respiratory: Negative Wheezes
Cardiac: Regular Rhythm and S1/S2
GI: Soft
Neuro: AO x 3
Psych: Calm
Data Reviewed
-
Total Time Spent with Patient (in minutes): 41
Labs: Labs Reviewed by me
[2024-12-09] MEDS: DEMADEX 20 MG PO (21:41)
[2024-12-09] MEDS: SINGULAIR 10 MG PO (21:42)
[2024-12-09] MEDS: NEURONTIN 400 MG PO (21:42)
[2024-12-09] MEDS: LIPITOR 10 MG PO (21:42)
[2024-12-10 03:38] VITALS: BP 96/70
[2024-12-10] MEDS: SYNTHROID 50 MCG PO (05:05)
[2024-12-10 06:00] VITALS: BMI 33.9
[2024-12-10 07:25] VITALS: BP 119/60
[2024-12-10 08:07] LABS: Hematocrit 30.5 % (37.0-47.0); Hemoglobin 9.3 g/dL (12.0-16.0); Mean Corp Hgb Conc. 30.5 g/dL (33.0-37.0); Mean Corpuscular Volume 90.8 fL (81.0-99.0); Platelet Count 251 10^3/uL (130-400); Red Cell Dist. Width 16.9 % (11.5-14.5)
[2024-12-10] MEDS: SINEMET CR 50/200 (EXTENDED RELEASE) 1 TABLET PO ×2 (08:13→21:38)
[2024-12-10] MEDS: DEMADEX 20 MG PO ×2 (08:14→21:34)
[2024-12-10] MEDS: CELEXA 20 MG PO (08:15)
[2024-12-10] MEDS: TOPROL XL 12.5 MG PO (08:15)
[2024-12-10] MEDS: REVATIO 20 MG PO ×3 (08:15→21:38)
[2024-12-10] MEDS: NORVASC 2.5 MG PO (08:15)
[2024-12-10] MEDS: ELIQUIS 5 MG PO ×2 (08:15→21:37)
[2024-12-10] MEDS: PACERONE 200 MG PO (08:15)
[2024-12-10] MEDS: KCL 40 MEQ PO ×2 (08:15→21:37)
[2024-12-10] MEDS: PROTONIX 40 MG PO (08:15)
[2024-12-10 08:44] LABS: Blood Urea Nitrogen 23 mg/dl (7-17); Calcium 9.0 mg/dl (8.4-10.2); Carbon Dioxide 36 mmol/L (22-30); Chloride 101 mmol/L (98-107); Estimated Creatinine Clearance 38 ml/min; Glucose 95 mg/dl (70-99); Potassium 3.9 mmol/L (3.5-5.1); Sodium 140 mmol/L (135-145); eGFR 50.17
[2024-12-10 11:14] VITALS: BP 132/62
--- NOTE | 2024-12-10 11:47 | W.PN.HOSP.TC ---
Today's Communication/Plan
-
medically stable for placement back to SNF pending bed/auth. CM aware.
Assessment / Plan
Assessment / Plan
Assessment:
Chest pain
Recent NSTEMI medically managed
- Trop .987 and now down to .611 - overall lower than recent admission peak troponin of 1.710
- continue Eliquis/BB.
- DCA cards following; after their discussion with family, plan is for conservative management
- Ranexa and Imdur contraindicated in setting of Amio/Sildenafil. Cannot have nitroglycerin due to sildenafil.
- Amlodipine 2.5mg started this admission
Acute on chronic heart failure reduced EF
- continue oral Torsemide 20mg BID. Continue twice weekly Metolazone
- GDMT: BB. not an SGLT2 candidate. Hypotension precludes ALIREZA/ARB/ARNI.
- Echocardiogram done 11/29 shows normal LV size, LV systolic function mild to moderately reduced with EF 40%. Mild concentric LVH, mild global hypokinesis. Moderate to severe MR. Moderate to severe TR.
Hypokalemia
- continue KCL 40 BID at discharge
Paroxysmal atrial fibrillation - now rate controlled on Toprol and Amiodarone. Continue Eliquis.
COPD without exacerbation - stable.
Pulmonary hypertension - on sildenafil.
Dementia - unclear if Alzheimer's type versus due to Parkinson's disease.
Essential hypertension - stable.
Hyperlipidemia - on atorvastatin.
GERD
Acute on chronic anemia - hemoglobin 9.5
- previously with low normal iron, B12/Folate normal
- She does have a history of iron deficiency anemia. Colonoscopy was noted to be done in September 2020 showing diverticulosis and a single solitary ulcer in the rectum which was biopsied. Internal hemorrhoids were noted. EGD in September 2020 showed 2
gastric polyps, path report consistent with hyperplastic polyp.
Parkinson's disease - continue Sinemet.
Hypothyroidism - continue current dose levothyroxine. TSH 8.6 but noted to be 1.1 11/13/2024. Elevated free T4, 2.29, would repeat thyroid labs in 3 to 4 weeks.
Obesity due to excess calories
DVT ppx: Eliquis
Code: DNR/DNI.
Dispo: medically stable for placement back to SNF pending bed/auth. CM aware.
Anticipated Discharge: Within 24 hours
Subjective/Interval History
-
Date of Service: December 10, 2024
resting comfortably, no complaints
Objective Data
-
Labs:
Laboratory Results
12/10/24
06:09
WBC 5.8
Hgb 9.3 L
Hct 30.5 L
Plt Count 251
Sodium 140
Potassium 3.9 D
Chloride 101
Carbon Dioxide 36 H
BUN 23 H
Creatinine 1.1 H
Glucose 95
Calcium 9.0
Vital Signs:
Vital Signs
Temp Pulse Resp BP Pulse Ox
97.5 F 64 18 132/62 96
12/10/24 11:14 12/10/24 11:14 12/10/24 11:14 12/10/24 11:14 12/10/24 11:14
I&O
12/09/24 12/10/24 12/11/24
06:59 06:59 06:59
Intake Total 720 / 720 420 / 420
Output Total 350 / 350
Balance 370 / 370 420 / 420
Physical Exam
-
General: No Apparent Distress
HEENT: Normocephalic and Atraumatic
Respiratory: Negative Wheezes
Cardiac: Regular Rhythm and S1/S2
GI: Soft
Neuro: AO x 3
Psych: Calm
Data Reviewed
-
Total Time Spent with Patient (in minutes): 41
Labs: Labs Reviewed by me
[2024-12-10 15:36] VITALS: BP 114/63
[2024-12-10 19:20] VITALS: BP 119/57
[2024-12-10] MEDS: LIPITOR 10 MG PO (21:38)
[2024-12-10] MEDS: NEURONTIN 400 MG PO (21:38)
[2024-12-10] MEDS: SINGULAIR 10 MG PO (21:38)
[2024-12-10 23:27] VITALS: BP 100/49
[2024-12-11 03:54] VITALS: BP 127/64
[2024-12-11] MEDS: SYNTHROID 50 MCG PO (05:42)
[2024-12-11 06:00] VITALS: BMI 33.7
[2024-12-11 07:08] VITALS: BP 108/53
[2024-12-11 07:40] VITALS: BMI 33.7
[2024-12-11] MEDS: PROTONIX 40 MG PO (07:44)
[2024-12-11] MEDS: ELIQUIS 5 MG PO (07:44)
[2024-12-11] MEDS: PACERONE 200 MG PO (07:47)
[2024-12-11] MEDS: TOPROL XL 12.5 MG PO (07:47)
[2024-12-11] MEDS: CELEXA 20 MG PO (07:48)
[2024-12-11] MEDS: REVATIO 20 MG PO ×2 (07:51→16:17)
[2024-12-11] MEDS: NORVASC 2.5 MG PO (07:51)
[2024-12-11] MEDS: KCL 40 MEQ PO (07:51)
[2024-12-11] MEDS: SINEMET CR 50/200 (EXTENDED RELEASE) 1 TABLET PO (07:59)
[2024-12-11] MEDS: DEMADEX 20 MG PO (08:29)
[2024-12-11 09:40] LABS: Blood Urea Nitrogen 21 mg/dl (7-17); Calcium 9.3 mg/dl (8.4-10.2); Carbon Dioxide 35 mmol/L (22-30); Chloride 100 mmol/L (98-107); Estimated Creatinine Clearance 42 ml/min; Glucose 96 mg/dl (70-99); Magnesium 2.0 mg/dl (1.6-2.3); Potassium 4.2 mmol/L (3.5-5.1); Sodium 139 mmol/L (135-145); eGFR 56.25
[2024-12-11 11:30] VITALS: BP 92/55
--- NOTE | 2024-12-11 14:06 | W.PN.HOSP.TC ---
Today's Communication/Plan
-
d/c planning for snf rehab
Assessment / Plan
Assessment / Plan
Chest pain
Recent NSTEMI medically managed
- Trop .987 and now down to .611 - overall lower than recent admission peak troponin of 1.710
- continue Eliquis/BB.
- DCA cards following; after their discussion with family, plan is for conservative management
- Ranexa and Imdur contraindicated in setting of Amio/Sildenafil. Cannot have nitroglycerin due to sildenafil.
- Amlodipine 2.5mg started this admission
Acute on chronic heart failure reduced EF
- continue oral Torsemide 20mg BID. Continue twice weekly Metolazone
- GDMT: BB. not an SGLT2 candidate. Hypotension precludes ALIREZA/ARB/ARNI.
- Echocardiogram done 11/29 shows normal LV size, LV systolic function mild to moderately reduced with EF 40%. Mild concentric LVH, mild global hypokinesis. Moderate to severe MR. Moderate to severe TR.
Hypokalemia
- continue KCL 40 BID at discharge
Paroxysmal atrial fibrillation - now rate controlled on Toprol and Amiodarone. Continue Eliquis.
COPD without exacerbation - stable.
Pulmonary hypertension - on sildenafil.
Dementia - unclear if Alzheimer's type versus due to Parkinson's disease.
Essential hypertension - stable.
Hyperlipidemia - on atorvastatin.
GERD
Acute on chronic anemia - hemoglobin 9.5
- previously with low normal iron, B12/Folate normal
- She does have a history of iron deficiency anemia. Colonoscopy was noted to be done in September 2020 showing diverticulosis and a single solitary ulcer in the rectum which was biopsied. Internal hemorrhoids were noted. EGD in September 2020 showed 2
gastric polyps, path report consistent with hyperplastic polyp.
Parkinson's disease - continue Sinemet.
Hypothyroidism - continue current dose levothyroxine. TSH 8.6 but noted to be 1.1 11/13/2024. Elevated free T4, 2.29, would repeat thyroid labs in 3 to 4 weeks.
Obesity due to excess calories
DVT ppx: Eliquis
Code: DNR/DNI.
More than 30 minutes spent in discharge including
Final examination of the patient
Summarizing hospital stay
Instructions for continuing care to all relevant caregivers
Preparation of discharge records, prescriptions, and referral forms
Total time spent (in minutes): 39 mins
Anticipated Discharge: Today
Subjective/Interval History
-
Date of Service: December 11, 2024
no new complains overnight
sitting comfortably in chair
Objective Data
-
Labs:
Laboratory Results
12/11/24
08:02
Sodium 139
Potassium 4.2
Chloride 100
Carbon Dioxide 35 H
BUN 21 H
Creatinine 1.0
Glucose 96
Calcium 9.3
Vital Signs:
Vital Signs
Temp Pulse Resp BP Pulse Ox
97.5 F 65 14 92/55 94
12/11/24 11:30 12/11/24 11:30 12/11/24 11:30 12/11/24 11:30 12/11/24 11:30
I&O
12/10/24 12/11/24 12/12/24
06:59 06:59 06:59
Intake Total 420 / 420 660 / 660
Output Total 950 / 950
Balance 420 / 420 -290 / -290
Review of Systems
-
Respiratory: Reports No Symptoms
Cardiac: Reports No Symptoms
Abdomen/GI: Reports No Symptoms
Physical Exam
-
General: Negative Obese
HEENT: Negative Oxygen
Musculoskeletal: No Edema
Neuro: Awake, Alert and Oriented
--- NOTE | 2024-12-11 15:13 | CM ---
Addendum entered by Susie Levin 12/11/24 15:36:
Ambulance pickup at 6 PM. Pt made aware. Son made aware of pickup time
Original Note:
Chart Reviewed. Met with pt chairside. PT rec skilled care. Pt has been accepted at [facility].. Discharge today.Son and pt made aware of discharge. Ambulance arrangements made for transport to [facility]. PT shows max assist of 2 and PT rec
skilled care.
Plan- [facility] SNF
[2024-12-11 15:15] VITALS: BP 96/51
--- NOTE | 2024-12-14 16:05 | W.DCSUMMARY ---
Discharge Summary
Discharge Data
Date of Admission: 12/07/24
Date of Discharge: 12/11/24
-
Pending Results: No
Hospital Course
Discharging Physician : Dr Griffin Mahmood
Disposition : To home
Primary care physician : Dr Tamiko [place]
Principal Discharge diagnosis :
Chest pain
Troponin elevation
Recent non-ST segment elevation myocardial infarction
Acute on chronic systolic heart failure
Hypokalemia
Chronic Discharge diagnosis :
Paroxysmal atrial fibrillation
Chronic obstructive pulmonary disease
Pulmonary hypertension
Dementia
Essential hypertension
Hyperlipidemia
Parkinson's disease
Gastroesophageal varices
Hypothyroidism
Hospital Course :
Patient is a 84-year-old female with no major past medical history came to ER with new onset of chest pain. Patient was apparently somnolent and was not able to provide detailed history. In ER patient was noted to having elevated troponin with a
EKG showing a left bundle branch block. Cardiology evaluated patient after discussion with family decided for patient to be managed conservatively with no further testing with stress test/heart catheterization. Patient already on sildenafil for
pulmonary hypertension and added vasodilator nitro med/Ranexa was felt to be problematic. Patient was also found to have some heart failure component and was provided diuretic therapy. Post medical stabilization patient was discharged to skilled
nursing facility for rehab.
Important imaging findings :
None
Procedure findings :
None
Discharge Plan
-
Patient Disposition: Senior Care/SNF
Discharge Diagnosis/Procedures: Systolic HF exacerbation, Troponin elevation, Paroxysmal afib
Condition: Fair
Diet: Low Sodium and Restrict fluids to 48 oz
Activity: As tolerated
Driving Restrictions: No driving
Bathing Restrictions: OK to Shower
Referrals:
Chetna [place] DO [Family Provider, [facility]] - in one week
Prescriptions:
New
amlodipine 2.5 mg Tablet
2.5 mg PO DAILY Qty: 30 0RF
Rx Instructions:
HOLD DOSE IF SBP < 90
metolazone 2.5 mg Tablet
2.5 mg PO TuTh Qty: 30 0RF
potassium chloride 20 mEq Tablet,Er Particles/Crystals
40 meq PO BID Qty: 60 0RF
Continued
levothyroxine 50 MCG tablet
50 mcg PO DAILY
pantoprazole 40 MG tablet,delayed release (DR/EC)
40 mg PO DAILY
citalopram 20 MG tablet
20 mg PO DAILY
atorvastatin 10 MG tablet
10 mg PO HS
carbidopa-levodopa 50-200 mg Tablet Extended Release
1 tab PO BID
montelukast 10 mg Tablet
10 mg PO HS
sildenafil (pulm.hypertension) 20 mg tablet
20 mg PO TID
Eliquis 5 mg Tablet
5 mg PO BID 30 Days Qty: 60 0RF
gabapentin 400 mg Tablet
400 mg PO HS
midodrine 5 mg Tablet
5 mg PO Q4HPRN PRN (Reason: SBP<100) Qty: 30 0RF
amiodarone 200 mg tablet
200 mg PO DAILY Qty: 30 0RF
torsemide 20 mg tablet
20 mg PO BID Qty: 30 0RF
acetaminophen [Tylenol] 325 mg Tablet
650 mg PO Q6HPRN PRN (Reason: MILD PAIN)
magnesium hydroxide [Milk of Magnesia] 400 mg/5 mL Suspension
2,400 mg PO [id number] PRN (Reason: CONSTIPATION)
bisacodyl [Dulcolax (bisacodyl)] 10 mg Suppository
10 mg OH DAILYPRN PRN (Reason: IF NO BM AFTR MOM)
metoprolol succinate 25 mg Tablet Extended Release 24 Hr
12.5 mg PO DAILY Qty: 30 0RF
Rx Instructions:
HOLD THE DOSE IF SBP < 100 or HR < 60
Discontinued
potassium chloride 20 mEq tablet,ER particles/crystals
20 meq PO BID
Fleet Enema 19-7 gram/118 mL Enema
118 ml OH DAILYPRN PRN (Reason: IF NO BM AFTR DULCOLAX)
metolazone 2.5 mg tablet
2.5 mg PO USEASDIRECTD
Rx Instructions:
tuesday and Tuesday
Discharge Orders:
Discharge Patient (As Directed); Ordered 12/11/24
Ordered By: Griffin Mahmood
Discharge Date and Time
Discharge Date/Time: 12/11/24 18:16
Print Language: SOMALI
== END 2024-12-11 18:16 ==
LOC: 4 WEST ACU 23:56
PROVIDERS: Internal Medicine; Nurse Practitioner Family; Registered Nurse; ADMITTING PHYSICIAN Internal Medicine; ATTENDING PHYSICIAN Hospitalist; EMERGENCY PHYSICIAN Emergency Medicine; FAMILY PHYSICIAN Family Medicine
DX: I13.0 Hypertensive heart and chronic kidney disease with heart failure and stage 1 through stage 4 chronic kidney disease, or unspecified chronic kidney disease (principal); I50.23 Acute on chronic systolic (congestive) heart failure; R07.9 Chest pain, unspecified; I48.0 Paroxysmal atrial fibrillation; R51.9 Headache, unspecified; D50.9 Iron deficiency anemia, unspecified; G20.A1 Parkinson's disease without dyskinesia, without mention of fluctuations; F02.80 Dementia in other diseases classified elsewhere, unspecified severity, without behavioral disturbance, psychotic disturbance, mood disturbance, and anxiety; I44.7 Left bundle-branch block, unspecified; E87.6 Hypokalemia; I44.0 Atrioventricular block, first degree; N18.32 Chronic kidney disease, stage 3b; D63.1 Anemia in chronic kidney disease; I95.9 Hypotension, unspecified; I08.1 Rheumatic disorders of both mitral and tricuspid valves; I27.20 Pulmonary hypertension, unspecified; E66.09 Other obesity due to excess calories; J44.9 Chronic obstructive pulmonary disease, unspecified; E78.00 Pure hypercholesterolemia, unspecified; I25.10 Atherosclerotic heart disease of native coronary artery without angina pectoris; E03.9 Hypothyroidism, unspecified; K21.9 Gastro-esophageal reflux disease without esophagitis; Z66 Do not resuscitate; I25.2 Old myocardial infarction; Z79.01 Long term (current) use of anticoagulants; Z87.891 Personal history of nicotine dependence; Z96.653 Presence of artificial knee joint, bilateral; Z95.2 Presence of prosthetic heart valve; Z88.2 Allergy status to sulfonamides; Z88.8 Allergy status to other drugs, medicaments and biological substances; Z79.890 Hormone replacement therapy; Z79.899 Other long term (current) drug therapy; Z68.33 Body mass index [BMI] 33.0-33.9, adult; Z86.0101 Personal history of adenomatous and serrated colon polyps; Z87.11 Personal history of peptic ulcer disease; Z87.19 Personal history of other diseases of the digestive system
CPT/HCPCS: 80048; 80053; 80061; 83036; 83735; 83880; 84132; 84484; 85025; 85027; 93005; 97163; 97167; 99285; G0378

== ENCOUNTER → 2024-12-14 11:58 | Outpatient (REF) | payer OTHER, MEDICARE, SELFPAY ==
[2024-12-14 12:51] LABS: Hematocrit 29.3 % (37.0-47.0); Hemoglobin 9.5 g/dL (12.0-16.0); Mean Corp Hgb Conc. 32.4 g/dL (33.0-37.0); Mean Corpuscular Volume 92.4 fL (81.0-99.0); Nucleated Red Blood Cells % 0 %; Platelet Count 220 10^3/uL (130-400); Red Cell Dist. Width 17.0 % (11.5-14.5)
[2024-12-14 12:57] LABS: Blood Urea Nitrogen 31 mg/dl (7-17); Calcium 9.1 mg/dl (8.4-10.2); Carbon Dioxide 35 mmol/L (22-30); Chloride 96 mmol/L (98-107); Glucose 86 mg/dl (70-99); Potassium 3.3 mmol/L (3.5-5.1); Sodium 139 mmol/L (135-145); eGFR 34.58
== END ==
LOC: OLABP 11:58
PROVIDERS: ATTENDING PHYSICIAN Internal Medicine
DX: D64.9 Anemia, unspecified (principal); E03.9 Hypothyroidism, unspecified; R07.9 Chest pain, unspecified; I50.23 Acute on chronic systolic (congestive) heart failure; I20.0 Unstable angina; E87.6 Hypokalemia; B96.20 Unspecified Escherichia coli [E. coli] as the cause of diseases classified elsewhere; N18.30 Chronic kidney disease, stage 3 unspecified; F03.90 Unspecified dementia, unspecified severity, without behavioral disturbance, psychotic disturbance, mood disturbance, and anxiety; I10 Essential (primary) hypertension; M34.9 Systemic sclerosis, unspecified; K21.9 Gastro-esophageal reflux disease without esophagitis; I27.20 Pulmonary hypertension, unspecified; I48.0 Paroxysmal atrial fibrillation; J45.20 Mild intermittent asthma, uncomplicated
CPT/HCPCS: 36415; 80048; 85025

== ENCOUNTER → 2024-12-21 11:02 | Outpatient (REF) | payer OTHER, MEDICARE, SELFPAY ==
[2024-12-21 12:12] LABS: Blood Urea Nitrogen 41 mg/dl (7-17); Calcium 8.7 mg/dl (8.4-10.2); Chloride 92 mmol/L (98-107); Glucose 92 mg/dl (70-99); Potassium 3.1 mmol/L (3.5-5.1); Sodium 137 mmol/L (135-145); eGFR 34.58
[2024-12-21 12:21] LABS: Carbon Dioxide 38 mmol/L (22-30)
== END ==
LOC: OLABP 11:02
PROVIDERS: ATTENDING PHYSICIAN Internal Medicine
DX: I50.23 Acute on chronic systolic (congestive) heart failure (principal); I20.0 Unstable angina; E87.6 Hypokalemia; R07.9 Chest pain, unspecified; B96.20 Unspecified Escherichia coli [E. coli] as the cause of diseases classified elsewhere; B96.89 Other specified bacterial agents as the cause of diseases classified elsewhere; D64.9 Anemia, unspecified; N18.30 Chronic kidney disease, stage 3 unspecified; E78.5 Hyperlipidemia, unspecified; F03.90 Unspecified dementia, unspecified severity, without behavioral disturbance, psychotic disturbance, mood disturbance, and anxiety; M34.9 Systemic sclerosis, unspecified; K21.9 Gastro-esophageal reflux disease without esophagitis; I27.20 Pulmonary hypertension, unspecified
CPT/HCPCS: 36415; 80048

== ENCOUNTER → 2024-12-25 11:53 | Outpatient (REF) | payer OTHER, MEDICARE, SELFPAY ==
[2024-12-25 12:55] LABS: Blood Urea Nitrogen 26 mg/dl (7-17); Calcium 9.3 mg/dl (8.4-10.2); Carbon Dioxide 26 mmol/L (22-30); Chloride 108 mmol/L (98-107); Glucose 86 mg/dl (70-99); Potassium 5.4 mmol/L (3.5-5.1); Sodium 137 mmol/L (135-145); eGFR 50.17
== END ==
LOC: OLABP 11:53
PROVIDERS: ATTENDING PHYSICIAN Internal Medicine
DX: I48.0 Paroxysmal atrial fibrillation (principal); M34.9 Systemic sclerosis, unspecified; J45.20 Mild intermittent asthma, uncomplicated; B96.20 Unspecified Escherichia coli [E. coli] as the cause of diseases classified elsewhere; F32.A Depression, unspecified; E66.9 Obesity, unspecified; E44.0 Moderate protein-calorie malnutrition; B96.89 Other specified bacterial agents as the cause of diseases classified elsewhere; I27.20 Pulmonary hypertension, unspecified
CPT/HCPCS: 36415; 80048

== ENCOUNTER → 2025-01-01 11:49 | Outpatient (REF) | payer OTHER, MEDICARE, SELFPAY ==
[2025-01-01 12:29] LABS: Blood Urea Nitrogen 19 mg/dl (7-17); Calcium 8.7 mg/dl (8.4-10.2); Carbon Dioxide 29 mmol/L (22-30); Chloride 105 mmol/L (98-107); Glucose 84 mg/dl (70-99); Potassium 4.1 mmol/L (3.5-5.1); Sodium 140 mmol/L (135-145); eGFR 50.17
== END ==
LOC: OLABP 11:49
PROVIDERS: ATTENDING PHYSICIAN Internal Medicine
DX: I48.0 Paroxysmal atrial fibrillation (principal); J45.20 Mild intermittent asthma, uncomplicated; K21.9 Gastro-esophageal reflux disease without esophagitis; B96.20 Unspecified Escherichia coli [E. coli] as the cause of diseases classified elsewhere; B96.89 Other specified bacterial agents as the cause of diseases classified elsewhere; E44.0 Moderate protein-calorie malnutrition; E66.9 Obesity, unspecified; F32.A Depression, unspecified; N18.32 Chronic kidney disease, stage 3b; D64.9 Anemia, unspecified; E03.9 Hypothyroidism, unspecified; E78.5 Hyperlipidemia, unspecified; F03.90 Unspecified dementia, unspecified severity, without behavioral disturbance, psychotic disturbance, mood disturbance, and anxiety; G20.B1 Parkinson's disease with dyskinesia, without mention of fluctuations; I10 Essential (primary) hypertension; I27.20 Pulmonary hypertension, unspecified; M34.9 Systemic sclerosis, unspecified; I50.23 Acute on chronic systolic (congestive) heart failure; I20.0 Unstable angina; E87.6 Hypokalemia; R07.9 Chest pain, unspecified; N39.0 Urinary tract infection, site not specified
CPT/HCPCS: 36415; 80048

== ENCOUNTER → 2025-01-14 10:29 | Outpatient (REF) | payer OTHER, MEDICARE, SELFPAY ==
[2025-01-14 11:38] LABS: Blood Urea Nitrogen 25 mg/dl (7-17); Calcium 8.9 mg/dl (8.4-10.2); Carbon Dioxide 36 mmol/L (22-30); Chloride 94 mmol/L (98-107); Glucose 91 mg/dl (70-99); Magnesium 2.2 mg/dl (1.6-2.3); Potassium 3.4 mmol/L (3.5-5.1); Sodium 136 mmol/L (135-145); eGFR 37.56
== END ==
LOC: OLABP 10:29
PROVIDERS: ATTENDING PHYSICIAN Internal Medicine
DX: I48.0 Paroxysmal atrial fibrillation (principal); E44.0 Moderate protein-calorie malnutrition; E66.9 Obesity, unspecified; N18.32 Chronic kidney disease, stage 3b; D64.9 Anemia, unspecified; E03.9 Hypothyroidism, unspecified; E78.5 Hyperlipidemia, unspecified; F03.90 Unspecified dementia, unspecified severity, without behavioral disturbance, psychotic disturbance, mood disturbance, and anxiety; I10 Essential (primary) hypertension
CPT/HCPCS: 36415; 80048; 83735

== ENCOUNTER → 2025-01-22 10:58 | Outpatient (REF) | payer OTHER, MEDICARE, SELFPAY ==
[2025-01-22 12:42] LABS: Hematocrit 31.0 % (37.0-47.0); Hemoglobin 9.7 g/dL (12.0-16.0); Mean Corp Hgb Conc. 31.3 g/dL (33.0-37.0); Mean Corpuscular Volume 94.8 fL (81.0-99.0); Nucleated Red Blood Cells % 0 %; Platelet Count 167 10^3/uL (130-400); Red Cell Dist. Width 17.7 % (11.5-14.5)
[2025-01-22 13:22] LABS: Blood Urea Nitrogen 21 mg/dl (7-17); Calcium 9.1 mg/dl (8.4-10.2); Carbon Dioxide 30 mmol/L (22-30); Chloride 106 mmol/L (98-107); Glucose 84 mg/dl (70-99); Potassium 4.6 mmol/L (3.5-5.1); Sodium 140 mmol/L (135-145); eGFR 45.19
== END ==
LOC: OLABP 10:58
PROVIDERS: ATTENDING PHYSICIAN Internal Medicine
DX: I48.0 Paroxysmal atrial fibrillation (principal); J45.20 Mild intermittent asthma, uncomplicated; K21.9 Gastro-esophageal reflux disease without esophagitis; B96.20 Unspecified Escherichia coli [E. coli] as the cause of diseases classified elsewhere; B96.89 Other specified bacterial agents as the cause of diseases classified elsewhere; E44.0 Moderate protein-calorie malnutrition; E66.9 Obesity, unspecified; F32.A Depression, unspecified; N18.32 Chronic kidney disease, stage 3b; D64.9 Anemia, unspecified; E03.9 Hypothyroidism, unspecified; E78.5 Hyperlipidemia, unspecified; F03.90 Unspecified dementia, unspecified severity, without behavioral disturbance, psychotic disturbance, mood disturbance, and anxiety; G20.B1 Parkinson's disease with dyskinesia, without mention of fluctuations; I10 Essential (primary) hypertension; I50.23 Acute on chronic systolic (congestive) heart failure; E87.6 Hypokalemia; R07.9 Chest pain, unspecified; N39.0 Urinary tract infection, site not specified
CPT/HCPCS: 36415; 80048; 85025

== ENCOUNTER → 2025-01-28 09:44 | Outpatient (REF) | payer OTHER, MEDICARE, SELFPAY ==
[2025-01-28 12:32] LABS: Blood Urea Nitrogen 28 mg/dl (7-17); Calcium 8.8 mg/dl (8.4-10.2); Carbon Dioxide 37 mmol/L (22-30); Chloride 98 mmol/L (98-107); Glucose 96 mg/dl (70-99); Potassium 3.2 mmol/L (3.5-5.1); Sodium 136 mmol/L (135-145); eGFR 41.06
== END ==
LOC: OLABP 09:44
PROVIDERS: ATTENDING PHYSICIAN Internal Medicine
DX: I48.0 Paroxysmal atrial fibrillation (principal); M34.9 Systemic sclerosis, unspecified; I10 Essential (primary) hypertension; J45.20 Mild intermittent asthma, uncomplicated; K21.9 Gastro-esophageal reflux disease without esophagitis; B96.20 Unspecified Escherichia coli [E. coli] as the cause of diseases classified elsewhere; B96.89 Other specified bacterial agents as the cause of diseases classified elsewhere; E44.0 Moderate protein-calorie malnutrition; E66.9 Obesity, unspecified; F32.A Depression, unspecified; N18.32 Chronic kidney disease, stage 3b; I50.23 Acute on chronic systolic (congestive) heart failure; D64.9 Anemia, unspecified; I20.0 Unstable angina; E87.6 Hypokalemia
CPT/HCPCS: 36415; 80048

== ENCOUNTER → 2025-02-12 11:21 | Outpatient (REF) | payer OTHER, MEDICARE, SELFPAY ==
[2025-02-12 13:41] LABS: Blood Urea Nitrogen 32 mg/dl (7-17); Calcium 8.5 mg/dl (8.4-10.2); Carbon Dioxide 39 mmol/L (22-30); Chloride 96 mmol/L (98-107); Glucose 94 mg/dl (70-99); Potassium 3.6 mmol/L (3.5-5.1); Sodium 139 mmol/L (135-145); eGFR 37.56
== END ==
LOC: OLABP 11:21
PROVIDERS: ATTENDING PHYSICIAN Internal Medicine
DX: I48.0 Paroxysmal atrial fibrillation (principal); J45.20 Mild intermittent asthma, uncomplicated; E44.0 Moderate protein-calorie malnutrition; B96.20 Unspecified Escherichia coli [E. coli] as the cause of diseases classified elsewhere
CPT/HCPCS: 36415; 80048

== ENCOUNTER 2025-02-18 04:27 | Inpatient (IN) | payer MEDICARE, OTHER, SELFPAY ==
[2025-02-18] VITALS (23 sets, daily range): BP systolic 91–139; BP diastolic 44–86; BMI 40.8; BMI 39.4
[2025-02-18] MEDS: VENTOLIN NEBULES 7.5 MG INH (01:25)
[2025-02-18 01:28] LABS: Hematocrit 30.9 % (37.0-47.0); Hemoglobin 9.6 g/dL (12.0-16.0); Mean Corp Hgb Conc. 31.1 g/dL (33.0-37.0); Mean Corpuscular Volume 91.4 fL (81.0-99.0); Nucleated Red Blood Cells % 0 %; Platelet Count 165 10^3/uL (130-400); Red Cell Dist. Width 17.3 % (11.5-14.5)
[2025-02-18 01:48] LABS: COVID-19 Antigen Negative (Negative)
[2025-02-18 01:54] LABS: ALT (SGPT) < 10 U/L (0-35); AST (SGOT) 19 U/L (14-36); Albumin 3.7 g/dl (3.5-5.0); Alkaline Phosphatase 129 U/L (38-126); Blood Urea Nitrogen 30 mg/dl (7-17); Calcium 8.5 mg/dl (8.4-10.2); Carbon Dioxide 32 mmol/L (22-30); Chloride 104 mmol/L (98-107); Estimated Creatinine Clearance 31 ml/min; Glucose 131 mg/dl (70-99); Potassium 4.0 mmol/L (3.5-5.1); Sodium 140 mmol/L (135-145); Total Protein 6.8 g/dl (6.3-8.2); eGFR 34.58
[2025-02-18 02:37] LABS: Troponin I 0.020 ng/ml
--- NOTE | 2025-02-18 03:18 | ED.GENMED ---
History of Present Illness
General
Chief Complaint: Breathing Problem
Source: patient, ambulance crew and previous hospital records
Exam Limitations: none
Time Seen by Provider: 02/18/25 01:10
Nursing documentation reviewed up to this point in time: agreed with
History of Present Illness
History of Present Illness:
This is an 84-year-old woman who resides at a local group home. She has history of PAF chronically maintained on Eliquis, history of Parkinson's disease, CAD, CHF, COPD, pulmonary hypertension. She presents via EMS after onset of somewhat abrupt
and severe shortness of breath accompanied with hypoxia with room air pulse ox reportedly at 88. According to EMS and patient she generally does not require supplemental oxygen. Wheezing noted. She was given DuoNeb nebulizer and nasal cannula
oxygen with improvement in pulse ox to 94 to 95%. Patient denies chest pain. She does admit to shakes and feeling cold. Prior to tonight she had been feeling well. She does note chronic bilateral lower extremity edema and that she is maintained
on several diuretics.
Paramedics noted some hypotension prehospital. Patient denies dizziness nor lightheadedness. She was given a small IV bolus of IV fluids with systolic blood pressure improving from 80s to 100s systolic. There has been no tachycardia.
Past History
Past History
ED Past Medical History: Arrthythmia, CHF, COPD, GERD, HTN, Hypercholesterolemia, Valvular disease and Hypothyroidism
ED Past Surgical History: Cardiac and Orthopedic (Bunionectomy, bilateral knee replacement, right rotator cuff, back surgeries 2012, 2013)
Social History
Tobacco: Former smoker
Alcohol: None
Drug: None
Personal:
Living: group home
Employment: Retired
Family History
Family History: Other (Noncontributory)
Phy Exam
Physical Exam
Physical Exam:
GENERAL: 84-year-old woman appears her stated age, awake and alert, moderate respiratory distress with moderate tachypnea but able to speak in short sentences. Admits that shortness of breath is markedly improved after nebulizer treatment. Audible
wheezing noted. Systolic blood pressure 100-110. Pulse ox 95% on supplemental nasal cannula oxygen. Low-grade fever 99 �F noted orally.
EYE: pupils equal and reactive. anicteric
NECK: Supple, nontender, no meningismus, no significant adenopathy. Mild JVD.
ENT: oral mucosa is dry. No rhinorrhea.
CARDIAC: Regular rate and rhythm. 2/6 holosystolic murmur left sternal border.
LUNGS: Moderate tachypnea with audible expiratory wheezing. Able to speak in short sentences. Inspiratory and expiratory wheezing throughout bilaterally.
ABDOMEN: Soft, nondistended, without focal tenderness
NEUROLOGICAL: Alert and oriented x3, no focal neuro deficits.
SKIN: Mildly hot to touch and dry, normal color, skin intact.
MUSCULOSKELETAL: Moderate bilateral lower extremity edema with chronic venous stasis skin thickening and mildly brawny erythema to bilateral lower extremities. No palpable tenderness nor palpable heat. Peripheral pulses are full and equal b/l. No
palpable tenderness.
PSYCH: Normal and appropriate interaction.
Scores
Heart Failure Risk
Heart Failure Risk Score: Yes
History of Stroke or TIA: No
History of intubation for respiratory distress: No
Heart rate on ED arrival >/= 110: No
SaO2 <90% on arrival on room air: Yes
HR >/=110 during 3min walk test (or too ill to perform test): Yes
ECG has acute ischemic changes: No
Urea >/=12mmol/L (BUN 33.6mg/dL): No
Serum CO2>/=35mmol/L: No
Troponin I or T elevated to NC Level (0.4mg/dL): No
NT-proBNP >/=5,000ng/L (5,000pg/ml): No
HF Risk Score: 3
Admission Status: HIGH RISK 15.9% Consider SNF treatment or admission to hospital
Course
Orders/Labs/Results
Orders:
Orders
02/18/25 01:03
Electrocardiogram (*1) Urgent
Reason for Study: Shortness of Breath
02/18/25 01:04
EKG- Treatment ONCE
02/18/25 01:08
Chest X-ray Portable [CR Chest Portable - 1 View] Urgent
Comment:
Reason For Exam: wheezing
Reason Study Needs to be Portable: Patient Unstable
02/18/25 01:12
Albuterol Sulfate [Ventolin Nebules] 7.5 mg INH R NOW STA
02/18/25 01:15
Lactic Acid Urgent
02/18/25 01:16
COVID-19 Antigen Urgent
Source: Nasal Swab
Complete Blood Count/With Diff Urgent
Comprehensive Metabolic Panel Urgent
NT-proBNP Urgent
Troponin I Urgent
Influenza A+B Rapid Molecular Urgent
[place] Source: Nasal Swab
Specimen Description:
02/18/25 01:18
Albuterol Nebs [Ventolin Nebules] 2.5 mg .ROUTE .STK-MED ONE
Ipratropium Nebs [Atrovent Nebules] 0.5 mg .ROUTE .STK-MED ONE
02/18/25 03:10
0.9% Sodium Chloride 1000 ml [Nss] 1,000 ml IV 100 mls/hr
Dexamethasone Sod Phosphate [Decadron] 10 mg IV NOW STA
Piperacillin/Tazo 3.375 Gram [Zosyn] 3.375 gram in 50 ml IV NOW
Abnormal Lab Results
02/18/25
01:16
RBC 3.38 L 10^6/uL
(4.20-5.40)
Hgb 9.6 L g/dL
(12.0-16.0)
Hct 30.9 L %
(37.0-47.0)
MCHC 31.1 L g/dL
(33.0-37.0)
RDW 17.3 H %
(11.5-14.5)
Absolute Neuts (auto) 6.8 H 10^3/uL
(1.4-6.5)
Absolute Lymphs (auto) 0.9 L 10^3/uL
(1.2-3.4)
Absolute Monos (auto) 0.7 H 10^3/uL
(0.1-0.6)
Neutrophils % 78.5 H %
(42.2-75.2)
Lymphocytes % 10.8 L %
(20.5-51.1)
Carbon Dioxide 32 H mmol/L
(22-30)
BUN 30 H mg/dl
(7-17)
Creatinine 1.5 H mg/dL
(0.6-1.0)
Glucose 131 H mg/dl
(70-99)
Alkaline Phosphatase 129 H U/L
(38-126)
02/18/25 01:16
02/18/25 01:16
Vital Signs
Initial and Last Documented VS:
Initial Vital Signs
Pulse Ox
90
02/18/25 00:59
Last Documented Vital Signs
Temp Pulse Resp BP Pulse Ox
99 F 87 21 100/48 75
02/18/25 01:01 02/18/25 01:30 02/18/25 01:30 02/18/25 01:07 02/18/25 01:30
MDM/Problems Addressed
Differential Diagnosis Includes:
The Differential Diagnosis includes, in no particular order, and is not limited to:
1. Congestive heart failure exacerbation
2. Pulmonary edema
3. Chronic obstructive pulmonary disease exacerbation
4. Pulmonary embolism
5. Acute coronary syndrome
6. Pneumonia
7. Acute bronchitis
8. Severe anemia
9. Sepsis
10. Anxiety-related hyperventilation
MDM/Problems Addressed:
Acute hypoxic respiratory failure
Low-grade fever noted as well as mild hypotension. Concern for sepsis.
Will continue nebulizer treatment with hour-long albuterol treatment. Will check labs, chest x-ray.
She is noted to have bilateral lower extremity edema which according to patient has been chronic.
Chronically maintained on Eliquis thus PE is unlikely.
Chronic conditions affecting care: HTN, Cardiomyopathy, Arrhythmia, COPD and Neurological disorder
Acute Exacerbation and/or Progression of Chronic Illness: COPD
*Radiology
Radiology exam reviewed: preliminary read by ED provider (Chest x-ray shows interstitial fullness bilaterally as well as patchy infiltrates right upper lobe, right lower lobe.)
*Pulse Oximetry
SaO2: 75
Nasal Cannula flow liters per minute: 6
Oxygen Mode of Delivery: Room air
Patient hypoxic: yes
*EKG
Interpreted by ED Provider?: Yes
Comparison EKG: no changes (Unchanged from previous November 2024 save for heart rate is increased from 62 to now 86)
Rate: normal
Harned: left axis deviation
Interval: first degree heart block
QRS Pattern: left bundle branch block
Ischemia: non-specific ST changes
*Yard Driver Interpretation
Rate: normal
Interpretation: normal
Rhythm: sinus
*Critical Care Note
Total Time (30-74mins, 75-104mins- exclusive of procedures): 40
comment:
Critical care statement: A total of 40 minutes of critical care time was provided for this patient. This includes management of unstable vital signs, evaluation of the patient at bedside, reviewing the patient's pertinent medical records, discussion
with consultants, review of old EKGs and review of pertinent medical records. This time with separate from time utilized to perform the aforementioned documented procedures
Update Note
Update Note:
03:20
Respiratory distress has markedly improved but she continues with significant wheezing and continues with significant oxygen requirement.
Portable chest x-ray concerning for an element of CHF as well as patchy infiltrates right upper lobe and right lower lobe.
BNP however is only 700, not consistent with CHF and much improved from previous in November and near 4000.
Creatinine of 1.5, near her baseline that appears to be 1.3-1.4. BUN of 30, has trended up some from her baseline of mid 20s.
CBC is unremarkable. Troponin is normal. COVID and flu testing are negative.
Lactic acid is normal at 1.4.
BP is improving. She is noted to have low-grade fever, 100.5 degrees rectal temp.
I suspect healthcare associated pneumonia, exacerbation of COPD.
Will initiate IV fluids, gentle hydration especially in light of previous episodes of CHF.
Will initiate broad-spectrum antibiotics for coverage of potential gram-negative pneumonia as patient is a chronic resident of a local group home.
Will initiate IV steroids and continue supplemental oxygen and nebulizer treatments.
Will admit to hospitalist service.
ED Attending Note
-
Portions of this chart may have been created with voice recognition software.� Occasional wrong word or��sound alike� substitutions may have occurred due to the inherent limitations of voice recognition software.
Discharge Plan
Departure
Patient Disposition: Admit
Date of Disposition: 02/18/25
Time of Disposition: 03:25
Admit to: IMU
Admit to doctor: Janeth
Presentation/result/management discussed w/ accepting MD/DO: Hospitalist
Condition: Serious
Discharge Problem:
Acute hypoxemic respiratory failure, Multilobar pneumonia, Acute exacerbation of chronic obstructive pulmonary disease, Sepsis
Prescriptions:
No Action
levothyroxine 50 MCG tablet
50 mcg PO DAILY
pantoprazole 40 MG tablet,delayed release (DR/EC)
40 mg PO DAILY
citalopram 20 MG tablet
20 mg PO DAILY
atorvastatin 10 MG tablet
10 mg PO HS
carbidopa-levodopa 50-200 mg Tablet Extended Release
1 tab PO BID
montelukast 10 mg Tablet
10 mg PO HS
sildenafil (pulm.hypertension) 20 mg tablet
20 mg PO TID
Eliquis 5 mg Tablet
5 mg PO BID 30 Days Qty: 60 0RF
gabapentin 400 mg Tablet
400 mg PO HS
midodrine 5 mg Tablet
5 mg PO Q4HPRN PRN (Reason: SBP<100) Qty: 30 0RF
amiodarone 200 mg tablet
200 mg PO DAILY Qty: 30 0RF
torsemide 20 mg tablet
20 mg PO BID Qty: 30 0RF
acetaminophen [Tylenol] 325 mg Tablet
650 mg PO Q6HPRN PRN (Reason: MILD PAIN)
magnesium hydroxide [Milk of Magnesia] 400 mg/5 mL Suspension
2,400 mg PO [id number] PRN (Reason: CONSTIPATION)
bisacodyl [Dulcolax (bisacodyl)] 10 mg Suppository
10 mg MN DAILYPRN PRN (Reason: IF NO BM AFTR MOM)
amlodipine 2.5 mg Tablet
2.5 mg PO DAILY Qty: 30 0RF
Rx Instructions:
HOLD DOSE IF SBP < 90
metoprolol succinate 25 mg Tablet Extended Release 24 Hr
12.5 mg PO DAILY Qty: 30 0RF
Rx Instructions:
HOLD THE DOSE IF SBP < 100 or HR < 60
metolazone 2.5 mg Tablet
2.5 mg PO TuTh Qty: 30 0RF
potassium chloride 20 mEq Tablet,Er Particles/Crystals
40 meq PO BID Qty: 60 0RF
Referrals:
Alejandro Kevin DO [Family Provider, Internal Medicine]
Interventions
Interventions:
*Risk Screen - Suicide Last Done: 02/18/25 01:05
*General Assessment Last Done: 02/18/25 01:05
*Neglect/Abuse Screening Last Done: 02/18/25 01:05
*ED- Fall Risk Assessment Last Done: 02/18/25 01:05
*ED COVID-19 Vaccine History Last Done: 02/18/25 01:05
*ED Influenza Vaccine History Last Done: 02/18/25 01:05
ED- Cardiac Assessment Last Done: 02/18/25 02:17
ED- Pulmonary Assessment Last Done: 02/18/25 02:17
Discharge Date and Time
Print Language: DANISH
[2025-02-18] MEDS: DECADRON 10 MG IV (03:22)
[2025-02-18] MEDS: NSS 1000 IV (03:22)
[2025-02-18] MEDS: ZOSYN 50 IV ×2 (03:22→09:31)
--- NOTE | 2025-02-18 03:32 | HPS.HSE ---
Family Physician
-
Family Physician: Alejandro Kevin
Chief Complaint
-
Trouble breathing
History of Present Illness
Patient is a 84-year-old female with past medical history significant for CHF, proximal atrial fibrillation, COPD, hypothyroid, Parkinson, hypertension, recent NSTEMI medically managed, pulmonary hypertension presenting to the emergency department
with shortness of breath.
According to records patient was in usual state of health. She arose at around 11 PM feeling short of breath. She had oxygen saturation to 87% on 2 L. EMS was called and patient was noted to be wheezing and transferred to the emergency
department. She tells me that she started having symptoms when she woke up this a.m. She says she has had increased cough production in the last few days but she started feeling short of breath this a.m. She reports that she is unable to cough up
much of anything. She denies having any chest pain. She denied having any palpitations. She is unaware of any fevers or chills. She reports that she has chronic swelling in her legs but has not noticed any recent changes. She has not been
having any vomiting. She denies any trouble swallowing. She denies any vomiting.
In the emergency department blood pressure was 100/48 with a pulse of 87 and she was satting about 92% on 6 L. Temperature was 99 �F. ECG showed sinus rhythm with 4 degree AV block at a rate of 86, left bundle similar to prior. Initial troponin
was negative. BNP was 726 which is less than previous. COVID test was negative, flu test was negative. Chest x-ray shows right-sided patchy opacity in the upper and lower lobe.
CBC is grossly unremarkable with a white count of 8.7 BUN 9.6 and plate count of 169. Electrolytes were unremarkable. BUN and creatinine were similar to prior.
Medical History
Past Medical History
Past Medical History: Reports Other
Additional Past Medical History:
Spinal stenosis, hypertension, radiculopathy, hypothyroidism, PAF, GERD, Raynaud's, H. pylori, hyperlipidemia, palpitation, mitral regurgitation, colon polyps, aortic sclerosis, PVCs, murmur pancreatic cyst nonobstructive CAD, anxiety pericardial
effusion, diverticulosis, chronic CHF, dementia, lung nodule, PE, Parkinson's
Past Surgical History: Reports Other
Additional Past Surgical History:
Abdominoplasty, knee replacement, TAVR, laminectomy, right rotator cuff repair, bilateral knee replacement, left bunionectomy, right shoulder replacement
Social History
Unable to obtain full social history at this time due to: Acuity
Family History
Family History: Not pertinent
Allergies / Home Medications
Allergies reflects when Allergies were last updated in [employer]
Home Medications with original date entered in [employer]
Allergy/Medication List:
Allergies
Allergy/AdvReac Type Severity Reaction Status Date / Time
ALIREZA Inhibitors Allergy cough Verified 12/07/24 20:48
nifedipine (From Procardia) Allergy Unknown Verified 12/07/24 20:48
Sulfa (Sulfonamide Allergy CHILDHOOD Verified 12/07/24 20:48
Antibiotics)
sulfisoxazole Allergy CHILDHOOD Verified 12/07/24 20:48
Home Medications
levothyroxine 50 mcg tablet 50 mcg PO DAILY Thyroid 09/24/16
pantoprazole 40 mg tablet,delayed release 40 mg PO DAILY Gastrointestinal Issue 09/24/16
citalopram 20 mg tablet 20 mg PO DAILY depression 02/21/20
atorvastatin 10 mg tablet 10 mg PO HS High cholesterol 06/04/21
carbidopa ER 50 mg-levodopa 200 mg tablet,extended release 1 tab PO BID PARKINSON 03/17/23
montelukast 10 mg tablet 10 mg PO HS asthma 03/17/23
potassium chloride 20 mEq tablet,extended release(part/cryst) 20 meq PO BID Electrolyte Repletion 10/11/23
sildenafil (pulm.hypertension) 20 mg tablet 20 mg PO TID pulmonary hypertension 10/11/23
apixaban 5 mg tablet (Eliquis) 5 mg PO BID 30 days #60 tabs 07/14/24
gabapentin 400 mg tablet 400 mg PO HS Neurological Condition 11/12/24
amiodarone 200 mg tablet 200 mg PO DAILY #30 tabs 11/19/24
midodrine 5 mg tablet 5 mg PO Q4HPRN PRN SBP<100 #30 tabs 11/19/24
torsemide 20 mg tablet 20 mg PO BID #30 tabs 11/19/24
acetaminophen 325 mg tablet (Tylenol) 650 mg PO Q6HPRN PRN MILD PAIN 11/28/24
bisacodyl 10 mg rectal suppository (Dulcolax (bisacodyl)) 10 mg NH DAILYPRN PRN IF NO BM AFTR MOM 11/28/24
magnesium hydroxide 400 mg/5 mL oral suspension (Milk of Magnesia) 2,400 mg PO [id number] PRN CONSTIPATION 11/28/24
sodium phosphates 19 gram-7 gram/118 mL enema (Fleet Enema) 118 ml NH DAILYPRN PRN IF NO BM AFTR DULCOLAX 11/28/24
metoprolol succinate 25 mg tablet,extended release 24 hr 12.5 mg (1/2 x 25 mg) PO DAILY #30 tabs 12/05/24
metolazone 2.5 mg tablet 2.5 mg PO USEASDIRECTD 12/07/24
Review of Systems
-
Constitutional: Reports No Symptoms
EENT: Reports No Symptoms
Respiratory: Reports Trouble Breathing
Cardiac: Reports No Symptoms
Abdomen/GI: Reports No Symptoms
: Reports No Symptoms
Musculoskeletal: Reports No Symptoms
Skin: Reports No Symptoms
Neurological: Reports No Symptoms
Endocrine: Reports No Symptoms
Hematologic/Lymphatic: Reports No Symptoms
Psych: Reports No Symptoms
Physical Exam
Vital Signs
Vital Signs
Temp Pulse Resp BP Pulse Ox
99 F 87 21 100/48 75
02/18/25 01:01 02/18/25 01:30 02/18/25 01:30 02/18/25 01:07 02/18/25 03:19
Physical Exam
General: Respiratory Distress
HEENT: NormoCephalic, Moist mucous membranes, Atraumatic and Oxygen
Respiratory: Wheezes (Significant wheezing localized to the trachea and upper airways. Lung has some mild wheezing. Anteriorly could not auscultate any crackles department, more to get posterior auscultation.) and Decreased Breath Sounds
Cardiac: S1/S2 and Regular Rhythm; No Murmur or Rub
GI: Soft, Non Tender, Non Distended and Normal Bowel Sounds; No Organomegaly
Rectal: Deferred by Provider
Musculoskeletal: No Clubbing, No Cyanosis, Edema, Left Lower Extremity (1+) and Edema, Right Lower Extremity (1+)
Skin: No Rash
Neuro: AO x 3 and Nonfocal/grossly intact
Psych: Calm
Laboratory Results
-
02/18/25 01:16
02/18/25 01:16
Laboratory Results
Lactic Acid 1.4 mmol/L (0.7-2.0) 02/18/25 01:15
Total Bilirubin 0.5 mg/dl (0.2-1.3) 02/18/25 01:16
AST 19 U/L (14-36) 02/18/25 01:16
ALT < 10 U/L (0-35) 02/18/25 01:16
Alkaline Phosphatase 129 U/L (38-126) H 02/18/25 01:16
Troponin I 0.020 ng/ml 02/18/25 01:16
Data Reviewed
-
Diagnostic Radiology: Image Personally Visualized and interpreted
Medical Tests (Nuc Med, Echo, EKG etc): Image Personally Visualized and interpreted
Lab Data: Labs Reviewed by me
Old Records: Reviewed
Impression/Plan
-
IMPRESSION:
84-year-old with reports past medical history significant for COPD, hypertension, CHF, hypothyroid, paroxysmal atrial fibrillation, pulmonary hypertension, Parkinson disease, recent NSTEMI medically managed presenting to the emergency department
with cough and shortness of breath. It appears her diuretic regimen was increased just recently to torsemide 30 mg twice daily. X-ray shows increased patchy opacities on the right upper and lower lobes, no pleural effusion, she has stable lower
extremity edema, and BNP is decreased compared to prior. Troponin is negative. ECG shows a sinus rhythm with 4 degree AV block and left bundle branch block which is similar to prior. Overall picture is consistent with right-sided pneumonia, no
history of aspiration. Patient with significant wheezing and has a history of COPD and cannot rule out a COPD exacerbation at this time. She seems to be euvolemic at this time.
PLAN:
Hypoxic respiratory failure -hypoxia likely secondary to pneumonia and COPD exacerbation. COVID-negative. Influenza negative. She does not have leukocytosis and she is not febrile. Volume status appears to be euvolemic. She is currently
requiring mid flow.
-Admit to IMU
-Titrate oxygen to keep sats greater than 93%
-Will continue antibiotics with IV cefepime and azithromycin for now
-Unable to obtain sputum culture, check Legionella and streptococcal pneumonia antigens
-nebs RTC and as needed given wheezing, Solu-Medrol 40 mg IV every 12
-Pulmonary consult for severe acute on chronic hypoxic respiratory failure
CHF -patient appears euvolemic. BNP is decreased. He has been tolerating diuretics.
-Will provide hold parameters on diuresis but otherwise we will continue torsemide at 20 mg twice daily
-Monitor ins and outs and daily weights
-Hold metolazone and monitor for now
Paroxysmal atrial fibrillation -currently sinus rhythm
-Continue Amio 200 mg daily
� Continue metoprolol succ 2.5 mg p.o. daily with hold parameters
� Continue Eliquis 5 mg twice daily
COPD/pulmonary hypertension
� Nebs and steroids as above
� Oxygen supplementation as above
� Continue sildenafil 20 mg every 8 hours for pulmonary hypertension. Will only hold if SBP is less than 90
Will continue usual medications for hypothyroid and parkinson.
DVT prophylaxis�on apixaban
CODE STATUS/DNR
--- NOTE | 2025-02-18 05:09 | EDRN ---
Patient transported to IMU by this RN with cellphone and laborer orchard.
--- NOTE | 2025-02-18 05:43 | PTCARENOTE ---
received pt from ED at 0500. Pt aaox3, able to make needs known. Tremors B/L, hx parkinsons. NSR w/ 1st degree and BBB on monitor. Strip in chart. Lungs with audible insp/exp wheezes, coarse throughout. Round obese belly, stress incont of bladder,
purwick in place. Stage 1 on B/L buttocks/sacral area. VSS. Pt resting comfortably in bed at this time. ABGs drawn by RT. Care ongoing.
[2025-02-18 05:57] LABS: B.E. 4.0 mmol/L; HCO3 29.7 mmol/L (21-28); O2 Saturation % 98.7 % (94-98); PCO2 49 mmHg (32-35); PO2 91 mmHg (83-108)
[2025-02-18] MEDS: SYNTHROID 50 MCG PO (06:04)
[2025-02-18 06:12] LABS: Hematocrit 29.2 % (37.0-47.0); Hemoglobin 9.2 g/dL (12.0-16.0); Mean Corp Hgb Conc. 31.5 g/dL (33.0-37.0); Mean Corpuscular Volume 89.6 fL (81.0-99.0); Platelet Count 146 10^3/uL (130-400); Red Cell Dist. Width 17.6 % (11.5-14.5)
[2025-02-18 06:41] LABS: Blood Urea Nitrogen 32 mg/dl (7-17); Calcium 8.4 mg/dl (8.4-10.2); Carbon Dioxide 29 mmol/L (22-30); Chloride 105 mmol/L (98-107); Estimated Creatinine Clearance 30 ml/min; Glucose 132 mg/dl (70-99); Potassium 3.6 mmol/L (3.5-5.1); Sodium 142 mmol/L (135-145); eGFR 34.58
[2025-02-18] MEDS: DUONEB 3 ML INH ×4 (07:37→19:30)
--- NOTE | 2025-02-18 07:58 | CON.PUL ---
Consultation
Consultation Request
Date/Time Consultation Requested: 02/18/2025
Date/Time Consultation Performed: 02/18/2025
Reason for Consultation: Hypoxia
Medical History
-
Chief Complaint: Shortness of breath
History of Present Illness:
Patient is an 84-year-old female who was admitted to the hospital for shortness of breath and hypoxic respiratory failure. Patient has known history of underlying congestive heart failure, asthma, pulmonary hypertension as well as paroxysmal atrial
fibrillation. Patient reportedly developed shortness of breath around 11 PM prior to admission to the hospital, noted to have oxygen saturation in high 80s. EMS was called and patient was noted to have wheezing and was transported to emergency
room. Also reported cough with clear expectoration noted during my evaluation. No reported fever or chills. Unchanged bilateral lower extremity edema reported. Imaging was suggestive of worsening pulmonary opacities concerning for volume
overload and possibly right upper lobe pneumonia. Patient was started on IV antibiotics, oral diuretics were continued and pulmonary consultation was requested for further input.
During my evaluation 02/18, patient appeared encephalopathic. She would wake up with stimulation would repeat my words and then go back to sleep. No meaningful history could be obtained from her and my information is primarily from medical record.
Past Medical History
Past Medical History: Reports Other
Additional Past Medical History:
Spinal stenosis, hypertension, radiculopathy, hypothyroidism, PAF, GERD, Raynaud's, H. pylori, hyperlipidemia, palpitation, mitral regurgitation, colon polyps, aortic sclerosis, PVCs, murmur pancreatic cyst nonobstructive CAD, anxiety pericardial
effusion, diverticulosis, chronic CHF, dementia, lung nodule, PE, Parkinson's
Past Surgical History: Reports Other
Additional Past Surgical History:
Abdominoplasty, knee replacement, TAVR, laminectomy, right rotator cuff repair, bilateral knee replacement, left bunionectomy, right shoulder replacement
Social History
Unable to obtain full social history at this time due to: Acuity
Family History
Family History: Not pertinent
Allergies / Home Medications
Allergies
Allergy/AdvReac Type Severity Reaction Status Date / Time
ALIREZA Inhibitors Allergy cough Verified 12/07/24 20:48
nifedipine (From Procardia) Allergy Unknown Verified 12/07/24 20:48
Sulfa (Sulfonamide Allergy CHILDHOOD Verified 12/07/24 20:48
Antibiotics)
sulfisoxazole Allergy CHILDHOOD Verified 12/07/24 20:48
Home Medications
�Medication �Instructions �Recorded �Confirmed �Last Taken �Type
levothyroxine 50 mcg tablet 50 mcg PO DAILY Thyroid 09/24/16 12/08/24 11/28/24 History
pantoprazole 40 mg tablet,delayed 40 mg PO DAILY Gastrointestinal 09/24/16 12/08/24 11/28/24 History
release Issue
citalopram 20 mg tablet 20 mg PO DAILY depression 02/21/20 12/08/24 11/28/24 History
atorvastatin 10 mg tablet 10 mg PO HS High cholesterol 06/04/21 12/08/24 11/27/24 History
carbidopa ER 50 mg-levodopa 200 mg 1 tab PO BID PARKINSON 03/17/23 12/08/24 11/28/24 History
tablet,extended release
montelukast 10 mg tablet 10 mg PO HS asthma 03/17/23 12/08/24 11/27/24 History
sildenafil (pulm.hypertension) 20 20 mg PO TID pulmonary hypertension 10/11/23 12/08/24 11/28/24 History
mg tablet
apixaban 5 mg tablet (Eliquis) 5 mg PO BID 30 days #60 tabs 07/14/24 12/08/24 11/28/24 Rx
gabapentin 400 mg tablet 400 mg PO HS Neurological Condition 11/12/24 12/08/24 11/27/24 History
amiodarone 200 mg tablet 200 mg PO DAILY #30 tabs 11/19/24 12/08/24 11/28/24 Rx
midodrine 5 mg tablet 5 mg PO Q4HPRN PRN SBP<100 #30 tabs 11/19/24 12/08/24 Unknown Rx
torsemide 20 mg tablet 20 mg PO BID #30 tabs 11/19/24 12/08/24 11/28/24 Rx
acetaminophen 325 mg tablet 650 mg PO Q6HPRN PRN MILD PAIN 11/28/24 12/08/24 11/28/24 History
(Tylenol)
bisacodyl 10 mg rectal suppository 10 mg NV DAILYPRN PRN IF NO BM 11/28/24 12/08/24 Unknown History
(Dulcolax (bisacodyl)) AFTR MOM
magnesium hydroxide 400 mg/5 mL 2,400 mg PO [id number] PRN 11/28/24 12/08/24 Unknown History
oral suspension (Milk of Magnesia) CONSTIPATION
amlodipine 2.5 mg tablet 2.5 mg PO DAILY #30 tabs 12/11/24 Unknown Rx
metolazone 2.5 mg tablet 2.5 mg PO TuTh #30 tabs 12/11/24 Unknown Rx
metoprolol succinate 25 mg 12.5 mg (1/2 x 25 mg) PO DAILY #30 12/11/24 12/08/24 Unknown Rx
tablet,extended release 24 hr tabs
potassium chloride 20 mEq 40 meq (2 x 20 mEq) PO BID #60 tabs 12/11/24 Unknown Rx
tablet,extended release(part/cryst)
Review of Systems
-
Hematologic/Lymphatic: Other (Unable to obtain full review of system due to encephalopathy.)
Vitals / Labs / Diagnostic Testing
Vital Signs
Temp Pulse Resp BP Pulse Ox
98.8 F 81 15 103/46 96
02/18/25 07:33 02/18/25 06:00 02/18/25 06:00 02/18/25 06:00 02/18/25 06:00
Lab Data
02/18/25 05:54
02/18/25 05:54
Laboratory Results
02/18/25
05:41
pH 7.39
pCO2 49 H
pO2 91
HCO3 29.7 H
O2 Delivery Level
Microbiology
02/18/25 05:54 Urine Legionella Urinary Antigen - Final
Negative for Legionella pneumophila Serogroup 1 antigen.
A negative result does not rule out the possiblity of
Legionella infection due to other serogroups or species of
Legionella. Clinical correlation is recommended.
02/18/25 05:54 Urine Streptococcus pneumoniae Antigen (M - Final
Negative for Streptococcus pneumoniae antigen.
A negative result does not exclude infection with
Streptococcus pneumoniae. Clinical correlation is
recommended.
02/18/25 01:16 Nasal Swab Influenza Types A & B (SHAYE) - Final
Negative for Influenza A & B, NAAT
Negative results must be combined with clinical observations
and patient history.
Nucleic Acid Amplification test (NAAT)performed on the
[employer] platform.
Diagnostic Testing:
Physical Exam
-
HEENT: Normocephalic
Cardiovascular: S1/S2 and Peripheral Edema (bilateral pedal edema. 1-2+)
Respiratory: Rales
GI: Soft and Non Distended
Neurology: Other (Drowsy however wakes up with stimulation, not able to answer questions appropriately.)
Skin: Warm
General: Comfortable
Assessment
-
#1. Acute on chronic Hypoxic respiratory failure
- Suspect primarily driven by volume overload, congestive heart failure exacerbation.
- Right upper lobe opacity reviewed, differential diagnosis include both pneumonia as well as atelectasis
- Discontinue IV fluid, switch to IV diuresis as patient is volume overloaded on exam
- Wean oxygen as tolerated
#2. Acute on chronic HFrEF, LVEF 40%
- Worsening pulmonary congestion on imaging, bilateral pitting edema noted on exam
- Discontinue IV fluids, initiate Lasix IV 40 mg twice daily, hold oral diuretics for now
- Monitor input and output closely
#3. RUL Pneumonia vs atelectasis.
- Patient is afebrile, does not have a WBC count.
- With encephalopathy, aspiration pneumonitis/pneumonia is a concern. Procalcitonin elevated however hard to interpret in the setting of abnormal creatinine
- Discontinue Zosyn, initiate IV Unasyn instead, will favor 5 to 7 days of antibiotics depending upon clinical course.
#4. H/o Asthma with increased wheezing
- Wheezing could be related to Asthma vs 'cardiac asthma' due to volume overload
- PFT in 05/2023 suggestive of mild obstruction with bronchodilator responsiveness
- Continue scheduled DuoNeb as well as IV Solu-Medrol for now, anticipate cutting down steroid dose starting 02/19.
#5. H/o Aortic Stenosis, s/p TAVR
- Well seated per ECHO
#6. Paroxysmal Atrial Fibrillation
- Continue Eliquis
- Holding metoprolol temporarily in view of borderline blood pressure
#7. Moderate to severe MR with dense calcification
- Likely contributing to pulmonary congestion as well
- Continue diuresis
#8. Pulmonary HTN
- PASP 79 per ECHO in 11/2024. Normal RV size and function
- Group II with HFrEF and MR
- Has been on Revatio 20 mg 3 times daily. Continuing medication as sudden discontinuation can cause rebound pulmonary hypertension
- In view of volume overload, Group II PAH, Revatio can precipitate pulmonary edema as well
- Continue to optimize volume status, keep oxygen saturation above 90%
#9. H/o Pulmonary nodule
- resolved on f/u imaging
- Resume out patient follow up with Dr. Carrizales.
Other medical diagnoses:
- Acute metabolic encephalopathy. D/c Gabapentin. Check VBG to evaluate for any CO2 retention. Has been on Sinemet. Wakes up with stimulation but not oriented. D.w Primary team. Will defer Neuro work up to primary team.
- Parkinsonism.
Data:
CXR 02/2025: Vascular congestion and interstitial edema. As above, small apparent area of abnormal airspace opacity over the right upper lung which could be related to alveolar edema or possibly pneumonia. Follow-up examination with PA and lateral
projections may be helpful in further evaluation.
ECHO 11/2024: 1. The left ventricle is normal in size. Left ventricular systolic function is mild-moderately reduced with an ejection fraction of 40% by George's method of discs. Mild concentric left ventricular hypertrophy. Mild global
hypokinesis. Paradoxical septal motion.
2. Right ventricular size and systolic function are within normal limits.
3. S/p 26 mm Bocanegra Ricki transcatheter aortic valve replacement which is well seated. Peak/mean gradients across the aortic valve are 16/9 mmHg respectively. No aortic regurgitation is seen.
4. Moderately thickened mitral leaflets. Dense mitral annular calcification. Peak/mean gradients across the mitral valve are 16/9 mmHg respectively. Mitral valve area by pressure halftime is 2.9 cm2. Moderate to severe mitral regurgitation. PISA
radius is 0.8 cm., ERO is 0.31 cm2.
5. Moderate to severe tricuspid regurgitation. Estimated pulmonary artery pressure of 79 mmHg assuming a right atrial pressure of 3 mmHg.
6. Compared to a prior transthoracic echocardiogram study from 11/14/24 The PA pressures increased from 58 to 79 mmHg. Otherwise no significant change.
C & RHC 2019: RA (m) : 24
RV (s/d) : 54/18
PA (s/d, m) : 54/36, 43
PCWP (m) : 33
AO (s/d) : 161/77
- Non obstructive CAD
- Severe
- Elevated filling pressures.
PFT 06/08/23-FEV1 1.43-83%, FVC 2.2-94%, 13% improvement postbronchodilator. TLC 92%, RV 73%, DLCO 39%, DLCO/VA 90%. Mild obstruction, significant BD response, moderate to severe reduction in diffusing capacity.
--- NOTE | 2025-02-18 08:51 | PTCARENOTE ---
Patient received from investment specialist. Patient resting comfortably in bed. AAOx1 and extremely drowsy, VSS. No events noted overnight. No visible complaints of pain a this time. Currently on 6L N/C, will attempt to wean as tolerated. Patient with
copious amounts of oral secretions, respiratory to attempt suctioning. No tests scheduled at this time. Call martinez in reach.
[2025-02-18 09:17] LABS: Procalcitonin 3.90 ng/ml (0.0-0.25)
--- NOTE | 2025-02-18 09:27 | W.PN.HOSP.TC ---
Today's Communication/Plan
-
see bold
Assessment / Plan
Assessment / Plan
HPI: 84-year-old with reports past medical history significant for COPD, hypertension, CHF, hypothyroid, paroxysmal atrial fibrillation, pulmonary hypertension, Parkinson disease, recent NSTEMI medically managed presenting to the emergency
department with cough and shortness of breath. It appears her diuretic regimen was increased just recently to torsemide 30 mg twice daily. X-ray shows increased patchy opacities on the right upper and lower lobes, no pleural effusion, she has
stable lower extremity edema, and BNP is decreased compared to prior. Troponin is negative. ECG shows a sinus rhythm with 4 degree AV block and left bundle branch block which is similar to prior. Overall picture is consistent with right-sided
pneumonia, no history of aspiration. Patient with significant wheezing and has a history of COPD and cannot rule out a COPD exacerbation at this time. She seems to be euvolemic at this time.
Assessment/plan:
#Acute on chronic hypoxic respiratory failure
Due to PNA, COPD and CHF exacerbation, treat as below
Currently requiring 5 L of oxygen, wean as tolerated
#Acute COPD exacerbation
#Probable pneumonia
COVID-negative. Influenza negative. Urine Legionella and strep antigens negative
Continue IV antibiotics, IV steroids, bronchodilators, pulmonology consulted
#Acute heart failure with a reduced ejection fraction
Stop IV fluids, give IV Lasix, trend creatinine, trend daily weights
#Acute toxic metabolic encephalopathy
Multifactorial, due to sepsis, respiratory failure
VBG pCO2 52
N.p.o. until seen by speech
#History of Parkinson's disease
Unable to take oral meds, consult neurology
#Paroxysmal atrial fibrillation -currently sinus rhythm
- Continue Amio 200 mg daily, metoprolol succ 2.5 mg p.o. daily when able
� Continue Eliquis 5 mg twice daily when able
#Stage III CKD
Renally dose medications, trend creatinine
Pulmonary hypertension
� Continue sildenafil 20 mg every 8 hours when able. Will only hold if SBP is less than 90
DVT prophylaxis�on apixaban
DNR
Physical Exam
General: Appears acutely ill, no acute distress
HEENT: Normocephalic, Atraumatic, EOMI, MMM
Excessive drooling noted
Respiratory: Coarse breath sounds with scattered wheezing
Cardiac: Normal S1/S2, Regular Rate and Rhythm
GI: Soft, Nontender, Nondistended, Normal Bowel Sounds
Extremities: No Clubbing, Cyanosis
Bilateral lower extremity edema noted
Neuro: Not answering questions
Psych: Calm
Anticipated Discharge: > 48 hours
Subjective/Interval History
-
Date of Service: February 18, 2025
Patient is somnolent, not answering questions. She is drooling.
Objective Data
-
Labs:
Laboratory Results
02/18/25 02/18/25 02/18/25
01:16 05:41 05:54
WBC 8.7 9.5
Hgb 9.6 L 9.2 L
Hct 30.9 L 29.2 L
Plt Count 165 146
HCO3 29.7 H
Sodium 140 142
Potassium 4.0 3.6
Chloride 104 105
Carbon Dioxide 32 H 29
BUN 30 H 32 H
Creatinine 1.5 H 1.5 H
Glucose 131 H 132 H
Calcium 8.5 8.4
Total Bilirubin 0.5
AST 19
ALT < 10
Alkaline Phosphatase 129 H
Vital Signs:
Vital Signs
Temp Pulse Resp BP Pulse Ox
98.8 F 85 25 103/46 95
02/18/25 07:33 02/18/25 07:58 02/18/25 07:58 02/18/25 06:00 02/18/25 07:58
[2025-02-18] MEDS: SOLU-MEDROL PF 40 MG IV ×2 (09:34→19:53)
[2025-02-18] MEDS: TOPROL XL PO (09:55)
[2025-02-18] MEDS: REVATIO PO ×2 (09:55→16:19)
[2025-02-18] MEDS: PACERONE PO (09:55)
[2025-02-18] MEDS: CELEXA PO (09:55)
[2025-02-18] MEDS: SINEMET CR 50/200 (EXTENDED RELEASE) PO (09:55)
[2025-02-18] MEDS: PROTONIX PO (09:55)
[2025-02-18] MEDS: ELIQUIS PO (09:55)
--- NOTE | 2025-02-18 12:01 | PTOTSP ---
Received order for PT, reviewed chart, s/w RN who reports pt is currently obtunded and not appropriate for PT evaluation at this time. Agreed to hold today. talent acquisition project manager to find out pt's prior level of function at [facility].
[2025-02-18] MEDS: LASIX 40 MG IV ×2 (13:22→19:53)
[2025-02-18] MEDS: UNASYN IV (13:35)
[2025-02-18 13:47] LABS: Venous Blood Gas B.E. 2.4 mmol/L (-4 to +4); Venous Blood Gas O2 Sat % 99.9 %
--- NOTE | 2025-02-18 15:33 | PTOTSP ---
ST Acute Care Evaluation
Pt currently presents with clinical signs of reduced alertness, lethargy, weak reflexive and volitional cough strength, reduced secretion management, inconsistent command following, and minimal volitional swallows in response to excess secretions,
all of which are indications of high risk for aspiration and contraindications for PO intake at this time.
Recommendations:
- STRICT NPO - including meds; no ARHP; no ice chips.
- Consider short term placement of dobhoff for nutrition, hydration, and med administration (especially Parkinson's meds); however, consider consulting with GI to determine whether pt is an appropriate candidate given pt's dx of scleroderma and VFSS
in 2022 that revealed esophageal retention and slow transit inferiorly as well as pt's hx of GERD.
- Aspiration precautions: HOB upright as often as possible; oral care QID with suctioning; oropharyngeal suctioning as often as needed to maintain patent airway); consider drying agent (e.g. scopolamine) to assist with secretion management.
- RN HOUSE SUPERVISOR to f/u re: re-assessment of pt's swallowing function to determine if pt is a candidate to initiate PO diet and to determine if/when pt would be appropriate for an instrumental swallow study.
--- NOTE | 2025-02-18 15:39 | CM ---
I.A: Completed By GLEN Cisneros.
Patient lives at [facility], uses a walker as well as a Wheelchair. Patient was at STR at [facility] for about 4 weeks then sent to the 3rd floor for LTC.
PCP: Dr. Alejandro Bacon
Pharmacy: Via [facility]
Patient will need transport. PLAN: Return to [facility] when ready for LTC- return referral made.
--- NOTE | 2025-02-18 16:46 | CON.NEURO4 ---
Consultation - Neurology 4
-
CONSULTING PHYSICIAN: Dr. Jim Ramirez
REFERRING PHYSICIAN: Anjum Hester
DICTATED BY: Dr. Jim Ramirez
DATE/TIME OF REQUEST: 02/18/2025
DATE/TIME OF CONSULTATION: 02/18/2025
Reason for Consultation: Parkinson's disease
ASSESSMENT AND PLAN:
The patient has a history of Parkinson's disease. Neurology was consulted as the patient was drowsy and was unable to take po medications including Sinemet, however the patient's mental status improved significantly over a short period of time and
the plan is to try to give Sinemet at the dose that she was on at home. In the beginning we will supplement the dose of Sinemet with 1 mg of Neupro patch daily and then we will stop Neupro patch as needed. The patient probably has pneumonia and
she presented with difficulty in breathing.
The patient has bilateral resting hand tremor and also she has bilateral cogwheel rigidity in both upper extremities.
. The CT of the head does not show an acute intracranial abnormality.
History of Present Illness:
The patient is an 84 years old female with a past medical history of COPD, hypertension, CHF, hypothyroidism, paroxysmal atrial fibrillation on eliquis, pulmonary hypertension, Parkinson's disease, recent NSTEMI medically managed, presenting to the
emergency department with cough and shortness of breath. The patient probably has pneumonia. Neurology was consulted as the patient was drowsy and was unable to take po medications including Sinemet, however the patient's mental status improved
significantly over a short period of time and the plan is to try to give Sinemet at the dose that she was on at home. In the beginning we will supplement the dose of Sinemet with 1 mg of Neupro patch daily. The patient probably has pneumonia.
Past Medical History: COPD, hypertension, CHF, hypothyroidism, paroxysmal atrial fibrillation on eliquis, pulmonary hypertension, Parkinson's disease, recent NSTEMI.
Review of Systems: The patient denies headache, dizziness, chest pain, shortness of breath, fever, and chills.
Neurologic Examination:
The patient is alert and oriented x 3,
Speech is clear
The cranial nerves II through XII grossly intact,
The patient has antigravity strength in all 4 extremities. The patient has bilateral resting hand tremor and also she has bilateral cogwheel rigidity in both upper extremities.
The sensations are grossly intact,
The patient does not appear to have limb ataxia.
Vital Signs and Labs
-
Vital Signs and Labs:
Vital Signs
Temp Pulse Resp BP Pulse Ox
37.2 C 85 20 118/53 93
02/18/25 16:06 02/18/25 15:09 02/18/25 15:09 02/18/25 13:22 02/18/25 15:53
Lab Results
02/18/25 05:54
02/18/25 05:54
Sodium 142 mmol/L (135-145) 02/18/25 05:54
Potassium 3.6 mmol/L (3.5-5.1) 02/18/25 05:54
BUN 32 mg/dl (7-17) H 02/18/25 05:54
Glucose 132 mg/dl (70-99) H 02/18/25 05:54
Calcium 8.4 mg/dl (8.4-10.2) 02/18/25 05:54
Kco-O-Mmnitvmbfuy Pept 726 pg/ml 02/18/25 01:16
Medications
-
Active Medications
Generic Name Dose Route Start Last Admin
Trade Name Freq PRN Reason Stop Dose Admin
Acetaminophen 650 mg 02/18/25 05:07
Acetaminophen 325 Mg Tablet PO 03/18/25 05:06
Q4HPRN PRN
if temp > 101 F
Albuterol/Ipratropium 3 ml 02/18/25 05:07
Ipratropium 0.5/Albuterol 3 Mg (3 Ml Ampul) INH
R Q4HPRN PRN
short of breath
Protocol
Albuterol/Ipratropium 3 ml 02/18/25 08:00 02/18/25 15:07
Ipratropium 0.5/Albuterol 3 Mg (3 Ml Ampul) INH 3 ml
R QID GARY Administration
Protocol
Amiodarone HCl 200 mg 02/18/25 08:00 02/18/25 09:55
Amiodarone 200 Mg Tablet PO 03/18/25 07:59 Not Given
DAILY GARY
Apixaban 5 mg 02/18/25 08:00 02/18/25 09:55
Apixaban (Eliquis) 5 Mg Tablet PO 03/18/25 07:59 Not Given
BID GARY
Atorvastatin Calcium 10 mg 02/18/25 22:00
Atorvastatin (Lipitor) 10 Mg Tablet PO 03/18/25 21:59
HS GARY
Atropine Sulfate 0 drop 02/18/25 15:17
Atropine Sulfate 1% (Ophthalmic Drops) Droptainer SL 03/18/25 15:16
Q4HPRN PRN
excessive secretions
Bisacodyl 10 mg 02/18/25 05:07
Bisacodyl 10 Mg Rectal Suppository RECTAL 03/18/25 05:06
DAILYPRN PRN
IF NO BM AFTR MOM
Carbidopa/Levodopa 1 tablet 02/18/25 08:00 02/18/25 09:55
Carbidopa (50 Mg)/Levodopa (200 Mg) Extended Release Tablet PO 03/18/25 07:59 Not Given
BID GARY
Carbidopa/Levodopa 1 tablet 02/18/25 18:00
Carbidopa (50 Mg)/Levodopa (200 Mg) Extended Release Tablet PO 02/18/25 18:01
ONCE ONE
Citalopram Hydrobromide 20 mg 02/18/25 08:00 02/18/25 09:55
Citalopram 20 Mg Tablet PO 03/18/25 07:59 Not Given
DAILY GARY
Furosemide 40 mg 02/18/25 13:00 02/18/25 13:22
Furosemide 40 Mg (10 Mg/Ml) 4 Ml Vial IV 03/18/25 12:59 40 mg
BID AT 0800,1600 GARY Administration
Ampicillin Sodium/Sulbactam 120 mls @ 240 mls/hr 02/18/25 14:00 02/18/25 13:35
Sodium 3 gm/ Sodium Chloride IV 120 mls
Q12H GARY Administration
Levothyroxine Sodium 50 mcg 02/18/25 06:00 02/18/25 06:04
Levothyroxine 50 Mcg Tablet PO 03/18/25 05:59 50 mcg
DAILY @ 0600 GARY Administration
Methylprednisolone Sodium Succinate 40 mg 02/18/25 08:00 02/18/25 09:34
Methylprednisolone Pf 40 Mg/Ml Vial IV 03/18/25 07:59 40 mg
Q12H GARY Administration
Metoprolol Succinate 12.5 mg 02/18/25 08:00 02/18/25 09:55
Metoprolol 12.5 Mg Extended Release Dose (1/2 Of 25 Mg Xl Tablet) PO 03/18/25 07:59 Not Given
On Hold: 02/18/25 13:04 DAILY GARY
Midodrine 5 mg 02/18/25 05:07
Midodrine 5 Mg Tablet PO 03/18/25 05:06
Q4HPRN PRN
SBP<100
Montelukast Sodium 10 mg 02/18/25 22:00
Montelukast Sodium 10 Mg Tablet PO 03/18/25 21:59
HS GARY
Pantoprazole Sodium 40 mg 02/18/25 08:00 02/18/25 09:55
Pantoprazole 40 Mg Delayed Release Tablet PO 03/18/25 07:59 Not Given
DAILY GARY
Rotigotine 1 mg 02/18/25 16:00
Rotigotine (Neupro) 1 Mg Patch TRANSDERM 03/18/25 15:59
DAILY GARY
Scopolamine HBr 1 patch 02/18/25 16:00
Scopolamine Patch (1 Mg/3 Days) TRANSDERM 12/08/25 15:59
Q72H GARY
Sildenafil Citrate 20 mg 02/18/25 08:00 02/18/25 09:55
Sildenafil 20 Mg Tablet PO 03/18/25 07:59 Not Given
TID GARY
Sodium Chloride 0 flush 02/18/25 06:00
Sodium Chloride 0.9% (Flush) Syringe IV 03/18/25 05:59
PER PROTOCOL GARY
Home Medications
�Medication �Instructions �Recorded
levothyroxine 50 mcg tablet 50 mcg PO DAILY Thyroid 09/24/16
pantoprazole 40 mg tablet,delayed 40 mg PO DAILY Gastrointestinal 09/24/16
release Issue
citalopram 20 mg tablet 20 mg PO DAILY depression 02/21/20
atorvastatin 10 mg tablet 10 mg PO HS High cholesterol 06/04/21
carbidopa ER 50 mg-levodopa 200 mg 1 tab PO BID PARKINSON 03/17/23
tablet,extended release
montelukast 10 mg tablet 10 mg PO HS asthma 03/17/23
sildenafil (pulm.hypertension) 20 20 mg PO TID pulmonary hypertension 10/11/23
mg tablet
apixaban 5 mg tablet (Eliquis) 5 mg PO BID 30 days #60 tabs 07/14/24
gabapentin 400 mg tablet 400 mg PO HS Neurological Condition 11/12/24
amiodarone 200 mg tablet 200 mg PO DAILY #30 tabs 11/19/24
midodrine 5 mg tablet 5 mg PO Q4HPRN PRN SBP<100 #30 tabs 11/19/24
torsemide 20 mg tablet 20 mg PO BID #30 tabs 11/19/24
acetaminophen 325 mg tablet 650 mg PO Q6HPRN PRN MILD PAIN 11/28/24
(Tylenol)
bisacodyl 10 mg rectal suppository 10 mg OH DAILYPRN PRN IF NO BM 11/28/24
(Dulcolax (bisacodyl)) AFTR MOM
magnesium hydroxide 400 mg/5 mL 2,400 mg PO [id number] PRN 11/28/24
oral suspension (Milk of Magnesia) CONSTIPATION
amlodipine 2.5 mg tablet 2.5 mg PO DAILY #30 tabs 12/11/24
metolazone 2.5 mg tablet 2.5 mg PO TuTh #30 tabs 12/11/24
metoprolol succinate 25 mg 12.5 mg (1/2 x 25 mg) PO DAILY #30 12/11/24
tablet,extended release 24 hr tabs
potassium chloride 20 mEq 40 meq (2 x 20 mEq) PO BID #60 tabs 12/11/24
tablet,extended release(part/cryst)
[2025-02-18] MEDS: REVATIO 20 MG PO ×2 (17:06→19:54)
[2025-02-18] MEDS: SINEMET CR 50/200 (EXTENDED RELEASE) 1 TABLET PO ×2 (17:06→19:54)
[2025-02-18] MEDS: NEUPRO 1 MG TRANSDERM (17:06)
--- NOTE | 2025-02-18 18:24 | CON.GI ---
Consultation
-
Date/Time Consultation Requested: 02/18/2025
Date/Time Consultation Performed: 02/18/2025
Performing Provider: Alec Obrien
Reason for Consultation: dysphagia
Medical History
Chief Complaint / HPI
Chief Complaint: dysphagia
History of Present Illness:
84 year old female with h/o CHF, pAfib, COPD, hypothyroid, Parkinson, HTN, recent NSTEMI which is medically managed, and pHTN who p/w dyspnea. Her respiratory failure is thought to be driven by volume overload from CHF exacerbation vs aspiration
pneumonitis. Currently on 5L of oxygen. Patient is confused and no meaningful history could be taken. GI being consulted for ? dysphagia.
Past Medical History
Past Medical History: CHF, COPD, GERD, HTN and Other
Past Surgical History: Other
Social History
Tobacco: Other
Alcohol: Other
Drug: Other
Allergies / Home Medications
Allergy/AdvReac Type Severity Reaction Status Date / Time
ALIREZA Inhibitors Allergy cough Verified 12/07/24 20:48
nifedipine (From Procardia) Allergy Unknown Verified 12/07/24 20:48
Sulfa (Sulfonamide Allergy CHILDHOOD Verified 12/07/24 20:48
Antibiotics)
sulfisoxazole Allergy CHILDHOOD Verified 12/07/24 20:48
�Medication �Instructions �Recorded
levothyroxine 50 mcg tablet 50 mcg PO DAILY Thyroid 09/24/16
pantoprazole 40 mg tablet,delayed 40 mg PO DAILY Gastrointestinal 09/24/16
release Issue
citalopram 20 mg tablet 20 mg PO DAILY depression 02/21/20
atorvastatin 10 mg tablet 10 mg PO HS High cholesterol 06/04/21
carbidopa ER 50 mg-levodopa 200 mg 1 tab PO BID PARKINSON 03/17/23
tablet,extended release
montelukast 10 mg tablet 10 mg PO HS asthma 03/17/23
sildenafil (pulm.hypertension) 20 20 mg PO TID pulmonary hypertension 10/11/23
mg tablet
apixaban 5 mg tablet (Eliquis) 5 mg PO BID 30 days #60 tabs 07/14/24
gabapentin 400 mg tablet 400 mg PO HS Neurological Condition 11/12/24
amiodarone 200 mg tablet 200 mg PO DAILY #30 tabs 11/19/24
midodrine 5 mg tablet 5 mg PO Q4HPRN PRN SBP<100 #30 tabs 11/19/24
torsemide 20 mg tablet 20 mg PO BID #30 tabs 11/19/24
acetaminophen 325 mg tablet 650 mg PO Q6HPRN PRN MILD PAIN 11/28/24
(Tylenol)
bisacodyl 10 mg rectal suppository 10 mg DE DAILYPRN PRN IF NO BM 11/28/24
(Dulcolax (bisacodyl)) AFTR MOM
magnesium hydroxide 400 mg/5 mL 2,400 mg PO [id number] PRN 11/28/24
oral suspension (Milk of Magnesia) CONSTIPATION
amlodipine 2.5 mg tablet 2.5 mg PO DAILY #30 tabs 12/11/24
metolazone 2.5 mg tablet 2.5 mg PO TuTh #30 tabs 12/11/24
metoprolol succinate 25 mg 12.5 mg (1/2 x 25 mg) PO DAILY #30 12/11/24
tablet,extended release 24 hr tabs
potassium chloride 20 mEq 40 meq (2 x 20 mEq) PO BID #60 tabs 12/11/24
tablet,extended release(part/cryst)
Review of Systems
Vital Signs
Temp Pulse Resp BP Pulse Ox
99.0 F 85 20 118/53 93
02/18/25 16:06 02/18/25 15:09 02/18/25 15:09 02/18/25 13:22 02/18/25 15:53
Physical Exam
Exam
General: Well Developed, Well Nourished and Other (confused)
HEENT: Normocephalic and Anicteric
GI: Soft, Non Tender, Non Distended and Normal Bowel Sounds
Results
WBC 9.5 10^3/uL (4.8-10.8) 02/18/25 05:54
Hgb 9.2 g/dL (12.0-16.0) L 02/18/25 05:54
Hct 29.2 % (37.0-47.0) L 02/18/25 05:54
MCV 89.6 fL (81.0-99.0) 02/18/25 05:54
Plt Count 146 10^3/uL (130-400) 02/18/25 05:54
Absolute Neuts (auto) 6.8 10^3/uL (1.4-6.5) H 02/18/25 01:16
Sodium 142 mmol/L (135-145) 02/18/25 05:54
Potassium 3.6 mmol/L (3.5-5.1) 02/18/25 05:54
Chloride 105 mmol/L (98-107) 02/18/25 05:54
Carbon Dioxide 29 mmol/L (22-30) 02/18/25 05:54
BUN 32 mg/dl (7-17) H 02/18/25 05:54
Creatinine 1.5 mg/dL (0.6-1.0) H 02/18/25 05:54
Calcium 8.4 mg/dl (8.4-10.2) 02/18/25 05:54
Total Bilirubin 0.5 mg/dl (0.2-1.3) 02/18/25 01:16
AST 19 U/L (14-36) 02/18/25 01:16
ALT < 10 U/L (0-35) 02/18/25 01:16
Alkaline Phosphatase 129 U/L (38-126) H 02/18/25 01:16
Diagnostic Image Results:
Prior GI Procedures:
EGD:
Colonoscopy:
Assessment / Plan
-
84 year old female with h/o CHF, pAfib, COPD, hypothyroid, Parkinson, HTN, recent NSTEMI which is medically managed, and pHTN who p/w dyspnea. GI being consulted for ? dysphagia.
Impression / Rec:
1. ? Dysphagia - evaluated by speech, strict NPO given the aspiration risk. Consideration fo short term dobhoff placement for nutrition was recommended, speech suggested consulting GI whether pt is appropriate candidate given her dx of
scleroderma. Pt's dx of scleroderma has no bearing with dobhoff placement and should be fine. GI s/o, pls call if additional questions.
Total Time Spent with Patient (in minutes): 55
-
-
Thank you for consultation and allowing me to participate in the patient's care. Please call the steward/stewardess second GI physician during the after hours with any questions or concerns.
[2025-02-18] MEDS: ELIQUIS 5 MG PO (19:54)
[2025-02-18] MEDS: SINGULAIR 10 MG PO (21:47)
[2025-02-18] MEDS: LIPITOR 10 MG PO (21:47)
[2025-02-19] VITALS (16 sets, daily range): BP systolic 105–140; BP diastolic 47–108; PULSE 99; BMI 39.5
[2025-02-19] MEDS: UNASYN IV ×3 (02:52→20:42)
[2025-02-19] MEDS: SYNTHROID 50 MCG PO (03:46)
[2025-02-19 04:05] LABS: Hematocrit 29.8 % (37.0-47.0); Hemoglobin 9.1 g/dL (12.0-16.0); Mean Corp Hgb Conc. 30.5 g/dL (33.0-37.0); Mean Corpuscular Volume 92.5 fL (81.0-99.0); Platelet Count 125 10^3/uL (130-400); Red Cell Dist. Width 17.4 % (11.5-14.5)
[2025-02-19] MEDS: DUONEB 3 ML INH ×5 (04:09→19:41)
[2025-02-19 05:05] LABS: Blood Urea Nitrogen 32 mg/dl (7-17); Calcium 8.8 mg/dl (8.4-10.2); Carbon Dioxide 29 mmol/L (22-30); Chloride 104 mmol/L (98-107); Estimated Creatinine Clearance 38 ml/min; Glucose 109 mg/dl (70-99); Magnesium 2.2 mg/dl (1.6-2.3); Potassium 4.2 mmol/L (3.5-5.1); Sodium 139 mmol/L (135-145); eGFR 45.19
--- NOTE | 2025-02-19 06:14 | PTCARENOTE ---
Caring for pt overnight. aaox3 but very confused and forgetful. Remains on 6LNC, audible wheezing, coarse. neb treatments given overnight. iv lasix. bp's stable. NSR. Q2T. Purewick. Denies pain. will monitor.
[2025-02-19] MEDS: TRANSDERM-SCOP TRANSDERM (06:20)
[2025-02-19] MEDS: NEUPRO 1 MG TRANSDERM (08:39)
[2025-02-19] MEDS: SOLU-MEDROL PF 40 MG IV (08:39)
[2025-02-19] MEDS: LASIX 40 MG IV ×2 (08:39→15:19)
[2025-02-19] MEDS: PACERONE 200 MG PO (08:40)
[2025-02-19] MEDS: REVATIO 20 MG PO ×3 (08:40→21:18)
[2025-02-19] MEDS: ELIQUIS 5 MG PO ×2 (08:40→20:41)
[2025-02-19] MEDS: PROTONIX 40 MG PO (08:40)
[2025-02-19] MEDS: SINEMET CR 50/200 (EXTENDED RELEASE) 1 TABLET PO ×2 (08:40→20:42)
[2025-02-19] MEDS: CELEXA 20 MG PO (08:40)
--- NOTE | 2025-02-19 09:18 | W.PN.HOSP.TC ---
Today's Communication/Plan
-
see bold
Assessment / Plan
Assessment / Plan
HPI: 84-year-old with reports past medical history significant for COPD, hypertension, CHF, hypothyroid, paroxysmal atrial fibrillation, pulmonary hypertension, Parkinson disease, recent NSTEMI medically managed presenting to the emergency
department with cough and shortness of breath. It appears her diuretic regimen was increased just recently to torsemide 30 mg twice daily. X-ray shows increased patchy opacities on the right upper and lower lobes, no pleural effusion, she has
stable lower extremity edema, and BNP is decreased compared to prior. Troponin is negative. ECG shows a sinus rhythm with 4 degree AV block and left bundle branch block which is similar to prior. Overall picture is consistent with right-sided
pneumonia, no history of aspiration. Patient with significant wheezing and has a history of COPD and cannot rule out a COPD exacerbation at this time. She seems to be euvolemic at this time.
Assessment/plan:
#Acute on chronic hypoxic respiratory failure
Due CHF exacerbation, treat as below
Currently requiring 4.5 L of oxygen, wean as tolerated
She does not wear oxygen at home
#Acute heart failure with a reduced ejection fraction
IV fluids discontinued 02/18
Continue Lasix 40 mg IV twice daily, trend creatinine, trend daily weights
#Probable pneumonia
COVID-negative. Influenza negative. Urine Legionella and strep antigens negative
Continue IV unasyn for 5-7 days for suspected aspiration pneumonia
Cleared by SPL for regular diet with thin liquids
#History of asthma with increased wheezing
Appreciate pulmonology input, wheezing could be related to asthma versus cardiac asthma due to volume overload
PFT in 05/2023 suggestive of mild obstruction with bronchodilator responsiveness
Currently on IV steroids, pulmonology changing to oral steroids tomorrow
#Acute toxic metabolic encephalopathy
Multifactorial, due to sepsis, respiratory failure
VBG pCO2 52
Appreciate GI input, no contraindication to Dobbhoff tube placement for her history of scleroderma
Cleared by SPL for regular diet with thin liquids
#History of Parkinson's disease
Appreciate neurology input, continue Sinemet
#Paroxysmal atrial fibrillation -currently sinus rhythm
- Continue Amio 200 mg daily, metoprolol succ 12.5 mg p.o. daily
� Continue Eliquis 5 mg twice daily
#Stage III CKD
Renally dose medications, trend creatinine
Pulmonary hypertension
� Continue sildenafil 20 mg every 8 hours when able. Will only hold if SBP is less than 90
DVT prophylaxis�on apixaban
DNR
Dispo: PT rec STR
Updated son on phone 02/19
Total time spent to see the patient on the floor, examine the patient, review data and lab results, discuss treatment plan with patient, nursing staff around 50 minutes.
Physical Exam
General: Appears acutely ill, no acute distress
HEENT: Normocephalic, Atraumatic, EOMI, MMM
Excessive drooling noted
Respiratory: Coarse breath sounds with scattered wheezing
Cardiac: Normal S1/S2, Regular Rate and Rhythm
GI: Soft, Nontender, Nondistended, Normal Bowel Sounds
Extremities: No Clubbing, Cyanosis
Bilateral lower extremity edema noted
Neuro: Alert and awake
Anticipated Discharge: > 48 hours
Subjective/Interval History
-
Date of Service: February 19, 2025
Objective Data
-
Labs:
Laboratory Results
02/19/25
03:46
WBC 10.5
Hgb 9.1 L
Hct 29.8 L
Plt Count 125 L
Sodium 139
Potassium 4.2
Chloride 104
Carbon Dioxide 29
BUN 32 H
Creatinine 1.2 H
Glucose 109 H
Calcium 8.8
Vital Signs:
Vital Signs
Temp Pulse Resp BP Pulse Ox
97.8 F 91 19 112/54 98
02/19/25 07:42 02/19/25 08:40 02/19/25 08:00 02/19/25 08:40 02/19/25 08:00
I&O
02/18/25 02/19/25 02/20/25
06:59 06:59 06:59
Output Total 500 / 500
Balance -500 / -500
--- NOTE | 2025-02-19 09:57 | PTOTSP ---
Speech Therapy Follow-up:
Pt with acute on chronic risk factors of dysphagia including Parkinson's, Dementia, Asthma, Scleroderma, GERD, Respiratory Failure. Most recent VSE with functional/mild pharyngeal dysphagia. Given improvement in mentation, bedside performance, and
most recent CXR with pulmonary edema, recommend to continue oral diet as follows:
Recommend:
1. Cont. regular solids and thin liquids
2. Meds as tolerated
3. Strict aspiration and reflux precautions
4. Partial assistance, Full supervision with meals
5. Low threshold for instrumental assessment if worsening in respiratory status/chest imaging
6. MAGNETIC GRINDER OPERATOR to follow to monitor tolerance of diet and determine if pt would benefit from instrumental assessment
--- NOTE | 2025-02-19 11:35 | W.PN.PUL3 ---
Today's Communication / Plan
-
- Continue diuresis
- DC IV Solu-Medrol, switch to prednisone 30 mg daily starting 02/20
Assessment
-
Patient is an 84-year-old female who was admitted to the hospital for shortness of breath and hypoxic respiratory failure. Patient has known history of underlying congestive heart failure, asthma, pulmonary hypertension as well as paroxysmal atrial
fibrillation. Patient reportedly developed shortness of breath around 11 PM prior to admission to the hospital, noted to have oxygen saturation in high 80s. EMS was called and patient was noted to have wheezing and was transported to emergency
room. Also reported cough with clear expectoration noted during my evaluation. No reported fever or chills. Unchanged bilateral lower extremity edema reported. Imaging was suggestive of worsening pulmonary opacities concerning for volume
overload and possibly right upper lobe pneumonia. Patient was started on IV antibiotics, oral diuretics were continued and pulmonary consultation was requested for further input.
#1. Acute on chronic Hypoxic respiratory failure
- Suspect primarily driven by volume overload, congestive heart failure exacerbation.
- Right upper lobe opacity reviewed, differential diagnosis include both pneumonia as well as atelectasis. Less pronounced on f/u imaging 02/19.
- Discontinued IV fluid, switched to IV diuresis, lasix 40 mg BID.
- Wean oxygen as tolerated
#2. Acute on chronic HFrEF, LVEF 40%
- Worsening pulmonary congestion on imaging, bilateral pitting edema noted on exam
- 02/18, Discontinued IV fluids, initiated Lasix IV 40 mg twice daily, hold oral diuretics for now
- Monitor input and output closely
#3. RUL Pneumonia vs atelectasis.
- Patient is afebrile, does not have a WBC count.
- With encephalopathy, aspiration pneumonitis/pneumonia is a concern. Procalcitonin elevated however hard to interpret in the setting of abnormal creatinine
- 02/18, Discontinued Zosyn, initiated IV Unasyn instead, will favor 5 to 7 days of antibiotics depending upon clinical course.
#4. H/o Asthma with increased wheezing
- Wheezing could be related to Asthma vs 'cardiac asthma' due to volume overload
- PFT in 05/2023 suggestive of mild obstruction with bronchodilator responsiveness
- Continue scheduled DuoNeb, lowered steroids to once daily.
#5. H/o Aortic Stenosis, s/p TAVR
- Well seated per ECHO
#6. Paroxysmal Atrial Fibrillation
- Continue Eliquis
- Holding metoprolol temporarily in view of borderline blood pressure
#7. Moderate to severe MR with dense calcification
- Likely contributing to pulmonary congestion as well
- Continue diuresis
#8. Pulmonary HTN
- PASP 79 per ECHO in 11/2024. Normal RV size and function
- Group II with HFrEF and MR
- Has been on Revatio 20 mg 3 times daily. Continuing medication as sudden discontinuation can cause rebound pulmonary hypertension
- In view of volume overload, Group II PAH, Revatio can precipitate pulmonary edema as well
- Continue to optimize volume status, keep oxygen saturation above 90%
#9. H/o Pulmonary nodule
- resolved on f/u imaging
- Resume out patient follow up with Dr. Carrizales.
Other medical diagnoses:
- Acute metabolic encephalopathy. Resolved now. Off Gabapentin. VBG without worsening hypercapnia. Has been on Sinemet. Neurology service on case. Awake, alert and oriented today, 02/19.
- Parkinsonism.
Data:
CXR 02/2025: Vascular congestion and interstitial edema. As above, small apparent area of abnormal airspace opacity over the right upper lung which could be related to alveolar edema or possibly pneumonia. Follow-up examination with PA and lateral
projections may be helpful in further evaluation.
ECHO 11/2024: 1. The left ventricle is normal in size. Left ventricular systolic function is mild-moderately reduced with an ejection fraction of 40% by George's method of discs. Mild concentric left ventricular hypertrophy. Mild global
hypokinesis. Paradoxical septal motion.
2. Right ventricular size and systolic function are within normal limits.
3. S/p 26 mm Bocanegra Ricki transcatheter aortic valve replacement which is well seated. Peak/mean gradients across the aortic valve are 16/9 mmHg respectively. No aortic regurgitation is seen.
4. Moderately thickened mitral leaflets. Dense mitral annular calcification. Peak/mean gradients across the mitral valve are 16/9 mmHg respectively. Mitral valve area by pressure halftime is 2.9 cm2. Moderate to severe mitral regurgitation. PISA
radius is 0.8 cm., ERO is 0.31 cm2.
5. Moderate to severe tricuspid regurgitation. Estimated pulmonary artery pressure of 79 mmHg assuming a right atrial pressure of 3 mmHg.
6. Compared to a prior transthoracic echocardiogram study from 11/14/24 The PA pressures increased from 58 to 79 mmHg. Otherwise no significant change.
[facility] & RHC 2020: RA (m) : 24
RV (s/d) : 54/18
PA (s/d, m) : 54/36, 43
PCWP (m) : 33
AO (s/d) : 161/77
- Non obstructive CAD
- Severe
- Elevated filling pressures.
PFT 06/08/23-FEV1 1.43-83%, FVC 2.2-94%, 13% improvement postbronchodilator. TLC 92%, RV 73%, DLCO 39%, DLCO/VA 90%. Mild obstruction, significant BD response, moderate to severe reduction in diffusing capacity.
Subjective Data
-
Date of Service:
Date of Service: February 19, 2025
Subjective:
Comfortable sitting in bed in no acute distress. Reports feeling proved.
Review of Systems
Genitourinary: Other (No new symptoms reported)
Objective Data
Data Reviewed
Vital Signs / I&O / Oxygen:
Vital Signs
Temp Pulse Resp BP Pulse Ox
97.8 F 91 19 112/54 99
02/19/25 07:42 02/19/25 08:40 02/19/25 08:00 02/19/25 08:40 02/19/25 08:51
Intake and Output
02/18/25 02/19/25 02/20/25
06:59 06:59 06:59
Output Total 500 / 500
Balance -500 / -500
SaO2 99
Nasal Cannula flow liters per 6
minute
Physical Exam
General: Comfortable
HEENT: Normocephalic
Cardiovascular: S1-S2 and Peripheral Edema
Respiratory: Crackles (Bibasilar, posteriorly)
GI: Soft and Non Distended
Neurology: Awake, Alert and Oriented
Skin: Warm
Labs/Micro/Reports
Lab Data
02/19/25 03:46
02/19/25 03:46
Microbiology
02/18/25 05:54 Nose MRSA Screen - Final
No Methicillin Resistant Staphylococcus aureus isolated.
02/18/25 05:54 Urine Legionella Urinary Antigen - Final
Negative for Legionella pneumophila Serogroup 1 antigen.
A negative result does not rule out the possiblity of
Legionella infection due to other serogroups or species of
Legionella. Clinical correlation is recommended.
02/18/25 05:54 Urine Streptococcus pneumoniae Antigen (M - Final
Negative for Streptococcus pneumoniae antigen.
A negative result does not exclude infection with
Streptococcus pneumoniae. Clinical correlation is
recommended.
02/18/25 01:16 Nasal Swab Influenza Types A & B (SHAYE) - Final
Negative for Influenza A & B, NAAT
Negative results must be combined with clinical observations
and patient history.
Nucleic Acid Amplification test (NAAT)performed on the
[employer] platform.
[2025-02-19] MEDS: LIPITOR 10 MG PO (21:18)
[2025-02-19] MEDS: SINGULAIR 10 MG PO (21:18)
[2025-02-20] VITALS (12 sets, daily range): BP systolic 93–134; BP diastolic 54–77; PULSE 84; O2SAT 97; BMI 39.7
--- NOTE | 2025-02-20 01:44 | PTCARENOTE ---
Assumed care of pt who is resting in bed with son and DIL at bedside. She is alert and oriented x 3 but forgetful during conversations and through the shift. Reorients easily/ Received pt on 3 L NC, audible wheezing which increases significantly
with minimal bed mobility. She does not desat. with the increased wheezing. Loose non productive cough. Pt incontinent of urine and Pure-wick replaced. Pt denies pain but does complain about being repositioned Q2 hours, multiple readjustments to
comfortable position with each turn.
[2025-02-20] MEDS: UNASYN IV ×4 (02:17→19:49)
[2025-02-20] MEDS: FLUSH (NSS) 2 FLUSH IV (02:18)
[2025-02-20 06:16] LABS: Hematocrit 28.4 % (37.0-47.0); Hemoglobin 9.1 g/dL (12.0-16.0); Mean Corp Hgb Conc. 32.0 g/dL (33.0-37.0); Mean Corpuscular Volume 89.0 fL (81.0-99.0); Platelet Count 141 10^3/uL (130-400); Red Cell Dist. Width 17.6 % (11.5-14.5)
[2025-02-20] MEDS: SYNTHROID 50 MCG PO (06:34)
[2025-02-20 06:48] LABS: Blood Urea Nitrogen 38 mg/dl (7-17); Calcium 9.1 mg/dl (8.4-10.2); Carbon Dioxide 32 mmol/L (22-30); Chloride 103 mmol/L (98-107); Estimated Creatinine Clearance 35 ml/min; Glucose 109 mg/dl (70-99); Potassium 3.9 mmol/L (3.5-5.1); Sodium 142 mmol/L (135-145); eGFR 41.06
[2025-02-20] MEDS: DUONEB 3 ML INH ×4 (07:21→19:20)
[2025-02-20] MEDS: SINEMET CR 50/200 (EXTENDED RELEASE) 1 TABLET PO ×2 (08:43→19:48)
[2025-02-20] MEDS: REVATIO 20 MG PO ×3 (08:44→19:48)
[2025-02-20] MEDS: TOPROL XL 12.5 MG PO (08:44)
[2025-02-20] MEDS: DELTASONE 30 MG PO (08:44)
[2025-02-20] MEDS: PACERONE 200 MG PO (08:44)
[2025-02-20] MEDS: PROTONIX 40 MG PO (08:44)
[2025-02-20] MEDS: CELEXA 20 MG PO (08:44)
[2025-02-20] MEDS: ELIQUIS 5 MG PO ×2 (08:45→19:48)
[2025-02-20] MEDS: LASIX 40 MG IV ×2 (08:45→12:07)
[2025-02-20] MEDS: TYLENOL 650 MG PO ×2 (08:48→19:51)
--- NOTE | 2025-02-20 08:57 | PN.CDI ---
CDI
- -
CDI:
Physician Documentation Request
Admit Date: 02/18/25 04:27
Dear Doctor Do,
Please review the following and provide your response in the progress notes.
Clinical Indicators:
- RN skin assessments indicate Stage 1 bilateral buttocks pressure injury, POA
Physician documentation of the type and location of wounds is required for compliant documentation. Based on the above clinical findings and your assessment, please provide the following in your progress note:
1. Location of the ulcer/wound, including laterality.
2. Type (etiology) of ulcer/wound:
- Diabetic ulcer
- Arterial (ischemic) ulcer
- Traumatic wound
- Venous stasis ulcer
- Pressure (decubitus) ulcer
- Other
Use of terms such as suspected, likely, concern for, or probable (associated with a specific diagnosis that is being evaluated, monitored, or treated as if it exists) are acceptable and can be coded in the inpatient setting, when documented at the
time of discharge.
Thank you,
Joe Collado RN
CDI Specialist
Please use your independent medical judgment in providing your response.
*Source: National Pressure Ulcer Advisory Panel (NPUAP)
--- NOTE | 2025-02-20 09:10 | PN.CDI ---
CDI
- -
CDI:
Physician Documentation Request
Admit Date: 02/18/25 04:[address] Hester,
[facility] is using an adapted version of the 2016 Third International Consensus Definitions for Sepsis and Septic Shock (Sepsis-3) where sepsis is defined as life threatening organ dysfunction caused by a deregulated host response to infection.
Please reference the official [facility] Sepsis Recognition Tool for further information, which can be found on the Intranet under Infection Prevention.
Clinical Indicators:
Progress notes: 'Acute on chronic hypoxic respiratory failure'
- 'Acute toxic metabolic encephalopathy...Multifactorial, due to sepsis, respiratory failure...VBG pCO2 52'
Treatment:
- 4-14L O2
- IV Lasix
Based on your medical judgment, can you please clarify whether or not the above organ dysfunction is related to or due to sepsis?
-- Sepsis due to pneumonia with organ dysfunction of TME and acute hypoxic respiratory failure
-- Sepsis due to (enter infection) with organ dysfunction of
-- Other (please specify)
Use of terms such as suspected, likely, concern for, or probable (associated with a specific diagnosis that is being evaluated, monitored, or treated as if it exists) are acceptable and can be coded in the inpatient setting when documented at the
time of discharge.
Please use your independent medical judgement in providing your response.
Thank you,
Joe Collado RN
CDI Specialist
--- NOTE | 2025-02-20 09:23 | W.PN.HOSP.TC ---
Today's Communication/Plan
-
see bold
Assessment / Plan
Assessment / Plan
HPI: 84-year-old with reports past medical history significant for COPD, hypertension, CHF, hypothyroid, paroxysmal atrial fibrillation, pulmonary hypertension, Parkinson disease, recent NSTEMI medically managed presenting to the emergency
department with cough and shortness of breath. It appears her diuretic regimen was increased just recently to torsemide 30 mg twice daily. X-ray shows increased patchy opacities on the right upper and lower lobes, no pleural effusion, she has
stable lower extremity edema, and BNP is decreased compared to prior. Troponin is negative. ECG shows a sinus rhythm with 4 degree AV block and left bundle branch block which is similar to prior. Overall picture is consistent with right-sided
pneumonia, no history of aspiration. Patient with significant wheezing and has a history of COPD and cannot rule out a COPD exacerbation at this time. She seems to be euvolemic at this time.
Assessment/plan:
#Acute on chronic hypoxic respiratory failure
Due CHF exacerbation, unlikely related to suspected pneumonia
Currently requiring 3 L of oxygen, down from 5 L, wean as tolerated
She does not wear oxygen at home
#Acute heart failure with a reduced ejection fraction
#Moderate to severe mitral regurgitation
Patient's torsemide was recently increased from 20 mg twice daily to 30 mg twice daily prior to admission
IV fluids discontinued 02/18
Increase Lasix to 80 mg IV twice daily, compression therapy ordered
Consult cardiology, trend creatinine, trend daily weights
#Pulmonary hypertension
#Moderate to severe tricuspid regurgitation
Continue sildenafil 20 mg every 8 hours when able. Will only hold if SBP is less than 90
#Suspected pneumonia
Afebrile, no leukocytosis upon admission
COVID-negative. Influenza negative. Urine Legionella and strep antigens negative
Continue IV unasyn for 5-7 days for suspected aspiration pneumonia
Cleared by [facility] for regular diet with thin liquids
#History of asthma with increased wheezing
Appreciate pulmonology input, wheezing could be related to asthma versus cardiac asthma due to volume overload
PFT in 05/2023 suggestive of mild obstruction with bronchodilator responsiveness
Status post IV steroids, now on oral steroids as per pulmonology
#Acute toxic metabolic encephalopathy
Multifactorial, due to sepsis, respiratory failure
VBG pCO2 52
Appreciate GI input, no contraindication to Dobbhoff tube placement for her history of scleroderma
Cleared by [facility] for regular diet with thin liquids
#History of Parkinson's disease
Appreciate neurology input, continue Sinemet
#Paroxysmal atrial fibrillation -currently sinus rhythm
- Continue Amio 200 mg daily, metoprolol succ 12.5 mg p.o. daily
� Continue Eliquis 5 mg twice daily
#Stage III CKD
Renally dose medications, trend creatinine
#Stage 1 bilateral buttocks pressure injury, POA
Wound care, off loading
DVT prophylaxis�on apixaban
DNR
Dispo: PT rec STR
Updated son on phone 02/19
Total time spent to see the patient on the floor, examine the patient, review data and lab results, discuss treatment plan with patient, nursing staff around 51 minutes.
Physical Exam
General: Appears acutely ill, no acute distress
HEENT: Normocephalic, Atraumatic, EOMI, MMM
Excessive drooling noted
Respiratory: Coarse breath sounds with scattered wheezing
Cardiac: Normal S1/S2, Regular Rate and Rhythm
GI: Soft, Nontender, Nondistended, Normal Bowel Sounds
Extremities: No Clubbing, Cyanosis
Bilateral lower extremity edema noted
Neuro: Alert and awake
Anticipated Discharge: > 48 hours
Subjective/Interval History
-
Date of Service: February 20, 2025
Patient denies chest pain, denies abdominal pain. She reports her breathing is improved. She continues to cough and wheeze. No fever, no vomiting.
Objective Data
-
Labs:
Laboratory Results
02/20/25
05:18
WBC 10.3
Hgb 9.1 L
Hct 28.4 L
Plt Count 141
Sodium 142
Potassium 3.9
Chloride 103
Carbon Dioxide 32 H
BUN 38 H
Creatinine 1.3 H
Glucose 109 H
Calcium 9.1
Vital Signs:
Vital Signs
Temp Pulse Resp BP Pulse Ox
98.0 F 85 19 93/66 97
02/20/25 03:00 02/20/25 08:00 02/20/25 08:00 02/20/25 08:00 02/20/25 08:00
I&O
02/19/25 02/20/25 02/21/25
06:59 06:59 06:59
Intake Total 680 / 680
Output Total 500 / 500
Balance -500 / -500 680 / 680
--- NOTE | 2025-02-20 11:28 | W.PN.PUL3 ---
Today's Communication / Plan
-
- Continue increased Lasix dose of 80 mg IV twice a day
- Cardiology consult, await recommendations regarding Revatio considering patient has volume overload and pulmonary edema
Assessment
-
Patient is an 84-year-old female who was admitted to the hospital for shortness of breath and hypoxic respiratory failure. Patient has known history of underlying congestive heart failure, asthma, pulmonary hypertension as well as paroxysmal atrial
fibrillation. Patient reportedly developed shortness of breath around 11 PM prior to admission to the hospital, noted to have oxygen saturation in high 80s. EMS was called and patient was noted to have wheezing and was transported to emergency
room. Also reported cough with clear expectoration noted during my evaluation. No reported fever or chills. Unchanged bilateral lower extremity edema reported. Imaging was suggestive of worsening pulmonary opacities concerning for volume
overload and possibly right upper lobe pneumonia. Patient was started on IV antibiotics, oral diuretics were continued and pulmonary consultation was requested for further input.
#1. Acute on chronic Hypoxic respiratory failure
- Suspect primarily driven by volume overload, congestive heart failure exacerbation.
- Right upper lobe opacity reviewed, differential diagnosis include both pneumonia as well as atelectasis. Less pronounced on f/u imaging 02/19.
- Discontinued IV fluid, continue IV diuresis, uptitrated to 80 mg twice daily.
- Wean oxygen as tolerated
#2. Acute on chronic HFrEF, LVEF 40%
- Worsening pulmonary congestion on imaging, bilateral pitting edema noted on exam
- 02/18, Discontinued IV fluids, initiated Lasix IV 40 mg twice daily, hold oral diuretics for now
- Monitor input and output closely
- 02/20, patient still volume overloaded, Lasix dose increased to IV 80 mg twice daily
#3. RUL Pneumonia vs atelectasis.
- Patient is afebrile, does not have a WBC count.
- With encephalopathy, aspiration pneumonitis/pneumonia is a concern. Procalcitonin elevated however hard to interpret in the setting of abnormal creatinine
- 02/18, Discontinued Zosyn, initiated IV Unasyn instead, will favor 5 to 7 days of antibiotics depending upon clinical course.
#4. H/o Asthma with increased wheezing
- Wheezing could be related to Asthma vs 'cardiac asthma' due to volume overload
- PFT in 05/2023 suggestive of mild obstruction with bronchodilator responsiveness
- Continue scheduled DuoNeb, lowered steroids to once daily.
#5. H/o Aortic Stenosis, s/p TAVR
- Well seated per ECHO
#6. Paroxysmal Atrial Fibrillation
- Continue Eliquis
- Holding metoprolol temporarily in view of borderline blood pressure
#7. Moderate to severe MR with dense calcification
- Likely contributing to pulmonary congestion as well
- Continue diuresis
#8. Pulmonary HTN
- PASP 79 per ECHO in 11/2024. Normal RV size and function
- Group II with HFrEF and MR
- Has been on Revatio 20 mg 3 times daily. Continuing medication as sudden discontinuation can cause rebound pulmonary hypertension
- In view of volume overload, Group II PAH, Revatio can precipitate pulmonary edema as well. Cardiology consult for further input.
- Continue to optimize volume status, keep oxygen saturation above 90%
#9. H/o Pulmonary nodule
- resolved on f/u imaging
- Resume out patient follow up with Dr. Carrizales.
Other medical diagnoses:
- Acute metabolic encephalopathy. Resolved now. Off Gabapentin. VBG without worsening hypercapnia. Has been on Sinemet. Neurology service on case. Awake, alert and oriented today, 02/20.
- Parkinsonism.
Data:
CXR 02/2025: Vascular congestion and interstitial edema. As above, small apparent area of abnormal airspace opacity over the right upper lung which could be related to alveolar edema or possibly pneumonia. Follow-up examination with PA and lateral
projections may be helpful in further evaluation.
ECHO 11/2024: 1. The left ventricle is normal in size. Left ventricular systolic function is mild-moderately reduced with an ejection fraction of 40% by George's method of discs. Mild concentric left ventricular hypertrophy. Mild global
hypokinesis. Paradoxical septal motion.
2. Right ventricular size and systolic function are within normal limits.
3. S/p 26 mm Bocanegra Ricki transcatheter aortic valve replacement which is well seated. Peak/mean gradients across the aortic valve are 16/9 mmHg respectively. No aortic regurgitation is seen.
4. Moderately thickened mitral leaflets. Dense mitral annular calcification. Peak/mean gradients across the mitral valve are 16/9 mmHg respectively. Mitral valve area by pressure halftime is 2.9 cm2. Moderate to severe mitral regurgitation. PISA
radius is 0.8 cm., ERO is 0.31 cm2.
5. Moderate to severe tricuspid regurgitation. Estimated pulmonary artery pressure of 79 mmHg assuming a right atrial pressure of 3 mmHg.
6. Compared to a prior transthoracic echocardiogram study from 11/14/24 The PA pressures increased from 58 to 79 mmHg. Otherwise no significant change.
[facility] RHC 2019: RA (m) : 24
RV (s/d) : 54/18
PA (s/d, m) : 54/36, 43
PCWP (m) : 33
AO (s/d) : 161/77
- Non obstructive CAD
- Severe
- Elevated filling pressures.
PFT 06/08/23-FEV1 1.43-83%, FVC 2.2-94%, 13% improvement postbronchodilator. TLC 92%, RV 73%, DLCO 39%, DLCO/VA 90%. Mild obstruction, significant BD response, moderate to severe reduction in diffusing capacity.
Subjective Data
-
Date of Service:
Date of Service: February 20, 2025
Subjective:
Patient comfortably sitting in chair in no acute distress, reports marginally feeling better.
Review of Systems
Genitourinary: Other (No new symptoms reported)
Objective Data
Data Reviewed
Vital Signs / I&O / Oxygen:
Vital Signs
Temp Pulse Resp BP Pulse Ox
97.8 F 76 14 111/62 94
02/20/25 07:55 02/20/25 11:14 02/20/25 11:14 02/20/25 10:00 02/20/25 11:14
Intake and Output
02/19/25 02/20/25 02/21/25
06:59 06:59 06:59
Intake Total 680 / 680 240 / 240
Output Total 500 / 500
Balance -500 / -500 680 / 680 240 / 240
SaO2 94
Nasal Cannula flow liters per 3
minute
Physical Exam
General: Comfortable
HEENT: Normocephalic
Cardiovascular: S1-S2 and Peripheral Edema (Minimally improved pedal edema)
Respiratory: Crackles (Bibasilar, posteriorly)
GI: Soft and Non Distended
Neurology: Awake, Alert and Oriented
Skin: Warm
Labs/Micro/Reports
Lab Data
02/20/25 05:18
02/20/25 05:18
Microbiology
02/18/25 05:54 Nose MRSA Screen - Final
No Methicillin Resistant Staphylococcus aureus isolated.
02/18/25 05:54 Urine Legionella Urinary Antigen - Final
Negative for Legionella pneumophila Serogroup 1 antigen.
A negative result does not rule out the possiblity of
Legionella infection due to other serogroups or species of
Legionella. Clinical correlation is recommended.
02/18/25 05:54 Urine Streptococcus pneumoniae Antigen (M - Final
Negative for Streptococcus pneumoniae antigen.
A negative result does not exclude infection with
Streptococcus pneumoniae. Clinical correlation is
recommended.
02/18/25 01:16 Nasal Swab Influenza Types A & B (SHAYE) - Final
Negative for Influenza A & B, NAAT
Negative results must be combined with clinical observations
and patient history.
Nucleic Acid Amplification test (NAAT)performed on the
[employer] platform.
--- NOTE | 2025-02-20 12:11 | CON.CAR ---
Addendum entered and electronically signed by Dale Dawn MD 02/20/25 14:36:
I saw and examined the patient.
The Commercial Finance Analyst's note was reviewed and I agree with the note.
Comment:
GEN: No distress, awake, Ox3
HEENT: supple, anicteric, mmm
LUNGS: CTA, no wheezes/rales
CV: Reg, S1/S2, 1/6 syst LSB, S3+
ABD: soft, BS+, NT/ND
EXT: ++ edema
NEURO: Gross non-focal, + tremor
SKIN: No rash
PLan:
84-year-old female well-known to me with past medical history of TAVR, pulmonary hypertension, chronic heart failure with reduced ejection fraction, CKD 3, left bundle-branch block, hypertension, hyperlipidemia and paroxysmal atrial fibrillation
with Parkinson's disease presents with weight gain, shortness of breath, fatigue, and acute/chronic heart failure with reduced ejection fraction. She resides at [facility] and has gained about 15 pounds over the past several weeks. Her torsemide
was increased with little improvement. Chest x-ray suggested pulmonary edema with elevated proBNP. She has been treated for possible healthcare acquired pneumonia and COPD.
Continue Lasix 80 mg IV twice daily. Continue evaluate 20 mg p.o. 3 times daily.
At last visit her ejection fraction had dropped to 35% with an abnormal troponin. With her Parkinsons disease we treated this conservatively. She was also having bursts of atrial fibrillation. We will repeat her echo to reevaluate her LVEF.
She is currently in sinus rhythm. Continue the Toprol, amiodarone and Eliquis. She has a known left bundle branch block.
Continue antibiotics for pneumonia.
Discussed with son.
She has had multiple UTIs in the past so would hold off on SLG 2 inhibitor.
Original Note:
Consultation
Consultation Request
Date/Time Consultation Performed: 02/20/25
Requesting Provider: Dr. Bre Hester
Performing Provider: Morena Weller PA-C for Dr. Dawn
Reason for Consultation: CHF
Medical History
-
Chief Complaint: SOB
History of Present Illness:
Patient is an 84-year-old female with past medical history of severe status post TAVR, pulm HTN on revatio, chronic left bundle branch block, hypertension, hyperlipidemia, CKD stage III, chronic diastolic congestive heart failure, paroxysmal
atrial fibrillation. She is a resident of [facility]. She had been admitted to [facility] 11/2024 for afib in setting of urosepsis and again later in November 2024 for CHF, NSTEMI, CM with EF 35% conservatively managed. She was discharged to SNF at [place] [facility] and about 3 weeks ago was discharged from SNF to LTC portion of [facility]. She came to [facility] 02/18/25 due to SOB and hypoxia. Also reports some leg swelling. Torsemide dosing was increased from 20mg BID to 30mg BID as of 02/05 due to call to
office for 15 pound weight gain. Dry weight historically has been 193 pounds. Also was noted to be wheezing and has history of COPD. Covid/flu testing were negative. She is being treated for healthcare acquired PNA and possible COPD exacerbation as
well as concern for acute CHF exacerbation. proBNP 02/20 4600 and CXR 02/19 with evidence of pulm edema. Cardiology consulted for evaluation.
PMH:
Paroxysmal atrial fibrillation
Anticoagulation with eliquis
Cardiomyopathy, EF 30-35% by echo 11/2024, suspected tachy mediated, improved to 40% by echo 11/29/2024
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
Severe TR/Pulm HTN, on revatio
Severe status post TAVR 2020
Chronic left bundle branch block
Presumed CAD with NSTEMI, peak trop 1.7 11/2024, conservatively managed
CKD stage III
Hypertension
Hyperlipidemia
Parkinson's disease
Hypothyroidism
GERD
Obesity
Past Medical History
Past Medical History: Other (in HPI)
Social History
Tobacco: Former Smoker
Alcohol: None
Personal:
Living: Other (has 24 hour caregivers, but at SNF)
Employment: Retired
Family History
Family History: Hypertension
Allergies / Home Medications
Allergy/AdvReac Type Severity Reaction Status Date / Time
ALIREZA Inhibitors Allergy cough Verified 12/07/24 20:48
nifedipine (From Procardia) Allergy Unknown Verified 12/07/24 20:48
Sulfa (Sulfonamide Allergy CHILDHOOD Verified 12/07/24 20:48
Antibiotics)
sulfisoxazole Allergy CHILDHOOD Verified 12/07/24 20:48
�Medication �Instructions �Recorded �Confirmed �Type
levothyroxine 50 mcg tablet 50 mcg PO DAILY Thyroid 09/24/16 12/08/24 History
pantoprazole 40 mg tablet,delayed 40 mg PO DAILY Gastrointestinal 09/24/16 12/08/24 History
release Issue
citalopram 20 mg tablet 20 mg PO DAILY depression 02/21/20 12/08/24 History
atorvastatin 10 mg tablet 10 mg PO HS High cholesterol 06/04/21 12/08/24 History
carbidopa ER 50 mg-levodopa 200 mg 1 tab PO BID PARKINSON 03/17/23 12/08/24 History
tablet,extended release
montelukast 10 mg tablet 10 mg PO HS asthma 03/17/23 12/08/24 History
sildenafil (pulm.hypertension) 20 20 mg PO TID pulmonary hypertension 10/11/23 12/08/24 History
mg tablet
apixaban 5 mg tablet (Eliquis) 5 mg PO BID 30 days #60 tabs 07/14/24 12/08/24 Rx
gabapentin 400 mg tablet 400 mg PO HS Neurological Condition 11/12/24 12/08/24 History
amiodarone 200 mg tablet 200 mg PO DAILY #30 tabs 11/19/24 12/08/24 Rx
midodrine 5 mg tablet 5 mg PO Q4HPRN PRN SBP<100 #30 tabs 11/19/24 12/08/24 Rx
torsemide 20 mg tablet 20 mg PO BID #30 tabs 11/19/24 12/08/24 Rx
acetaminophen 325 mg tablet 650 mg PO Q6HPRN PRN MILD PAIN 11/28/24 12/08/24 History
(Tylenol)
bisacodyl 10 mg rectal suppository 10 mg WA DAILYPRN PRN IF NO BM 11/28/24 12/08/24 History
(Dulcolax (bisacodyl)) AFTR MOM
magnesium hydroxide 400 mg/5 mL 2,400 mg PO [id number] PRN 11/28/24 12/08/24 History
oral suspension (Milk of Magnesia) CONSTIPATION
amlodipine 2.5 mg tablet 2.5 mg PO DAILY #30 tabs 12/11/24 Rx
metolazone 2.5 mg tablet 2.5 mg PO TuTh #30 tabs 12/11/24 Rx
metoprolol succinate 25 mg 12.5 mg (1/2 x 25 mg) PO DAILY #30 12/11/24 12/08/24 Rx
tablet,extended release 24 hr tabs
potassium chloride 20 mEq 40 meq (2 x 20 mEq) PO BID #60 tabs 12/11/24 Rx
tablet,extended release(part/cryst)
Review of Systems
-
History Source: Patient
All other systems: Negative unless noted
Physical Exam
Vital Signs
Temp Pulse Resp BP Pulse Ox
97.8 F 76 14 111/62 94
02/20/25 07:55 02/20/25 11:14 02/20/25 11:14 02/20/25 10:00 02/20/25 11:14
Lab Results
02/20/25 05:18
02/20/25 05:18
Troponin I 0.020 ng/ml 02/18/25 01:16
Hpu-G-Emrndbmanqx Pept 4600 pg/ml 02/20/25 05:18
Physical Exam
General: No Apparent Distress, Comfortable and Other (sitting in chair. on supp O2)
HEENT: Normocephalic, Anicteric and Moist Mucous Membranes
Respiratory: Non Labored Respirations and Other (scattered wheezes and crackles)
Cardiac: S1/S2, Regular Rhythm and Murmur
GI: Soft, Non Tender, Non Distended and Normal Bowel Sounds
Musculoskeletal: No Clubbing, No Cyanosis and Edema (2+ of B/L LE)
Skin: Warm and Dry
Neuro: AO x 3 and Other (tremor R hand)
Impression / Plan
-
Primary Psychiatric Rn: Dr. Dawn
Assessment:
Presentation with SOB
Acute hypoxic respiratory failure
PNA, with elevated procalcitonin
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
Paroxysmal atrial fibrillation
Anticoagulation with eliquis
Cardiomyopathy, EF 30-35% by echo 11/2024, suspected tachy mediated, improved to 40% by echo 11/29/2024
Severe TR/Pulm HTN, on revatio
Severe status post TAVR 2020
Chronic left bundle branch block
Presumed CAD with NSTEMI, peak trop 1.7 11/2024, conservatively managed
CKD stage III
Hypertension
Hyperlipidemia
Parkinson's disease
Hypothyroidism
GERD
Obesity
Echo 07/13/2024: EF 60 to 65%, moderate concentric LVH, dense posterior MAC, mild to moderate MS, moderate to severe MR with peak/mean gradients 18/7 mmHg, #26 [place] AMINA TAVR with peak/mean gradient 17/9 mmHg
Echo 11/14/2024: Definity used, EF 35 to 40%, global hypokinesis, moderate to severe MR, moderate TR with moderate pulmonary hypertension, PASP 58 mmHg, status post TAVR Boc[place]ra valve, stable and well-seated
Echo 11/29/2024: EF 40%, mild concentric LVH, mild global hypokinesis, paradoxical septal motion, status post TAVR with peak/mean gradient 16/9 mmHg, dense MAC with peak/mean gradients across the mitral valve of 16/9 mmHg, moderate to severe MR,
moderate to severe TR, estimated PAP 79 mmHg
Plan:
- Patient presented with shortness of breath and hypoxia. Being treated for healthcare acquired pneumonia with elevated procalcitonin on arrival. COVID and flu negative.
- Cardiology consulted as also felt to be component of acute on chronic mixed systolic and diastolic congestive heart failure contributing to symptoms. Dry weight historically has been 193 pounds, and today if accurate weight is 210 pounds. In the
outpatient setting her torsemide dosing was increased to 30 mg twice daily from 20 mg twice daily on 02/05 and noted weight gain in outpatient setting. started on IV Lasix 80 mg twice daily 02/20. Creatinine 1.3 on 02/20
- Repeat echo, last from 11/2024 with EF 40%. GDMT of cardiomyopathy limited due to fluctuating renal function and relative hypotension
- Wean supplemental oxygen as able, was not on supplemental oxygen prior to admission
- CHF education. During my interview and examination, patient was given her lunch tray which had ruffles potato chips on it despite being on 2 g sodium and fluid restricted diet. Advised patient to avoid dietary salt as able
- compression stockings as able
- In sinus rhythm with PVCs on review of telemetry. Continue low-dose Toprol, amiodarone, Eliquis
- Remains on Revatio for pulmonary hypertension
Data Reviewed
-
EKG: Tracing Personally Visualized and interpreted
Radiology: Report Reviewed by me
Medical Tests (Nuc Med, Echo etc): Report Reviewed by me
Labs: Labs Reviewed by me
Old Records: Reviewed
--- NOTE | 2025-02-20 15:10 | CM ---
F/U: Patient still being monitored for breathing issues so is continue increased Lasix dose and waiting on Cardiology consult. PLAN: Return to [facility] when ready for LTC.
[2025-02-20] MEDS: LASIX 80 MG IV (17:05)
--- NOTE | 2025-02-20 19:07 | PTCARENOTE ---
AAOx3 today- OOB in recliner few hours. Forced exp. wheeze on exertion- sao2 unchanged on 3 L NC. 94%. Resolves with rest. Weaned to 2L maintains 96%. IV Lasix given as ordered- has been grossly incontinent of urine and stool several times
today. Purewick not used this shift d/t stool. sputum collection unable to be collected this shift.
[2025-02-20] MEDS: SINGULAIR 10 MG PO (19:48)
[2025-02-20] MEDS: LIPITOR 10 MG PO (19:48)
[2025-02-21] VITALS (12 sets, daily range): BP systolic 114–141; BP diastolic 51–73; PULSE 75; O2SAT 94–96; BMI 39.5
--- NOTE | 2025-02-21 00:25 | W.PN.HOSP.TC ---
Today's Communication/Plan
-
Stable for telemetry
Assessment / Plan
Assessment / Plan
HPI: 84-year-old with reports past medical history significant for COPD, hypertension, CHF, hypothyroid, paroxysmal atrial fibrillation, pulmonary hypertension, Parkinson disease, recent NSTEMI medically managed presenting to the emergency
department with cough and shortness of breath. It appears her diuretic regimen was increased just recently to torsemide 30 mg twice daily. X-ray shows increased patchy opacities on the right upper and lower lobes, no pleural effusion, she has
stable lower extremity edema, and BNP is decreased compared to prior. Troponin is negative. ECG shows a sinus rhythm with 4 degree AV block and left bundle branch block which is similar to prior. Overall picture is consistent with right-sided
pneumonia, no history of aspiration. Patient with significant wheezing and has a history of COPD and cannot rule out a COPD exacerbation at this time. She seems to be euvolemic at this time.
Assessment/plan:
#Acute on chronic hypoxic respiratory failure
Due CHF exacerbation
Currently requiring 3 L of oxygen, down from 5 L, wean as tolerated
She does not wear oxygen at home
#Acute heart failure with a reduced ejection fraction
#Moderate to severe mitral regurgitation
Patient's torsemide was recently increased from 20 mg twice daily to 30 mg twice daily prior to admission
IV fluids discontinued 02/18
Increased Lasix to 80 mg IV twice daily on 02/20, add metolazine 5 mg x 1 today, compression therapy ordered
Cardiology following, follow-up on repeat echo, trend creatinine, trend daily weights
#Pulmonary hypertension
#Moderate to severe tricuspid regurgitation
Continue sildenafil 20 mg every 8 hours when able. Will only hold if SBP is less than 90
#Suspected pneumonia
Afebrile, no leukocytosis upon admission
COVID-negative. Influenza negative. Urine Legionella and strep antigens negative
Appreciate pulmonology input, stop IV Unasyn after today for suspected aspiration pneumonia. Pulm signed off
Cleared by [facility] for regular diet with thin liquids
#History of asthma with increased wheezing
Appreciate pulmonology input, wheezing could be related to asthma versus cardiac asthma due to volume overload
PFT in 05/2023 suggestive of mild obstruction with bronchodilator responsiveness
Status post IV and po steroids
#Acute toxic metabolic encephalopathy
Multifactorial. Sepsis ruled out.
VBG pCO2 52
Appreciate GI input, no contraindication to Dobbhoff tube placement for her history of scleroderma
Cleared by [facility] for regular diet with thin liquids
#History of Parkinson's disease
Appreciate neurology input, continue Sinemet
Resume gabapentin as per family request
#Paroxysmal atrial fibrillation -currently sinus rhythm
- Continue Amio 200 mg daily, metoprolol succ 12.5 mg p.o. daily
� Continue Eliquis 5 mg twice daily
#Stage III CKD
Renally dose medications, trend creatinine
#Stage 1 bilateral buttocks pressure injury, POA
Wound care, off loading
DVT prophylaxis�on apixaban
DNR
Dispo: PT rec STR
Updated son on phone 02/21
Total time spent to see the patient on the floor, examine the patient, review data and lab results, discuss treatment plan with patient, nursing staff around 50 minutes.
Physical Exam
General: Appears acutely ill, no acute distress
HEENT: Normocephalic, Atraumatic, EOMI, MMM
Excessive drooling noted
Respiratory: Coarse breath sounds with scattered wheezing
Cardiac: Normal S1/S2, Regular Rate and Rhythm
GI: Soft, Nontender, Nondistended, Normal Bowel Sounds
Extremities: No Clubbing, Cyanosis
Bilateral lower extremity edema noted, improved from prior
Neuro: Alert and awake
Anticipated Discharge: > 48 hours
Subjective/Interval History
-
Date of Service: February 21, 2025
Patient reports her shortness of breath has resolved. She continues to have a cough. Denies chest pain. No fever, no vomiting.
Objective Data
-
Labs:
Laboratory Results
02/21/25
05:03
WBC 11.2 H
Hgb 9.4 L
Hct 30.1 L
Plt Count 168
Sodium 141
Potassium 3.7
Chloride 104
Carbon Dioxide 32 H
BUN 38 H
Creatinine 1.2 H
Glucose 98
Calcium 8.8
Vital Signs:
Vital Signs
Temp Pulse Resp BP Pulse Ox
98.0 F 81 18 128/73 95
02/21/25 07:25 02/21/25 07:42 02/21/25 07:42 02/21/25 06:00 02/21/25 07:42
I&O
02/20/25 02/21/25 02/22/25
06:59 06:59 06:59
Intake Total 680 / 680 240 / 240
Balance 680 / 680 240 / 240
[2025-02-21] MEDS: UNASYN IV ×4 (03:00→22:00)
--- NOTE | 2025-02-21 04:08 | PTCARENOTE ---
Caring for pt overnight. aaox3, pleasant, forgetful. NSR, 1st degree, PVC, Trigeminy. Vitals stable. Q2T. incontinent. Remains on 2LNC, wheezing on exertion. ivabx. Seems comfortable, denies pain. Will monitor.
[2025-02-21] MEDS: SYNTHROID 50 MCG PO (04:56)
[2025-02-21 05:25] LABS: Hematocrit 30.1 % (37.0-47.0); Hemoglobin 9.4 g/dL (12.0-16.0); Mean Corp Hgb Conc. 31.2 g/dL (33.0-37.0); Mean Corpuscular Volume 89.3 fL (81.0-99.0); Platelet Count 168 10^3/uL (130-400); Red Cell Dist. Width 17.4 % (11.5-14.5)
[2025-02-21 05:44] LABS: Blood Urea Nitrogen 38 mg/dl (7-17); Calcium 8.8 mg/dl (8.4-10.2); Carbon Dioxide 32 mmol/L (22-30); Chloride 104 mmol/L (98-107); Estimated Creatinine Clearance 38 ml/min; Glucose 98 mg/dl (70-99); Magnesium 2.5 mg/dl (1.6-2.3); Potassium 3.7 mmol/L (3.5-5.1); Sodium 141 mmol/L (135-145); eGFR 45.19
[2025-02-21] MEDS: DUONEB 3 ML INH ×4 (07:39→19:20)
[2025-02-21] MEDS: CELEXA 20 MG PO (09:10)
[2025-02-21] MEDS: DELTASONE 30 MG PO (09:11)
[2025-02-21] MEDS: ELIQUIS 5 MG PO ×2 (09:11→22:17)
[2025-02-21] MEDS: LASIX 80 MG IV ×2 (09:12→16:27)
[2025-02-21] MEDS: PACERONE 200 MG PO (09:13)
[2025-02-21] MEDS: REVATIO 20 MG PO ×3 (09:14→22:17)
[2025-02-21] MEDS: PROTONIX 40 MG PO (09:14)
[2025-02-21] MEDS: TOPROL XL 12.5 MG PO (09:15)
[2025-02-21] MEDS: SINEMET CR 50/200 (EXTENDED RELEASE) 1 TABLET PO ×2 (09:15→22:17)
--- NOTE | 2025-02-21 09:17 | W.PN.CARDCBS ---
Today's Communication / Plan
-
Remains volume overloaded with acute on chronic heart failure with reduced ejection fraction
Continue Lasix 80 mg IV twice daily.
Continue Revatio for pulm HT
will repeat echocardiogram today.
Remains in sinus rhythm. Continue amiodarone, Toprol, and Eliquis.
Has not tolerated ALIREZA/ARB due to orthostasis and low blood pressure.
Impression / Plan
-
Primary Apartment Coordinator: Dr. Dawn
Assessment:
Presentation with SOB
Acute hypoxic respiratory failure
PNA, with elevated procalcitonin
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
Paroxysmal atrial fibrillation
Anticoagulation with eliquis
Cardiomyopathy, EF 30-35% by echo 11/2024, suspected tachy mediated, improved to 40% by echo 11/29/2024
Severe TR/Pulm HTN, on revatio
Severe status post TAVR 2020
Chronic left bundle branch block
Presumed CAD with NSTEMI, peak trop 1.7 11/2024, conservatively managed
CKD stage III
Hypertension
Hyperlipidemia
Parkinson's disease
Hypothyroidism
GERD
Obesity
Echo 07/13/2024: EF 60 to 65%, moderate concentric LVH, dense posterior MAC, mild to moderate MS, moderate to severe MR with peak/mean gradients 18/7 mmHg, #26 [place] AMINA TAVR with peak/mean gradient 17/9 mmHg
Echo 11/14/2024: Definity used, EF 35 to 40%, global hypokinesis, moderate to severe MR, moderate TR with moderate pulmonary hypertension, PASP 58 mmHg, status post TAVR Bocanegra valve, stable and well-seated
Echo 11/29/2024: EF 40%, mild concentric LVH, mild global hypokinesis, paradoxical septal motion, status post TAVR with peak/mean gradient 16/9 mmHg, dense MAC with peak/mean gradients across the mitral valve of 16/9 mmHg, moderate to severe MR,
moderate to severe TR, estimated PAP 79 mmHg
Plan:
- Patient presented with shortness of breath and hypoxia. Being treated for healthcare acquired pneumonia with elevated procalcitonin on arrival. COVID and flu negative.
- Weight is slightly improved. Continue Lasix 80 mg IV twice daily. Creatinine stable at 1.2.
- Repeat echo, last from 11/2024 with EF 40%. GDMT of cardiomyopathy limited due to fluctuating renal function and relative hypotension. During last hospitalization EF dropped to 35%. This was treated conservatively with her Parkinson's disease.
She is currently in sinus rhythm. She also has known moderate to severe mitral and tricuspid regurgitation
- Would hold off on Farxiga due to multiple UTIs in the past
- In sinus rhythm with PVCs on review of telemetry. Continue low-dose Toprol, amiodarone, Eliquis
- Remains on Revatio for pulmonary hypertension
Progress Note - Apartment Coordinator
Subjective
Date of Service: February 21, 2025
Breathing slightly improved. Still with edema. Denies chest pains. No palpitation
Objective
Labs:
02/21/25 05:03
02/21/25 05:03
Labs
Hgb 9.4 g/dL (12.0-16.0) L 02/21/25 05:03
Hct 30.1 % (37.0-47.0) L 02/21/25 05:03
Plt Count 168 10^3/uL (130-400) 02/21/25 05:03
Sodium 141 mmol/L (135-145) 02/21/25 05:03
Potassium 3.7 mmol/L (3.5-5.1) 02/21/25 05:03
BUN 38 mg/dl (7-17) H 02/21/25 05:03
Creatinine 1.2 mg/dL (0.6-1.0) H 02/21/25 05:03
Glucose 98 mg/dl (70-99) 02/21/25 05:03
Vital Signs and I&O:
Vital Signs
Temp Pulse Resp BP Pulse Ox
98.0 F 81 18 128/73 95
02/21/25 07:25 02/21/25 07:42 02/21/25 07:42 02/21/25 06:00 02/21/25 07:42
Vital Signs
Temp Pulse Resp BP Pulse Ox
98.0 F 81 18 128/73 95
02/21/25 07:25 02/21/25 07:42 02/21/25 07:42 02/21/25 06:00 02/21/25 07:42
Intake & Output
02/19/25 02/20/25 02/21/25 02/22/25
06:59 06:59 06:59 06:59
Intake Total 680 / 680 240 / 240
Output Total 500 / 500
Balance -500 / -500 680 / 680 240 / 240
Physical Exam
Physical Exam
GEN: No distress, awake, Ox3
HEENT: supple, anicteric, mmm
LUNGS: CTA, no wheezes/rales
CV: Reg, S1/S2, 1/6 syst LSB, S3+
ABD: soft, BS+, NT/ND
EXT: No edema
NEURO: Gross non-focal
SKIN: No rash
--- NOTE | 2025-02-21 09:52 | W.PN.PUL3 ---
Today's Communication / Plan
-
- D/c Prednisone
- D/c Unasyn after today's dose
- Diuresis per Cardiology service
- Pulmonary team will sign off, please call as needed.
Assessment
-
Patient is an 84-year-old female who was admitted to the hospital for shortness of breath and hypoxic respiratory failure. Patient has known history of underlying congestive heart failure, asthma, pulmonary hypertension as well as paroxysmal atrial
fibrillation. Patient reportedly developed shortness of breath around 11 PM prior to admission to the hospital, noted to have oxygen saturation in high 80s. EMS was called and patient was noted to have wheezing and was transported to emergency
room. Also reported cough with clear expectoration noted during my evaluation. No reported fever or chills. Unchanged bilateral lower extremity edema reported. Imaging was suggestive of worsening pulmonary opacities concerning for volume
overload and possibly right upper lobe pneumonia. Patient was started on IV antibiotics, oral diuretics were continued and pulmonary consultation was requested for further input.
#1. Acute on chronic Hypoxic respiratory failure
- Suspect primarily driven by volume overload, congestive heart failure exacerbation.
- Right upper lobe opacity reviewed, differential diagnosis include both pneumonia as well as atelectasis. Less pronounced on f/u imaging 02/19.
- Discontinued IV fluid, continue IV diuresis, uptitrated to 80 mg twice daily.
- Wean oxygen as tolerated
#2. Acute on chronic HFrEF, LVEF 40%
- Worsening pulmonary congestion on imaging, bilateral pitting edema noted on exam
- 02/18, Discontinued IV fluids, initiated Lasix IV 40 mg twice daily, hold oral diuretics for now
- Monitor input and output closely
- 02/20, patient still volume overloaded, Lasix dose increased to IV 80 mg twice daily
- Cardiology service on case
#3. RUL Pneumonia vs atelectasis.
- Patient is afebrile, does not have a WBC count.
- With encephalopathy, aspiration pneumonitis/pneumonia is a concern. Procalcitonin elevated however hard to interpret in the setting of abnormal creatinine
- 02/18, Discontinued Zosyn, initiated IV Unasyn instead, will DC after today's dose.
#4. H/o Asthma with increased wheezing
- Wheezing could be related to Asthma vs 'cardiac asthma' due to volume overload
- PFT in 05/2023 suggestive of mild obstruction with bronchodilator responsiveness
- Continue scheduled DuoNeb, DC prednisone.
#5. H/o Aortic Stenosis, s/p TAVR
- Well seated per ECHO
#6. Paroxysmal Atrial Fibrillation
- Continue Eliquis
- Holding metoprolol temporarily in view of borderline blood pressure
#7. Moderate to severe MR with dense calcification
- Likely contributing to pulmonary congestion as well
- Continue diuresis
#8. Pulmonary HTN
- PASP 79 per ECHO in 11/2024. Normal RV size and function
- Group II with HFrEF and MR
- Has been on Revatio 20 mg 3 times daily. Continuing medication as sudden discontinuation can cause rebound pulmonary hypertension
- In view of volume overload, Group II PAH, Revatio can precipitate pulmonary edema as well. Cardiology consult for further input.
- Continue to optimize volume status, keep oxygen saturation above 90%
#9. H/o Pulmonary nodule
- resolved on f/u imaging
- Resume out patient follow up with Dr. Carrizales.
Other medical diagnoses:
- Acute metabolic encephalopathy. Resolved now. Off Gabapentin. VBG without worsening hypercapnia. Has been on Sinemet. Neurology service on case. Awake, alert and oriented today, 02/20.
- Parkinsonism.
Data:
CXR 02/2025: Vascular congestion and interstitial edema. As above, small apparent area of abnormal airspace opacity over the right upper lung which could be related to alveolar edema or possibly pneumonia. Follow-up examination with PA and lateral
projections may be helpful in further evaluation.
ECHO 11/2024: 1. The left ventricle is normal in size. Left ventricular systolic function is mild-moderately reduced with an ejection fraction of 40% by George's method of discs. Mild concentric left ventricular hypertrophy. Mild global
hypokinesis. Paradoxical septal motion.
2. Right ventricular size and systolic function are within normal limits.
3. S/p 26 mm Bocanegra Ricki transcatheter aortic valve replacement which is well seated. Peak/mean gradients across the aortic valve are 16/9 mmHg respectively. No aortic regurgitation is seen.
4. Moderately thickened mitral leaflets. Dense mitral annular calcification. Peak/mean gradients across the mitral valve are 16/9 mmHg respectively. Mitral valve area by pressure halftime is 2.9 cm2. Moderate to severe mitral regurgitation. PISA
radius is 0.8 cm., ERO is 0.31 cm2.
5. Moderate to severe tricuspid regurgitation. Estimated pulmonary artery pressure of 79 mmHg assuming a right atrial pressure of 3 mmHg.
6. Compared to a prior transthoracic echocardiogram study from 11/14/24 The PA pressures increased from 58 to 79 mmHg. Otherwise no significant change.
[facility] & RH 2020: RA (m) : 24
RV (s/d) : 54/18
PA (s/d, m) : 54/36, 43
PCWP (m) : 33
AO (s/d) : 161/77
- Non obstructive CAD
- Severe
- Elevated filling pressures.
PFT 06/08/23-FEV1 1.43-83%, FVC 2.2-94%, 13% improvement postbronchodilator. TLC 92%, RV 73%, DLCO 39%, DLCO/VA 90%. Mild obstruction, significant BD response, moderate to severe reduction in diffusing capacity.
Subjective Data
-
Date of Service:
Date of Service: February 21, 2025
Subjective:
Patient comfortably sitting in bed in no acute distress.
Review of Systems
Genitourinary: Other (All 14 systems reviewed and negative except as stated above in the history of present illness.)
Objective Data
Data Reviewed
Vital Signs / I&O / Oxygen:
Vital Signs
Temp Pulse Resp BP Pulse Ox
98.0 F 85 18 136/63 95
02/21/25 07:25 02/21/25 09:15 02/21/25 07:42 02/21/25 09:15 02/21/25 07:42
Intake and Output
02/20/25 02/21/25 02/22/25
06:59 06:59 06:59
Intake Total 680 / 680 240 / 240
Balance 680 / 680 240 / 240
SaO2 95
Nasal Cannula flow liters per 2
minute
Physical Exam
General: Comfortable
HEENT: Normocephalic
Cardiovascular: S1-S2 and Peripheral Edema (Gradually improving)
Respiratory: Crackles (Bibasilar, posteriorly)
GI: Soft and Non Distended
Neurology: Awake, Alert and Oriented
Skin: Warm
Labs/Micro/Reports
Lab Data
02/21/25 05:03
02/21/25 05:03
Microbiology
02/18/25 05:54 Nose MRSA Screen - Final
No Methicillin Resistant Staphylococcus aureus isolated.
02/18/25 05:54 Urine Legionella Urinary Antigen - Final
Negative for Legionella pneumophila Serogroup 1 antigen.
A negative result does not rule out the possiblity of
Legionella infection due to other serogroups or species of
Legionella. Clinical correlation is recommended.
02/18/25 05:54 Urine Streptococcus pneumoniae Antigen (M - Final
Negative for Streptococcus pneumoniae antigen.
A negative result does not exclude infection with
Streptococcus pneumoniae. Clinical correlation is
recommended.
--- NOTE | 2025-02-21 10:34 | CARDSERVDEF ---
Echocardiogram with Definity completed after protocol screening completed. Allergies verified.
Patent IV site: _Left wrist cephalic 22 G PC____
IV site flushed with 0.9% NaCl pre and post administration.
Diluted bolus method utilized to enhance visualization of ventricular enciso.
Total volume given: __3__ mL
Patient tolerated all procedures well without complications. No change in status.
[2025-02-21] MEDS: ZAROXOLYN 5 MG PO (15:04)
[2025-02-21] MEDS: NEURONTIN 200 MG PO ×2 (15:04→22:18)
--- NOTE | 2025-02-21 15:21 | CM ---
F/U: Patient is being downgraded and spoke to Angela at [facility] who is aware that patient is close to discharge back to LTC there. PLAN: Return to LTC at [facility].
[2025-02-21] MEDS: TRANSDERM-SCOP 1 PATCH TRANSDERM (17:29)
--- NOTE | 2025-02-21 18:29 | PTCARENOTE ---
OOB all day, c/o occasional pain Tylenol offered by SN today. Gabapentin restarted this pm - given. Remains on O2 at 2L NC 97%. Forced wheezing on exertion- resolves at rest. Loose NPC. SR 1AVB BBC on tele. +2 LE edema- tubigrips intact.
Ambulated to bathroom with staff few times today however Grossly incontinent in bed. Appetite good.
--- NOTE | 2025-02-21 18:35 | TRANSFER ---
Report to [facility] transferred to [id number].
[2025-02-21] MEDS: SINGULAIR 10 MG PO (22:17)
[2025-02-21] MEDS: LIPITOR 10 MG PO (22:18)
[2025-02-22] VITALS (7 sets, daily range): BP systolic 109–153; BP diastolic 53–76; O2SAT 89; BMI 39.6
[2025-02-22] MEDS: UNASYN IV ×2 (01:46→08:55)
[2025-02-22] MEDS: SYNTHROID 50 MCG PO (05:08)
[2025-02-22 06:56] LABS: Hematocrit 30.9 % (37.0-47.0); Hemoglobin 9.5 g/dL (12.0-16.0); Mean Corp Hgb Conc. 30.7 g/dL (33.0-37.0); Mean Corpuscular Volume 93.1 fL (81.0-99.0); Platelet Count 153 10^3/uL (130-400); Red Cell Dist. Width 17.1 % (11.5-14.5)
[2025-02-22 07:21] LABS: Blood Urea Nitrogen 31 mg/dl (7-17); Calcium 8.6 mg/dl (8.4-10.2); Chloride 99 mmol/L (98-107); Estimated Creatinine Clearance 41 ml/min; Glucose 86 mg/dl (70-99); Potassium 3.3 mmol/L (3.5-5.1); Sodium 141 mmol/L (135-145); eGFR 50.17
[2025-02-22 07:29] LABS: Carbon Dioxide 36 mmol/L (22-30)
[2025-02-22] MEDS: DUONEB 3 ML INH ×4 (07:45→19:21)
--- NOTE | 2025-02-22 08:47 | W.PN.HOSP.TC ---
Today's Communication/Plan
-
see bold
Assessment / Plan
Assessment / Plan
HPI: 84-year-old with reports past medical history significant for COPD, hypertension, CHF, hypothyroid, paroxysmal atrial fibrillation, pulmonary hypertension, Parkinson disease, recent NSTEMI medically managed presenting to the emergency
department with cough and shortness of breath. It appears her diuretic regimen was increased just recently to torsemide 30 mg twice daily. X-ray shows increased patchy opacities on the right upper and lower lobes, no pleural effusion, she has
stable lower extremity edema, and BNP is decreased compared to prior. Troponin is negative. ECG shows a sinus rhythm with 4 degree AV block and left bundle branch block which is similar to prior. Overall picture is consistent with right-sided
pneumonia, no history of aspiration. Patient with significant wheezing and has a history of COPD and cannot rule out a COPD exacerbation at this time. She seems to be euvolemic at this time.
Assessment/plan:
#Acute on chronic hypoxic respiratory failure
Due CHF exacerbation
Currently requiring 2 L of oxygen, down from 5 L, wean as tolerated
She does not wear oxygen at home
# Acute on chronic mixed systolic and diastolic heart failure
#Moderate to severe mitral regurgitation
Patient's torsemide was recently increased from 20 mg twice daily to 30 mg twice daily prior to admission
IV fluids discontinued 02/18
02/21 echo reviewed
Increased Lasix to 80 mg IV twice daily on 02/20, add metolazine 5 mg x 1 today, compression therapy ordered
Weights are not accurate secondary to room change 02/21
Cardiology following, trend creatinine, trend daily weights
#Hypokalemia
Replete, recheck a.m. labs
#Pulmonary hypertension
#Moderate to severe tricuspid regurgitation
Continue sildenafil 20 mg every 8 hours when able. Will only hold if SBP is less than 90
#Suspected pneumonia
Afebrile, no leukocytosis upon admission
COVID-negative. Influenza negative. Urine Legionella and strep antigens negative
Appreciate pulmonology input, status post IV Unasyn. Pulm signed off
Cleared by SPL for regular diet with thin liquids
#History of asthma with increased wheezing
Appreciate pulmonology input, wheezing could be related to asthma versus cardiac asthma due to volume overload
PFT in 05/2023 suggestive of mild obstruction with bronchodilator responsiveness
Status post IV and po steroids
#Acute toxic metabolic encephalopathy
Multifactorial. Sepsis ruled out.
VBG pCO2 52
Appreciate GI input, no contraindication to Dobbhoff tube placement for her history of scleroderma
Cleared by SPL for regular diet with thin liquids, which she has been tolerating
#History of Parkinson's disease
Appreciate neurology input, continue Sinemet
Resumed gabapentin as per family request
#Paroxysmal atrial fibrillation -currently sinus rhythm
- Continue Amio 200 mg daily, metoprolol succ 12.5 mg p.o. daily
� Continue Eliquis 5 mg twice daily
#Stage III CKD
Renally dose medications, trend creatinine
#Stage 1 bilateral buttocks pressure injury, POA
Wound care, off loading
DVT prophylaxis�on apixaban
DNR
Dispo: Return to [facility]
Updated son on phone 02/21
Total time spent to see the patient on the floor, examine the patient, review data and lab results, discuss treatment plan with patient, nursing staff around 40 minutes.
Physical Exam
General: No acute distress
HEENT: Normocephalic, Atraumatic, EOMI, MMM
Excessive drooling noted
Respiratory: Coarse breath sounds with scattered wheezing
Cardiac: Normal S1/S2, Regular Rate and Rhythm
GI: Soft, Nontender, Nondistended, Normal Bowel Sounds
Extremities: No Clubbing, Cyanosis
Bilateral lower extremity edema noted, improved from prior
Neuro: Alert and awake
Anticipated Discharge: 24 - 48 hours
Subjective/Interval History
-
Date of Service: February 22, 2025
Patient denies shortness of breath, denies chest pain. She does have a cough. No fever, no vomiting.
Objective Data
-
Labs:
Laboratory Results
02/22/25
06:21
WBC 7.1
Hgb 9.5 L
Hct 30.9 L
Plt Count 153
Sodium 141
Potassium 3.3 L
Chloride 99
Carbon Dioxide 36 H
BUN 31 H
Creatinine 1.1 H
Glucose 86
Calcium 8.6
Vital Signs:
Vital Signs
Temp Pulse Resp BP Pulse Ox
97.5 F 64 18 153/76 95
02/22/25 07:52 02/22/25 07:52 02/22/25 07:52 02/22/25 07:52 02/22/25 07:52
I&O
02/21/25 02/22/25 02/23/25
06:59 06:59 06:59
Intake Total 240 / 240 1160 / 1160
Output Total 700 / 700
Balance 240 / 240 460 / 460
[2025-02-22] MEDS: SINEMET CR 50/200 (EXTENDED RELEASE) 1 TABLET PO ×2 (09:12→20:41)
[2025-02-22] MEDS: ELIQUIS 5 MG PO ×2 (09:12→20:41)
[2025-02-22] MEDS: PROTONIX 40 MG PO (09:12)
[2025-02-22] MEDS: PACERONE 200 MG PO (09:12)
[2025-02-22] MEDS: LASIX 80 MG IV ×2 (09:13→16:47)
[2025-02-22] MEDS: FLUSH (NSS) 1 FLUSH IV (09:15)
[2025-02-22] MEDS: REVATIO 20 MG PO ×3 (09:18→21:22)
[2025-02-22] MEDS: CELEXA 20 MG PO (09:18)
[2025-02-22] MEDS: TOPROL XL 12.5 MG PO (09:19)
[2025-02-22] MEDS: KCL 40 MEQ PO ×2 (10:55→16:46)
--- NOTE | 2025-02-22 14:57 | W.PN.CARDCBS ---
Addendum entered and electronically signed by Atul Stewart MD 02/22/25 16:01:
Patient seen and examined
Agree with MARC Weller's note and assessment
Agree with MARC Weller's plan
Exam:
In no acute distress
Alert and x 3
Nonfocal neurologically
Cor regular no murmurs rubs or gallops
Lungs are diminished but clear
Abdomen soft nontender positive bowel sounds no extremity Mariajose
Remainder as per MARC Weller's note assessment
Assessment:
Presentation with SOB
Acute hypoxic respiratory failure
PNA, with elevated procalcitonin
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
Paroxysmal atrial fibrillation
Anticoagulation with eliquis
Cardiomyopathy, EF 30-35% by echo 11/2024, suspected tachy mediated, normalized by echo 02/21/25
Severe TR/Pulm HTN, on revatio
Severe status post TAVR 2020
Chronic left bundle branch block
Presumed CAD with NSTEMI, peak trop 1.7 11/2024, conservatively managed
CKD stage III
Hypertension
Hyperlipidemia
Parkinson's disease
Hypothyroidism
GERD
Obesity
Echo 07/13/2024: EF 60 to 65%, moderate concentric LVH, dense posterior MAC, mild to moderate MS, moderate to severe MR with peak/mean gradients 18/7 mmHg, #26 Bocnaegra AMINA TAVR with peak/mean gradient 17/9 mmHg
Echo 11/14/2024: Definity used, EF 35 to 40%, global hypokinesis, moderate to severe MR, moderate TR with moderate pulmonary hypertension, PASP 58 mmHg, status post TAVR Bocanegra valve, stable and well-seated
Echo 11/29/2024: EF 40%, mild concentric LVH, mild global hypokinesis, paradoxical septal motion, status post TAVR with peak/mean gradient 16/9 mmHg, dense MAC with peak/mean gradients across the mitral valve of 16/9 mmHg, moderate to severe MR,
moderate to severe TR, estimated PAP 79 mmHg
ECHO 02/21/25: Technically difficult study, EF 55 to 60%, mild concentric LVH, paradoxical septal wall motion, well-seated 26 mm Bocanegra AMINA transcatheter aortic valve, no AR, dense MAC
Plan:
- Patient presented with shortness of breath and hypoxia. Being treated for healthcare acquired pneumonia with elevated procalcitonin on arrival. COVID and flu negative.
- continue IV lasix 80mg BID. suspect weight today inaccurate as bed scale, recommend weighing via standing scale as able
- Cr continues to improve, 1.1 on 02/22
- wean supp O2 as able
- Echo 02/21 TDS, with normalization of EF, and stable well-seated TAVR
- Would hold off on due to multiple UTIs in the past
- In sinus rhythm with PVCs on review of telemetry. Continue low-dose Toprol, amiodarone, Eliquis
- Remains on Revatio for pulmonary hypertension
- PT/OT
- will arrange OP cardiac follow up
Original Note:
Today's Communication / Plan
-
wean supp O2
continue IV lasix
Impression / Plan
-
Primary Director Banking: Dr. Dawn
Assessment:
Presentation with SOB
Acute hypoxic respiratory failure
PNA, with elevated procalcitonin
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
Paroxysmal atrial fibrillation
Anticoagulation with eliquis
Cardiomyopathy, EF 30-35% by echo 11/2024, suspected tachy mediated, normalized by echo 02/21/25
Severe TR/Pulm HTN, on revatio
Severe status post TAVR 2020
Chronic left bundle branch block
Presumed CAD with NSTEMI, peak trop 1.7 11/2024, conservatively managed
CKD stage III
Hypertension
Hyperlipidemia
Parkinson's disease
Hypothyroidism
GERD
Obesity
Echo 07/13/2024: EF 60 to 65%, moderate concentric LVH, dense posterior MAC, mild to moderate MS, moderate to severe MR with peak/mean gradients 18/7 mmHg, #26 Bocanegra AMINA TAVR with peak/mean gradient 17/9 mmHg
Echo 11/14/2024: Definity used, EF 35 to 40%, global hypokinesis, moderate to severe MR, moderate TR with moderate pulmonary hypertension, PASP 58 mmHg, status post TAVR Bocanegra valve, stable and well-seated
Echo 11/29/2024: EF 40%, mild concentric LVH, mild global hypokinesis, paradoxical septal motion, status post TAVR with peak/mean gradient 16/9 mmHg, dense MAC with peak/mean gradients across the mitral valve of 16/9 mmHg, moderate to severe MR,
moderate to severe TR, estimated PAP 79 mmHg
ECHO 02/21/25: Technically difficult study, EF 55 to 60%, mild concentric LVH, paradoxical septal wall motion, well-seated 26 mm Bocanegra AMINA transcatheter aortic valve, no AR, dense MAC
Plan:
- Patient presented with shortness of breath and hypoxia. Being treated for healthcare acquired pneumonia with elevated procalcitonin on arrival. COVID and flu negative.
- continue IV lasix 80mg BID. suspect weight today inaccurate as bed scale, recommend weighing via standing scale as able
- Cr continues to improve, 1.1 on 02/22
- wean supp O2 as able
- Echo 02/21 TDS, with normalization of EF, and stable well-seated TAVR
- Would hold off on Farxiga due to multiple UTIs in the past
- In sinus rhythm with PVCs on review of telemetry. Continue low-dose Toprol, amiodarone, Eliquis
- Remains on Revatio for pulmonary hypertension
- PT/OT
- will arrange OP cardiac follow up
Progress Note - Director Banking
Subjective
Date of Service: February 22, 2025
Reports significant urine output with IV Lasix. No chest pain
Objective
Labs:
02/22/25 06:21
02/22/25 06:21
Labs
Hgb 9.5 g/dL (12.0-16.0) L 02/22/25 06:21
Hct 30.9 % (37.0-47.0) L 02/22/25 06:21
Plt Count 153 10^3/uL (130-400) 02/22/25 06:21
Sodium 141 mmol/L (135-145) 02/22/25 06:21
Potassium 3.3 mmol/L (3.5-5.1) L 02/22/25 06:21
BUN 31 mg/dl (7-17) H 02/22/25 06:21
Creatinine 1.1 mg/dL (0.6-1.0) H 02/22/25 06:21
Glucose 86 mg/dl (70-99) 02/22/25 06:21
Vital Signs and I&O:
Vital Signs
Temp Pulse Resp BP Pulse Ox
97.6 F 70 16 115/53 94
02/22/25 11:05 02/22/25 11:23 02/22/25 11:23 02/22/25 11:05 02/22/25 11:23
Vital Signs
Temp Pulse Resp BP Pulse Ox
97.6 F 70 16 115/53 94
02/22/25 11:05 02/22/25 11:23 02/22/25 11:23 02/22/25 11:05 02/22/25 11:23
Intake & Output
02/20/25 02/21/25 02/22/25 02/23/25
07:59 07:59 07:59 07:59
Intake Total 920 / 920 1160 / 1160
Output Total 700 / 700
Balance 920 / 920 460 / 460
Physical Exam
Physical Exam
GEN: No distress, awake, alert, oriented x3. sitting in chair. on supp O2
HEENT: supple, anicteric, mmm, eomi
LUNGS: Few crackles B/L bases, no wheezes
CV: Reg, S1/S2, / syst LSB
ABD: soft, BS+, NT/ND
EXT: No cyanosis, clubbing. 1+ edema of B/L LE with tubigrip stockings in place
NEURO: Gross non-focal
SKIN: Warm, pink, dry. No rash
[2025-02-22] MEDS: ZAROXOLYN 5 MG PO (15:36)
--- NOTE | 2025-02-22 15:55 | CM ---
Chart reviewed. Per hospitalist, plan for d/c on Tuesday.
Patient is LTC at [facility] but will require skilled rehab upon return
Updated [facility] director. CM to call desk director, ask for nursing shell shop supervisor regarding discharge -[phone]
Updated son via phone. IMM verbally reviewed, copy on chart
Ambulance transport, forms on chart
[facility]
Report: [phone]

Plan: D/c to [facility], likely Tuesday
[2025-02-22] MEDS: TYLENOL 650 MG PO (20:44)
[2025-02-22] MEDS: LIPITOR 10 MG PO (21:22)
[2025-02-22] MEDS: NEURONTIN 200 MG PO (21:22)
[2025-02-22] MEDS: SINGULAIR 10 MG PO (21:23)
[2025-02-23 03:41] VITALS: BP 135/60
[2025-02-23] MEDS: SYNTHROID 50 MCG PO (05:17)
[2025-02-23 06:00] VITALS: BMI 38.8
[2025-02-23 07:07] LABS: Hematocrit 30.3 % (37.0-47.0); Hemoglobin 9.5 g/dL (12.0-16.0); Mean Corp Hgb Conc. 31.4 g/dL (33.0-37.0); Mean Corpuscular Volume 93.8 fL (81.0-99.0); Platelet Count 155 10^3/uL (130-400); Red Cell Dist. Width 17.1 % (11.5-14.5)
[2025-02-23 07:22] LABS: Blood Urea Nitrogen 32 mg/dl (7-17); Calcium 8.7 mg/dl (8.4-10.2); Chloride 97 mmol/L (98-107); Estimated Creatinine Clearance 38 ml/min; Glucose 87 mg/dl (70-99); Magnesium 2.3 mg/dl (1.6-2.3); Potassium 3.6 mmol/L (3.5-5.1); Sodium 140 mmol/L (135-145); eGFR 45.19
[2025-02-23] MEDS: DUONEB 3 ML INH ×4 (07:23→19:27)
[2025-02-23 07:26] VITALS: BP 133/58
[2025-02-23] MEDS: PROTONIX 40 MG PO (07:56)
[2025-02-23] MEDS: TOPROL XL 12.5 MG PO (07:56)
[2025-02-23] MEDS: CELEXA 20 MG PO (07:57)
[2025-02-23] MEDS: REVATIO 20 MG PO ×3 (07:57→21:24)
[2025-02-23] MEDS: SINEMET CR 50/200 (EXTENDED RELEASE) 1 TABLET PO ×2 (07:57→21:24)
[2025-02-23] MEDS: LASIX 80 MG IV (07:57)
[2025-02-23] MEDS: ELIQUIS 5 MG PO ×2 (07:57→21:24)
[2025-02-23] MEDS: PACERONE 200 MG PO (07:57)
[2025-02-23 08:41] LABS: Carbon Dioxide 38 mmol/L (22-30)
--- NOTE | 2025-02-23 08:53 | W.PN.HOSP.TC ---
Today's Communication/Plan
-
Transition to oral torsemide as per cardiology
Assessment / Plan
Assessment / Plan
HPI: 84-year-old with reports past medical history significant for COPD, hypertension, CHF, hypothyroid, paroxysmal atrial fibrillation, pulmonary hypertension, Parkinson disease, recent NSTEMI medically managed presenting to the emergency
department with cough and shortness of breath. It appears her diuretic regimen was increased just recently to torsemide 30 mg twice daily. X-ray shows increased patchy opacities on the right upper and lower lobes, no pleural effusion, she has
stable lower extremity edema, and BNP is decreased compared to prior. Troponin is negative. ECG shows a sinus rhythm with 4 degree AV block and left bundle branch block which is similar to prior. Overall picture is consistent with right-sided
pneumonia, no history of aspiration. Patient with significant wheezing and has a history of COPD and cannot rule out a COPD exacerbation at this time. She seems to be euvolemic at this time.
Assessment/plan:
#Acute on chronic hypoxic respiratory failure
Due CHF exacerbation
Currently requiring 2 L of oxygen, down from 5 L, wean as tolerated
She does not wear oxygen at home
# Acute on chronic mixed systolic and diastolic heart failure
#Moderate to severe mitral regurgitation
Patient's torsemide was recently increased from 20 mg twice daily to 30 mg twice daily prior to admission
IV fluids discontinued 02/18
02/21 echo reviewed
Increased Lasix to 80 mg IV twice daily on 02/20, added metolazine 5 mg x 2 days, compression therapy ordered
Weights are not accurate secondary to room change 02/21
Patient is hypercapnic today, ABG showed pH of 7.48, pCO2 49, PaO2 55
Cardiology transitioning patient to oral torsemide due to hypercapnia
#Hypokalemia
Repleted and resolved
#Pulmonary hypertension
#Moderate to severe tricuspid regurgitation
Continue sildenafil 20 mg every 8 hours when able. Will only hold if SBP is less than 90
#Suspected pneumonia
Afebrile, no leukocytosis upon admission
COVID-negative. Influenza negative. Urine Legionella and strep antigens negative
Appreciate pulmonology input, status post IV Unasyn. Pulm signed off
Cleared by [facility] for regular diet with thin liquids
#History of asthma with increased wheezing
Appreciate pulmonology input, wheezing could be related to asthma versus cardiac asthma due to volume overload
PFT in 05/2023 suggestive of mild obstruction with bronchodilator responsiveness
Status post IV and po steroids
#Acute toxic metabolic encephalopathy
Multifactorial. Sepsis ruled out.
VBG pCO2 52
Appreciate GI input, no contraindication to Dobbhoff tube placement for her history of scleroderma
Cleared by [facility] for regular diet with thin liquids, which she has been tolerating
#History of Parkinson's disease
Appreciate neurology input, continue Sinemet
Resumed gabapentin as per family request
#Paroxysmal atrial fibrillation -currently sinus rhythm
- Continue Amio 200 mg daily, metoprolol succ 12.5 mg p.o. daily
� Continue Eliquis 5 mg twice daily
#Stage III CKD
Renally dose medications, trend creatinine
#Stage 1 bilateral buttocks pressure injury, POA
Wound care, off loading
DVT prophylaxis�on apixaban
DNR
Dispo: Return to [facility]
Updated son on phone 02/21
Total time spent to see the patient on the floor, examine the patient, review data and lab results, discuss treatment plan with patient, nursing staff around 51 minutes.
Physical Exam
General: No acute distress
HEENT: Normocephalic, Atraumatic, EOMI, MMM
Excessive drooling noted
Respiratory: Coarse breath sounds with scattered wheezing
Cardiac: Normal S1/S2, Regular Rate and Rhythm
GI: Soft, Nontender, Nondistended, Normal Bowel Sounds
Extremities: No Clubbing, Cyanosis
Bilateral lower extremity edema noted, improved from prior
Neuro: Alert and awake
Anticipated Discharge: 24 - 48 hours
Subjective/Interval History
-
Date of Service: February 23, 2025
Patient denies shortness of breath, denies chest pain. She does continue to have a cough, which is improved. No fever, no vomiting.
Objective Data
-
Labs:
Laboratory Results
02/23/25
06:25
WBC 6.2
Hgb 9.5 L
Hct 30.3 L
Plt Count 155
Sodium 140
Potassium 3.6
Chloride 97 L
Carbon Dioxide 38 H
BUN 32 H
Creatinine 1.2 H
Glucose 87
Calcium 8.7
Vital Signs:
Vital Signs
Temp Pulse Resp BP Pulse Ox
97.5 F 66 18 133/58 96
02/23/25 07:26 02/23/25 07:26 02/23/25 07:26 02/23/25 07:26 02/23/25 07:25
I&O
02/22/25 02/23/25 02/24/25
06:59 06:59 06:59
Intake Total 1160 / 1160 930 / 930
Output Total 700 / 700
Balance 460 / 460 930 / 930
[2025-02-23] MEDS: KCL 40 MEQ PO ×2 (09:32→16:00)
[2025-02-23 11:40] VITALS: BP 108/51
[2025-02-23 13:55] LABS: B.E. 11.5 mmol/L; HCO3 36.5 mmol/L (21-28); O2 Saturation % 89.3 % (94-98); PCO2 49 mmHg (32-35)
[2025-02-23 14:12] LABS: PO2 55 mmHg (83-108)
[2025-02-23 15:03] VITALS: BP 107/52
--- NOTE | 2025-02-23 15:30 | W.PN.CARDCBS ---
Today's Communication / Plan
-
Transition diuretics to oral
Discharge planning
Impression / Plan
-
Primary Public Health Training Assistant: Dr. Dawn
Assessment:
Presentation with SOB
Acute hypoxic respiratory failure
PNA, with elevated procalcitonin
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
Paroxysmal atrial fibrillation
Anticoagulation with eliquis
Cardiomyopathy, EF 30-35% by echo 11/2024, suspected tachy mediated, normalized by echo 02/21/25
Severe TR/Pulm HTN, on revatio
Severe status post TAVR 2020
Chronic left bundle branch block
Presumed CAD with NSTEMI, peak trop 1.7 11/2024, conservatively managed
CKD stage III
Hypertension
Hyperlipidemia
Parkinson's disease
Hypothyroidism
GERD
Obesity
Echo 07/13/2024: EF 60 to 65%, moderate concentric LVH, dense posterior MAC, mild to moderate MS, moderate to severe MR with peak/mean gradients 18/7 mmHg, #26 B[place]ra AMINA TAVR with peak/mean gradient 17/9 mmHg
Echo 11/14/2024: Definity used, EF 35 to 40%, global hypokinesis, moderate to severe MR, moderate TR with moderate pulmonary hypertension, PASP 58 mmHg, status post TAVR [place]ra valve, stable and well-seated
Echo 11/29/2024: EF 40%, mild concentric LVH, mild global hypokinesis, paradoxical septal motion, status post TAVR with peak/mean gradient 16/9 mmHg, dense MAC with peak/mean gradients across the mitral valve of 16/9 mmHg, moderate to severe MR,
moderate to severe TR, estimated PAP 79 mmHg
ECHO 02/21/25: Technically difficult study, EF 55 to 60%, mild concentric LVH, paradoxical septal wall motion, well-seated 26 mm B[place]ra AMINA transcatheter aortic valve, no AR, dense MAC
Plan:
Acute hypoxic respiratory distress with healthcare acquired pneumonia on admission and concomitant acute on chronic HFmEF
-Per chart, 10 pound weight loss on IV Lasix now with contraction alkalosis
-Will stop further IV Lasix and transition back to patient's outpatient Demadex
-Will repeat proBNP
- Continue to monitor labs for electrolytes and creatinine
-Valvular heart disease with at least moderate mitral stenosis and moderate to severe mitral regurgitation with moderate to severe tricuspid regurgitation and pulmonary hypertension on most recent echocardiogram
-Remains on provide echo per her outpatient line runner for pulmonary hypertension
- Goal-directed medical therapy has been difficult. Could consider SGLT2 inhibitor but reported has history of multiple UTIs in the past.
History of PAF currently in sinus rhythm
-Continue amiodarone and metoprolol
-Continue Eliquis anticoagulation
DNR status noted
PT/OT
Discharge planning
Progress Note - Public Health Training Assistant
Subjective
Date of Service: February 23, 2025
Patient was seen and examined. Sitting out of bed to chair and anxious to return home. Offers no complaints.
Objective
Labs:
02/23/25 06:25
02/23/25 06:25
Labs
Hgb 9.5 g/dL (12.0-16.0) L 02/23/25 06:25
Hct 30.3 % (37.0-47.0) L 02/23/25 06:25
Plt Count 155 10^3/uL (130-400) 02/23/25 06:25
Sodium 140 mmol/L (135-145) 02/23/25 06:25
Potassium 3.6 mmol/L (3.5-5.1) 02/23/25 06:25
BUN 32 mg/dl (7-17) H 02/23/25 06:25
Creatinine 1.2 mg/dL (0.6-1.0) H 02/23/25 06:25
Glucose 87 mg/dl (70-99) 02/23/25 06:25
Vital Signs and I&O:
Vital Signs
Temp Pulse Resp BP Pulse Ox
98.0 F 80 16 108/51 100
02/23/25 11:40 02/23/25 15:20 02/23/25 15:20 02/23/25 11:40 02/23/25 15:20
Vital Signs
Temp Pulse Resp BP Pulse Ox
98.0 F 80 16 108/51 100
02/23/25 11:40 02/23/25 15:20 02/23/25 15:20 02/23/25 11:40 02/23/25 15:20
Intake & Output
02/21/25 02/22/25 02/23/25 02/24/25
06:59 06:59 06:59 06:59
Intake Total 240 / 240 1160 / 1160 930 / 930
Output Total 700 / 700
Balance 240 / 240 460 / 460 930 / 930
Physical Exam
Physical Exam
GEN: No distress, awake, alert, oriented x3. sitting in chair. on supp O2, which she has currently taken off
HEENT: mmm
LUNGS: Few crackles B/L bases, no wheezes
CV: Reg, S1/S2, 2/6 syst LSB
ABD: soft, BS+, NT/ND
EXT:trace edema of B/L LE with tubigrip stockings in place
[2025-02-23] MEDS: DEMADEX 20 MG PO (16:00)
[2025-02-23 19:52] VITALS: BP 124/53
[2025-02-23] MEDS: NEURONTIN 200 MG PO (21:24)
[2025-02-23] MEDS: LIPITOR 10 MG PO (21:25)
[2025-02-23] MEDS: SINGULAIR 10 MG PO (21:25)
[2025-02-23] MEDS: TYLENOL 650 MG PO (21:26)
[2025-02-23 23:57] VITALS: BP 118/54
[2025-02-24 03:46] VITALS: BP 127/63
[2025-02-24] MEDS: SYNTHROID 50 MCG PO (05:43)
[2025-02-24 06:00] VITALS: BMI 38.4
[2025-02-24 07:00] VITALS: BP 123/55
[2025-02-24 07:15] LABS: Blood Urea Nitrogen 32 mg/dl (7-17); Calcium 8.4 mg/dl (8.4-10.2); Chloride 94 mmol/L (98-107); Estimated Creatinine Clearance 34 ml/min; Glucose 92 mg/dl (70-99); Potassium 3.7 mmol/L (3.5-5.1); Sodium 135 mmol/L (135-145); eGFR 41.06
[2025-02-24] MEDS: DUONEB 3 ML INH ×3 (07:30→14:53)
[2025-02-24] MEDS: PACERONE 200 MG PO (07:43)
[2025-02-24] MEDS: REVATIO 20 MG PO (07:43)
[2025-02-24] MEDS: ELIQUIS 5 MG PO (07:43)
[2025-02-24] MEDS: DEMADEX 20 MG PO (07:43)
[2025-02-24] MEDS: CELEXA 20 MG PO (07:43)
[2025-02-24] MEDS: SINEMET CR 50/200 (EXTENDED RELEASE) 1 TABLET PO (07:43)
[2025-02-24] MEDS: PROTONIX 40 MG PO (07:44)
[2025-02-24] MEDS: TOPROL XL 12.5 MG PO (07:44)
--- NOTE | 2025-02-24 10:07 | W.PN.HOSP.TC ---
Addendum entered and electronically signed by Anjum Hester MD 02/24/25 16:00:
Patient has acute hypoxic respiratory failure, not chronic as she did not require oxygen prior to this admission.
Original Note:
Today's Communication/Plan
-
Discharge to [facility] today
Assessment / Plan
Assessment / Plan
HPI: 84-year-old with reports past medical history significant for COPD, hypertension, CHF, hypothyroid, paroxysmal atrial fibrillation, pulmonary hypertension, Parkinson disease, recent NSTEMI medically managed presenting to the emergency
department with cough and shortness of breath. It appears her diuretic regimen was increased just recently to torsemide 30 mg twice daily. X-ray shows increased patchy opacities on the right upper and lower lobes, no pleural effusion, she has
stable lower extremity edema, and BNP is decreased compared to prior. Troponin is negative. ECG shows a sinus rhythm with 4 degree AV block and left bundle branch block which is similar to prior. Overall picture is consistent with right-sided
pneumonia, no history of aspiration. Patient with significant wheezing and has a history of COPD and cannot rule out a COPD exacerbation at this time. She seems to be euvolemic at this time.
Assessment/plan:
#Acute on chronic hypoxic respiratory failure
Due CHF exacerbation
Currently requiring 2 L of oxygen, down from 5 L
Continue oxygen 2 L/min upon discharge
She does not wear oxygen at home
# Acute on chronic mixed systolic and diastolic heart failure
#Moderate to severe mitral regurgitation
Patient's torsemide was recently increased from 20 mg twice daily to 30 mg twice daily prior to admission
IV fluids discontinued 02/18
02/21 echo reviewed
Increased Lasix to 80 mg IV twice daily on 02/20, added metolazine 5 mg x 2 days, compression therapy ordered
Weights are not accurate secondary to room change 02/21
Patient is hypercapnic, ABG showed pH of 7.48, pCO2 49, PaO2 55
Cardiology transitioned patient to oral torsemide due to hypercapnia 02/23 PM
Cleared by cardiology for discharge on torsemide 20 mg twice a day, needs repeat BMP in 2 days on 02/26/2025
#Hypokalemia
Repleted and resolved
#Pulmonary hypertension
#Moderate to severe tricuspid regurgitation
Continue sildenafil 20 mg every 8 hours when able. Will only hold if SBP is less than 90
#Suspected pneumonia
Afebrile, no leukocytosis upon admission
COVID-negative. Influenza negative. Urine Legionella and strep antigens negative
Appreciate pulmonology input, status post IV Unasyn. Pulm signed off
Cleared by [facility] for regular diet with thin liquids
#History of asthma with increased wheezing
Appreciate pulmonology input, wheezing could be related to asthma versus cardiac asthma due to volume overload
PFT in 05/2023 suggestive of mild obstruction with bronchodilator responsiveness
Status post IV and po steroids
#Acute toxic metabolic encephalopathy
Multifactorial. Sepsis ruled out.
VBG pCO2 52
Appreciate GI input, no contraindication to Dobbhoff tube placement for her history of scleroderma
Cleared by [facility] for regular diet with thin liquids, which she has been tolerating
#History of Parkinson's disease
Appreciate neurology input, continue Sinemet
Resumed gabapentin as per family request
#Paroxysmal atrial fibrillation -currently sinus rhythm
- Continue Amio 200 mg daily, metoprolol succ 12.5 mg p.o. daily
� Continue Eliquis 5 mg twice daily
#Stage III CKD
Renally dose medications, trend creatinine
#Stage 1 bilateral buttocks pressure injury, POA
Wound care, off loading
DVT prophylaxis�on apixaban
DNR
Dispo: Return to [facility] [place]
Updated son on phone 02/22
Physical Exam
General: No acute distress
HEENT: Normocephalic, Atraumatic, EOMI, MMM
Respiratory: Clear to auscultation bilaterally
Cardiac: Normal S1/S2, Regular Rate and Rhythm
GI: Soft, Nontender, Nondistended, Normal Bowel Sounds
Extremities: No Clubbing, Cyanosis
Bilateral lower extremity edema noted, improved from prior
Neuro: Alert and awake
Anticipated Discharge: Today
Subjective/Interval History
-
Date of Service: February 24, 2025
Patient denies chest pain, denies shortness of breath. Her cough has resolved. She is eager for discharge today. No fever, no vomiting.
Objective Data
-
Labs:
Laboratory Results
02/24/25
06:32
Sodium 135
Potassium 3.7
Chloride 94 L
Carbon Dioxide Pending
BUN 32 H
Creatinine 1.3 H
Glucose 92
Calcium 8.4
Vital Signs:
Vital Signs
Temp Pulse Resp BP Pulse Ox
97.8 F 76 16 123/55 97
02/24/25 07:00 02/24/25 07:31 02/24/25 07:31 02/24/25 07:00 02/24/25 07:31
I&O
02/23/25 02/24/25 02/25/25
06:59 06:59 06:59
Intake Total 930 / 930 890 / 890
Balance 930 / 930 890 / 890
[2025-02-24 10:08] LABS: Carbon Dioxide 39 mmol/L (22-30)
[2025-02-24 11:21] VITALS: BP 120/59
--- NOTE | 2025-02-24 12:30 | CM ---
CM reviewed chart, reviewed with Hospitalist, patient for discharge today.
Update to Deloris, Care Management Assistant at [facility], scheduled for 3:30 p.m. ambulance transport.
CM spoke with patients son, Dilan, aware of d.c time. IMM verbally reviewed, provided with copy, placed in chart.
CM will continue to follow for all d.c needs.
Plan; return to [facility], 3:30 p.m. ambulance
[facility]
Report: [phone]
--- NOTE | 2025-02-24 13:17 | W.DCSUMMARY ---
Discharge Summary
Discharge Data
Date of Admission: 02/18/25
Date of Discharge: 02/24/25
-
Pending Results: No
Hospital Course
Discharge diagnosis:
Acute hypoxic respiratory failure
Acute on chronic mixed systolic and diastolic heart failure
Hypokalemia
Pulmonary hypertension
Moderate to severe tricuspid regurgitation
Suspected pneumonia
Acute toxic metabolic encephalopathy
History of asthma with increased wheezing
Stage 1 bilateral buttocks pressure injury, present upon admission
Chronic diagnosis:
Parkinson's disease
Paroxysmal atrial fibrillation
Stage III chronic kidney disease
Consults: Pulmonology, cardiology, neurology, GI
CXR:Vascular congestion and interstitial edema. As above, small apparent area of abnormal airspace opacity over the right upper lung which could be related to alveolar edema or possibly pneumonia. Follow-up examination with PA and lateral
projections may be helpful in further evaluation.
Hospital course:
84-year-old female with a past medical history of hypertension, CHF, hypothyroidism, paroxysmal atrial fibrillation, pulmonary hypertension, Parkinson disease, and recent NSTEMI medically managed who was admitted for acute hypoxic respiratory
failure secondary to acute on chronic systolic and diastolic heart failure as well as altered mental status. Patient was seen in conjunction with cardiology, and diuresed with IV Lasix.
Patient's altered mental status is likely multifactorial in etiology, from her Parkinson's disease, taking gabapentin, and her respiratory failure. Her gabapentin was held. By the following day, she was awake, and alert. Per family request, she
was resumed on gabapentin, at a lower dose of 200 mg at bedtime, versus 400 mg at bedtime. She tolerated the lower dose well.
Patient was seen in conjunction with pulmonology for her wheezing. Pulmonology states she has asthma with increased wheezing, which is suspected from CHF exacerbation. She did receive a short course of IV/p.o. steroids. She is continued on
bronchodilators.
There was suspicion for aspiration pneumonia due to patient's altered mental status and increased drooling. She did receive 4 days of IV antibiotics.
Despite high IV Lasix dose, patient did not diurese well. She did have metolazone 5 mg before her Lasix dose for 2 days. This augmented her diuresis. Patient initially required 5 L of oxygen. She was weaned down to 2-3 L of oxygen, which is a
new requirement for her. She is still fluid overloaded. Her CO2 trended up to 39, and her pH was 7.48. Therefore, cardiology transitioned her from IV Lasix to oral torsemide. She requested discharge. She cleared by cardiology for discharge on
torsemide 20 mg twice a day. Cardiology recommends repeat BMP in 2 days on 02/26/2025. She needs to follow-up with her PCP in 1 week, and cardiology/pulmonology as directed.
Disposition: [facility]
Discharge planning: Required 41 minutes
Discharge Plan
-
Patient Disposition: Group Home/SNF
Discharge Diagnosis/Procedures: Acute hypoxic respiratory insufficiency, congestive heart failure exacerbation, altered mental status, Parkinson's disease
Condition: Fair
Diet: 2 Gram Sodium and Restrict fluids to 48 oz
Activity: As tolerated
Driving Restrictions: No driving
Blood Work: BMP on 02/26/25
Specialty Instructions: Weigh Daily- Call MD for wt gain/loss 3 lbs overnight/5 lbs in 1 week
Instructions: *[facility] Heart Failure Instructions
Referrals:
Germania Coley PA-C [Specified Professional Personl, Cardiology] - 03/27/25 1:40 pm
Referral Note: You have a cardiology follow-up appointment at the [place] office with Dr. Dawn's physician funeral home assistant, Germania. Please call with questions
Loki Carrizales MD [Active, Pulmonary Medicine] - in three to four weeks
Alejandro Kevin DO [Family Provider, Internal Medicine] - in one week
Prescriptions:
New
gabapentin 100 mg Capsule
200 mg PO HS Qty: 0 0RF
Continued
levothyroxine 50 MCG tablet
50 mcg PO DAILY
pantoprazole 40 MG tablet,delayed release (DR/EC)
40 mg PO DAILY
citalopram 20 MG tablet
20 mg PO DAILY
atorvastatin 10 MG tablet
10 mg PO HS
carbidopa-levodopa 50-200 mg Tablet Extended Release
1 tab PO BID
montelukast 10 mg Tablet
10 mg PO HS
sildenafil (pulm.hypertension) 20 mg tablet
20 mg PO TID
Eliquis 5 mg Tablet
5 mg PO BID 30 Days Qty: 60 0RF
midodrine 5 mg Tablet
5 mg PO Q4HPRN PRN (Reason: SBP<100) Qty: 30 0RF
amiodarone 200 mg tablet
200 mg PO DAILY Qty: 30 0RF
torsemide 20 mg tablet
20 mg PO BID Qty: 30 0RF
acetaminophen [Tylenol] 325 mg Tablet
650 mg PO Q6HPRN PRN (Reason: MILD PAIN)
magnesium hydroxide [Milk of Magnesia] 400 mg/5 mL Suspension
2,400 mg PO [id number] PRN (Reason: CONSTIPATION)
bisacodyl [Dulcolax (bisacodyl)] 10 mg Suppository
10 mg NH DAILYPRN PRN (Reason: IF NO BM AFTR MOM)
metoprolol succinate 25 mg Tablet Extended Release 24 Hr
12.5 mg PO DAILY Qty: 30 0RF
Rx Instructions:
HOLD THE DOSE IF SBP < 100 or HR < 60
metolazone 2.5 mg Tablet
2.5 mg PO TuTh Qty: 30 0RF
Changed
potassium chloride 20 mEq Tablet,Er Particles/Crystals
40 meq PO DAILY Qty: 60 0RF
Discontinued
gabapentin 400 mg Tablet
400 mg PO HS
amlodipine 2.5 mg Tablet
2.5 mg PO DAILY Qty: 30 0RF
Rx Instructions:
HOLD DOSE IF SBP < 90
Discharge Orders:
Discharge Patient (As Directed); Ordered 02/24/25
Ordered By: Anjum Hester
Discharge Date and Time
Print Language: KHMER
[2025-02-24 14:30] VITALS: BP 133/58
--- NOTE | 2025-02-24 15:39 | PTCARENOTE ---
Attempted to call report twice to Ivel[facility] Pinedo and no answer. Will try again and wait for their call if the call regarding the pt.
== END 2025-02-24 16:00 | DRG 291 ==
LOC: 4 WEST ACU 04:27
PROVIDERS: Registered Nurse; Student in an Organized Health Care Education/Training Program; ADMITTING PHYSICIAN Internal Medicine; ATTENDING PHYSICIAN Family Medicine; CONSULT PHYSICIAN Internal Medicine Cardiovascular Disease; CONSULT PHYSICIAN Internal Medicine Gastroenterology; CONSULT PHYSICIAN Psychiatry & Neurology Neurology; EMERGENCY PHYSICIAN Emergency Medicine; FAMILY PHYSICIAN Internal Medicine; OTHER PHYSICIAN Internal Medicine
DX: I13.0 Hypertensive heart and chronic kidney disease with heart failure and stage 1 through stage 4 chronic kidney disease, or unspecified chronic kidney disease (principal); G92.8 Other toxic encephalopathy; J96.01 Acute respiratory failure with hypoxia; I50.43 Acute on chronic combined systolic (congestive) and diastolic (congestive) heart failure; J18.9 Pneumonia, unspecified organism; J44.0 Chronic obstructive pulmonary disease with (acute) lower respiratory infection; F02.84 Dementia in other diseases classified elsewhere, unspecified severity, with anxiety; J44.1 Chronic obstructive pulmonary disease with (acute) exacerbation; I42.9 Cardiomyopathy, unspecified; E87.6 Hypokalemia; I27.20 Pulmonary hypertension, unspecified; I07.1 Rheumatic tricuspid insufficiency; G20.A1 Parkinson's disease without dyskinesia, without mention of fluctuations; I48.0 Paroxysmal atrial fibrillation; L89.311 Pressure ulcer of right buttock, stage 1; L89.321 Pressure ulcer of left buttock, stage 1; Z79.890 Hormone replacement therapy; I25.2 Old myocardial infarction; E03.9 Hypothyroidism, unspecified; N18.30 Chronic kidney disease, stage 3 unspecified; Z96.653 Presence of artificial knee joint, bilateral; Z96.611 Presence of right artificial shoulder joint; Z88.8 Allergy status to other drugs, medicaments and biological substances; Z88.2 Allergy status to sulfonamides; Z79.01 Long term (current) use of anticoagulants; Z79.899 Other long term (current) drug therapy; I44.7 Left bundle-branch block, unspecified; I34.0 Nonrheumatic mitral (valve) insufficiency; Z66 Do not resuscitate; K21.9 Gastro-esophageal reflux disease without esophagitis; E66.9 Obesity, unspecified; Z68.38 Body mass index [BMI] 38.0-38.9, adult; Z87.891 Personal history of nicotine dependence; E78.00 Pure hypercholesterolemia, unspecified; I49.3 Ventricular premature depolarization; I73.00 Raynaud's syndrome without gangrene; K57.30 Diverticulosis of large intestine without perforation or abscess without bleeding; R13.10 Dysphagia, unspecified; Y95 Nosocomial condition; Z87.440 Personal history of urinary (tract) infections; Z95.3 Presence of xenogenic heart valve; Z11.52 Encounter for screening for COVID-19
CPT/HCPCS: 36600; 71045; 80048; 80053; 82805; 83605; 83735; 83880; 84145; 84484; 85025; 85027; 87070; 87449; 87502; 87811; 87899; 92526; 92610; 93005; 93308; 94640; 96375; 97110; 97116; 97163; 97167; 97530; 97535; 99291; Q9957

== ENCOUNTER → 2025-02-26 11:06 | Outpatient (REF) | payer MEDICARE, OTHER, SELFPAY ==
[2025-02-26 13:16] LABS: Blood Urea Nitrogen 29 mg/dl (7-17); Calcium 8.5 mg/dl (8.4-10.2); Chloride 90 mmol/L (98-107); Glucose 93 mg/dl (70-99); Potassium 3.1 mmol/L (3.5-5.1); Sodium 137 mmol/L (135-145); eGFR 41.06
[2025-02-26 13:36] LABS: Carbon Dioxide 41 mmol/L (22-30)
== END ==
LOC: OLABP 11:06
PROVIDERS: ATTENDING PHYSICIAN Internal Medicine
DX: I48.0 Paroxysmal atrial fibrillation (principal); J45.20 Mild intermittent asthma, uncomplicated; K21.9 Gastro-esophageal reflux disease without esophagitis; M34.9 Systemic sclerosis, unspecified; B96.20 Unspecified Escherichia coli [E. coli] as the cause of diseases classified elsewhere; B96.89 Other specified bacterial agents as the cause of diseases classified elsewhere; E44.0 Moderate protein-calorie malnutrition; E66.9 Obesity, unspecified; F32.A Depression, unspecified; N18.32 Chronic kidney disease, stage 3b; D64.9 Anemia, unspecified; E03.9 Hypothyroidism, unspecified; E78.5 Hyperlipidemia, unspecified; F03.90 Unspecified dementia, unspecified severity, without behavioral disturbance, psychotic disturbance, mood disturbance, and anxiety; G20.B1 Parkinson's disease with dyskinesia, without mention of fluctuations; I10 Essential (primary) hypertension; I27.20 Pulmonary hypertension, unspecified; I50.23 Acute on chronic systolic (congestive) heart failure; I20.0 Unstable angina; E87.6 Hypokalemia; R07.9 Chest pain, unspecified; N39.0 Urinary tract infection, site not specified
CPT/HCPCS: 36415; 80048

== ENCOUNTER → 2025-02-28 17:20 | Outpatient (REF) | payer MEDICARE, OTHER, SELFPAY ==
[2025-02-28 18:40] LABS: Urine Character Clear (Clear)
== END ==
LOC: OLABP 17:20
PROVIDERS: ATTENDING PHYSICIAN Internal Medicine
DX: N39.0 Urinary tract infection, site not specified (principal)
CPT/HCPCS: 81003; 87086

== ENCOUNTER → 2025-03-05 11:43 | Outpatient (REF) | payer MEDICARE, OTHER, SELFPAY ==
[2025-03-05 12:45] LABS: Hematocrit 28.8 % (37.0-47.0); Hemoglobin 9.3 g/dL (12.0-16.0); Mean Corp Hgb Conc. 32.3 g/dL (33.0-37.0); Mean Corpuscular Volume 89.7 fL (81.0-99.0); Platelet Count 191 10^3/uL (130-400); Red Cell Dist. Width 16.2 % (11.5-14.5)
[2025-03-05 13:10] LABS: ALT (SGPT) < 10 U/L (0-35); AST (SGOT) 18 U/L (14-36); Albumin 3.3 g/dl (3.5-5.0); Alkaline Phosphatase 99 U/L (38-126); Blood Urea Nitrogen 31 mg/dl (7-17); Calcium 9.1 mg/dl (8.4-10.2); Carbon Dioxide 30 mmol/L (22-30); Chloride 102 mmol/L (98-107); Glucose 91 mg/dl (70-99); Potassium 3.5 mmol/L (3.5-5.1); Sodium 137 mmol/L (135-145); Total Protein 6.1 g/dl (6.3-8.2); eGFR 37.56
== END ==
LOC: OLABP 11:43
PROVIDERS: ATTENDING PHYSICIAN Internal Medicine
DX: I48.0 Paroxysmal atrial fibrillation (principal); J45.20 Mild intermittent asthma, uncomplicated; K21.9 Gastro-esophageal reflux disease without esophagitis; B96.20 Unspecified Escherichia coli [E. coli] as the cause of diseases classified elsewhere; B96.89 Other specified bacterial agents as the cause of diseases classified elsewhere; E44.0 Moderate protein-calorie malnutrition; E66.9 Obesity, unspecified; F32.A Depression, unspecified; N18.32 Chronic kidney disease, stage 3b; I50.23 Acute on chronic systolic (congestive) heart failure; D64.9 Anemia, unspecified; I20.0 Unstable angina; E03.9 Hypothyroidism, unspecified; R07.9 Chest pain, unspecified; G20.B1 Parkinson's disease with dyskinesia, without mention of fluctuations; I10 Essential (primary) hypertension; I27.20 Pulmonary hypertension, unspecified
CPT/HCPCS: 36415; 80053; 85027

== ENCOUNTER → 2025-03-12 09:59 | Outpatient (REF) | payer OTHER, MEDICARE, SELFPAY ==
[2025-03-12 10:56] LABS: Hematocrit 28.2 % (37.0-47.0); Hemoglobin 8.9 g/dL (12.0-16.0); Mean Corp Hgb Conc. 31.6 g/dL (33.0-37.0); Mean Corpuscular Volume 95.9 fL (81.0-99.0); Nucleated Red Blood Cells % 0 %; Platelet Count 182 10^3/uL (130-400); Red Cell Dist. Width 16.4 % (11.5-14.5)
[2025-03-12 11:10] LABS: Blood Urea Nitrogen 41 mg/dl (7-17); Calcium 9.6 mg/dl (8.4-10.2); Chloride 93 mmol/L (98-107); Glucose 103 mg/dl (70-99); Potassium 3.9 mmol/L (3.5-5.1); Sodium 135 mmol/L (135-145); eGFR 29.76
[2025-03-12 11:38] LABS: Carbon Dioxide 37 mmol/L (22-30)
== END ==
LOC: OLABP 09:59
PROVIDERS: ATTENDING PHYSICIAN Internal Medicine
DX: I48.0 Paroxysmal atrial fibrillation (principal); J45.20 Mild intermittent asthma, uncomplicated; K21.9 Gastro-esophageal reflux disease without esophagitis; B96.20 Unspecified Escherichia coli [E. coli] as the cause of diseases classified elsewhere; B96.89 Other specified bacterial agents as the cause of diseases classified elsewhere; E44.0 Moderate protein-calorie malnutrition; E66.9 Obesity, unspecified; F32.A Depression, unspecified; N18.32 Chronic kidney disease, stage 3b; I50.23 Acute on chronic systolic (congestive) heart failure; D64.9 Anemia, unspecified
CPT/HCPCS: 36415; 80048; 85025

== ENCOUNTER → 2025-03-19 12:22 | Outpatient (REF) | payer OTHER, MEDICARE, SELFPAY ==
[2025-03-19 12:38] LABS: Hematocrit 30.0 % (37.0-47.0); Hemoglobin 9.2 g/dL (12.0-16.0); Mean Corp Hgb Conc. 30.7 g/dL (33.0-37.0); Mean Corpuscular Volume 94.6 fL (81.0-99.0); Nucleated Red Blood Cells % 0 %; Platelet Count 169 10^3/uL (130-400); Red Cell Dist. Width 16.4 % (11.5-14.5)
[2025-03-19 15:32] LABS: Blood Urea Nitrogen 51 mg/dl (7-17); Calcium 9.5 mg/dl (8.4-10.2); Chloride 90 mmol/L (98-107); Glucose 103 mg/dl (70-99); Potassium 3.2 mmol/L (3.5-5.1); Sodium 138 mmol/L (135-145); eGFR 29.76
[2025-03-19 16:24] LABS: Carbon Dioxide 43 mmol/L (22-30)
== END ==
LOC: OLABP 12:22
PROVIDERS: ATTENDING PHYSICIAN Internal Medicine
DX: I10 Essential (primary) hypertension (principal); N39.0 Urinary tract infection, site not specified; K21.9 Gastro-esophageal reflux disease without esophagitis; E44.0 Moderate protein-calorie malnutrition; F32.A Depression, unspecified
CPT/HCPCS: 36415; 80048; 85025